=== PATIENT | male | born 1935 | race Caucasian/White ===

== ENCOUNTER 2016-04-05 07:14 | Inpatient (IN) ==
--- NOTE | 2016-04-05 07:46 | Emergency Department Note ---
Disposition Clinical Impression: Congestive heart failure Qualifiers: Congestive heart failure type: unspecified congestive heart failure type Congestive heart failure chronicity: acute on chronic Qualified Code(s): I50.9 - Heart failure, unspecified Disposition: Admitted As Inpatient Condition: Fair Time of Disposition: 08:59 SOB HPI - General Chief Complaint: ED Shortness of Breath/Dyspnea Stated Complaint: SOB Time Seen by Provider: 04/05/16 07:31 Source: patient, family Limitations: no limitations Nursing Notes Reviewed: Yes Vital Signs Reviewed: Yes - History of Present Illness 80-year-old male presents emergency department for a chief complaint of shortness breath and cough. The patient states symptoms began 2 days ago and have progressively worsened since. He states that he is experiencing a cough that is occasionally productive of a scant amount of whitish colored sputum. He complains of shortness of breath upon exertion and at rest. He states that this shortness of breath is made worse by lying down. He denies any fever, complains of episodic chills. He denies any nausea, vomiting, abdominal pain, diarrhea. He denies any chest pain. He does complain of noticeable worsening of swelling in his left lower extremity. Of note, the patient is an above-the- knee right amputee. Pt Subjective Complaint: shortness of breath, cough Onset (ago): day(s) (since this past Wednesday) Severity: moderate Consistency/Duration: constant Improves with: nothing Worsens with: lying flat, exertion, movement Known history of: congestive heart failure, diabetes Associated symptoms: Reports: cough, wheezing, sputum production, orthopnea. Denies: chest pain, fever, lower extremity pain, hemoptysis, nausea/vomiting, abdominal pain Treatment prior to arrival: none Cough Description: Productive Sputum Amount: Scant Sputum Color: White - Related Data Home Medications Medication Instructions Recorded Confirmed Acetaminophen [Tylenol] 325 mg PO 05/26/15 Allopurinol [Zyloprim 300 MG] 300 mg PO 05/26/15 Aspirin [Adult Low Dose Aspirin EC] 81 mg PO 05/26/15 Atenolol [Tenormin] 12.5 mg PO DAILY 05/26/15 05/26/15 Atorvastatin [Lipitor] 10 mg PO HS 05/26/15 05/26/15 Carboxymethylcellulose Sodium 05/26/15 [Refresh Tears] Cyclobenzaprine [Flexeril] 10 mg PO 05/26/15 Furosemide [Lasix] 20 mg PO 05/26/15 Insulin ASPART [NovoLOG] 05/26/15 Insulin Glargine [Lantus] 0 unit 05/26/15 Levothyroxine [Synthroid] 100 mcg PO 05/26/15 Nitroglycerin [Nitrostat] 0.6 mg SL 05/26/15 Ranitidine HCl [Zantac] 150 mg PO 05/26/15 Tamsulosin [Flomax] 0.4 mg PO 05/26/15 Timolol [Betimol] 5 ml OP 05/26/15 Previous Rx's Medication Instructions Recorded TraMADol [Ultram] 50 mg PO QID PRN #16 tablet 05/26/15 Clindamycin HCl [Cleocin HCl] 300 mg PO TID 10 Days 09/18/15 Mupirocin [Bactroban Oint] 1 appl TP BID 14 Days 09/18/15 Allergies Allergy/AdvReac Type Severity Reaction Status Date / Time acetaminophen [From Percocet] Allergy Hives Verified 04/05/16 07:20 Oxycodone [From Percocet] Allergy Hives Verified 04/05/16 07:20 prednisone Allergy Rash Verified 04/05/16 07:20 All systems ED: reviewed and negative except as stated. Constitutional: Reports: as per HPI, chills. Denies: fever, weakness, weight change Cardiovascular: Reports: dyspnea on exertion. Denies: chest pain, palpitations , edema, syncope Respiratory: Reports: as per HPI, cough, dyspnea, wheezes, sputum production. Denies: hemoptysis, stridor Gastrointestinal: Denies: abdominal pain, nausea, vomiting, diarrhea, constipation, hematemesis, melena, hematochezia Genitourinary: Denies: urgency, dysuria, frequency, hematuria Musculoskeletal: Denies: back pain, neck pain, arthralgia, myalgia Integumentary: Denies: rash, abrasion, lesions Neurological: Denies: headache, weakness, numbness, paresthesias, confusion, abnormal gait, vertigo Psychiatric: Denies: anxiety, depression, suicidal thoughts, homicidal thoughts , auditory hallucinations, visual hallucinations Endocrine: Denies: fatigue Hematological/Lymphatic: Denies: easy bleeding, easy bruising Allergic/Immunologic: Denies: facial swelling, urticaria Past Medical History - Past Medical History Attestation: Yes The following information was validated with the patient. Source: patient Medical history: Reports: diabetes, GERD, hypertension, myocardial infarction, other Psychiatric history: Reports: anxiety - Social History Smoking Status: Never smoker Smokeless Tobacco Status: No Alcohol use: Reports: none Drug use: Reports: none Physical Exam - General Limitations: no limitations General appearance: alert, anxious - Head Head exam: atraumatic, normocephalic, normal inspection - Eye Eye exam: Present: normal appearance, PERRL, EOMI. Absent: nystagmus - ENT ENT exam: mucous membranes moist - Neck Neck exam: Present: normal inspection, full ROM, trachea midline - Chest Chest inspection: Present: normal inspection, symmetric chest wall rise - Respiratory Respiratory exam: Present: normal lung sounds bilaterally. Absent: respiratory distress, wheezes, stridor, accessory muscle use, prolonged expiratory phase - Cardiovascular Cardiovascular exam: Present: regular rate, normal rhythm, normal heart sounds - Abdominal Exam Abdominal exam: Present: soft, Non-Tender, normal bowel sounds. Absent: tenderness, distention, guarding, rebound, rigidity - Extremities Exam Extremities exam: Present: full ROM, pedal edema (2+ pitting edema noted to the left lower extremity, of note, the patient is a right [id number] amputee.). Absent: tenderness - Back Exam Back exam: Present: normal inspection, full ROM. Absent: tenderness - Neurological Exam Neurological exam: Present: alert, oriented X3 - Psychiatric Psychiatric exam: Present: normal affect, normal mood - Skin Skin exam: Present: warm, dry, intact, normal color. Absent: rash, cyanosis, diaphoresis, erythema, pallor, mottled Course Course Narrative: At this time, laboratory results and chest x-ray are pending. 0750: I discussed this patient's case with Dr. Zuleta. Dr. Zuleta agrees with the above plan. 0850: I spoke with Dr. Swain of the hospitalist service. Dr. Swain accepts the patient for admission. Vital Signs Temperature 97.2 F L 04/05/16 07:15 Pulse Rate 67 04/05/16 07:15 Respiratory Rate 24 04/05/16 07:15 Blood Pressure 154/77 04/05/16 07:15 O2 Sat by Pulse Oximetry 97 04/05/16 07:15 Temperature 97.2 F L 04/05/16 07:15 Pulse Rate 59 04/05/16 09:12 Respiratory Rate 12 04/05/16 09:38 Blood Pressure 151/82 04/05/16 09:38 O2 Sat by Pulse Oximetry 98 04/05/16 09:12 Oxygen Delivery Oxygen Delivery Nasal Cannula Shortness of Breath/Dyspnea - Medical Records Medical records reviewed: Yes I reviewed the patient's medical records. - Lab Data Lab results reviewed: Yes I reviewed the patient's lab results. Lab results narrative: Laboratory Last Values WBC 3.9 K/mcL (4.3-11.1) L 04/05/16 08:03 RBC 3.60 M/mcL (4.19-5.50) L 04/05/16 08:03 Hgb 12.1 g/dL (12.9-16.9) L 04/05/16 08:03 Hct 35.5 % (37.5-50.1) L 04/05/16 08:03 MCV 98.6 fL (83.0-100.0) 04/05/16 08:03 MCH 33.6 pg (28.0-33.3) H 04/05/16 08:03 MCHC 34.1 g/dL (31.6-35.5) 04/05/16 08:03 RDW 13.6 % (11.5-14.5) 04/05/16 08:03 Plt Count 119 K/mcL (140-400) L 04/05/16 08:03 MPV 10.5 fL (9.4-12.4) 04/05/16 08:03 Immature Gran % 0.8 % (0-4) 04/05/16 08:03 Seg Neutrophils % 58.5 % 04/05/16 08:03 Lymphocytes % 24.8 % 04/05/16 08:03 Monocytes % 9.0 % 04/05/16 08:03 Eosinophils % 5.9 % 04/05/16 08:03 Basophils % 1.0 % 04/05/16 08:03 Neutrophils # 2.3 K/mcL (1.6-8.9) 04/05/16 08:03 Lymphocytes # 1.0 K/mcL (0.6-4.6) 04/05/16 08:03 Monocytes # 0.4 K/mcL (0.0-1.3) 04/05/16 08:03 Eosinophils # 0.2 K/mcL (0.0-0.6) 04/05/16 08:03 Basophils # 0.0 K/mcL (0.0-0.2) 04/05/16 08:03 Immature Plt Fraction 5.9 % (1.1-6.1) 04/05/16 08:03 Sodium 137 mEq/L (136-145) 04/05/16 08:03 Potassium 4.2 mEq/L (3.5-4.5) 04/05/16 08:03 Chloride 107 mEq/L (98-109) 04/05/16 08:03 Carbon Dioxide 21 mEq/L (19-29) 04/05/16 08:03 BUN 29 mg/dL (8-26) H 04/05/16 08:03 Creatinine 1.56 mg/dL (0.72-1.25) H 04/05/16 08:03 Est GFR ( Amer) 52 (> 60) L 04/05/16 08:03 Est GFR (Non-Af Amer) 43 (> 60) L 04/05/16 08:03 BUN/Creatinine Ratio 19 (6-26) 04/05/16 08:03 Glucose 139 mg/dL (70-99) H 04/05/16 08:03 Calculated Osmolality 292 (280-300) 04/05/16 08:03 Calcium 8.8 mg/dL (8.6-10.8) 04/05/16 08:03 Troponin I 0.40 ng/mL (0-0.03) H* 04/05/16 08:03 B-Natriuretic Peptide 1013 pg/mL (0-100) H 04/05/16 08:03 Result diagrams: 04/05/16 08:03 04/05/16 08:03 Lab Results 04/05/16 04/05/16 04/05/16 Range/Units 08:03 08:03 08:03 WBC 3.9 L (4.3-11.1) K/mcL RBC 3.60 L (4.19-5.50) M/mcL Hgb 12.1 L (12.9-16.9) g/dL Hct 35.5 L (37.5-50.1) % MCV 98.6 (83.0-100.0) fL MCH 33.6 H (28.0-33.3) pg MCHC 34.1 (31.6-35.5) g/dL RDW 13.6 (11.5-14.5) % Plt Count 119 L (140-400) K/mcL MPV 10.5 (9.4-12.4) fL Immature Gran % 0.8 (0-4) % Seg Neutrophils % 58.5 % Lymphocytes % 24.8 % Monocytes % 9.0 % Eosinophils % 5.9 % Basophils % 1.0 % Neutrophils # 2.3 (1.6-8.9) K/mcL Lymphocytes # 1.0 (0.6-4.6) K/mcL Monocytes # 0.4 (0.0-1.3) K/mcL Eosinophils # 0.2 (0.0-0.6) K/mcL Basophils # 0.0 (0.0-0.2) K/mcL Immature Plt Fraction 5.9 (1.1-6.1) % Sodium 137 (136-145) mEq/L Potassium 4.2 (3.5-4.5) mEq/L Chloride 107 (98-109) mEq/L Carbon Dioxide 21 (19-29) mEq/L BUN 29 H (8-26) mg/dL Creatinine 1.56 H (0.72-1.25) mg/dL Est GFR ( Amer) 52 L (> 60) Est GFR (Non-Af Amer) 43 L (> 60) BUN/Creatinine Ratio 19 (6-26) Glucose 139 H (70-99) mg/dL Calculated Osmolality 292 (280-300) Calcium 8.8 (8.6-10.8) mg/dL Troponin I 0.40 H* (0-0.03) ng/mL B-Natriuretic Peptide (0-100) pg/mL 04/05/16 Range/Units 08:03 WBC (4.3-11.1) K/mcL RBC (4.19-5.50) M/mcL Hgb (12.9-16.9) g/dL Hct (37.5-50.1) % MCV (83.0-100.0) fL MCH (28.0-33.3) pg MCHC (31.6-35.5) g/dL RDW (11.5-14.5) % Plt Count (140-400) K/mcL MPV (9.4-12.4) fL Immature Gran % (0-4) % Seg Neutrophils % % Lymphocytes % % Monocytes % % Eosinophils % % Basophils % % Neutrophils # (1.6-8.9) K/mcL Lymphocytes # (0.6-4.6) K/mcL Monocytes # (0.0-1.3) K/mcL Eosinophils # (0.0-0.6) K/mcL Basophils # (0.0-0.2) K/mcL Immature Plt Fraction (1.1-6.1) % Sodium (136-145) mEq/L Potassium (3.5-4.5) mEq/L Chloride (98-109) mEq/L Carbon Dioxide (19-29) mEq/L BUN (8-26) mg/dL Creatinine (0.72-1.25) mg/dL Est GFR ( Amer) (> 60) Est GFR (Non-Af Amer) (> 60) BUN/Creatinine Ratio (6-26) Glucose (70-99) mg/dL Calculated Osmolality (280-300) Calcium (8.6-10.8) mg/dL Troponin I (0-0.03) ng/mL B-Natriuretic Peptide 1013 H (0-100) pg/mL - Radiology Data Radiology results reviewed: Yes I reviewed the patient's radiology results. Chest X-Ray 04/05/16 07:32 IMPRESSION: 1. Cardiomegaly with mild congestive heart failure. D/ / 04/05/2016 08:46:08 Kirsty Christianson MD / romero Interpreting Provider: Kirsty Christianson MD - EKG Data EKG attestation: Yes I reviewed and interpreted this EKG. EKG results narrative: EKG reviewed by Dr. Zuleta as well. EKG shows a sinus rhythm with a first- degree AV block at a rate of 64 bpm. No STEMI. Attestation Statement - Attestation Attestation: For this encounter, I have reviewed the ENGINE WATCHMAN or PA documentation, treatment plan, and medical decision making; and I have had face to face time with this patient. 80-year-old who comes in with increasing shortness of breath and swelling. Patient has a history of CHF. Physical examination does have evidence of fluid overload with some rales. Workup is consistent with CHF exacerbation patient will be admitted.
[2016-04-05] MEDS ORDERED: Albuterol 2.5 MG/3 ML NEBULIZER IH ONE (07:53)
[2016-04-05 08:11] LABS: Eosinophils # 0.2 K/mcL (0.0-0.6); Eosinophils % 5.9 %; Hematocrit 35.5 % (37.5-50.1); Hemoglobin 12.1 g/dL (12.9-16.9); Immature Granulocytes % 0.8 % (0-4); Immature Platelets 5.9 % (1.1-6.1); Lymphocytes % 24.8 %; Mean Corpuscular HGB Conc 34.1 g/dL (31.6-35.5); Mean Corpuscular Hemoglobin 33.6 pg (28.0-33.3); Mean Corpuscular Volume 98.6 fL (83.0-100.0); Mean Platelet Volume 10.5 fL (9.4-12.4); Monocytes # 0.4 K/mcL (0.0-1.3); Neutrophils # 2.3 K/mcL (1.6-8.9); Platelet Count 119 K/mcL (140-400); Red Cell Distribution Width 13.6 % (11.5-14.5); Segmented Neutrophils % 58.5 %
[2016-04-05 08:25] LABS: Calcium 8.8 mg/dL (8.6-10.8); Potassium 4.2 mEq/L (3.5-4.5)
[2016-04-05] MEDS ORDERED: Aspirin 81 MG TAB.CHEW PO ONE (08:45)
[2016-04-05] MEDS ORDERED: Furosemide 40 MG/4 ML VIAL IVP ONE (08:45)
[2016-04-05] MEDS ORDERED: Naloxone 0.4 MG/ML INJ IVP PRN (10:28)
--- NOTE | 2016-04-05 10:39 | Internal Med History&Physical ---
Date of Encounter: 04/05/16 Time of Encounter: 10:00 Assessment and Plan (1) Acute heart failure Current visit: Yes Status: Acute no echo in our system. history of CHF since 2001 but not on any fluid restriction at home, takes furosemide 20 mg daily. EKG showed SR HR 64, no acute changes. CXR showed mild pulmonary edema. troponin elevated at 0.4. cardiology consulted. furosemide. metoprolol. fluid restriction. strict i/o. check echocardiogram. trend troponins. Qualifiers: Heart failure type: unspecified heart failure type Qualified Code(s): I50.9 - Heart failure, unspecified (2) Elevated troponin Current visit: Yes Status: Acute r/o ACS. Patient at high risk for ACS given prior CAD s/p CABG and CHF. cardiology consulted. EKG showed no acute changes. follow serial troponins. ASA. metoprolol. statin. (3) CKD (chronic kidney disease) stage 3, GFR 30-59 ml/min Current visit: Yes Status: Chronic at baseline. close monitoring of kidney function. avoid nephrotoxins as possible (4) CAD (coronary artery disease) Current visit: No Status: Chronic plan as above. Qualifiers: Coronary Disease-Associated Artery/Lesion type: [place] artery [place] vs. transplanted heart: [place] heart Associated angina: without angina Qualified Code(s): I25.10 - Atherosclerotic heart disease of [place] coronary artery without angina pectoris (5) HTN (hypertension) Current visit: Yes Status: Acute controlled. resume home meds Qualifiers: Hypertension type: essential hypertension Qualified Code(s): I10 - Essential (primary) hypertension (6) Diabetes mellitus Current visit: Yes Status: Acute lantus and novolog at home. ISS. diabetic diet. Qualifiers: Diabetes mellitus type: type 2 Diabetes mellitus complication status: with circulatory complication Diabetes mellitus complication detail: with other circulatory complications Diabetes mellitus usp insulin use: with usp use Qualified Code(s): E11.59 - Type 2 diabetes mellitus with other circulatory complications; Z79.4 - intermediate designer (current) use of insulin (7) S/P CABG x 3 Current visit: No Status: Chronic (8) Severe peripheral arterial disease Current visit: No Status: Chronic statin. [facility] Internal Medicine - H&P: HPI Chief complaint: shortness of breath for the past 2 days. Admitted From: Home History of present illness: Mr. Read is a 80 year old male with past medical history of CAD status post CABG in 2001, CHF, diabetes mellitus, CKD 3, severe peripheral vascular disease status post right AKA and s/p left leg bypass graft, and HTN. Progressive shortness of breath with the past 2 days with associated pressure on his midsternal area and wheezing. Positive orthopnea, Dry cough and PND. Chronic lower extremity edema in left leg. No syncope. No fever. No abdominal pain. No urinary complaints. No bleeding. No upper respiratory symptoms. In ED, he received lasix and nebs and has urinated twice with resolution of his chest pressure. No echocardiogram in our system. Past Med Surg Social Fam HX - Past Medical History Medical history: diabetes, GERD, hypertension, myocardial infarction, other Psychiatric history: anxiety - Social History Smoking Status: Never smoker Smokeless Tobacco Status: No Alcohol use: none Drug use: none - Family History Father Hx Family Cancer: Yes (esophageal) Internal Medicine - H&P: Meds Acetaminophen [Tylenol] 650 mg PO BID 05/26/15 [History] Allopurinol [Zyloprim 300 MG] 300 mg PO DAILY 05/26/15 [History] Aspirin [Adult Low Dose Aspirin EC] 81 mg PO DAILY 05/26/15 [History] Atenolol [Tenormin] 12.5 mg PO DAILY 05/26/15 [History] Atorvastatin [Lipitor] 10 mg PO DAILY 05/26/15 [History] Carboxymethylcellulose Sodium [Refresh Tears] 1 drop OP DAILY 05/26/15 [History] Furosemide [Lasix] 20 mg PO DAILY 05/26/15 [History] Insulin ASPART [NovoLOG] 11 - 15 unit SQ TID 05/26/15 [History] Insulin Glargine [Lantus] 40 unit SQ HS 05/26/15 [History] Levothyroxine [Synthroid] 100 mcg PO DAILY 05/26/15 [History] Ranitidine HCl [Zantac] 150 mg PO BID 05/26/15 [History] Tamsulosin [Flomax] 0.4 mg PO DAILY 05/26/15 [History] Timolol [Betimol] 1 drop OP DAILY 05/26/15 [History] Finasteride [Proscar] 5 mg PO DAILY 04/05/16 [History] Lactulose 10 gm PO DAILY 04/05/16 [History] Nitroglycerin [Nitrostat] 0.4 mg SL AD PRN 04/05/16 [History] Allergies acetaminophen [From Percocet] Allergy (Verified 04/05/16 07:20) Hives Oxycodone [From Percocet] Allergy (Verified 04/05/16 07:20) Hives prednisone Allergy (Verified 04/05/16 07:20) Rash All Systems PM: A 10-system review of systems was performed and is negative for pertinent findings except as documented above in the HPI. - Constitutional Vitals: Temp Pulse Resp BP Pulse Ox 97.2 F L 59 12 151/82 98 04/05/16 07:15 04/05/16 09:12 04/05/16 09:38 04/05/16 09:38 04/05/16 09:12 General appearance: Present: cooperative, mild distress, A&O X 3, pleasant, answers questions appropriately - Eye Eye exam: Present: PERRL, sclera anicteric - Neck Neck exam general surgery: Present: supple, trachea midline. Absent: lymphadenopathy - Respiratory Respiratory exam: Present: decreased breath sounds, wheezes - Cardiovascular Cardiovascular exam: Present: distant heart sounds, RRR - GI/Abdominal GI/Abdominal exam: Present: normal bowel sounds, soft. Absent: distended, tenderness - Extremities Exam Additional comments: right AKA. left leg with signs of chronic ischemic skin changes and 1+ LE edema up to the knees - Back Exam Back exam: Absent: CVA tenderness (L), CVA tenderness (R) - Neurological Exam Neurological exam: Present: alert, oriented X3, no focal deficits. Absent: facial droop, speech deficit - Skin Skin exam: Present: dry. Absent: rash Internal Med - H&P Results - Labs CBC & Chem 7: 04/05/16 08:03 04/05/16 08:03
[2016-04-05] MEDS ORDERED: *HR* Dextrose 50 % in Water (Syg) 50 ML SYRINGE IVP PRN (10:51)
[2016-04-05] MEDS ORDERED: Dextrose Gel 15 GM PO PRN ×2 (10:51)
[2016-04-05] MEDS ORDERED: Albuterol 2.5 MG/3 ML NEBULIZER IH PRN (10:51)
[2016-04-05] MEDS ORDERED: D5% in Water 1,000 ML IV PRN (10:51)
--- NOTE | 2016-04-05 11:48 | Cardiology Consult Note ---
Date of Encounter: 04/05/16 Time of Encounter: 11:46 Assessment and Plan Discussion w patient/family: The assessment and plan as outlined above was discussed with the patient and/or family members who expressed understanding and agreement. All questions were answered. Thank you for involving us in the care of your patient. Please call with any questions. CHF: new onset s/p CABG: clinically no signs of ischemia HTN : fairly well controlled Plan; Cont with IV diuresis echo strict I and O daily weights based on results of echo will make further recs Thanks ! History of Present Illness History of present illness: Mr. Read is a 80 year old male with a known history of CAD, s/p CABG, now here for [place] and PND, no cp, occ ankle swelling , mild cough Pt was given IV lasix in ER and does feel better Past Med Surg Social Fam HX - Past Medical History Medical history: diabetes, GERD, hypertension, myocardial infarction, other Psychiatric history: anxiety - Past Surgical History Surgical History: cataract, coronary bypass (CABG) - Social History Smoking Status: Never smoker Smokeless Tobacco Status: No Alcohol use: none Drug use: none - Family History Father Living Status: Hx Family Cancer: Yes Mother Living Status: Hx Family Cardiac Disorders: Yes Hx Family Cancer: Yes Medications and Allergies Acetaminophen [Tylenol] 650 mg PO BID 05/26/15 [History] Allopurinol [Zyloprim 300 MG] 300 mg PO DAILY 05/26/15 [History] Aspirin [Adult Low Dose Aspirin EC] 81 mg PO DAILY 05/26/15 [History] Atenolol [Tenormin] 12.5 mg PO DAILY 05/26/15 [History] Atorvastatin [Lipitor] 10 mg PO DAILY 05/26/15 [History] Carboxymethylcellulose Sodium [Refresh Tears] 1 drop OP DAILY 05/26/15 [History] Furosemide [Lasix] 20 mg PO DAILY 05/26/15 [History] Insulin ASPART [NovoLOG] 11 - 15 unit SQ TID 05/26/15 [History] Insulin Glargine [Lantus] 40 unit SQ HS 05/26/15 [History] Levothyroxine [Synthroid] 100 mcg PO DAILY 05/26/15 [History] Ranitidine HCl [Zantac] 150 mg PO BID 05/26/15 [History] Tamsulosin [Flomax] 0.4 mg PO DAILY 05/26/15 [History] Timolol [Betimol] 1 drop OP DAILY 05/26/15 [History] Finasteride [Proscar] 5 mg PO DAILY 04/05/16 [History] Lactulose 10 gm PO DAILY 04/05/16 [History] Nitroglycerin [Nitrostat] 0.4 mg SL AD PRN 04/05/16 [History] Allergies acetaminophen [From Percocet] Allergy (Verified 04/05/16 07:20) Hives Oxycodone [From Percocet] Allergy (Verified 04/05/16 07:20) Hives prednisone Allergy (Verified 04/05/16 07:20) Rash All Systems Review: A 10-system review of systems was performed and is negative for pertinent findings except as documented above in the HPI. Physical Examination Vital Signs, Last 4 Hours Temp Pulse Resp BP Pulse Ox 04/05/16 10:31 97.5 F L 59 18 145/82 98 Cardiac: Reg Rate and Rhythm (JVD: 10 cm ), Normal S1 and S2, No Murmur Extremities: No Clubbing (1+ pitting edema ), No Cyanosis, No Edema, Normal Pulses Results 04/05/16 08:03 04/05/16 08:03 Consult Discharge Plan - Plan Referrals: Nestor De La Cruz MD [Primary Care Provider] -
[2016-04-05] MEDS: Insulin LISPRO 300 UNITS/3 ML VIAL SQ SCH ×3 (12:10→21:55)
[2016-04-05] MEDS: Aspirin Enteric Coated 81 MG Tablet PO SCH (12:17)
[2016-04-05] MEDS ORDERED: Perflutren Lipid Microsphere 1.3 ML in 0.9 % Sodium Chloride 8.7 ML IVP ONE (14:10)
--- NOTE | 2016-04-05 15:19 | ECHO - Doppler Report ---
Echo with Imaging Enhancement Agent Name: Justin Read Date of Study: 04/05/2016 Date: 1935 Ht: 68.0 in Medical Record#: [id number] Age: 80 Wt: 225.0 lb Gender: Male BSA: 2.15 Order #: [id number] Location: [facility] Room #: [id number] Reading Physician: Esteban Silveira DO, FACC, BHAVIN, DIETER Director Part: Chelsie Hu, RVT, RDCS Ordering Physician: Manuela Canas MD Primary Physician: Nestor De La Cruz M.D. Indications: Congestive heart failure Impressions: LVEF 55%. Normal LV chamber size, wall thickness and overall function. Mild segmental left ventricular systolic dysfunction. Moderate left ventricular diastolic dysfunction. Atypical septal motion consistent with bundle branch block. Right ventricle was not well visualized. Grossly, it appears mildly dilated and hypokinetic. No evidence of pulmonary hypertension identified. RVSP not well obtained. No significant valvular dysfunction. Left Ventricular Wall Motion: Rest Echo Findings The basal inferior wall was akinetic. All other wall segments showed normal motion. Findings: Study Quality * Technically sub-optimal due to poor echocardiographic windows. ECG Findings * Sinus rhythm with BBB. Left Ventricle * LVEF 55%. * Normal LV chamber size, wall thickness and overall function. * Mild segmental left ventricular systolic dysfunction. * Moderate left ventricular diastolic dysfunction. * Atypical septal motion consistent with bundle branch block. Right Ventricle * Right ventricle was not well visualized. Grossly, it appears mildly dilated and hypokinetic. Left Atrium * Mildly dilated left atrium. Right Atrium * Normal right atrial size. Interatrial Septum * Interatrial septum not well evaluated. Aortic Valve * Aortic valve not well visualized. * No aortic regurgitation. * No aortic stenosis. Mitral Valve * Mild mitral annular calcification * Mildly thickened mitral valve leaflets. * Trace mitral regurgitation. * No mitral stenosis. Tricuspid Valve * Normal tricuspid valve structure and function. * Trace tricuspid regurgitation. * No evidence of pulmonary hypertension. Pulmonic Valve * Pulmonic valve not well visualized. Aorta * Normally sized aortic root. Pericardium * The pericardium appears normal. IVC * The IVC is not well evaluated. Pulmonary Artery * Pulmonary artery not well visualized. History Hypertension Diabetes Hypercholesteremia Family History of CAD History of CAD/PTCA Myocardial Infarction Coronary Artery Bypass Graft 2013 a Previous Echo was performed. Contrast: Definity 1.3 ml in 8.7 ml of saline 3 ml. Measurements: BP: 145/ 82 2D Normal Values IVSd: 1.20 cm 0.6 - 1.0 cm LVIDd: 4.80 cm 3.7 - 5.6 cm LVPWd: 1.20 cm 0.6 - 1.1 cm LVIDs: 3.70 cm 1.5 - 3.6 cm AO: 2.50 cm < 4.0 cm LA: 3.70 cm 2.0 - 4.0cm %FS: 22.90 cm >25 % LA volume: 44 Mitral Valve Peak E:1.10 m/sec Peak A:.55 m/sec E/A Ratio:2 Aortic Valve AI pressure Half-time: 1202.00 msec Tricuspid Valve TV Regurg Peak Grad: 18.00mmHg TV Regurg Peak Amadou: 2.15m/sec Updated by Esteban Silveira DO, NERI, DIETER DELCID on 04/05/2016 3:12:23 PM electronically signed on 04/05/2016 3:13:07 PM with status of Final Wall Motion Floyd: 1=Normal, 2=Hypokinesis, 3=Akinesis, 4=Dyskinesis, 5=Aneurysmal, 6=Hyperkinetic, X=Not Visualized (Blank)=Missing
[2016-04-05] MEDS: Albuterol 2.5 MG/3 ML NEBULIZER IH SCH (15:25)
[2016-04-05] MEDS: Furosemide 20 MG/2 ML VIAL IVP SCH (16:33)
[2016-04-05] MEDS ORDERED: Furosemide 40 MG in 0.9 % Sodium Chloride 50 ML IVPB SCH (17:00)
[2016-04-05] MEDS ORDERED: Famotidine 20 MG TABLET PO SCH (21:00)
[2016-04-06] MEDS: Albuterol 2.5 MG/3 ML NEBULIZER IH SCH ×4 (00:38→21:26)
[2016-04-06 05:01] LABS: Basophils % 0.6 %; Eosinophils # 0.2 K/mcL (0.0-0.6); Eosinophils % 4.2 %; Hematocrit 36.1 % (37.5-50.1); Hemoglobin 12.5 g/dL (12.9-16.9); Immature Granulocytes % 0.8 % (0-4); Lymphocytes % 20.9 %; Mean Corpuscular HGB Conc 34.6 g/dL (31.6-35.5); Mean Corpuscular Volume 98.1 fL (83.0-100.0); Mean Platelet Volume 11.1 fL (9.4-12.4); Monocytes # 0.5 K/mcL (0.0-1.3); Monocytes % 11.1 %; Platelet Count 117 K/mcL (140-400); Red Blood Count 3.68 M/mcL (4.19-5.50); Red Cell Distribution Width 13.6 % (11.5-14.5); Segmented Neutrophils % 62.4 %
[2016-04-06 05:17] LABS: Potassium 4.1 mEq/L (3.5-4.5)
[2016-04-06] MEDS: Aspirin Enteric Coated 81 MG Tablet PO SCH (08:19)
[2016-04-06] MEDS: Famotidine 20 MG TABLET PO SCH (08:20)
[2016-04-06] MEDS: Insulin LISPRO 300 UNITS/3 ML VIAL SQ SCH ×6 (08:20→22:08)
[2016-04-06] MEDS: Furosemide 20 MG/2 ML VIAL IVP SCH (08:20)
[2016-04-06] MEDS: Finasteride 5 MG TABLET PO SCH (08:20)
--- NOTE | 2016-04-06 11:17 | Cardiology Progress Note ---
Date of Encounter: 04/06/16 Time of Encounter: 10:45 Assessment and Plan (1) Congestive heart failure Current Visit: Yes Status: Acute Acute on chronic diastolic CHF. TTE: EF 55%, mild segmental LV systolic dysfunction, moderate LVDD, mildly dilated and hypokinetic RV, no significant valvular dysfunction. Basal inferior wall was akinetic. Symptoms nearly resolved with 24 hours of IV diuresis. Kidney function remains at baseline. Discussed CHF guidelines including low sodium diet and 2L fluid restriction. Transition to oral lasix by discharge, continue betablocker. Qualifiers: Congestive heart failure type: diastolic Congestive heart failure chronicity: acute on chronic Qualified Code(s): I50.33 - Acute on chronic diastolic (congestive) heart failure (2) Elevated troponin Current Visit: Yes Status: Acute Troponin 0.40, 0.52, 0.46 in the setting of acute volume overload. TTE shows preserved LVEF, EF 60%. Akinetic basal inferior wall. Denies chest pain or discomfort, no ischemic ECG changes. Given elevated troponin, CHF exacerbation, & new wall motion abnormality, I discussed proceeding with [facility]; at this time, patient elects to continue with medical management with close outpatient follow-up. Will start long-acting nitrate. F/u in clinic in 1-2 weeks. Continue asa, statin, betablocker. (3) CKD (chronic kidney disease) stage 3, GFR 30-59 ml/min Current Visit: Yes Status: Chronic Follows with Dr. Garrett as outpatient. SCr within baseline. Discussion w patient/family: The assessment and plan as outlined above was discussed with the patient and/or family members who expressed understanding and agreement. All questions were answered. Thank you for involving us in the care of your patient. Please call with any questions. The patient will be discussed and reviewed with Dr. David Andino; changes to be made accordingly. Subjective Principal diagnosis: dCHF, elevated troponin Interval history: Seen and examined. Reports symptoms--dyspnea/edema--significant improved overnight. Denies chest pain or discomfort or any other symptoms overnight. Objective Vital Signs, Last 4 Hours Temp Pulse Resp BP Pulse Ox 04/06/16 11:01 97.4 F L 63 16 103/68 96 04/06/16 10:15 16 95 04/06/16 07:58 97.9 F 57 16 125/75 95 General: Conversant, No Apparent Distress Cardiac: Reg Rate and Rhythm, Normal S1 and S2 Lungs: Normal Breath Sounds Neuro: Alert and responsive Abdomen: Soft Skin: No rashes noted on visualized skin Musculoskeletal: No Chest Wall Tenderness Extremities: Other (R BKA, LLE discoloration ) Results 04/06/16 04:37 04/06/16 04:37 Lab Results 04/05/16 04/06/16 04/06/16 14:49 04:37 04:37 WBC 4.8 Hgb 12.5 L Hct 36.1 L Plt Count 117 L Sodium Potassium Chloride Carbon Dioxide BUN Creatinine Glucose Calcium Magnesium Troponin I 0.52 H* 0.46 H* 04/06/16 04:37 WBC Hgb Hct Plt Count Sodium 141 Potassium 4.1 Chloride 106 Carbon Dioxide 25 BUN 29 H Creatinine 1.63 H Glucose 161 H Calcium 9.0 Magnesium 2.0 Troponin I Active Medications Albuterol Sulfate (Proventil Neb) 2.5 mg IH TID YOMAIRA PRN Reason: Protocol Stop: 10/05/16 15:01 Last Admin: 04/06/16 10:14 Dose: 2.5 mg Albuterol Sulfate (Proventil Neb) 2.5 mg IH [id number] PRN; Protocol PRN Reason: Shortness Of Breath/Wheezing Stop: 10/05/16 10:52 Allopurinol (Zyloprim) 300 mg PO DAILY YOMAIRA Stop: 10/06/16 09:01 Last Admin: 04/06/16 08:20 Dose: 300 mg Aspirin (Aspirin Ec) 81 mg PO DAILY YOMAIRA Stop: 10/05/16 11:01 Last Admin: 04/06/16 08:19 Dose: 81 mg Atorvastatin Calcium (Lipitor) 10 mg PO HS YOMAIRA Stop: 10/05/16 21:01 Last Admin: 04/05/16 22:04 Dose: 10 mg Dextrose/Water (Dextrose 50% (Syg)) 25 ml IVP AD PRN PRN Reason: Hypoglycemia Stop: 10/05/16 10:52 Famotidine (Pepcid) 20 mg PO DAILY YOMAIRA PRN Reason: Protocol Stop: 10/06/16 09:01 Last Admin: 04/06/16 08:20 Dose: 20 mg Finasteride (Proscar) 5 mg PO DAILY YOMAIRA PRN Reason: Protocol Stop: 10/06/16 09:01 Last Admin: 04/06/16 08:20 Dose: 5 mg Furosemide (Lasix) 20 mg IVP BIDDIURETIC YOMAIRA Stop: 10/05/16 17:01 Last Admin: 04/06/16 08:20 Dose: 20 mg Dextrose (Dextrose 5%) 1,000 mls @ 100 mls/hr IV CONT PRN PRN Reason: HYPOGLYCEMIA Stop: 10/05/16 10:52 Insulin Human Lispro (Humalog) 0 units SQ HS YOMAIRA PRN Reason: Protocol Stop: 10/05/16 21:01 Last Admin: 04/05/16 21:55 Dose: Not Given Insulin Human Lispro (Humalog) 0 units SQ TIDAC YOMAIRA PRN Reason: Protocol Stop: 10/05/16 11:31 Last Admin: 04/06/16 11:32 Dose: 4 units Levothyroxine Sodium (Synthroid) 100 mcg PO DAILY YOMAIRA Stop: 10/06/16 09:01 Last Admin: 04/06/16 08:20 Dose: 100 mcg Metoprolol Tartrate (Lopressor) 12.5 mg PO BID YOMAIRA Stop: 10/05/16 11:16 Last Admin: 04/06/16 08:20 Dose: Not Given Naloxone HCl (Narcan) 0.4 mg IVP Q2MIN PRN PRN Reason: Opioid Reversal Stop: 10/05/16 10:29 Tamsulosin HCl (Flomax) 0.4 mg PO DAILY YOMAIRA PRN Reason: Protocol Stop: 10/06/16 09:01 Last Admin: 04/06/16 08:19 Dose: 0.4 mg Timolol Maleate (Timolol Maleate 0.5%) 1 drop BOTH EYES DAILY YOMAIRA PRN Reason: Protocol Stop: 10/06/16 09:01 Last Admin: 04/06/16 09:39 Dose: 1 drop - Imaging and Cardiology Echo: report reviewed Other Results: 12 hour tele: avg HR=60. No significant event noted. Consult Discharge Plan - Plan Referrals: Nestor De La Cruz MD [Primary Care Provider] - 04/14/16 3:00 pm (Please follow up as schedule....)
[2016-04-06] MEDS: Isosorbide MONOnitrate (24 HR) 30 MG TAB.ER.24H PO SCH (12:57)
--- NOTE | 2016-04-06 13:44 | Internal Med Progress Note ---
Date of Encounter: 04/06/16 Time of Encounter: 10:15 - Assessment and plan (1) Congestive heart failure Current Visit: Yes Status: Acute Assessment and plan: Acute on chronic combined congestive heart failure. Troponins are trending down. Transition Lasix to oral. Cardiology following. Patient is clinically getting better. Moderate risk for complications. Qualifiers: Congestive heart failure type: combined Congestive heart failure chronicity : acute on chronic Qualified Code(s): I50.43 - Acute on chronic combined systolic (congestive) and diastolic (congestive) heart failure (2) Diabetes mellitus Current Visit: Yes Status: Acute Assessment and plan: Uncontrolled. Continue to monitor blood sugars. Will add long-acting insulin. Qualifiers: Diabetes mellitus type: type 2 Diabetes mellitus complication status: with circulatory complication Diabetes mellitus complication detail: with other circulatory complications Diabetes mellitus care home insulin use: with intensive care medicine specialist use Qualified Code(s): E11.59 - Type 2 diabetes mellitus with other circulatory complications; Z79.4 - long-term (current) use of insulin (3) Elevated troponin Current Visit: Yes Status: Acute Assessment and plan: Likely from heart failure and demand ischemia. Trending downwards. Cardiology following. No chest pain. (4) HTN (hypertension) Current Visit: Yes Status: Chronic Assessment and plan: blood pressure is well controlled Qualifiers: Hypertension type: essential hypertension Qualified Code(s): I10 - Essential (primary) hypertension (5) CKD (chronic kidney disease) stage 3, GFR 30-59 ml/min Current Visit: Yes Status: Chronic Assessment and plan: At baseline (6) CAD (coronary artery disease) Current Visit: No Status: Chronic Assessment and plan: Continue aspirin, statin and beta elda Qualifiers: Coronary Disease-Associated Artery/Lesion type: [place] artery [place] vs. transplanted heart: [place] heart Associated angina: without angina Qualified Code(s): I25.10 - Atherosclerotic heart disease of [place] coronary artery without angina pectoris (7) Severe peripheral arterial disease Current Visit: No Status: Chronic Assessment and plan: on aspirin and statin. - Subjective Interval history: Patient is feeling better today. Denies any chest pain. Shortness of breath is improving. No nausea or vomiting. No dizziness or palpitations. - Constitutional Vitals: Temp Pulse Resp BP Pulse Ox 97.4 F L 63 16 103/68 96 04/06/16 11:01 04/06/16 11:01 04/06/16 11:01 04/06/16 11:01 04/06/16 11:01 General appearance: Present: cooperative, mild distress, A&O X 3, pleasant, answers questions appropriately - Neck Neck exam general surgery: Present: supple, trachea midline. Absent: lymphadenopathy - Respiratory Respiratory exam: Present: CTAB. Absent: accessory muscle use, rales, rhonchi, wheezes - Cardiovascular Cardiovascular exam: Present: RRR, +S1, +S2. Absent: diastolic murmur, gallop, rubs, systolic murmur - GI/Abdominal GI/Abdominal exam: Present: normal bowel sounds, soft, no peritoneal signs. Absent: distended, tenderness - Extremities Exam Extremities exam: Present: warm, radial pulses palpable and symetrical. Absent : calf tenderness, cyanotic, pedal edema Internal Medicine: Result - Labs CBC & Chem 7: 04/06/16 04:37 04/06/16 04:37 Labs: Short CBC 04/06/16 Range/Units 04:37 WBC 4.8 (4.3-11.1) K/mcL Hgb 12.5 L (12.9-16.9) g/dL Hct 36.1 L (37.5-50.1) % Plt Count 117 L (140-400) K/mcL Neutrophils # 3.0 (1.6-8.9) K/mcL BMP 04/06/16 04:37 Sodium 141 Potassium 4.1 Chloride 106 Carbon Dioxide 25 BUN 29 H Creatinine 1.63 H Glucose 161 H Calcium 9.0 Cardiac Enzymes 04/05/16 04/06/16 04/06/16 Range/Units 14:49 04:37 11:37 Troponin I 0.52 H* 0.46 H* 0.43 H* (0-0.03) ng/mL Consult Discharge Plan - Plan Referrals: Nestor De La Cruz MD [Primary Care Provider] - 04/14/16 3:00 pm (Please follow up as schedule....) - Attending Attestation This document has been at least partially created by [employer] recognition technology by Dr. Arzate. Errors in grammar, wording or other phrases may exist. If errors are found after the documentation is signed, they will be addressed individually in the addendum section of this document when appropriate.
--- NOTE | 2016-04-06 17:33 | Electrocardiograph Report ---
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
[2016-04-06] MEDS: Furosemide 20 MG TABLET PO SCH (17:34)
[2016-04-06] MEDS: Insulin DETEMIR 100 UNIT/ML X5UNITS SQ SCH (22:02)
[2016-04-07 04:30] LABS: Basophils % 0.9 %; Eosinophils # 0.2 K/mcL (0.0-0.6); Eosinophils % 5.2 %; Hematocrit 33.8 % (37.5-50.1); Hemoglobin 11.8 g/dL (12.9-16.9); Immature Granulocytes % 0.9 % (0-4); Lymphocytes % 20.6 %; Mean Corpuscular HGB Conc 34.9 g/dL (31.6-35.5); Mean Corpuscular Hemoglobin 34.4 pg (28.0-33.3); Mean Corpuscular Volume 98.5 fL (83.0-100.0); Mean Platelet Volume 10.8 fL (9.4-12.4); Monocytes # 0.6 K/mcL (0.0-1.3); Monocytes % 12.3 %; Neutrophils # 2.8 K/mcL (1.6-8.9); Platelet Count 112 K/mcL (140-400); Red Blood Count 3.43 M/mcL (4.19-5.50); Red Cell Distribution Width 13.5 % (11.5-14.5); Segmented Neutrophils % 60.1 %
[2016-04-07 04:55] LABS: Calcium 8.7 mg/dL (8.6-10.8); Potassium 4.1 mEq/L (3.5-4.5)
[2016-04-07] MEDS: Finasteride 5 MG TABLET PO SCH (08:14)
[2016-04-07] MEDS: Isosorbide MONOnitrate (24 HR) 30 MG TAB.ER.24H PO SCH (08:15)
[2016-04-07] MEDS: Aspirin Enteric Coated 81 MG Tablet PO SCH (08:16)
[2016-04-07] MEDS: Furosemide 20 MG TABLET PO SCH ×2 (08:16→16:14)
[2016-04-07] MEDS: Famotidine 20 MG TABLET PO SCH (08:16)
[2016-04-07] MEDS: Insulin LISPRO 300 UNITS/3 ML VIAL SQ SCH ×4 (08:17→21:57)
[2016-04-07] MEDS: Albuterol 2.5 MG/3 ML NEBULIZER IH SCH ×3 (08:30→20:19)
--- NOTE | 2016-04-07 13:39 | Cardiology Progress Note ---
Date of Encounter: 04/07/16 Time of Encounter: 13:45 Assessment and Plan (1) Elevated troponin Current Visit: Yes Status: Acute Troponin 0.40, 0.52, 0.46 in the setting of acute volume overload. TTE shows preserved LVEF, EF 60%. Akinetic basal inferior wall. Denies chest pain or discomfort, no ischemic ECG changes. Given elevated troponin, CHF exacerbation, & new wall motion abnormality recommend ischemic evaluation. After discussed with patient's , they want to proceed with LHC as inpatient. Hx of CKD-III, SCr within baseline. Will consult Nephrology for recommendations prior to LHC (follows Dr. Garrett as outpatient). NPO after MN, plan for LHC in AM if okay by Nephrology. (2) Congestive heart failure Current Visit: Yes Status: Acute Acute on chronic diastolic CHF. TTE: EF 55%, mild segmental LV systolic dysfunction, moderate LVDD, mildly dilated and hypokinetic RV, no significant valvular dysfunction. Basal inferior wall was akinetic. Symptoms nearly resolved with 24 hours of IV diuresis. Kidney function remains at baseline. Discussed CHF guidelines including low sodium diet and 2L fluid restriction. Transition to oral lasix by discharge, continue betablocker. Qualifiers: Congestive heart failure type: combined Congestive heart failure chronicity : acute on chronic Qualified Code(s): I50.43 - Acute on chronic combined systolic (congestive) and diastolic (congestive) heart failure (3) CKD (chronic kidney disease) stage 3, GFR 30-59 ml/min Current Visit: Yes Status: Chronic Follows with Dr. Garrett as outpatient. SCr within baseline. Discussion w patient/family: The assessment and plan as outlined above was discussed with the patient and/or family members who expressed understanding and agreement. All questions were answered. Thank you for involving us in the care of your patient. Please call with any questions. The patient will be discussed and reviewed with Dr. David Andino; changes to be made accordingly. Subjective Principal diagnosis: dCHF, elevated troponin Interval history: Seen and examined. Reports symptoms--dyspnea/edema--significant improved. Re-consulted by primary service--patient now wants to proceed with LHC. Objective Vital Signs, Last 4 Hours Temp Pulse Resp BP Pulse Ox 04/07/16 11:28 97.9 F 65 16 103/60 94 L General: Conversant, No Apparent Distress HEENT: Atraumatic, Normocephaly, Mucus Membranes Moist Cardiac: Reg Rate and Rhythm, Normal S1 and S2 Lungs: Normal Breath Sounds Neuro: Alert and responsive Abdomen: Soft Skin: No rashes noted on visualized skin Musculoskeletal: No Chest Wall Tenderness Extremities: Other (Right BKA, left LE discoloration, +1 thready pulses. ) Results 04/07/16 03:51 04/07/16 03:51 Lab Results 04/07/16 04/07/16 03:51 03:51 WBC 4.7 Hgb 11.8 L Hct 33.8 L Plt Count 112 L Sodium 138 Potassium 4.1 Chloride 105 Carbon Dioxide 23 BUN 29 H Creatinine 1.62 H Glucose 157 H Calcium 8.7 - Imaging and Cardiology Echo: report reviewed - EKG Interpretation EKG results cardiology: personally reviewed Consult Discharge Plan - Plan Referrals: Jesse Rose CNP [Advanced Practice Nurse] - 04/22/16 3:30 pm Nestor De La Cruz MD [Primary Care Provider] - 04/14/16 3:00 pm (Please follow up as schedule....)
--- NOTE | 2016-04-07 14:21 | Nephrology Consult Note ---
Date of Encounter: 04/07/16 Time of Encounter: 14:20 Assessment and Plan (1) CKD (chronic kidney disease) stage 3, GFR 30-59 ml/min Current Visit: Yes Status: Chronic Patient with a history of chronic kidney disease stage III with a baseline GFR in the mid 40s, likely secondary to his diabetes mellitus. Given his overall clinical picture, Josué's contrast induced nephropathy calculator places the risk for DOUG at 57.3%. Patient's risk for requiring hemodialysis is 12.6% and his overall 1-year mortality is 33%. 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 Pre-hydration in this situation is complicated by the patient's acute on chronic congestive heart failure with preserved ejection fraction. If patient proceeds with LHC, would recommend gentle hydration with 0.45% NS before and after contrast. Patient's risk of DOUG greatly decreases if he is not in active CHF which may allow to revisit the LHC option after discharge at your discretion. (2) Acute on chronic congestive heart failure with left ventricular diastolic dysfunction Current Visit: Yes Status: Acute (3) Elevated troponin Current Visit: Yes Status: Acute (4) CAD (coronary artery disease) Current Visit: Yes Status: Chronic Qualifiers: Coronary Disease-Associated Artery/Lesion type: [place] artery [place] vs. transplanted heart: [place] heart Associated angina: without angina Qualified Code(s): I25.10 - Atherosclerotic heart disease of [place] coronary artery without angina pectoris (5) Insulin dependent diabetes mellitus Current Visit: Yes Status: Chronic History of Present Illness - Reason for Consult Consult date: 04/07/16 Chronic Kidney Disease Requesting physician: Sue Vieira - History of Present Illness Mr. Read is an 80-year-old gentleman with a past medical history of chronic kidney disease stage III, coronary artery disease status post CABG, insulin- dependent diabetes mellitus, hypertension, gout, BPH, congestive heart failure with preserved ejection fraction, and peripheral vascular disease status post right [id number] amputation who presented to the emergency department complaining of progressive shortness of breath for approximately 2 days associated with chest pain, dry cough, orthopnea, and paroxysmal nocturnal dyspnea. Workup in the emergency department revealed a chest x-ray with cardiomegaly and mild congestive heart failure along with an elevated BNP of 1013. He was given a dose of IV Lasix in the emergency department with improvement in his shortness of breath. Transthoracic echocardiogram revealed: EF 55%, mild segmental LV systolic dysfunction, moderate LVDD, mildly dilated and hypokinetic RV, no significant valvular dysfunction. Basal inferior wall was akinetic. Initial troponin was found to be 0.4 with a peak of 0.52. Cardiology was consulted and given his elevated troponin, congestive heart failure exacerbation, and new wall motion abnormality recommended an ischemic evaluation with left heart cath. Nephrology was consulted for recommendations prior to left heart cath as patient has chronic kidney disease stage III and is at high risk for contrast-induced nephropathy. Past Med Surg Social Fam HX - Past Medical History Medical history: CHF, coronary artery disease, diabetes, GERD, hyperlipidemia, hypertension, myocardial infarction, peripheral artery disease, renal disease Psychiatric history: anxiety - Past Surgical History Surgical History: cataract, coronary bypass (CABG), LE vascular intervention, other (Right AKA) - Social History Smoking Status: Never smoker Smokeless Tobacco Status: No Alcohol use: none Drug use: none - Family History Father Living Status: Hx Family Cancer: Yes Mother Living Status: Hx Family Cardiac Disorders: Yes Hx Family Cancer: Yes Medications and Allergies Acetaminophen [Tylenol] 650 mg PO BID 05/26/15 [History] Allopurinol [Zyloprim 300 MG] 300 mg PO DAILY 05/26/15 [History] Aspirin [Adult Low Dose Aspirin EC] 81 mg PO DAILY 05/26/15 [History] Atenolol [Tenormin] 12.5 mg PO DAILY 05/26/15 [History] Atorvastatin [Lipitor] 10 mg PO DAILY 05/26/15 [History] Carboxymethylcellulose Sodium [Refresh Tears] 1 drop OP DAILY 05/26/15 [History] Furosemide [Lasix] 20 mg PO DAILY 05/26/15 [History] Insulin ASPART [NovoLOG] 11 - 15 unit SQ TID 05/26/15 [History] Insulin Glargine [Lantus] 40 unit SQ HS 05/26/15 [History] Levothyroxine [Synthroid] 100 mcg PO DAILY 05/26/15 [History] Ranitidine HCl [Zantac] 150 mg PO BID 05/26/15 [History] Tamsulosin [Flomax] 0.4 mg PO DAILY 05/26/15 [History] Timolol [Betimol] 1 drop OP DAILY 05/26/15 [History] Finasteride [Proscar] 5 mg PO DAILY 04/05/16 [History] Lactulose 10 gm PO DAILY 04/05/16 [History] Nitroglycerin [Nitrostat] 0.4 mg SL AD PRN 04/05/16 [History] Allergies acetaminophen [From Percocet] Allergy (Verified 04/05/16 07:20) Hives Oxycodone [From Percocet] Allergy (Verified 04/05/16 07:20) Hives prednisone Allergy (Verified 04/05/16 07:20) Rash Review of Systems All Systems: reviewed and no additional remarkable complaints except as stated Exam - Vital Signs Vital signs: Initial Vital Signs Temp Pulse Resp BP Pulse Ox 97.2 F L 67 24 154/77 97 04/05/16 07:15 04/05/16 07:15 04/05/16 07:15 04/05/16 07:15 04/05/16 07:15 Vital Signs - Last 8 Hours Temp Pulse Resp BP Pulse Ox 04/07/16 11:28 97.9 F 65 16 103/60 94 L 04/07/16 08:32 18 93 L 04/07/16 08:15 97.9 F 82 18 128/66 95 Intake and Output 04/06/16 04/07/16 04/07/16 23:59 07:59 15:59 Intake Total 480 / 480 0 / 0 Output Total 0 / 0 180 / 180 Balance 480 / 480 0 / 0 -180 / -180 Intake: Oral 480 / 480 0 / 0 Output: Urine 0 / 0 180 / 180 Other: Meal Dinner Percent of Meal Consumed 100% Weight 99.4 kg Blood Glucose* 186 215 Patient Weight 04/07/16 23:59 Weight 99.4 kg - General Appearance Exam: General: Patient is alert and in no acute distress HEENT: Normocephalic atraumatic, pupils are equal round and reactive to light and accommodation, tympanic membrane is intact, nares is patent, mucous membranes moist, throat is not injected, no JVD, trachea is midline Cardiovascular: Regular rate and rhythm without murmur Respiratory: Lungs are clear to auscultation bilaterally, no wheezing, rhonchi, rales Abdomen: Soft, nontender, nondistended, positive bowel sounds in all 4 quadrants Extremities: Warm, dry, right AKA, left lower extremity with chronic venous stasis changes, 1+ edema Neuro: A&Ox3, speech is appropriate, cranial nerves II through XII are normal as tested Results - Lab Results 04/07/16 03:51 04/07/16 03:51 Most recent lab results Calcium 8.7 mg/dL (8.6-10.8) 04/07/16 03:51 Magnesium 2.0 mg/dL (1.6-2.6) 04/06/16 04:37 Consult Discharge Plan - Plan Referrals: Jesse Rose CNP [Advanced Practice Nurse] - 04/22/16 3:30 pm Nestor De La Cruz MD [Primary Care Provider] - 04/14/16 3:00 pm (Please follow up as schedule....)
--- NOTE | 2016-04-07 15:00 | Internal Med Progress Note ---
Date of Encounter: 04/07/16 Time of Encounter: 10:25 - Subjective Interval history: 80 Y/O M being managed for acute on chronic combined CHF He is seen at bedside VSS I/O negative 1670m, adequate diuresis and weight loss Patient's work up with ECHO revealed a new WMA on the inferior wall, and he had been offered LHC by cardiology which he refused yesterday When I saw him this morning, he was willing to have a LHC in-patient cardiology has been consulted he also complained of constipation, will give stool softeners Other PMH includes severe PAD s/p Right lower extremity BKA, Elevated troponin, DM< HTN, CKD III, Hypothyroidism and Gout Physical exam is as documented A/P Acute on Chronic COmbined CHF: Continue oral lasix, continue daily weights and fluid restriction. Elevated troponins from demand ischemia, for LHC a.m if agreeable to cardiology DM: Continue insulin HTN: Controlled, continue same meds CKD III: Cr stable GOut: stable no pain, continue meds Hypothyroidism: Continue meds CAD/PAD: Continue ASA, Statins - Constitutional Vitals: Temp Pulse Resp BP Pulse Ox 97.9 F 65 16 103/60 94 L 04/07/16 11:28 04/07/16 11:28 04/07/16 11:28 04/07/16 11:28 04/07/16 11:28 General appearance: Present: cooperative, A&O X 3, pleasant, no acute distress, answers questions appropriately - Head Head exam: Present: atraumatic, normocephalic - Eye Eye exam: Present: PERRL, conjuntiva pink, sclera anicteric Pupils: Present: PERRL - Neck Neck exam general surgery: Present: supple, trachea midline. Absent: lymphadenopathy - Respiratory Respiratory exam: Present: CTAB. Absent: rales, rhonchi, wheezes - Cardiovascular Cardiovascular exam: Present: RRR, +S1, +S2, systolic murmur - GI/Abdominal GI/Abdominal exam: Present: normal bowel sounds, soft, no peritoneal signs. Absent: guarding, mass, tenderness - Extremities Exam Extremities exam: Absent: pedal edema Additional comments: s/p R BKA, left small toe amputation, no pedal edema - Neurological Exam Neurological exam: Present: CN II-XII intact, oriented X3, no focal deficits. Absent: pronater drift, facial droop, speech deficit - Skin Skin exam: Present: dry Internal Medicine: Result - Labs CBC & Chem 7: 04/07/16 03:51 04/07/16 03:51 Labs: Short CBC 04/07/16 Range/Units 03:51 WBC 4.7 (4.3-11.1) K/mcL Hgb 11.8 L (12.9-16.9) g/dL Hct 33.8 L (37.5-50.1) % Plt Count 112 L (140-400) K/mcL Neutrophils # 2.8 (1.6-8.9) K/mcL BMP 04/07/16 03:51 Sodium 138 Potassium 4.1 Chloride 105 Carbon Dioxide 23 BUN 29 H Creatinine 1.62 H Glucose 157 H Calcium 8.7 Consult Discharge Plan - Plan Referrals: Jesse Rose CNP [Advanced Practice Nurse] - 04/22/16 3:30 pm Nestor De La Cruz MD [Primary Care Provider] - 04/14/16 3:00 pm (Please follow up as schedule....)
[2016-04-07] MEDS: Sennosides/Docusate Sodium TABLET PO SCH (16:18)
[2016-04-07] MEDS: Insulin DETEMIR 100 UNIT/ML X5UNITS SQ SCH (21:57)
[2016-04-08 05:23] LABS: Basophils % 0.9 %; Eosinophils # 0.2 K/mcL (0.0-0.6); Eosinophils % 4.9 %; Hematocrit 34.1 % (37.5-50.1); Hemoglobin 11.8 g/dL (12.9-16.9); Immature Granulocytes % 0.9 % (0-4); Lymphocytes # 0.9 K/mcL (0.6-4.6); Mean Corpuscular HGB Conc 34.6 g/dL (31.6-35.5); Mean Corpuscular Hemoglobin 33.6 pg (28.0-33.3); Mean Corpuscular Volume 97.2 fL (83.0-100.0); Mean Platelet Volume 11.2 fL (9.4-12.4); Monocytes # 0.5 K/mcL (0.0-1.3); Monocytes % 11.2 %; Neutrophils # 2.6 K/mcL (1.6-8.9); Platelet Count 130 K/mcL (140-400); Red Blood Count 3.51 M/mcL (4.19-5.50); Red Cell Distribution Width 13.3 % (11.5-14.5); Segmented Neutrophils % 60.1 %
[2016-04-08 05:35] LABS: Calcium 8.9 mg/dL (8.6-10.8); Potassium 3.9 mEq/L (3.5-4.5)
--- NOTE | 2016-04-08 08:06 | Cardiology Progress Note ---
Date of Encounter: 04/08/16 Time of Encounter: 08:00 Assessment and Plan (1) Elevated troponin Current Visit: Yes Status: Acute Troponin 0.40, 0.52, 0.46 in the setting of acute volume overload. TTE shows preserved LVEF, EF 60%. Akinetic basal inferior wall. Denies chest pain or discomfort, no ischemic ECG changes. Given elevated troponin, CHF exacerbation, & new wall motion abnormality ischemic evaluation recommended. Nephrology consulted yesterday, given CKD-III & additional co-morbidities he is at a high risk for DOUG; patient has elected to proceed with medical mangement for now and optimize renal function as outpatient. He will see Dr. Garrett in 1 week for follow-up; appreciate Nephrology recommendations and input. Increase imdur to 60 mg today. Continue asa, statin, and betablocker. Follow-up with LIANNA Carcamo as scheduled on 04/22/16. Cardiology will sign-off, please call with questions. (2) Congestive heart failure Current Visit: Yes Status: Acute Acute on chronic diastolic CHF. TTE: EF 55%, mild segmental LV systolic dysfunction, moderate LVDD, mildly dilated and hypokinetic RV, no significant valvular dysfunction. Basal inferior wall was akinetic. Symptoms nearly resolved with 24 hours of IV diuresis. SCr mildly worsened today, remains within baseline. Discussed CHF guidelines including low sodium diet and 2L fluid restriction. Transition to oral lasix by discharge, continue betablocker. Qualifiers: Congestive heart failure type: combined Congestive heart failure chronicity : acute on chronic Qualified Code(s): I50.43 - Acute on chronic combined systolic (congestive) and diastolic (congestive) heart failure (3) CKD (chronic kidney disease) stage 3, GFR 30-59 ml/min Current Visit: Yes Status: Chronic Follows with Dr. Garrett as outpatient. SCr within baseline. Nephrology consulted, appreciate recs. Discussion w patient/family: The assessment and plan as outlined above was discussed with the patient and/or family members who expressed understanding and agreement. All questions were answered. Thank you for involving us in the care of your patient. Please call with any questions. The patient will be discussed and reviewed with Dr. David Andino; changes to be made accordingly. Subjective Principal diagnosis: dCHF, elevated troponin Interval history: Seen and examined. Reports symptoms--dyspnea/edema--significant improved. Denies chest pain or discomfort overnight. Objective Vital Signs, Last 4 Hours Temp Pulse Resp BP Pulse Ox 04/08/16 07:00 97.6 F 75 16 138/69 94 L General: Conversant, No Apparent Distress HEENT: Atraumatic, Normocephaly, Mucus Membranes Moist Cardiac: Reg Rate and Rhythm, Normal S1 and S2 Lungs: Normal Breath Sounds Neuro: Alert and responsive Abdomen: Soft Extremities: Other (LLE red/discolored; RBKA) Results 04/08/16 04:34 04/08/16 04:34 Lab Results 04/08/16 04/08/16 04:34 04:34 WBC 4.3 Hgb 11.8 L Hct 34.1 L Plt Count 130 L Sodium 139 Potassium 3.9 Chloride 103 Carbon Dioxide 25 BUN 31 H Creatinine 1.68 H Glucose 188 H Calcium 8.9 - Imaging and Cardiology Echo: report reviewed Other Results: Telemetry: avg HR=69 SR. No significant pause or event noted. - EKG Interpretation EKG results cardiology: personally reviewed Consult Discharge Plan - Plan Referrals: Jesse Rose CNP [Advanced Practice Nurse] - 04/22/16 3:30 pm Nestor De La Cruz MD [Primary Care Provider] - 04/14/16 3:00 pm (Please follow up as schedule....)
[2016-04-08] MEDS ORDERED: *HR* Heparin 5,000 UNIT/ML VIAL SQ SCH (08:15)
[2016-04-08] MEDS: Insulin LISPRO 300 UNITS/3 ML VIAL SQ SCH ×2 (08:28→12:15)
[2016-04-08] MEDS ORDERED: Isosorbide MONOnitrate (24 HR) 30 MG TAB.ER.24H PO SCH (08:28)
[2016-04-08] MEDS: Finasteride 5 MG TABLET PO SCH (08:31)
[2016-04-08] MEDS: Famotidine 20 MG TABLET PO SCH (08:32)
[2016-04-08] MEDS: Furosemide 20 MG TABLET PO SCH (08:32)
[2016-04-08] MEDS: Aspirin Enteric Coated 81 MG Tablet PO SCH (08:32)
[2016-04-08] MEDS: Sennosides/Docusate Sodium TABLET PO SCH (08:32)
--- NOTE | 2016-04-08 09:42 | Nephrology Progress Note ---
Date of Encounter: 04/08/16 Time of Encounter: 09:42 - Assessment and Plan (1) CKD (chronic kidney disease) stage 3, GFR 30-59 ml/min Current Visit: Yes Status: Chronic Patient has a history of chronic kidney disease stage III with baseline GFR in the mid 40s, likely secondary to his diabetes mellitus. After a long discussion with nephrology as well as cardiology, patient has decided not to go forward with his left heart catheterization as his risk of contrast-induced nephropathy is relatively high. He will have an outpatient follow-up with nephrology as well as cardiology. Thank you for the opportunity of sharing in this patient's care. (2) Acute on chronic congestive heart failure with left ventricular diastolic dysfunction Current Visit: Yes Status: Acute (3) Elevated troponin Current Visit: Yes Status: Acute (4) CAD (coronary artery disease) Current Visit: Yes Status: Chronic Qualifiers: Coronary Disease-Associated Artery/Lesion type: [place] artery [place] vs. transplanted heart: [place] heart Associated angina: without angina Qualified Code(s): I25.10 - Atherosclerotic heart disease of [place] coronary artery without angina pectoris (5) Insulin dependent diabetes mellitus Current Visit: Yes Status: Chronic Subjective Principal diagnosis: dCHF, elevated troponin Interval history: Patient seen and examined at bedside. No acute events overnight per nursing staff. After conversation with nephrology as well as cardiology, patient has decided not to have a left heart catheterization and continue with medical management. He will have an outpatient follow-up with Dr. Yassine Garrett and Cardiology. Objective - Vital Signs Vital signs: Vital Signs Temp Pulse Resp BP Pulse Ox 04/08/16 07:00 97.6 F 75 16 138/69 94 L 04/08/16 03:45 98.2 F 69 16 128/69 94 L 04/07/16 23:46 98.1 F 81 16 116/56 92 L 04/07/16 20:19 18 94 L 04/07/16 19:38 97.5 F L 69 16 125/72 96 04/07/16 16:11 97.5 F L 65 16 123/70 95 04/07/16 15:55 18 95 04/07/16 11:28 97.9 F 65 16 103/60 94 L Intake and Output 04/07/16 04/08/16 04/08/16 23:59 07:59 15:59 Intake Total 240 / 240 Output Total 400 / 400 450 / 450 Balance -160 / -160 -450 / -450 Intake: Oral 240 / 240 Output: Urine 400 / 400 450 / 450 Other: Weight 97.3 kg 97.2 kg Blood Glucose* 217 182 Patient Weight 04/08/16 23:59 Weight 97.2 kg - General Appearance Exam: General: Patient is alert and in no acute distress HEENT: Normocephalic atraumatic, pupils are equal round and reactive to light and accommodation, tympanic membrane is intact, nares is patent, mucous membranes moist, throat is not injected, no JVD, trachea is midline Cardiovascular: Regular rate and rhythm without murmur Respiratory: Lungs are clear to auscultation bilaterally, no wheezing, rhonchi, rales Abdomen: Soft, nontender, nondistended, positive bowel sounds in all 4 quadrants Extremities: Warm, dry, right AKA, left lower extremity with chronic venous stasis changes, 1+ lower extremity edema Neuro: A&Ox3, speech is appropriate, cranial nerves II through XII are normal as tested - Lab 04/08/16 04:34 04/08/16 04:34 Most recent lab results Calcium 8.9 mg/dL (8.6-10.8) 04/08/16 04:34 Magnesium 2.0 mg/dL (1.6-2.6) 04/06/16 04:37 Consult Discharge Plan - Plan Instructions: Metoprolol (By mouth), Isosorbide Mononitrate (By mouth), Heart Failure (DC) Referrals: Jesse Rose CNP [Advanced Practice Nurse] - 04/22/16 3:30 pm Nestor De La Cruz MD [Primary Care Provider] - 04/14/16 3:00 pm (Please follow up as schedule....) Prescriptions: Isosorbide MONOnitrate (24 HR) [Imdur] 60 mg PO DAILY #60 tab.er.24h Metoprolol [Lopressor] 12.5 mg PO BID #60 tablet
[2016-04-08] MEDS: Albuterol 2.5 MG/3 ML NEBULIZER IH SCH (10:47)
[2016-04-08 11:42] VITALS: BP 104/58
--- NOTE | 2016-04-08 13:50 | Physician Discharge Referral ---
Home Health/Hosp Referral Info Transfer to: Home Health Provider in Charge Post Discharge: PCP - Diagnosis (1) Acute on chronic congestive heart failure with left ventricular diastolic dysfunction Priority: Primary Status: Acute (2) Diabetes mellitus Priority: Secondary Status: Chronic (3) Elevated troponin Priority: Primary Status: Acute (4) CAD (coronary artery disease) Priority: Secondary Status: Chronic (5) CKD (chronic kidney disease) stage 3, GFR 30-59 ml/min Priority: Secondary Status: Chronic (6) HTN (hypertension) Priority: Secondary Status: Chronic (7) Severe peripheral arterial disease Priority: Secondary Status: Chronic - Respiratory Orders Smoking Cessation: Smoking cessation has been advised. For more information, call the [place] Tobacco Quit Line at 3-216-VTDU-NOW. - Diet/Nutrition Diet/Nutrition Orders: Renal, Cardiac, No Concentrated Sweets - Activity Activity Orders: Up ad deborah - Services Needed Following services are medically necessary services: Nursing - Transfer Medications Prescriptions: Isosorbide MONOnitrate (24 HR) [Imdur] 60 mg PO DAILY #60 tab.er.24h Metoprolol [Lopressor] 12.5 mg PO BID #60 tablet Home Medications: Acetaminophen [Tylenol] 650 mg PO BID 05/26/15 [History] Allopurinol [Zyloprim 300 MG] 300 mg PO DAILY 05/26/15 [History] Aspirin [Adult Low Dose Aspirin EC] 81 mg PO DAILY 05/26/15 [History] Atenolol [Tenormin] 12.5 mg PO DAILY 05/26/15 [History] Atorvastatin [Lipitor] 10 mg PO DAILY 05/26/15 [History] Carboxymethylcellulose Sodium [Refresh Tears] 1 drop OP DAILY 05/26/15 [History] Insulin ASPART [NovoLOG] 11 - 15 unit SQ TID 05/26/15 [History] Insulin Glargine [Lantus] 40 unit SQ HS 05/26/15 [History] Levothyroxine [Synthroid] 100 mcg PO DAILY 05/26/15 [History] Ranitidine HCl [Zantac] 150 mg PO BID 05/26/15 [History] Tamsulosin [Flomax] 0.4 mg PO DAILY 05/26/15 [History] Timolol [Betimol] 1 drop OP DAILY 05/26/15 [History] Finasteride [Proscar] 5 mg PO DAILY 04/05/16 [History] Lactulose 10 gm PO DAILY 04/05/16 [History] Nitroglycerin [Nitrostat] 0.4 mg SL AD PRN 04/05/16 [History] Furosemide [Lasix] 20 mg PO BID #60 04/08/16 [Rx] Isosorbide MONOnitrate (24 HR) [Imdur] 60 mg PO DAILY #60 tab.er.24h 04/08/16 [ Rx] Metoprolol [Lopressor] 12.5 mg PO BID #60 tablet 04/08/16 [Rx] Allergies/Adverse Reactions: Allergies acetaminophen [From Percocet] Allergy (Verified 04/05/16 07:20) Hives Oxycodone [From Percocet] Allergy (Verified 04/05/16 07:20) Hives prednisone Allergy (Verified 04/05/16 07:20) Rash Certification: Further, I certify that my clinical findings support that this patient is homebound (i.e. absences from home require considerable and taxing effort and are for medical reasons or anabaptism services or infrequently or short duration when for other reasons) because: Homebound Reason: Severity of cardiac or pulmonary status limits activity tolerance Attestation: My signature below is to certify that this patient is under my care and that I, or nurse practitioner, or a physician's real estate legal assistant working with me, has a face-to -face encounter with this patient.
--- NOTE | 2016-04-08 13:53 | Discharge Summary ---
Date of Encounter: 04/08/16 Time of Encounter: 09:45 - Discharge Diagnosis (1) Acute on chronic congestive heart failure with left ventricular diastolic dysfunction Priority: Primary Status: Acute (2) Diabetes mellitus Priority: Secondary Status: Chronic Qualifiers: Diabetes mellitus type: type 2 Diabetes mellitus complication status: with circulatory complication Diabetes mellitus complication detail: with other circulatory complications Diabetes mellitus terminal press operator insulin use: with fpc use Qualified Code(s): E11.59 - Type 2 diabetes mellitus with other circulatory complications; Z79.4 - joint terminal attack controller (current) use of insulin (3) Elevated troponin Priority: Primary Status: Acute (4) CAD (coronary artery disease) Priority: Secondary Status: Chronic Qualifiers: Coronary Disease-Associated Artery/Lesion type: [place] artery [place] vs. transplanted heart: [place] heart Associated angina: without angina Qualified Code(s): I25.10 - Atherosclerotic heart disease of [place] coronary artery without angina pectoris (5) CKD (chronic kidney disease) stage 3, GFR 30-59 ml/min Priority: Secondary Status: Chronic (6) HTN (hypertension) Priority: Secondary Status: Chronic Qualifiers: Hypertension type: essential hypertension Qualified Code(s): I10 - Essential (primary) hypertension (7) Severe peripheral arterial disease Priority: Secondary Status: Chronic - Discharge Medications Prescriptions: Isosorbide MONOnitrate (24 HR) [Imdur] 60 mg PO DAILY #60 tab.er.24h Metoprolol [Lopressor] 12.5 mg PO BID #60 tablet Home Medications: Acetaminophen [Tylenol] 650 mg PO BID 05/26/15 [History] Allopurinol [Zyloprim 300 MG] 300 mg PO DAILY 05/26/15 [History] Aspirin [Adult Low Dose Aspirin EC] 81 mg PO DAILY 05/26/15 [History] Atenolol [Tenormin] 12.5 mg PO DAILY 05/26/15 [History] Atorvastatin [Lipitor] 10 mg PO DAILY 05/26/15 [History] Carboxymethylcellulose Sodium [Refresh Tears] 1 drop OP DAILY 05/26/15 [History] Insulin ASPART [NovoLOG] 11 - 15 unit SQ TID 05/26/15 [History] Insulin Glargine [Lantus] 40 unit SQ HS 05/26/15 [History] Levothyroxine [Synthroid] 100 mcg PO DAILY 05/26/15 [History] Ranitidine HCl [Zantac] 150 mg PO BID 05/26/15 [History] Tamsulosin [Flomax] 0.4 mg PO DAILY 05/26/15 [History] Timolol [Betimol] 1 drop OP DAILY 05/26/15 [History] Finasteride [Proscar] 5 mg PO DAILY 04/05/16 [History] Lactulose 10 gm PO DAILY 04/05/16 [History] Nitroglycerin [Nitrostat] 0.4 mg SL AD PRN 04/05/16 [History] Furosemide [Lasix] 20 mg PO BID #60 04/08/16 [Rx] Isosorbide MONOnitrate (24 HR) [Imdur] 60 mg PO DAILY #60 tab.er.24h 04/08/16 [ Rx] Metoprolol [Lopressor] 12.5 mg PO BID #60 tablet 04/08/16 [Rx] Allergies/Adverse Reactions: Allergies acetaminophen [From Percocet] Allergy (Verified 04/05/16 07:20) Hives Oxycodone [From Percocet] Allergy (Verified 04/05/16 07:20) Hives prednisone Allergy (Verified 04/05/16 07:20) Rash Procedures/tests Complete & Pending: Procedures Performed prior 72 hours Category Date Time Status EKG [ECG 12 lead ECG] [ECG] AM 0600 Y 04/06/16 06:00 Ordered Date of admission: 04/05/16 10:28 Primary care physician: Nestor De La Cruz MD Consults: 04/07/16 13:37 Consult to Nephrology [CONS] Routine Consulting Provider: Kidney Krystina/HECTOR/KATI/MILTON Reason for Consult: Hx of CKD-III. Plan for [facility] in AM. Time Notified: 13:40 Call Completed: Yes Discharging clinician: Carlos Isaac Anticipated date of discharge: 04/08/16 - Patient Status Disposition: Home Health Service Condition: Good Functional capacity at discharge: uses cane/walker Overall status at discharge: patient is progressing back to baseline - Discharge Instructions Follow Up With: Jesse Rose CNP [Advanced Practice Nurse] - 04/22/16 3:30 pm Nestor De La Cruz MD [Primary Care Provider] - 04/14/16 3:00 pm (Please follow up as schedule....) - Diet and Activity Activity: increase activity as tolerated, resume usual activities as tolerated Diet: diabetic diet, low fat, low cholesterol, low salt diet Interval History: See below Hospital course: 80 Y/O M admitted and managed for acute on chronic combined CHF Other PMH includes severe PAD s/p Right lower extremity BKA, Elevated troponin, DM< HTN, CKD III, Hypothyroidism and Gout He is seen at bedside today, has no new complains Patients work up on admission had revealed VSS, with adequate diuresis and weight loss Work up on admission had revealed Troponin 0.40, 0.52, 0.46 in the setting of acute volume overload. TTE shows preserved LVEF, EF 60%. Akinetic basal inferior wall. Given elevated troponin, CHF exacerbation, & new wall motion abnormality ischemic evaluation recommended, including C Patient was reviewed by nephrology and recommendation is to proceed with medical management as patient is high risk of CN given acute on chronic CHF and CKD III He will see Dr. Garrett in 1 week for follow-up; He will also follow up with Cardiology 04/22/16 He will be discharged on Imdur 60mg daily, Lasix 20mg bid, Continue ASA, statin and BB. Other home meds to be continued Plan of care discussed, verbalized understanding - Time Spent with Patient Total time spent providing and/or coordinating discharge services: Less than 30 minutes - Constitutional Vitals: Temp Pulse Resp BP Pulse Ox 97.7 F 54 16 104/58 91 L 04/08/16 11:36 04/08/16 11:36 04/08/16 11:36 04/08/16 11:36 04/08/16 11:36 General appearance: Present: cooperative, A&O X 3, pleasant, no acute distress, answers questions appropriately - Head Head exam: Present: atraumatic, normocephalic - Eye Eye exam: Present: PERRL, conjuntiva pink, sclera anicteric Pupils: Present: PERRL - Neck Neck exam general surgery: Present: supple, trachea midline. Absent: lymphadenopathy - Respiratory Respiratory exam: Present: CTAB. Absent: accessory muscle use, rales, rhonchi, wheezes - Cardiovascular Cardiovascular exam: Present: RRR, +S1, +S2. Absent: diastolic murmur, gallop, rubs, systolic murmur - GI/Abdominal GI/Abdominal exam: Present: normal bowel sounds, soft, no peritoneal signs. Absent: distended, tenderness - Extremities Exam Extremities exam: Present: warm, radial pulses palpable and symetrical. Absent : calf tenderness, cyanotic, pedal edema Additional comments: s/p R BKA - Neurological Exam Neurological exam: Present: CN II-XII intact, oriented X3, no focal deficits. Absent: pronater drift, facial droop, speech deficit - Skin Skin exam: Present: dry
== END 2016-04-08 14:45 | disposition home health service (06) | DRG 292 ==
LOC: 2ANU 07:14 → EMEROO 07:14 → 2ANU 09:42 → SUATTDRO 10:28
PROVIDERS: ADMIT Internal Medicine; ATTEND Internal Medicine

== ENCOUNTER 2016-07-02 11:47 | Observation (INO) ==
[2016-07-02] MEDS ORDERED: Ondansetron 4 MG/2 ML VIAL IVP PRN (14:34)
[2016-07-02] MEDS ORDERED: *HR* Dextrose 50 % in Water (Syg) 50 ML SYRINGE IVP PRN (14:37)
[2016-07-02] MEDS ORDERED: Dextrose Gel 15 GM PO PRN ×2 (14:37)
[2016-07-02] MEDS ORDERED: D5% in Water 1,000 ML IVC PRN (14:37)
[2016-07-02] MEDS ORDERED: *HR* HYDROcodone/Acet 5/325 mg TABLET PO PRN (14:38)
[2016-07-02] MEDS ORDERED: Polyethylene Glycol 3350 255 GM POWDER PO ONE (14:39)
[2016-07-02 15:17] LABS: Basophils % 0.8 %; Eosinophils # 0.2 K/mcL (0.0-0.6); Eosinophils % 5.1 %; Hematocrit 38.3 % (37.5-50.1); Hemoglobin 13.5 g/dL (12.9-16.9); INR 1.1; Immature Granulocytes % 0.8 % (0-4); Lymphocytes % 20.9 %; Mean Corpuscular HGB Conc 35.2 g/dL (31.6-35.5); Mean Corpuscular Hemoglobin 33.7 pg (28.0-33.3); Mean Corpuscular Volume 95.5 fL (83.0-100.0); Mean Platelet Volume 10.9 fL (9.4-12.4); Monocytes # 0.5 K/mcL (0.0-1.3); Monocytes % 10.5 %; Neutrophils # 2.9 K/mcL (1.6-8.9); Platelet Count 140 K/mcL (140-400); Prothrombin Time 11.9 Seconds (9.4-12.1); Red Blood Count 4.01 M/mcL (4.19-5.50); Red Cell Distribution Width 13.2 % (11.5-14.5); Segmented Neutrophils % 61.9 %
[2016-07-02 15:24] LABS: Calcium 9.4 mg/dL (8.6-10.8); Potassium 4.2 mEq/L (3.5-4.5)
[2016-07-02] MEDS: Furosemide 20 MG TABLET PO SCH (16:04)
[2016-07-02] MEDS: 0.9 % Sodium Chloride 1,000 ML IVC SCH (16:05)
--- NOTE | 2016-07-02 16:31 | General Surg History&Physical ---
Date of Encounter: 07/02/16 Time of Encounter: 16:28 Assessment and Plan (1) Abdominal pain, LLQ (left lower quadrant) Current Visit: Yes Status: Acute The assessment and plan as outlined above was discussed with the patient and/or family members who expressed understanding and agreement. All questions were answered. Plan for EGD/colonoscopy 07/03/[address] Vo Clear liquids today NPO after midnight IV fluids Bowel prep with Miralax and Gatorade Patient requires inpatient admission due to multiple comorbidities and inability to complete colon prep at home History of Present Illness Chief complaint: Abdominal pain HPI: Mr. Read is a 80 year old male who was seen and evaluated by Dr. Vo as an outpatient for LLQ abdominal pain. He reports LLQ pain radiating into his flank area for the past 2 years. He reports his last colonoscopy being completed in 2014 and he did not have the LLQ pain at that time. He describes the pain as intermittent and sharp. He admits to episodes of diarrhea in the past but denies any current episodes of diarrhea/constipation. Denies any melena or hematochezia. He typically has a bowel movement every other day. He denies any history of weight loss. He has a prolonged history of reflux and does take take TUMS and ranitidine to control his symptoms. Past Med Surg Social Fam HX - Past Medical History Source: patient, old records reviewed Medical history: arthritis, CHF, coronary artery disease, diabetes, GERD, hyperlipidemia, hypertension, myocardial infarction, peripheral artery disease, renal disease, thyroid disease Psychiatric history: anxiety - Past Surgical History Surgical History: appendectomy, cataract, coronary bypass (CABG), LE vascular intervention (Left femoral/peroneal in situ bypass, amputation right BKA), orthopedic, other (carpel tunnel release, toe amputation), other (eye surgery ( multiple), colonoscopy with polypectomy) - Social History Smoking Status: Never smoker Smokeless Tobacco Status: No Alcohol use: none Drug use: none - Family History Father Living Status: Hx Family Cancer: Yes Mother Living Status: Hx Family Cardiac Disorders: Yes Hx Family Cancer: Yes Medications and Allergies Acetaminophen [Tylenol] 650 mg PO BID 05/26/15 [History] Allopurinol [Zyloprim 300 MG] 300 mg PO DAILY 05/26/15 [History] Aspirin [Adult Low Dose Aspirin EC] 81 mg PO DAILY 05/26/15 [History] Atorvastatin [Lipitor] 10 mg PO DAILY 05/26/15 [History] Insulin ASPART [NovoLOG] 11 - 15 unit SQ TID 05/26/15 [History] Insulin Glargine [Lantus] 40 unit SQ HS 05/26/15 [History] Levothyroxine [Synthroid] 100 mcg PO DAILY 05/26/15 [History] Ranitidine HCl [Zantac] 150 mg PO BID 05/26/15 [History] Tamsulosin [Flomax] 0.4 mg PO DAILY 05/26/15 [History] Timolol [Betimol] 1 drop OP DAILY 05/26/15 [History] Finasteride [Proscar] 5 mg PO DAILY 04/05/16 [History] Lactulose 10 gm PO DAILY 04/05/16 [History] Nitroglycerin [Nitrostat] 0.4 mg SL AD PRN 04/05/16 [History] Furosemide [Lasix] 20 mg PO BID #60 04/08/16 [Rx] Isosorbide MONOnitrate (24 HR) [Imdur] 60 mg PO DAILY #60 tab.er.24h 04/08/16 [ Rx] Metoprolol [Lopressor] 12.5 mg PO BID #60 tablet 04/08/16 [Rx] Acetylcysteine [G-Zopaoq-c-Cysteine] 600 mg PO BID 07/02/16 [History] HYDROcodone/Acet 5/325 mg [[place] 5-325 mg] 1 tab PO BID PRN 07/02/16 [History] Propylene Glycol/Peg 400 [Systane 0.3-0.4% Eye Drops] 1 drop OP DAILY 07/02/16 [ History] Allergies acetaminophen [From Percocet] Allergy (Verified 04/05/16 07:20) Hives Oxycodone [From Percocet] Allergy (Verified 04/05/16 07:20) Hives prednisone Allergy (Verified 04/05/16 07:20) Rash Review of Systems All systems PM: reviewed and no additional remarkable complaints except as stated (in the HPI) All systems PM: A 10-system review of systems was performed and is negative for pertinent findings except as documented above in the HPI. General Surgery Exam Initial Vital Signs Temp Pulse Resp BP Pulse Ox 98.4 F 84 18 117/77 96 07/02/16 15:45 07/02/16 15:45 07/02/16 15:45 07/02/16 15:45 07/02/16 15:45 - General physical appearance well developed, well nourished, no distress, chronically ill, obese - Eyes normal ocular movement - ENT normal mucosa, atraumatic, normocephalic - Neck trachea midline - Respiratory normal respiratory effort, clear to auscultation - Cardiovascular Cardiovascular exam: Present: RRR - Abdomen Abdomen general surgery: Present: bowel sounds present, soft, non tender - Integumentary Integumentary general surgery: Present: warm and dry - Neurologic Present: CN 2-12 grossly intact - Psychiatric Psychiatric general surgery: Present: A&Ox3 Results - Labs 07/02/16 14:59 07/02/16 14:59 Abnormal lab results RBC 4.01 M/mcL (4.19-5.50) L 07/02/16 14:59 MCH 33.7 pg (28.0-33.3) H 07/02/16 14:59 BUN 28 mg/dL (8-26) H 07/02/16 14:59 Creatinine 1.62 mg/dL (0.72-1.25) H 07/02/16 14:59 Est GFR ( Amer) 50 (> 60) L 07/02/16 14:59 Est GFR (Non-Af Amer) 41 (> 60) L 07/02/16 14:59 Glucose 112 mg/dL (70-99) H 07/02/16 14:59 Diabetes panel 07/02/16 Range/Units 14:59 Sodium 138 (136-145) mEq/L Potassium 4.2 (3.5-4.5) mEq/L Chloride 104 (98-109) mEq/L Carbon Dioxide 25 (19-29) mEq/L BUN 28 H (8-26) mg/dL Creatinine 1.62 H (0.72-1.25) mg/dL Glucose 112 H (70-99) mg/dL Calcium 9.4 (8.6-10.8) mg/dL Calcium panel 07/02/16 Range/Units 14:59 Calcium 9.4 (8.6-10.8) mg/dL Pituitary panel 07/02/16 Range/Units 14:59 Sodium 138 (136-145) mEq/L Potassium 4.2 (3.5-4.5) mEq/L Chloride 104 (98-109) mEq/L Carbon Dioxide 25 (19-29) mEq/L BUN 28 H (8-26) mg/dL Creatinine 1.62 H (0.72-1.25) mg/dL Glucose 112 H (70-99) mg/dL Calcium 9.4 (8.6-10.8) mg/dL Adrenal panel 07/02/16 Range/Units 14:59 Sodium 138 (136-145) mEq/L Potassium 4.2 (3.5-4.5) mEq/L Chloride 104 (98-109) mEq/L Carbon Dioxide 25 (19-29) mEq/L BUN 28 H (8-26) mg/dL Creatinine 1.62 H (0.72-1.25) mg/dL Glucose 112 H (70-99) mg/dL Calcium 9.4 (8.6-10.8) mg/dL All other labs normal. - Attending Attestation I examined this patient and my medical decision-making was reviewed with the QUALITY CONTROL ASSOCIATE/PA/Advanced Practice Nurse/Resident Physician. I agree with the documented findings, disposition and treatment plan as described except to the extent set forth below.
[2016-07-02] MEDS: Insulin LISPRO 300 UNITS/3 ML VIAL SQ SCH (16:43)
[2016-07-02] MEDS ORDERED: NON-FORMULARY MEDICATION 1 EACH EACH (Ranitidine Hcl [Zantac] 150 MG) PO SCH (21:00)
[2016-07-02] MEDS ORDERED: Insulin LISPRO 300 UNITS/3 ML VIAL SQ SCH (21:00)
[2016-07-03] MEDS: Insulin LISPRO 300 UNITS/3 ML VIAL SQ SCH ×2 (07:50→12:04)
[2016-07-03] MEDS ORDERED: NON-FORMULARY MEDICATION 1 EACH EACH OP SCH (09:00)
[2016-07-03] MEDS ORDERED: Aspirin Enteric Coated 81 MG Tablet PO SCH (09:00)
[2016-07-03] MEDS ORDERED: Finasteride 5 MG TABLET PO SCH (09:00)
[2016-07-03] MEDS: Furosemide 20 MG TABLET PO SCH (09:04)
[2016-07-03] MEDS: 0.9 % Sodium Chloride 1,000 ML IVC SCH (11:24)
--- NOTE | 2016-07-03 13:00 | Anesthesia Evaluation PreOp ---
Date of Encounter: 07/03/16 Time of Encounter: 12:57 - Past History Planned Operation: EGD/Colon Cardiac History: CHF (Last exacerbation 04/2016 - maintained on Lasix), HTN ( maitained on Metoprolol), Hyperlipidemia (maintained on Atorvastatin), Cardiac Surgery (CABG 08/2001), Other (PVDz s/p LLE Fem-Pop bypass.) Pulmonary History: Denies Any Significant HX SUPERVISOR SOAKERS History: CVA (1977), Other (Poor vision) Other Medical History: Renal (CRI/GFR = 42), Diabetes Type II (maintained on Novolog, Lantus), Thyroid (maintained on Synthroid), Other (LLQ discomfot) Anesthesia History: No Prior Anesthetic Complications, Past Anesthesia (Appy, CABG, R Fem-Pop, CTR, Toe amputation, Multiple eye srugeries, Colonoscopy/ Polypectomy) Alcohol Use: none Drug use: none Medications and Allergies Acetaminophen [Tylenol] 650 mg PO BID 05/26/15 [History] Allopurinol [Zyloprim 300 MG] 300 mg PO DAILY 05/26/15 [History] Aspirin [Adult Low Dose Aspirin EC] 81 mg PO DAILY 05/26/15 [History] Atorvastatin [Lipitor] 10 mg PO DAILY 05/26/15 [History] Insulin ASPART [NovoLOG] 11 - 15 unit SQ TID 05/26/15 [History] Insulin Glargine [Lantus] 40 unit SQ HS 05/26/15 [History] Levothyroxine [Synthroid] 100 mcg PO DAILY 05/26/15 [History] Ranitidine HCl [Zantac] 150 mg PO BID 05/26/15 [History] Tamsulosin [Flomax] 0.4 mg PO DAILY 05/26/15 [History] Timolol [Betimol] 1 drop OP DAILY 05/26/15 [History] Finasteride [Proscar] 5 mg PO DAILY 04/05/16 [History] Lactulose 10 gm PO DAILY 04/05/16 [History] Nitroglycerin [Nitrostat] 0.4 mg SL AD PRN 04/05/16 [History] Furosemide [Lasix] 20 mg PO BID #60 04/08/16 [Rx] Isosorbide MONOnitrate (24 HR) [Imdur] 60 mg PO DAILY #60 tab.er.24h 04/08/16 [ Rx] Metoprolol [Lopressor] 12.5 mg PO BID #60 tablet 04/08/16 [Rx] Acetylcysteine [H-Fsabkk-a-Cysteine] 600 mg PO BID 07/02/16 [History] HYDROcodone/Acet 5/325 mg [[place] 5-325 mg] 1 tab PO BID PRN 07/02/16 [History] Propylene Glycol/Peg 400 [Systane 0.3-0.4% Eye Drops] 1 drop OP DAILY 07/02/16 [ History] Allergies acetaminophen [From Percocet] Allergy (Verified 04/05/16 07:20) Hives Oxycodone [From Percocet] Allergy (Verified 04/05/16 07:20) Hives prednisone Allergy (Verified 04/05/16 07:20) Rash - Meds/Allergy Pre-op Review Medications Reviewed: Yes Allergies Reviewed: Yes Beta Blockers on Current Med List: Yes (Metoprolol) If Beta Blockers taken, Date/Time (Last Dose taken): 07/03/2016 @ 0901 Anesthesia Results - Labs 07/02/16 14:59 07/02/16 14:59 Laboratory Tests 04/05/16 04/06/16 07/01/16 08:03 11:37 16:49 WBC Hgb Hct Plt Count Sodium Potassium Chloride Carbon Dioxide BUN Creatinine Est GFR (Non-Af Amer) Glucose Est Mean Plasma Glucose 143 Hemoglobin A1c 6.6 H Troponin I 0.43 H* B-Natriuretic Peptide 1013 H 07/02/16 07/02/16 14:59 14:59 WBC 4.7 Hgb 13.5 Hct 38.3 Plt Count 140 Sodium 138 Potassium 4.2 Chloride 104 Carbon Dioxide 25 BUN 28 H Creatinine 1.62 H Est GFR (Non-Af Amer) 41 L Glucose 112 H Est Mean Plasma Glucose Hemoglobin A1c Troponin I B-Natriuretic Peptide - Imaging EKG: pending Chest x-ray: pending Anesthesia Exam Vital Signs Temp Pulse Resp BP Pulse Ox 07/03/16 11:37 98.0 F 54 14 126/75 96 07/03/16 07:17 97.6 F 64 16 123/70 98 07/03/16 01:45 97.5 F L 57 15 109/65 95 07/02/16 20:47 97.5 F L 68 16 125/75 97 07/02/16 15:45 98.4 F 84 18 117/77 96 Intake and Output 07/02/16 07/03/16 07/03/16 23:59 07:59 15:59 Intake Total 1000 / 1000 Balance 1000 / 1000 Intake: IV Fluids 1000 / 1000 0.9 % Sodium Chloride 1, 1000 / 1000 000 ML @ 50 mls/hr IVC . Q20H YOMAIRA Rx#:[id number] Other: Stool Size Moderate Moderate Stool Consistency liquid liquid Stool Color Brown Brown # Voids 1 1 # Bowel Movements 1 # Bowel Movement Diapers 2 Blood Glucose* 243 104 110 Height: 5'8" Weight: 221# BMI = 34 - HEENT Pupil (Motor): Pupils equal, EOMI Mallampati: II Teeth: Edentulous Oral Opening: Greater than 3 - SUPERVISOR SOAKERS LOC: Oriented SUPERVISOR SOAKERS Motor: Normal RUE, Normal LUE, Normal RLE, Normal LLE, Normal Face [employer]PERVISOR [employer]AK[employer] Sensory: Normal: RUE, LUE, RLE, LLE, Face - Cardiac Rhythm: Regular Murmur: None - Pulmonary Breath Sounds: bilateral Clear Respiratory Effort: Symmetrical Anesthesia Assess/Plan ASA Score: 3 (DM, HTN, Chol, CHF) Modified [place] Scale for Level of Consciousness: Cooperative, oriented, and tranquil Anesthetic Plan: MAC Monitoring Plan: Standard Monitors Recovery Plan: PACU Anes Supervising Prov Stmt: PT seen/evaluated, R&B discussed questions answered and consent obtained. Priyanka Riggins MD
[2016-07-03 13:27] VITALS: BP 146/77
--- NOTE | 2016-07-03 13:55 | Event Note ---
Date of Encounter: 07/03/16 Time of Encounter: 13:53 EGD and colonoscopy completed. Mild erythema noted in the duodenal bulb, stomach and irregular z-line. Biopsies obtained. Colonoscopy demonstrated a polyp and internal hemorrhoids. Polyp removed. Will discharge home and follow up in three weeks.
== END 2016-07-03 16:28 | disposition home health service (06) ==
LOC: 3NENU 11:47 → SAMDAY 11:47
PROVIDERS: ADMIT Surgery; ATTEND Surgery
PROC: ENDOEBX (2016-07-03 13:20)

== ENCOUNTER 2016-11-12 14:02 | Inpatient (IN) ==
--- NOTE | 2016-11-12 14:34 | Orthopedic Consult Note ---
Date of Encounter: 11/12/16 Time of Encounter: 14:30 Assessment and Plan (1) Finger infection Current Visit: Yes Status: Acute I did discuss the diagnosis in detail the patient. He does have a postoperative left long finger infection. My recommendation was for direct admission for IV antibiotics. After discussing with the hospitalist will start Zosyn after obtaining blood cultures. We will also order a baseline set of labs. Otherwise we will recommend elevation and daily local wound care with dressing changes and warm soapy soaks. The patient is aware of the risk of needing further debridement versus more proximal amputation. I will follow clinically. History of Present Illness HPI: Mr. Read is a 81 year old male with gout and who had undergone left long finger amputation to the middle phalanx over 2 weeks ago. Prior to the amputation he had developed a lesion of the distal interphalangeal joint, likely from gout which had eroded through the dorsal skin leaving exposed distal interphalangeal joint. He underwent amputation and biopsies taken intraoperatively demonstrated osteomyelitis though operative cultures did not grow any organisms. At his first postoperative visit about a week out he was doing well clinically and the stitches were taken out. There is no concern for persistent infection and antibiotics were discontinued. He had been receiving care from a home nurse daily and earlier this week they noticed redness and swelling to the digit and he was seen today here in the office because of this. Because the redness was spreading into the dorsal hand with a streak in the left dorsal wrist recommendation was for admission and IV antibiotics. I did discuss this with the hospitalist who accepted the patient has a direct admit. The patient's complaints are mild at this point and he has mild left dorsal wrist pain. No feelings of illness currently though he did have some feelings of illness last night. He is afebrile in the office today. He has baseline neuropathy but otherwise no other numbness, tingling, or any other associated signs or symptoms. There are no modifying factors. Past Med Surg Social Fam HX - Past Medical History Medical history: arthritis, CHF, coronary artery disease, diabetes, GERD, hyperlipidemia, hypertension, myocardial infarction, peripheral artery disease, renal disease, thyroid disease Psychiatric history: anxiety - Past Surgical History Surgical History: appendectomy, cataract, coronary bypass (CABG), LE vascular intervention, orthopedic, other, other - Social History Smoking Status: Former smoker Smokeless Tobacco Status: No Alcohol use: none Drug use: none - Family History Father Living Status: Hx Family Cancer: Yes Mother Family Member Ethnicity: Non- Living Status: Hx Family Cardiac Disorders: No Hx Family Respiratory Disorders: No Hx Family Cancer: Yes Hx Family GI Disorders: No Hx Family Endocrine Disorder: No Hx Family Neuromuscular Disorders: No Hx Family Neurologic Disorders: No Hx Family HEENT Disorders: No Hx Family Autoimmune Disorders: No Medications and Allergies Acetaminophen [Tylenol] 650 mg PO BID 05/26/15 [History] Allopurinol [Zyloprim 300 MG] 300 mg PO DAILY 05/26/15 [History] Aspirin [Adult Low Dose Aspirin EC] 81 mg PO DAILY 05/26/15 [History] Insulin ASPART [NovoLOG] 11 - 15 unit SQ TID 05/26/15 [History] Insulin Glargine [Lantus] 34 - 45 unit SQ HS 05/26/15 [History] Levothyroxine [Synthroid] 100 mcg PO DAILY 05/26/15 [History] Ranitidine HCl [Zantac] 150 mg PO BID 05/26/15 [History] Tamsulosin [Flomax] 0.4 mg PO DAILY 05/26/15 [History] Finasteride [Proscar] 5 mg PO DAILY 04/05/16 [History] Lactulose 10 gm PO DAILY 04/05/16 [History] Nitroglycerin [Nitrostat] 0.4 mg SL AD PRN 04/05/16 [History] Isosorbide MONOnitrate (24 HR) [Imdur] 60 mg PO DAILY #60 tab.er.24h 04/08/16 [ Rx] Atorvastatin [Lipitor] 40 mg PO DAILY 10/28/16 [History] Clindamycin HCl [Cleocin HCl] 300 mg PO BID #10 tab 10/28/16 [Rx] Furosemide [Lasix] 40 mg PO DAILY 10/28/16 [History] 3 Allergy/AdvReac Type Severity Reaction Status Date / Time acetaminophen [From Percocet] Allergy Hives Verified 10/28/16 08:47 Oxycodone [From Percocet] Allergy Hives Verified 10/28/16 08:47 prednisone Allergy Rash Verified 10/28/16 08:47 All Systems Reviewed: Constitutional and musculoskeletal systems were reviewed and are negative unless otherwise stated in history of present illness. Physical Exam - Constitutional Exam: CONSTITUTIONAL -Vitals reviewed -The patient is well developed, well nourished, well groomed PSYCHIATRIC -Fully alert and oriented -Pleasant mood LEFT UPPER EXTREMITY Evaluation of the residual long finger does show gapping at the amputation site by a few millimeters with minimal serous drainage. No gross purulence. The wound bed is granulating nicely. There is moderate swelling to the residual digit with erythema that does go dorsally into the hand and a subtle streak going into the distal forearm. Mild tenderness to palpation on the dorsal wrist area. Full active and passive motion of the elbow and wrist without significant discomfort. No redness along the other digits and no tenderness in these areas. Altered sensation throughout the hand consistent with his known baseline neuropathy. The fingertips including the residual long finger are all well perfused. Diagnostic Imaging: I did personally review and interpret x-rays of the left long finger show amputation through the middle phalanx without bony resorption. Results - Labs Labs: All other labs normal. Consult Discharge Plan - Plan Referrals: Nestor De La Cruz MD [Primary Care Provider] -
[2016-11-12 15:17] LABS: Basophils % 0.4 %; Eosinophils # 0.1 K/mcL (0.0-0.6); Eosinophils % 1.3 %; Hematocrit 36.4 % (37.5-50.1); Hemoglobin 12.5 g/dL (12.9-16.9); Immature Granulocytes % 0.4 % (0-4); Lymphocytes % 14.1 %; Mean Corpuscular HGB Conc 34.3 g/dL (31.6-35.5); Mean Corpuscular Hemoglobin 32.5 pg (28.0-33.3); Mean Corpuscular Volume 94.5 fL (83.0-100.0); Mean Platelet Volume 11.2 fL (9.4-12.4); Monocytes # 0.6 K/mcL (0.0-1.3); Monocytes % 8.9 %; Neutrophils # 5.1 K/mcL (1.6-8.9); Platelet Count 114 K/mcL (140-400); Red Blood Count 3.85 M/mcL (4.19-5.50); Red Cell Distribution Width 13.7 % (11.5-14.5); Segmented Neutrophils % 74.9 %
[2016-11-12 15:29] LABS: Calcium 9.4 mg/dL (8.6-10.8); Potassium 3.9 mEq/L (3.5-4.5)
[2016-11-12] MEDS ORDERED: Naloxone 0.4 MG/ML INJ IVP PRN (18:44)
[2016-11-12] MEDS ORDERED: Nitroglycerin 0.4 MG TAB.SUBL SL PRN (18:47)
[2016-11-12] MEDS: Piperacillin/Tazobactam 3.375 GM in D5% in Water (Mini-Bag+) 100 ML IVPB SCH (19:57)
[2016-11-12] MEDS: Famotidine 20 MG TABLET PO SCH (19:58)
[2016-11-12] MEDS ORDERED: D5% in Water 1,000 ML IVC PRN (20:19)
[2016-11-12] MEDS ORDERED: *HR* Dextrose 50 % in Water (Syg) 50 ML SYRINGE IVP PRN (20:19)
[2016-11-12] MEDS ORDERED: Dextrose Gel 15 GM PO PRN ×2 (20:19)
[2016-11-12] MEDS ORDERED: Insulin LISPRO 300 UNITS/3 ML VIAL SQ SCH (21:00)
[2016-11-12] MEDS ORDERED: Insulin DETEMIR 100 UNIT/ML X5UNITS SQ SCH ×3 (21:00)
--- NOTE | 2016-11-12 21:19 | Internal Med History&Physical ---
<Elaine Patel - Last Filed: 11/12/16 21:29> Date of Encounter: 11/12/16 Time of Encounter: 21:10 Assessment and Plan (1) Finger infection Current visit: Yes Status: Acute 1 patient had amputation to left long finger 2 weeks ago. He completed his course of antibiotic. The past week he has developed redness swelling extending beyond finger into the dorsal aspect of his left hand. He followed up with Dr. Quiñonez who advised admission with IV antibiotics. We will continue with Zosyn 2 we will make patient nothing by mouth after midnight for possible surgical intervention 3 orthopedics consult.-Following (2) CAD (coronary artery disease) Current visit: No Status: Chronic 1 continue with aspirin and statin beta elda 2 nitroglycerin as needed for chest pain Qualifiers: Coronary Disease-Associated Artery/Lesion type: [place] artery [place] vs. transplanted heart: [place] heart Associated angina: without angina Qualified Code(s): I25.10 - Atherosclerotic heart disease of [place] coronary artery without angina pectoris (3) HTN (hypertension) Current visit: No Status: Chronic 1 continue with metoprolol and lisinopril 2 low sodium diet Qualifiers: Hypertension type: essential hypertension Qualified Code(s): I10 - Essential (primary) hypertension (4) Insulin dependent diabetes mellitus Current visit: No Status: Chronic 1 Accu-Cheks before meals at bedtime for sinus scale and basal insulin. We will half his basal insulin tonight due to these nothing by mouth and Accu- Cheks every 6 hours with low dose sliding scale. (5) DVT prophylaxis Current visit: Yes Status: Acute [facility] Internal Medicine - H&P: HPI Chief complaint: Cellulitis Admitted From: Emergency Dept Plans for Post Hospital Care: Home History of present illness: Mr. Read is a 81 year old male with history of CHF CABG diabetes, hyperlipidemia hypertension and CT PAD CK D thyroid CABG. Patient had undergone left long finger amputation per Dr. Quiñonez to the middle phalanx of her 2 weeks ago. During procedure osteomyelitis was noted and biopsies were taken operative cultures did not grow any organisms. Postoperatively he was doing well after the first week. He completed his antibiotic course as prescribed. He can receiving care from home health nurse daily who did note earlier in the week some redness and swelling to the digit. He saw Dr. Quiñonez today who was concerned because the redness was spreading into the dorsal hand with a streak to the left dorsal wrist. He has been admitted today for IV antibiotics and possible surgical intervention. Presently patient denies any pain or discomfort he does not appear to be in respiratory distress his lung sounds are clear heart sounds are regular S1 and S2 with no murmurs clicks or gallops murmurs noted. Abdomen soft and nontender left long finger is edematous with erythema, which also extends into the dorsal aspect of hand. He has strong radial pulses and brisk capillary refill to remaining digits. He denies any numbness or tingling. He has no pedal edema to his left lower extremity. He has BKA of right extremity. He is hemodynamically stable at this time. I reviewed this case with Dr Peterson who agrees with plan. Past Med Surg Social Fam HX - Past Medical History Medical history: arthritis, CHF, coronary artery disease, diabetes, GERD, hyperlipidemia, hypertension, myocardial infarction, peripheral artery disease, renal disease, thyroid disease Psychiatric history: anxiety - Past Surgical History Surgical History: appendectomy, cataract, coronary bypass (CABG), LE vascular intervention, orthopedic, other, other - Social History Smoking Status: Former smoker Smokeless Tobacco Status: No Alcohol use: none Drug use: none - Family History Father Living Status: Hx Family Cancer: Yes Mother Family Member Ethnicity: Non- Living Status: Hx Family Cardiac Disorders: No Hx Family Respiratory Disorders: No Hx Family Cancer: Yes Hx Family GI Disorders: No Hx Family Endocrine Disorder: No Hx Family Neuromuscular Disorders: No Hx Family Neurologic Disorders: No Hx Family HEENT Disorders: No Hx Family Autoimmune Disorders: No Internal Medicine - H&P: Meds Acetaminophen [Tylenol] 650 mg PO BID PRN 05/26/15 [History] Allopurinol [Zyloprim 300 MG] 300 mg PO DAILY 05/26/15 [History] Aspirin [Adult Low Dose Aspirin EC] 81 mg PO DAILY 05/26/15 [History] Insulin ASPART [NovoLOG] 15 unit SQ TIDAC 05/26/15 [History] Insulin Glargine [Lantus] 12 unit SQ HS 05/26/15 [History] Levothyroxine [Synthroid] 100 mcg PO QAM 05/26/15 [History] Ranitidine HCl [Zantac] 150 mg PO BID 05/26/15 [History] Tamsulosin [Flomax] 0.4 mg PO DAILY 05/26/15 [History] Finasteride [Proscar] 5 mg PO DAILY 04/05/16 [History] Lactulose 10 gm PO DAILY PRN 04/05/16 [History] Nitroglycerin [Nitrostat] 0.4 mg SL Q5M PRN 04/05/16 [History] Furosemide [Lasix] 40 mg PO DAILY 10/28/16 [History] Atorvastatin [Lipitor] 10 mg PO HS 11/12/16 [History] Cyclobenzaprine [Flexeril] 10 mg PO TID PRN 11/12/16 [History] Ergocalciferol (VITAMIN D2) [Vitamin D2] 50,000 unit PO QWEEK 11/12/16 [History] HYDROcodone/Acet 5/325 mg [[place] 5-325 mg] 1 tab PO BID PRN 11/12/16 [History] Isosorbide MONOnitrate (24 HR) [Imdur] 30 mg PO DAILY 11/12/16 [History] Metoprolol XL (24 HR) Succ [Toprol XL] 25 mg PO DAILY 11/12/16 [History] Mirabegron [Myrbetriq] 50 mg PO DAILY 11/12/16 [History] 3 Allergy/AdvReac Type Severity Reaction Status Date / Time acetaminophen [From Percocet] Allergy Hives Verified 10/28/16 08:47 Oxycodone [From Percocet] Allergy Hives Verified 10/28/16 08:47 prednisone Allergy Rash Verified 10/28/16 08:47 All Systems PM: A 10-system review of systems was performed and is negative for pertinent findings except as documented above in the HPI. - Constitutional Constitutional: no chills, no fever(s), no night sweats - EENT Eyes: no change in vision, no discharge, no pain, no photophobia Nose, mouth and throat: no dysphagia, no nasal discharge, no neck pain, no sore throat - Cardiovascular Cardiovascular ROS IM: no chest pain, no diaphoresis, no dyspnea, no lightheadedness, no palpitations, no syncope - Respiratory Respiratory: no cough, no dyspnea, no wheezing, no excessive phlegm production - Gastrointestinal Gastrointestinal: no abdominal pain, no diarrhea, no hematemesis, no hematochezia, no melena, no nausea, no vomiting - Musculoskeletal Musculoskeletal ROS IM: no numbness, no tingling - Integumentary Integumentary IM: erythema - Neurological Neurological ROS: no confusion, no convulsions, no focal weakness, no numbness, no tingling, no tremor(s) - Constitutional Vitals: Temp Pulse Resp BP Pulse Ox 98.8 F 65 14 139/79 97 11/12/16 19:05 11/12/16 19:05 11/12/16 19:05 11/12/16 19:05 11/12/16 19:05 General appearance: Present: A&O X 3, answers questions appropriately - Head Head exam: Present: atraumatic, normocephalic - Eye Eye exam: Present: PERRL, conjuntiva pink, sclera anicteric Pupils: Present: PERRL - Neck Neck exam general surgery: Present: supple, trachea midline. Absent: lymphadenopathy - Respiratory Respiratory exam: Present: CTAB. Absent: accessory muscle use, rales, rhonchi, wheezes - Cardiovascular Cardiovascular exam: Present: RRR, +S1, +S2. Absent: diastolic murmur, gallop, rubs, systolic murmur - GI/Abdominal GI/Abdominal exam: Present: normal bowel sounds, soft, no peritoneal signs. Absent: distended, tenderness - Extremities Exam Extremities exam: Present: warm, radial pulses palpable and symmetrical. Absent : calf tenderness, cyanotic, pedal edema - Expanded Upper Extremities Exam Hand wrist exam: Present: amputation, swelling, tenderness - Neurological Exam Neurological exam: Present: CN II-XII intact, oriented X3, no focal deficits. Absent: pronater drift, facial droop, speech deficit - Skin Skin exam: Present: dry, intact Internal Med - H&P Results - Labs CBC & Chem 7: 11/12/16 15:11 11/12/16 15:11 Labs: Short CBC 11/12/16 Range/Units 15:11 WBC 6.8 (4.3-11.1) K/mcL Hgb 12.5 L (12.9-16.9) g/dL Hct 36.4 L (37.5-50.1) % Plt Count 114 L (140-400) K/mcL Neutrophils # 5.1 (1.6-8.9) K/mcL BMP 11/12/16 15:11 Sodium 136 Potassium 3.9 Chloride 103 Carbon Dioxide 24 BUN 26 Creatinine 1.49 H Glucose 143 H Calcium 9.4 <NicholasPriyankaMartir Camacho - Last Filed: 11/13/16 00:27> Date of Encounter: 11/13/16 Internal Medicine - H&P: HPI History of present illness: Mr. Read is a 81 year old male All Systems PM: A 10-system review of systems was performed and is negative for pertinent findings except as documented above in the HPI. - Constitutional Vitals: Temp Pulse Resp BP Pulse Ox 98.8 F 65 14 139/79 97 11/12/16 19:05 11/12/16 19:05 11/12/16 19:05 11/12/16 19:05 11/12/16 19:05 Internal Med - H&P Results - Labs CBC & Chem 7: 11/12/16 15:11 11/12/16 15:11 Labs: Short CBC 11/12/16 Range/Units 15:11 WBC 6.8 (4.3-11.1) K/mcL Hgb 12.5 L (12.9-16.9) g/dL Hct 36.4 L (37.5-50.1) % Plt Count 114 L (140-400) K/mcL Neutrophils # 5.1 (1.6-8.9) K/mcL [facility] 11/12/16 15:11 Sodium 136 Potassium 3.9 Chloride 103 Carbon Dioxide 24 BUN 26 Creatinine 1.49 H Glucose 143 H Calcium 9.4 - Attending Attestation I examined this patient and my medical decision-making was reviewed with the BUILDING CARPENTER HELPER. I agree with the documented findings, disposition and treatment plan as described except to the extent set forth below. Patient is a 1-year-old male with past medical history of CHF CAD, diabetes, GERD, hyperlipidemia, hypertension and peripheral [place] disease. He resents as a direct admit for infection of left middle finger. He is being admitted for cellulitis. IV antibiotics will be continued. Dr. Renteria has evaluated patient. Patient will probably have a surgical intervention in a.m. No other acute events or complaints at this time. Heart rate 65, blood pressure 139/79, O2 97% on room air. Heart S1-S2 positive no murmurs or rubs. Lungs: Good entry no wheeze or crackles.
[2016-11-12] MEDS: Insulin DETEMIR 100 UNIT/ML X5UNITS SQ SCH (21:34)
[2016-11-13] MEDS: Piperacillin/Tazobactam 3.375 GM in D5% in Water (Mini-Bag+) 100 ML IVPB SCH ×3 (03:23→18:21)
[2016-11-13 05:27] LABS: Basophils % 0.5 %; Eosinophils # 0.1 K/mcL (0.0-0.6); Eosinophils % 2.7 %; Hematocrit 35.4 % (37.5-50.1); Hemoglobin 12.2 g/dL (12.9-16.9); Immature Granulocytes % 0.7 % (0-4); Lymphocytes # 0.9 K/mcL (0.6-4.6); Mean Corpuscular HGB Conc 34.5 g/dL (31.6-35.5); Mean Corpuscular Hemoglobin 32.7 pg (28.0-33.3); Mean Corpuscular Volume 94.9 fL (83.0-100.0); Mean Platelet Volume 11.4 fL (9.4-12.4); Monocytes # 0.5 K/mcL (0.0-1.3); Monocytes % 11.1 %; Neutrophils # 2.7 K/mcL (1.6-8.9); Platelet Count 104 K/mcL (140-400); Red Blood Count 3.73 M/mcL (4.19-5.50); Red Cell Distribution Width 13.5 % (11.5-14.5)
[2016-11-13 05:41] LABS: Potassium 3.6 mEq/L (3.5-4.5)
[2016-11-13] MEDS ORDERED: *HR* Enoxaparin 40 MG/0.4 ML SYRINGE SQ SCH (06:00)
[2016-11-13] MEDS: Insulin LISPRO 300 UNITS/3 ML VIAL SQ SCH ×4 (06:30→21:37)
[2016-11-13] MEDS ORDERED: Insulin LISPRO 300 UNITS/3 ML VIAL SQ SCH (07:30)
--- NOTE | 2016-11-13 07:34 | Orthopedics Progress Note ---
Date of Encounter: 11/13/16 Time of Encounter: 07:32 - Assessment and Plan (1) Finger infection Current Visit: Yes Status: Acute I did discuss the diagnosis in detail the patient. He does have a postoperative left long finger infection. My recommendation was for direct admission for IV antibiotics. After discussing with the hospitalist will start Zosyn after obtaining blood cultures. We will also order a baseline set of labs. Otherwise we will recommend elevation and daily local wound care with dressing changes and warm soapy soaks. The patient is aware of the risk of needing further debridement versus more proximal amputation. I will follow clinically. Subjective Interval history: S: The patient is seen on the floor where he had been getting Zosyn overnight. He does note improvement in the dorsal hand and wrist pain. No new complaints. He is pleased with his progress so far. O: Afebrile and the vital signs are stable The erythema has improved to the hand which is now just slightly pink. Mild residual swelling to the long finger. The distal wound is granulating nicely with minimal serous drainage and no purulence. The dorsal hand redness and no red streak at the dorsal wrist has nearly completely resolved already. Minimal tenderness of the dorsal wrist area. No other tenderness noted. He can flex and extend the digits with some limitation due to swelling of the long finger. Sensation is decreased and at his baseline from neuropathy. The fingertips are all well perfused. A: Postoperative cellulitis to the left long finger P: No plans for surgical intervention. Continue IV antibiotics for now and will follow the resolution of the cellulitis. Elevation and daily local wound care with dressing changes and warm soapy soaks. Objective Vital signs: Vital Signs Temp Pulse Resp BP Pulse Ox 11/13/16 06:27 97.9 F 60 14 119/71 98 11/13/16 04:23 97.8 F 84 14 110/60 99 11/12/16 23:25 97.8 F 65 14 116/75 99 11/12/16 19:05 98.8 F 65 14 139/79 97 11/12/16 14:38 97.4 F L 75 18 114/62 96 Intake and Output 11/12/16 11/12/16 11/13/16 15:59 23:59 07:59 Intake Total 100 / 100 0 / 0 Output Total 275 / 275 Balance 100 / 100 -275 / -275 Intake: IV Fluids 100 / 100 Zosyn 3.375 GM In 100 / 100 Dextrose 5% (Minibag+) 100 ML 100 ML @ 25 mls/hr IVPB Q8H YOMAIRA Rx#: [id number] Oral 0 / 0 Output: Urine 275 / 275 Other: # Voids 1 # Bowel Movements 0 0 Weight 96.842 kg 92.714 kg Blood Glucose* 234 132 Patient Weight 11/13/16 23:59 Weight 92.714 kg - Labs CBC & BMP: 11/13/16 04:51 11/13/16 04:51 Labs: Abnormal lab results WBC 4.2 K/mcL (4.3-11.1) L 11/13/16 04:51 RBC 3.73 M/mcL (4.19-5.50) L 11/13/16 04:51 Hgb 12.2 g/dL (12.9-16.9) L 11/13/16 04:51 Hct 35.4 % (37.5-50.1) L 11/13/16 04:51 Plt Count 104 K/mcL (140-400) L 11/13/16 04:51 ESR 49 mm/hr (0-10) H 11/12/16 15:11 Creatinine 1.60 mg/dL (0.72-1.25) H 11/13/16 04:51 Est GFR ( Amer) 51 (> 60) L 11/13/16 04:51 Est GFR (Non-Af Amer) 42 (> 60) L 11/13/16 04:51 Glucose 129 mg/dL (70-99) H 11/13/16 04:51 POC Glucose 132 (58-89) H 11/13/16 05:56 C-Reactive Protein 74 mg/L (Less than 5) H 11/12/16 15:11 Consult Discharge Plan - Plan Referrals: Nestor De La Cruz MD [Primary Care Provider] -
--- NOTE | 2016-11-13 10:06 | Internal Med Progress Note ---
<Linda Helton - Last Filed: 11/13/16 10:56> Date of Encounter: 11/13/16 Time of Encounter: 10:56 - Assessment and plan (1) Finger infection Current Visit: Yes Status: Acute Assessment and plan: Patient is s/p L third digit DIP amputation 2 weeks ago secondary to tophaceous gout resulting in dorsal skin erosion leading to exposded distal interphalangeal join and infection. After completing his course of Clindamycin for 5 days developed increase redness and swelling two days ago. After an outpatient appointment on , Dr. Quiñonez directly admitted him for IV antibiotics. Finger x-ray showed no acute osseous abnormalities. Per orthopedic recommendations will continue IV antibiotics of Zosyn and do daily wound care with dressing changes and warm soap soaks for now. Plan: - Zosyn (started 11/12) - blood cultures pending - daily wound care (2) CAD (coronary artery disease) Current Visit: No Status: Chronic Assessment and plan: Continue home medications. Currently not complaining of chest pain. Plan: - Apsirin 81 mg PO daily - Metoprolol 25mg Po daily - Atorvostatin 10 mg PO daily Qualifiers: Coronary Disease-Associated Artery/Lesion type: [place] artery [place] vs. transplanted heart: [place] heart Associated angina: without angina Qualified Code(s): I25.10 - Atherosclerotic heart disease of [place] coronary artery without angina pectoris (3) HTN (hypertension) Current Visit: No Status: Chronic Assessment and plan: BP well controlled on home medications therefore will continue on home dose. Plan: -Metoprolol 25mg PO daily - Lasix 40 mg Po daily - Qualifiers: Hypertension type: essential hypertension Qualified Code(s): I10 - Essential (primary) hypertension (4) Insulin dependent diabetes mellitus Current Visit: No Status: Chronic Assessment and plan: Will continue on home Lantus dose and will have accu checks with sliding scale to manage DM. 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 Home dose of Allopurinol of 300mg. Uric acid level ordered. 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 Quiñonez for IV antibiotics. Today, he says the redness has decreased and swelling has decreasd. He does not have any pain due to diabetic neuropathy. Denies fevers, chills, CP, dizziness or SOB. - Constitutional Vitals: Temp Pulse Resp BP Pulse Ox 97.9 F 60 14 119/71 98 11/13/16 06:27 11/13/16 06:27 11/13/16 06:27 11/13/16 06:27 11/13/16 06:27 General appearance: Present: A&O X 3, answers questions appropriately Exam: Constitutional: Alert, in no acute distress, well nourished, well developed. Head: Normocephalic, atraumatic, normal contour and symmetric, no masses, lesions or scars EENT: pupils reactive bilaterally but R pupil 3mm, L pupil 1mm, iris abnormal in shape, Heart: Normal, regular rate and rhythm, no murmurs Lungs: Clear to auscultation, no wheezes, rales, or rhonchi Abdomen: Soft, nondistended, nontender, and no masses palpable, bowel sounds present and normal, no guarding or rigidity. Extremities: L hand with pinkness and swelling at distal aspect of 3rd digit extending back to mid-dorsal aspect of hand, L third digit with DIP amputation and distal tip with small amount of pus present and well healing granulation tissue, no streaking present, parasthesia bilaterally in hands and L lower extremity, IV placed in L hand, R LE amputation about 3 inches below the knee no ulcers present on distal aspect of LE, L LE with venous stasis changes to the skin and flaking skin, no foot ulcers present, No clubbing, cyanosis, or edema, radial pulse +2/4, capillary refill <2sec. Skin: Skin warm and dry,, no jaundice Neurologic: Cranial nerves II through XII grossly intact, no focal deficits, Psych: Cooperative with exam, good eye contact, cognitive function intact, judgment good insight good, speech clear, thought process logical, and goal directed Internal Medicine: Result - Labs CBC & Chem 7: 11/13/16 04:51 11/13/16 04:51 Labs: Short CBC 11/12/16 11/13/16 Range/Units 15:11 04:51 WBC 6.8 4.2 L (4.3-11.1) K/mcL Hgb 12.5 L 12.2 L (12.9-16.9) g/dL Hct 36.4 L 35.4 L (37.5-50.1) % Plt Count 114 L 104 L (140-400) K/mcL Neutrophils # 5.1 2.7 (1.6-8.9) K/mcL BMP 11/12/16 11/13/16 15:11 04:51 Sodium 136 139 Potassium 3.9 3.6 Chloride 103 103 Carbon Dioxide 24 27 BUN 26 26 Creatinine 1.49 H 1.60 H Glucose 143 H 129 H Calcium 9.4 9.0 Consult Discharge Plan - Plan Referrals: Nestor De La Cruz MD [Primary Care Provider] - <Red Espinosa H - Last Filed: 11/13/16 16:00> Date of Encounter: 11/13/16 - Constitutional Vitals: Temp Pulse Resp BP Pulse Ox 97.9 F 64 15 117/63 96 11/13/16 14:25 11/13/16 14:25 11/13/16 14:25 11/13/16 14:25 11/13/16 14:25 Internal Medicine: Result - Labs CBC & Chem 7: 11/13/16 04:51 11/13/16 04:51 Labs: Short CBC 11/13/16 Range/Units 04:51 WBC 4.2 L (4.3-11.1) K/mcL Hgb 12.2 L (12.9-16.9) g/dL Hct 35.4 L (37.5-50.1) % Plt Count 104 L (140-400) K/mcL Neutrophils # 2.7 (1.6-8.9) K/mcL BMP 11/13/16 04:51 Sodium 139 Potassium 3.6 Chloride 103 Carbon Dioxide 27 BUN 26 Creatinine 1.60 H Glucose 129 H Calcium 9.0 - Attending Attestation acute cellulites left 3dr finger continue Zosyn consider debridement , orthopedic surgery recommendations appreciated I examined this patient and my medical decision-making was reviewed with the Resident Physician. I agree with the documented findings, disposition and treatment plan as described except to the extent set forth below.
[2016-11-13] MEDS: Metoprolol XL (24 HR) Succ 25 MG TAB.ER.24H PO SCH (10:18)
[2016-11-13] MEDS: Finasteride 5 MG TABLET PO SCH (10:18)
[2016-11-13] MEDS: Aspirin Enteric Coated 81 MG Tablet PO SCH (10:18)
[2016-11-13] MEDS: Furosemide 40 MG TABLET PO SCH (10:18)
[2016-11-13] MEDS: Isosorbide MONOnitrate (24 HR) 30 MG TAB.ER.24H PO SCH (10:18)
[2016-11-13] MEDS: Famotidine 20 MG TABLET PO SCH ×2 (10:19→21:36)
[2016-11-13] MEDS: (Mirabegron [Myrbetriq] 50 MG) PO SCH (10:19)
[2016-11-13] MEDS: *HR* Enoxaparin 40 MG/0.4 ML SYRINGE SQ SCH (17:14)
[2016-11-13] MEDS: Insulin DETEMIR 100 UNIT/ML X5UNITS SQ SCH (21:36)
[2016-11-14] MEDS: Piperacillin/Tazobactam 3.375 GM in D5% in Water (Mini-Bag+) 100 ML IVPB SCH ×3 (03:21→20:48)
[2016-11-14 08:16] LABS: Basophils % 0.9 %; Eosinophils # 0.1 K/mcL (0.0-0.6); Eosinophils % 3.1 %; Hematocrit 36.9 % (37.5-50.1); Hemoglobin 12.5 g/dL (12.9-16.9); Immature Granulocytes % 0.9 % (0-4); Lymphocytes # 0.9 K/mcL (0.6-4.6); Lymphocytes % 20.4 %; Mean Corpuscular HGB Conc 33.9 g/dL (31.6-35.5); Mean Corpuscular Hemoglobin 32.2 pg (28.0-33.3); Mean Corpuscular Volume 95.1 fL (83.0-100.0); Mean Platelet Volume 11.6 fL (9.4-12.4); Monocytes # 0.5 K/mcL (0.0-1.3); Neutrophils # 2.8 K/mcL (1.6-8.9); Platelet Count 119 K/mcL (140-400); Red Blood Count 3.88 M/mcL (4.19-5.50); Red Cell Distribution Width 13.5 % (11.5-14.5); Segmented Neutrophils % 62.7 %
--- NOTE | 2016-11-14 08:33 | Internal Med Progress Note ---
<Venu Edwards - Last Filed: 11/14/16 17:12> Date of Encounter: 11/14/16 Time of Encounter: 08:30 - Assessment and plan (1) Finger infection Current Visit: Yes Status: Acute Assessment and plan: Patient is s/p L third digit DIP amputation 2 weeks ago secondary to tophaceous gout resulting in dorsal skin erosion leading to exposded distal interphalangeal join and infection. After completing his course of Clindamycin for 5 days developed increase redness and swelling two days ago. After an outpatient appointment on , Dr. Renteria directly admitted him for IV antibiotics. Finger x-ray showed no acute osseous abnormalities. Per orthopedic recommendations will continue IV antibiotics of Zosyn and do daily wound care with dressing changes and warm soap soaks for now. - Review of patient's wound culture from 10/05/2016 he had pansensitive Staphylococcus aureus for which at that time demonstrated sensitivity clindamycin - With his severe vascular disease oral antibiotic penetration may not been adequate. - Erythema and edema is improving on current antibiotic regimen. Plan: - Zosyn (started 11/12) - blood cultures pending - daily wound care (2) CKD (chronic kidney disease) stage 3, GFR 30-59 ml/min Current Visit: No Status: Chronic Assessment and plan: Patient has known stage III chronic kidney disease with a GFR around 45 likely secondary to diabetic nephropathy. He demonstrates a creatinine of 1.85 and a GFR of 35 while receiving IV Zosyn. Plan: -Start 75 ML's normal saline 1 L - We will consider switching IV antibiotics in the setting of acute on chronic kidney disease (3) CAD (coronary artery disease) Current Visit: No Status: Chronic Assessment and plan: Continue home medications. Currently not complaining of chest pain. Plan: - Apsirin 81 mg PO daily - Metoprolol 25mg Po daily - Atorvostatin 10 mg PO daily Qualifiers: Coronary Disease-Associated Artery/Lesion type: [place] artery [place] vs. transplanted heart: [place] heart Associated angina: without angina Qualified Code(s): I25.10 - Atherosclerotic heart disease of [place] coronary artery without angina pectoris (4) HTN (hypertension) Current Visit: No Status: Chronic Assessment and plan: BP well controlled on home medications therefore will continue on home dose. 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 Home dose of Allopurinol of 300mg. - Uric acid 4.3 Plan: -Allopurinol 300mg PO daily Qualifiers: Chronicity: chronic Presence of tophus: with tophus Qualified Code(s): M1A.39X1 - Chronic gout due to renal impairment, multiple sites, with tophus ( tophi) (7) DVT prophylaxis Current Visit: Yes Status: Acute Assessment and plan: Stop Lovenox and start subcutaneous heparin 5000 units every 8 hours in the setting of chronic kidney disease - Subjective Interval history: Mr. Read, has been seen and evaluated patient bedside this morning. He is alert awake interactive in no acute distress sitting up in his chair. He states that he is feeling well and that the swelling in his left hand is significantly improved and he wishes to go home when stable. He denies any pain , abnormal drainage or weeping from the wound site. He feels that the redness is resolving and denies any fevers, chills, sweating, blurry vision, sore throat , chest pain, palpitations, abdominal pain nausea vomiting diarrhea constipation or any other concerning signs. - Constitutional Vitals: Temp Pulse Resp BP Pulse Ox 97.4 F L 93 16 117/67 91 11/14/16 07:49 11/14/16 07:49 11/14/16 07:49 11/14/16 07:49 11/14/16 07:49 General appearance: Present: A&O X 3, answers questions appropriately Exam: Constitutional: Alert, in no acute distress, well nourished, well developed. HEENT: Normocephalic, atraumatic, normal contour and symmetric, no masses, lesions or scars, smile symmetric Heart: Normal, regular rate and rhythm, no murmurs Lungs: Clear to auscultation in all lung orozco, no wheezes, rales, or rhonchi Abdomen: Soft, nondistended, nontender, and no masses palpable, bowel sounds present and normal, no guarding or rigidity. Extremities: L hand with pinkness and swelling at distal aspect of 3rd digit extending back to mid-dorsal aspect of hand, L third digit with DIP amputation and distal tip with small amount of pus present and well healing granulation tissue, no streaking present, parasthesia bilaterally in hands and L lower extremity, IV placed in L hand, R LE amputation about 3 inches below the knee no ulcers present on distal aspect of LE, L LE with venous stasis changes to the skin and flaking skin, no foot ulcers present, No clubbing, cyanosis, or edema, radial pulse +2/4, capillary refill <2sec. 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 Current Visit: Yes Status: Acute Qualifiers: Chronicity: chronic Presence of tophus: with tophus Qualified Code(s): M1A.39X1 - Chronic gout due to renal impairment, multiple sites, with tophus ( tophi) (3) Congestive heart failure Current Visit: No Status: Acute Qualifiers: Congestive heart failure type: combined Congestive heart failure chronicity : chronic Qualified Code(s): I50.42 - Chronic combined systolic (congestive) and diastolic (congestive) heart failure (4) CAD (coronary artery disease) Current Visit: No Status: Chronic Qualifiers: Coronary Disease-Associated Artery/Lesion type: [place] artery [place] vs. 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 Qualified Code(s): E11.59 - Type 2 diabetes mellitus with other circulatory complications; Z79.4 - [facility] (current) use of insulin (7) HTN (hypertension) Current Visit: No Status: Chronic Qualifiers: Hypertension type: essential hypertension Qualified Code(s): I10 - Essential (primary) hypertension - Constitutional Vitals: Temp Pulse Resp BP Pulse Ox 97.4 F L 67 17 127/74 97 11/14/16 15:01 11/14/16 15:01 11/14/16 15:01 11/14/16 15:01 11/14/16 15:01 Internal Medicine: Result - Labs CBC & Chem 7: 11/14/16 06:56 11/14/16 06:56 Labs: Short CBC 11/14/16 Range/Units 06:56 WBC 4.5 (4.3-11.1) K/mcL Hgb 12.5 L (12.9-16.9) g/dL Hct 36.9 L (37.5-50.1) % Plt Count 119 L (140-400) K/mcL Neutrophils # 2.8 (1.6-8.9) K/mcL BMP 11/14/16 06:56 Sodium 137 Potassium 3.6 Chloride 102 Carbon Dioxide 24 BUN 27 H Creatinine 1.85 H Glucose 92 Calcium 9.4 - Attending Attestation I examined this patient and my medical decision-making was reviewed with the Resident Physician on 11/14/16. I agree with the documented findings, disposition and treatment plan as described except to the extent set forth below. Mr. Read is currently admitted for infected finger s/p recent amputation. He remains moderate to high risk due to potential for worsening infectious status. Mr Read feels OK. No fever or chills. No CP or SOB. Feels that hand is less swollen at this time. Exam Alert. Comfortable Mucus membranes dry Heart reg No wheeze Abd soft Dressing intact at this time I/P 1. L finger infection s/p amputation recently 2. Gout Further diagnoses and plan as above.
[2016-11-14] MEDS: Finasteride 5 MG TABLET PO SCH (08:39)
[2016-11-14] MEDS: Famotidine 20 MG TABLET PO SCH (08:39)
[2016-11-14] MEDS: Furosemide 40 MG TABLET PO SCH (08:40)
[2016-11-14] MEDS: Metoprolol XL (24 HR) Succ 25 MG TAB.ER.24H PO SCH (08:40)
[2016-11-14] MEDS: Aspirin Enteric Coated 81 MG Tablet PO SCH (08:40)
[2016-11-14] MEDS: *HR* Enoxaparin 40 MG/0.4 ML SYRINGE SQ SCH (08:40)
[2016-11-14] MEDS: Isosorbide MONOnitrate (24 HR) 30 MG TAB.ER.24H PO SCH (08:40)
[2016-11-14] MEDS: (Mirabegron [Myrbetriq] 50 MG) PO SCH (08:41)
[2016-11-14] MEDS: Insulin LISPRO 300 UNITS/3 ML VIAL SQ SCH ×4 (08:41→20:49)
[2016-11-14 09:07] LABS: Calcium 9.4 mg/dL (8.6-10.8); Potassium 3.6 mEq/L (3.5-4.5); Uric Acid 4.3 mg/dL (3.5-7.2)
[2016-11-14] MEDS ORDERED: 0.9 % Sodium Chloride 1,000 ML IVC SCH (11:00)
[2016-11-14] MEDS: *HR* Heparin 5,000 UNIT/ML VIAL SQ SCH ×2 (15:29→20:48)
--- NOTE | 2016-11-14 16:02 | Orthopedics Progress Note ---
Date of Encounter: 11/14/16 Time of Encounter: 15:59 - Assessment and Plan (1) Finger infection Current Visit: Yes Status: Acute Pansensitive staph responding well to IV Zosyn. Continue local wound care twice daily, cleaning with saline and apply dry gauze , then covered with Coban. Patient should be able to be discharged tomorrow on by mouth antibiotics. Follow-up with Dr. Quiñonez in 1 week Subjective Principal diagnosis: Left long finger postoperative cellulitis Interval history: Patient states he is doing much better. The dressing from the left long finger was taken down and the erythema is resolved. Amputation stump wound is 2/3 open with minimal gapping. Mild serous drainage in dressings. No purulent drainage. Objective Vital signs: Vital Signs Temp Pulse Resp BP Pulse Ox 11/14/16 15:01 97.4 F L 67 17 127/74 97 11/14/16 10:26 97.4 F L 67 18 155/79 98 11/14/16 07:49 97.4 F L 93 16 117/67 91 11/14/16 04:14 97.8 F 56 14 110/65 97 11/13/16 22:55 98.1 F 57 13 127/74 98 11/13/16 20:58 98.2 F 55 16 122/61 96 Intake and Output 11/13/16 11/14/16 11/14/16 23:59 07:59 15:59 Intake Total 440 / 440 100 / 100 360 / 360 Output Total 825 / 825 500 / 500 325 / 325 Balance -385 / -385 -400 / -400 35 / 35 Intake: IV Fluids 100 / 100 100 / 100 Zosyn 3.375 GM In 100 / 100 100 / 100 Dextrose 5% (Minibag+) 100 ML 100 ML @ 25 mls/hr IVPB Q8H YOMAIRA Rx#: [id number] Oral 340 / 340 360 / 360 Output: Urine 825 / 825 500 / 500 325 / 325 Other: Meal Dinner Lunch Percent of Meal Consumed 100% 100% # Bowel Movements 0 0 Weight 93.123 kg Blood Glucose* 252 110 226 Patient Weight 11/14/16 23:59 Weight 93.123 kg Incision: healing - Labs CBC & BMP: 11/14/16 06:56 11/14/16 06:56 Labs: Abnormal lab results RBC 3.88 M/mcL (4.19-5.50) L 11/14/16 06:56 Hgb 12.5 g/dL (12.9-16.9) L 11/14/16 06:56 Hct 36.9 % (37.5-50.1) L 11/14/16 06:56 Plt Count 119 K/mcL (140-400) L 11/14/16 06:56 ESR 49 mm/hr (0-10) H 11/12/16 15:11 BUN 27 mg/dL (8-26) H 11/14/16 06:56 Creatinine 1.85 mg/dL (0.72-1.25) H 11/14/16 06:56 Est GFR ( Amer) 43 (> 60) L 11/14/16 06:56 Est GFR (Non-Af Amer) 35 (> 60) L 11/14/16 06:56 POC Glucose 226 (58-89) H 11/14/16 11:26 C-Reactive Protein 74 mg/L (Less than 5) H 11/12/16 15:11 Consult Discharge Plan - Plan Referrals: Nestor De La Cruz MD [Primary Care Provider] -
[2016-11-14] MEDS: Insulin DETEMIR 100 UNIT/ML X5UNITS SQ SCH (20:49)
[2016-11-15] MEDS: Piperacillin/Tazobactam 3.375 GM in D5% in Water (Mini-Bag+) 100 ML IVPB SCH (04:06)
[2016-11-15 05:13] LABS: Basophils % 0.6 %; Eosinophils # 0.2 K/mcL (0.0-0.6); Eosinophils % 4.3 %; Hematocrit 33.3 % (37.5-50.1); Hemoglobin 11.3 g/dL (12.9-16.9); Immature Granulocytes % 0.9 % (0-4); Lymphocytes # 0.8 K/mcL (0.6-4.6); Lymphocytes % 24.3 %; Mean Corpuscular HGB Conc 33.9 g/dL (31.6-35.5); Mean Corpuscular Volume 94.3 fL (83.0-100.0); Mean Platelet Volume 11.1 fL (9.4-12.4); Monocytes # 0.4 K/mcL (0.0-1.3); Monocytes % 11.8 %; Platelet Count 116 K/mcL (140-400); Red Blood Count 3.53 M/mcL (4.19-5.50); Red Cell Distribution Width 13.3 % (11.5-14.5); Segmented Neutrophils % 58.1 %
[2016-11-15 05:32] LABS: Albumin/Globulin Ratio 0.9 (1.1-2.2); Bilirubin,Total 0.9 mg/dL (0.2-1.2); Calcium 8.8 mg/dL (8.6-10.8); Globulin 3.4 g/dL (2.4-3.5); Potassium 3.4 mEq/L (3.5-4.5); Total Protein 6.4 g/dL (6.0-8.3)
[2016-11-15] MEDS: *HR* Heparin 5,000 UNIT/ML VIAL SQ SCH (06:08)
[2016-11-15 07:26] VITALS: BP 125/76
[2016-11-15] MEDS: Isosorbide MONOnitrate (24 HR) 30 MG TAB.ER.24H PO SCH (08:13)
[2016-11-15] MEDS: Finasteride 5 MG TABLET PO SCH (08:13)
[2016-11-15] MEDS: Aspirin Enteric Coated 81 MG Tablet PO SCH (08:13)
[2016-11-15] MEDS: Metoprolol XL (24 HR) Succ 25 MG TAB.ER.24H PO SCH (08:13)
[2016-11-15] MEDS: Insulin LISPRO 300 UNITS/3 ML VIAL SQ SCH (08:14)
[2016-11-15] MEDS: Furosemide 40 MG TABLET PO SCH (08:14)
[2016-11-15] MEDS: (Mirabegron [Myrbetriq] 50 MG) PO SCH (08:15)
[2016-11-15] MEDS ORDERED: Famotidine 20 MG TABLET PO SCH (09:00)
--- NOTE | 2016-11-15 10:03 | Discharge Summary ---
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 Qualifiers: Coronary Disease-Associated Artery/Lesion type: [place] artery [place] vs. transplanted heart: [place] heart Associated angina: without angina Qualified Code(s): I25.10 - Atherosclerotic heart disease of [place] coronary artery without angina pectoris (5) CKD (chronic kidney disease) stage 3, GFR 30-59 ml/min Priority: Secondary Status: Chronic (6) Diabetes mellitus Priority: Secondary Status: Chronic Qualifiers: Diabetes mellitus type: type 2 Diabetes mellitus complication status: with circulatory complication Diabetes mellitus complication detail: with other circulatory complications Diabetes mellitus terminal carman insulin use: with halfway use Qualified Code(s): E11.59 - Type 2 diabetes mellitus with other circulatory complications; Z79.4 - assisted (current) use of insulin (7) HTN (hypertension) Priority: Secondary Status: Chronic Qualifiers: Hypertension type: essential hypertension Qualified Code(s): I10 - Essential (primary) hypertension - Discharge Medications Prescriptions: Amoxicillin/Clavulanate [Augmentin] 500 mg PO BIDWM #15 tablet Benzethonium Chloride [Saline Wound Wash] 210 ml TP BID #1 cleanser Elastic Bandage [Coban] 1 each TP BID #2 bandage Home Medications: Acetaminophen [Tylenol] 650 mg PO BID PRN 05/26/15 [History] Allopurinol [Zyloprim 300 MG] 300 mg PO DAILY 05/26/15 [History] Aspirin [Adult Low Dose Aspirin EC] 81 mg PO DAILY 05/26/15 [History] Insulin ASPART [NovoLOG] 15 unit SQ TIDAC 05/26/15 [History] Insulin Glargine [Lantus] 12 unit SQ HS 05/26/15 [History] Levothyroxine [Synthroid] 100 mcg PO QAM 05/26/15 [History] Ranitidine HCl [Zantac] 150 mg PO BID 05/26/15 [History] Tamsulosin [Flomax] 0.4 mg PO DAILY 05/26/15 [History] Finasteride [Proscar] 5 mg PO DAILY 04/05/16 [History] Lactulose 10 gm PO DAILY PRN 04/05/16 [History] Nitroglycerin [Nitrostat] 0.4 mg SL Q5M PRN 04/05/16 [History] Furosemide [Lasix] 40 mg PO DAILY 10/28/16 [History] Atorvastatin [Lipitor] 10 mg PO HS 11/12/16 [History] Cyclobenzaprine [Flexeril] 10 mg PO TID PRN 11/12/16 [History] Ergocalciferol (VITAMIN D2) [Vitamin D2] 50,000 unit PO QWEEK 11/12/16 [History] HYDROcodone/Acet 5/325 mg [[place] 5-325 mg] 1 tab PO BID PRN 11/12/16 [History] Isosorbide MONOnitrate (24 HR) [Imdur] 30 mg PO DAILY 11/12/16 [History] Metoprolol XL (24 HR) Succ [Toprol Xl] 25 mg PO DAILY 11/12/16 [History] Mirabegron [Myrbetriq] 50 mg PO DAILY 11/12/16 [History] Amoxicillin/Clavulanate [Augmentin] 500 mg PO BIDWM #15 tablet 11/15/16 [Rx] Benzethonium Chloride [Saline Wound Wash] 210 ml TP BID #1 cleanser 11/15/16 [Rx ] Elastic Bandage [Coban] 1 each TP BID #2 bandage 11/15/16 [Rx] Allergies/Adverse Reactions: 3 Allergy/AdvReac Type Severity Reaction Status Date / Time acetaminophen [From Percocet] Allergy Hives Verified 10/28/16 08:47 Oxycodone [From Percocet] Allergy Hives Verified 10/28/16 08:47 prednisone Allergy Rash Verified 10/28/16 08:47 - Notes to Outpatient Provider Renal function needs monitoring. Date of admission: 11/12/16 18:44 Primary care physician: Nestor De La Cruz MD Consults: Myra Discharging clinician: Jorge L Venegas Anticipated date of discharge: 11/15/16 - Patient Status Disposition: Home Health Service Condition: Good Functional capacity at discharge: independent ambulation Overall status at discharge: patient is progressing back to baseline - Discharge Instructions Follow Up With: Nestor De La Cruz MD [Primary Care Provider] - Additional Instructions: Follow with Dr. Renteria in 1 week. Follow with PCP in 1-2 weeks. Dressing L finger: Cleanse with saline. Apply dry guaze and cover with Coban. Do twice daily. - Diet and Activity Activity: increase activity as tolerated Diet: advance to your usual diet Hospital course: Mr. Read is a 81 year old male with hx of severe PVD and gout sent from orthopedic office as direct admit due to finger infection. He had undergone L long finger amputation approx 2 weeks prior. He had been followed by home care nurse who noted the finger was warm and red. Appt made with ortho and pt was subsequently admitted for IV abx. Mr. Read was admitted to med surg. He was started on IV abx to cover wound infection. He was also continued on his home medications for his chronic conditions. He was followed by the orthopedic service as well. He had continued improvement in the infection with the abx. On 11/15 he was afebrile with stable vitals. His finger felt much improved. At that time he was felt ready for discharge home with PO abx and outpatient follow up. He was placed on PO Augmentin 500mg BID (adjusted for renal function ). - Time Spent with Patient Total time spent providing and/or coordinating discharge services: 42min - Constitutional Vitals: Temp Pulse Resp BP Pulse Ox 98.4 F 64 16 125/76 98 11/15/16 07:20 11/15/16 08:15 11/15/16 07:20 11/15/16 07:20 11/15/16 07:20 General appearance: Present: A&O X 3, pleasant, answers questions appropriately - Head Head exam: Present: normocephalic - Eye Eye exam: Present: EOMI, conjuntiva pink - ENT ENT exam: Present: mucous membranes moist - Respiratory Respiratory exam: Present: CTAB. Absent: rales, rhonchi, wheezes - Cardiovascular Cardiovascular exam: Present: RRR. Absent: tachycardia - GI/Abdominal GI/Abdominal exam: Present: soft. Absent: tenderness - Extremities Exam Extremities exam: Present: warm Additional comments: Multiple tophi. S/P amputation R leg. Dressing intact L finger. - Neurological Exam Neurological exam: Present: alert, oriented X3 - Psychiatric Psychiatric exam: Present: normal affect, normal mood - Skin Skin exam: Present: dry, warm. Absent: rash
[2016-11-15] MEDS ORDERED: Artificial Tears SOLN 15 ML BOTTLE BOTH EYES STA (10:06)
--- NOTE | 2016-11-15 10:31 | Physician Discharge Referral ---
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 For more information, call the [employer] Tobacco Quit Line at 1-274-NWVS-NOW. - Dressing/Wound Care Site: L finger Type of Dressing/Treatments w/Frequency: Cleanse with saline. Apply dry guaze. Cover with Coban. Do BID. - Diet/Nutrition Diet/Nutrition Orders: Cardiac, No Concentrated Sweets - Activity Activity Orders: Up ad deborah - Services Needed Following services are medically necessary services: Nursing - Transfer Medications Prescriptions: Amoxicillin/Clavulanate [Augmentin] 500 mg PO BIDWM #15 tablet Benzethonium Chloride [Saline Wound Wash] 210 ml TP BID #1 cleanser Elastic Bandage [Coban] 1 each TP BID #2 bandage Home Medications: Acetaminophen [Tylenol] 650 mg PO BID PRN 05/26/15 [History] Allopurinol [Zyloprim 300 MG] 300 mg PO DAILY 05/26/15 [History] Aspirin [Adult Low Dose Aspirin EC] 81 mg PO DAILY 05/26/15 [History] Insulin ASPART [NovoLOG] 15 unit SQ TIDAC 05/26/15 [History] Insulin Glargine [Lantus] 12 unit SQ HS 05/26/15 [History] Levothyroxine [Synthroid] 100 mcg PO QAM 05/26/15 [History] Ranitidine HCl [Zantac] 150 mg PO BID 05/26/15 [History] Tamsulosin [Flomax] 0.4 mg PO DAILY 05/26/15 [History] Finasteride [Proscar] 5 mg PO DAILY 04/05/16 [History] Lactulose 10 gm PO DAILY PRN 04/05/16 [History] Nitroglycerin [Nitrostat] 0.4 mg SL Q5M PRN 04/05/16 [History] Furosemide [Lasix] 40 mg PO DAILY 10/28/16 [History] Atorvastatin [Lipitor] 10 mg PO HS 11/12/16 [History] Cyclobenzaprine [Flexeril] 10 mg PO TID PRN 11/12/16 [History] Ergocalciferol (VITAMIN D2) [Vitamin D2] 50,000 unit PO QWEEK 11/12/16 [History] HYDROcodone/Acet 5/325 mg [[place] 5-325 mg] 1 tab PO BID PRN 11/12/16 [History] Isosorbide MONOnitrate (24 HR) [Imdur] 30 mg PO DAILY 11/12/16 [History] Metoprolol XL (24 HR) Succ [Toprol Xl] 25 mg PO DAILY 11/12/16 [History] Mirabegron [Myrbetriq] 50 mg PO DAILY 11/12/16 [History] Amoxicillin/Clavulanate [Augmentin] 500 mg PO BIDWM #15 tablet 11/15/16 [Rx] Benzethonium Chloride [Saline Wound Wash] 210 ml TP BID #1 cleanser 11/15/16 [Rx ] Elastic Bandage [Coban] 1 each TP BID #2 bandage 11/15/16 [Rx] Allergies/Adverse Reactions: 3 Allergy/AdvReac Type Severity Reaction Status Date / Time acetaminophen [From Percocet] Allergy Hives Verified 10/28/16 08:47 Oxycodone [From Percocet] Allergy Hives Verified 10/28/16 08:47 prednisone Allergy Rash Verified 10/28/16 08:47 Certification: Further, I certify that my clinical findings support that this patient is homebound (i.e. absences from home require considerable and taxing effort and are for medical reasons or zoroastrian services or infrequently or short duration when for other reasons) because: Homebound Reason: Patient requires assistance of a person or device to safely leave home, Leaving home requires considerable and taxing effort due to condition Attestation: My signature below is to certify that this patient is under my care and that I, or nurse practitioner, or a physician's medical assistant prn working with me, has a face-to -face encounter with this patient.
== END 2016-11-15 13:45 | disposition home health service (06) | DRG 565 ==
LOC: 3ANU → SUATTDRO 18:44
PROVIDERS: ADMIT Internal Medicine; ATTEND Internal Medicine

== ENCOUNTER 2017-10-24 19:05 | Inpatient (IN) ==
--- NOTE | 2017-10-24 19:39 | Emergency Department Note ---
Disposition Clinical Impression: Diabetic infection of left foot, Elevated troponin Disposition: Admitted As Inpatient Condition: Good Forms: ED Satisfaction Letter Time of Disposition: 22:03 General Adult HPI - General Chief complaint: ED Chest Pain Stated complaint: worsening toe wound Time Seen by Provider: 10/24/17 19:24 Source: patient, family Nursing Notes Reviewed: Yes Vital Signs Reviewed: Yes - History of Present Illness HPI Narrative: This is an 82-year-old male who comes to emergency department with his reporting the development of pallor, ecchymosis, and ulceration in his left fourth toe over the last 36 hours. He has seen Dr. Stapleton of podiatry for many years, and had left fifth toe excision some years ago. He was seen by Dr. Stapleton 2 days ago with an assessment that the left fourth toe was fine. In addition, he complains of episodes of chest pain, right-sided between the clavicle and the nipple, that are aggravated by movement or coughing. He states this is been going on for more than 4 weeks. Pain Scale: 8 - Related Data Home Medications Medication Instructions Recorded Confirmed Acetaminophen [Tylenol] 650 mg PO BID PRN 05/26/15 11/12/16 Allopurinol [Zyloprim 300 MG] 300 mg PO DAILY 05/26/15 11/12/16 Aspirin [Adult Low Dose Aspirin EC] 81 mg PO DAILY 05/26/15 11/12/16 Insulin ASPART [NovoLOG] 15 unit SQ TIDAC 05/26/15 11/12/16 Insulin Glargine [Lantus] 12 unit SQ HS 05/26/15 11/12/16 Levothyroxine [Synthroid] 100 mcg PO QAM 05/26/15 11/12/16 Tamsulosin [Flomax] 0.4 mg PO DAILY 05/26/15 11/12/16 raNITIdine HCl [Zantac] 150 mg PO BID 05/26/15 11/12/16 Finasteride [Proscar] 5 mg PO DAILY 04/05/16 11/12/16 Lactulose 10 gm PO DAILY PRN 04/05/16 11/12/16 Nitroglycerin [Nitrostat] 0.4 mg SL Q5M PRN 04/05/16 11/12/16 Furosemide [Lasix] 40 mg PO DAILY 10/28/16 11/12/16 Atorvastatin [Lipitor] 10 mg PO HS 11/12/16 11/12/16 Cyclobenzaprine [Flexeril] 10 mg PO TID PRN 11/12/16 11/12/16 Ergocalciferol (VITAMIN D2) 50,000 unit PO QWEEK 11/12/16 11/12/16 [Vitamin D2] HYDROcodone/Acet 5/325 mg [[place] 1 tab PO BID PRN 11/12/16 11/12/16 5-325 mg] Isosorbide MONOnitrate (24 HR) 30 mg PO DAILY 11/12/16 11/12/16 [Imdur] Metoprolol XL (24 HR) Succ [Toprol 25 mg PO DAILY 11/12/16 11/12/16 Xl] Mirabegron [Myrbetriq] 50 mg PO DAILY 11/12/16 11/12/16 Previous Rx's Medication Instructions Recorded Amoxicillin/Clavulanate [Augmentin] 500 mg PO BIDWM #15 tablet 11/15/16 Benzethonium Chloride [Saline 210 ml TP BID #1 cleanser 11/15/16 Wound Wash] Elastic Bandage [Coban] 1 each TP BID #2 bandage 11/15/16 Allergies Allergy/AdvReac Type Severity Reaction Status Date / Time acetaminophen [From Percocet] Allergy Hives Verified 10/28/16 08:47 Oxycodone [From Percocet] Allergy Hives Verified 10/28/16 08:47 prednisone Allergy Rash Verified 10/28/16 08:47 All systems ED: reviewed and negative except as stated. Constitutional: Reports: weakness Cardiovascular: Reports: chest pain Respiratory: Denies: cough, dyspnea, wheezes, hemoptysis, stridor Gastrointestinal: Denies: abdominal pain, nausea, vomiting, diarrhea, constipation, hematemesis, melena, hematochezia Musculoskeletal: Reports: other (Left fourth toe pain, ulcer, pallor) Integumentary: Reports: other (As above undertow) Past Medical History - Past Medical History Medical history: Reports: arthritis, CHF, coronary artery disease, diabetes, GERD, hyperlipidemia, hypertension, myocardial infarction, peripheral artery disease, renal disease, thyroid disease Surgical history: Reports: appendectomy, cataract, coronary bypass (CABG), LE vascular intervention, orthopedic, other, other Psychiatric history: Reports: anxiety - Social History Smoking Status: Former smoker Smokeless Tobacco Status: No Alcohol use: Reports: none Drug use: Reports: none Physical Exam - General Limitations: no limitations General appearance: alert, in no apparent distress - Head Head exam: atraumatic, normocephalic, normal inspection - Eye Eye exam: Present: normal appearance, PERRL, EOMI - Chest Chest inspection: Present: normal inspection, symmetric chest wall rise - Respiratory Respiratory exam: Present: normal lung sounds bilaterally - Cardiovascular Cardiovascular exam: Present: regular rate, normal rhythm, normal heart sounds - Abdominal Exam Abdominal exam: Present: soft, tenderness Abdominal tenderness: Present: RLQ - Extremities Exam Extremities exam: Present: other (Extremities are unremarkable except for the fact that he has a right BKA with prosthesis, and the left fifth toe is gone, while the left fourth toe shows ecchymosis on the lateral aspect and pallor on the medial aspect with a 1 cm diameter ulcer on the yanick-lateral aspect) - Neurological Exam Neurological exam: Present: alert, oriented X3, CN II-XII intact - Psychiatric Psychiatric exam: Present: normal affect - Skin Skin exam: Present: warm, dry Course Vital Signs Temperature 99.1 F 10/24/17 19:12 Pulse Rate 74 10/24/17 19:12 Respiratory Rate 20 10/24/17 19:12 Blood Pressure 125/77 10/24/17 19:12 O2 Sat by Pulse Oximetry 97 10/24/17 19:12 Temperature 99.1 F 10/24/17 19:12 Pulse Rate 68 10/24/17 21:53 Respiratory Rate 14 10/24/17 21:53 Blood Pressure 127/99 10/24/17 21:53 O2 Sat by Pulse Oximetry 98 10/24/17 21:53 Oxygen Delivery Oxygen Delivery Room Air Medical Decision Making - MDM Narrative Medical decision making narrative: This is an 82-year-old male with severe ecchymosis, and also, and pallor of his left fourth toe. This is apparently developed in the last 36 hours. He has had prior amputations, and this appears to be a diabetic foot infection with likely gangrene. He was given ampicillin sulbactam and I discussed his case with the on-call hospitalist, who accepted him for admission. Podiatry will be consulted in the morning. - Lab Data Lab results narrative: CBC showed anemia at 11.7 and 33.2 with thrombocytopenia at 106 BMP was unremarkable Troponin was slightly elevated at 0.05 UA was unremarkable lactate was normal at 1.0 Result diagrams: 10/24/17 19:53 10/24/17 19:53 Lab Results 10/24/17 10/24/17 10/24/17 Range/Units 19:53 19:53 19:53 WBC 6.5 (4.3-11.1) K/mcL RBC 3.39 L (4.19-5.50) M/mcL Hgb 11.7 L (12.9-16.9) g/dL Hct 33.2 L (37.5-50.1) % MCV 97.9 (83.0-100.0) fL MCH 34.5 H (28.0-33.3) pg MCHC 35.2 (31.6-35.5) g/dL RDW 13.2 (11.5-14.5) % Plt Count 106 L (140-400) K/mcL MPV 11.1 (9.4-12.4) fL Immature Gran % 0.5 (0-4) % Seg Neutrophils % 76.2 % Lymphocytes % 12.2 % Monocytes % 9.9 % Eosinophils % 0.9 % Basophils % 0.3 % Neutrophils # 4.9 (1.6-8.9) K/mcL Lymphocytes # 0.8 (0.6-4.6) K/mcL Monocytes # 0.6 (0.0-1.3) K/mcL Eosinophils # 0.1 (0.0-0.6) K/mcL Basophils # 0.0 (0.0-0.2) K/mcL Sodium 134 L (136-145) mEq/L Potassium 3.9 (3.5-5.1) mEq/L Chloride 105 (98-107) mEq/L Carbon Dioxide 27 (23-29) mEq/L BUN 20 (8-23) mg/dL Creatinine 1.26 (0.70-1.30) mg/dL Est GFR ( Amer) > 60 (> 60) Est GFR (Non-Af Amer) 55 L (> 60) BUN/Creatinine Ratio 16 (6-26) Glucose 223 H (70-105) mg/dL Calculated Osmolality 288 (280-300) Lactic Acid 1.0 (0.5-2.2) mmol/L Calcium 9.1 (8.6-10.3) mg/dL Troponin I 0.05 H* (< 0.04) ng/mL Urine Color (Yellow) Urine Clarity (Clear) Urine pH (5.0-8.0) pH Units Ur Specific [place] (1.010-1.025) Urine Protein (Neg-Trace) mg/dL Urine Glucose (UA) (Normal) mg/dL Urine Ketones (Negative) mg/dL Urine Blood (Negative) Urine Nitrite (Negative) Urine Bilirubin (Negative) Urine Urobilinogen (Normal) mg/dL Ur Leukocyte Esterase (Negative) Urine Microscopic RBC (0-3) per hpf Urine Microscopic WBC (0-3) per hpf Ur Squamous Epith Cells (None-Few) per lpf Urine Bacteria (None-Few) per hpf Hyaline Casts (None-Few) per lpf Ur Culture Indicated? (NO) 10/24/17 Range/Units 20:30 WBC (4.3-11.1) K/mcL RBC (4.19-5.50) M/mcL Hgb (12.9-16.9) g/dL Hct (37.5-50.1) % MCV (83.0-100.0) fL MCH (28.0-33.3) pg MCHC (31.6-35.5) g/dL RDW (11.5-14.5) % Plt Count (140-400) K/mcL MPV (9.4-12.4) fL Immature Gran % (0-4) % Seg Neutrophils % % Lymphocytes % % Monocytes % % Eosinophils % % Basophils % % Neutrophils # (1.6-8.9) K/mcL Lymphocytes # (0.6-4.6) K/mcL Monocytes # (0.0-1.3) K/mcL Eosinophils # (0.0-0.6) K/mcL Basophils # (0.0-0.2) K/mcL Sodium (136-145) mEq/L Potassium (3.5-5.1) mEq/L Chloride (98-107) mEq/L Carbon Dioxide (23-29) mEq/L BUN (8-23) mg/dL Creatinine (0.70-1.30) mg/dL Est GFR ( Amer) (> 60) Est GFR (Non-Af Amer) (> 60) BUN/Creatinine Ratio (6-26) Glucose (70-105) mg/dL Calculated Osmolality (280-300) Lactic Acid (0.5-2.2) mmol/L Calcium (8.6-10.3) mg/dL Troponin I (< 0.04) ng/mL Urine Color Yellow (Yellow) Urine Clarity Clear (Clear) Urine pH 7.0 (5.0-8.0) pH Units Ur Specific [place] 1.021 (1.010-1.025) Urine Protein 30 H (Neg-Trace) mg/dL Urine Glucose (UA) 100 H (Normal) mg/dL Urine Ketones Negative (Negative) mg/dL Urine Blood Negative (Negative) Urine Nitrite Negative (Negative) Urine Bilirubin Negative (Negative) Urine Urobilinogen Normal (Normal) mg/dL Ur Leukocyte Esterase Negative (Negative) Urine Microscopic RBC 0-3 (0-3) per hpf Urine Microscopic WBC 0-3 (0-3) per hpf Ur Squamous Epith Cells Moderate H (None-Few) per lpf Urine Bacteria None Seen (None-Few) per hpf Hyaline Casts None Seen (None-Few) per lpf Ur Culture Indicated? NO (NO) - EKG Data EKG #1 EKG attestation: Yes I reviewed and interpreted this EKG. EKG results narrative: EKG shows sinus rhythm, 80 bpm, right bundle branch block, first-degree AV block , ST depression in leads V2 V3 and V4
[2017-10-24 20:04] LABS: Basophils % 0.3 %; Eosinophils # 0.1 K/mcL (0.0-0.6); Eosinophils % 0.9 %; Hematocrit 33.2 % (37.5-50.1); Hemoglobin 11.7 g/dL (12.9-16.9); Immature Granulocytes % 0.5 % (0-4); Lymphocytes # 0.8 K/mcL (0.6-4.6); Lymphocytes % 12.2 %; Mean Corpuscular HGB Conc 35.2 g/dL (31.6-35.5); Mean Corpuscular Hemoglobin 34.5 pg (28.0-33.3); Mean Corpuscular Volume 97.9 fL (83.0-100.0); Mean Platelet Volume 11.1 fL (9.4-12.4); Monocytes # 0.6 K/mcL (0.0-1.3); Monocytes % 9.9 %; Neutrophils # 4.9 K/mcL (1.6-8.9); Platelet Count 106 K/mcL (140-400); Red Blood Count 3.39 M/mcL (4.19-5.50); Red Cell Distribution Width 13.2 % (11.5-14.5); Segmented Neutrophils % 76.2 %
[2017-10-24 20:25] LABS: BUN/Creatinine Ratio 16 (6-26); Blood Urea Nitrogen 20 mg/dL (8-23); Calcium 9.1 mg/dL (8.6-10.3); Carbon Dioxide 27 mEq/L (23-29); Chloride 105 mEq/L (98-107); Glucose 223 mg/dL (70-105); Osmolality,Calculated 288 (280-300); Potassium 3.9 mEq/L (3.5-5.1); Sodium 134 mEq/L (136-145); eGFR For Non-African Americans 55 (> 60)
[2017-10-24 20:30] LABS: Troponin I 0.05 ng/mL (< 0.04)
[2017-10-24 20:40] LABS: Bilirubin,Urine Negative (Negative); Blood,Urine Negative (Negative); Clarity,Urine Clear (Clear); Color,Urine Yellow (Yellow); Glucose,Urine (UA) 100 mg/dL (Normal); Ketones,Urine Negative (Negative); Leukocyte Esterase,Urine Negative (Negative); Nitrite,Urine Negative (Negative); Protein,Urine 30 mg/dL (Neg-Trace); Specific Gravity,Urine 1.021 (1.010-1.025); Urobilinogen,Urine Normal (Normal)
[2017-10-24 20:41] LABS: Bacteria,Urine None Seen per hpf (None-Few); Hyaline Casts,Urine None Seen per lpf (None-Few); RBC,Urine 0-3 per hpf (0-3); Squamous Epithelial Cell,Urine Moderate per lpf (None-Few); WBC,Urine 0-3 per hpf (0-3)
[2017-10-24] MEDS ORDERED: Ampicillin/Sulbactam 3,000 MG in 0.9 % Sodium Chloride Mini Bag 100 ML IVPB ONE (20:54)
[2017-10-25] MEDS ORDERED: Naloxone 0.4 MG/ML INJ IVP PRN (02:28)
[2017-10-25] MEDS ORDERED: *HR* Dextrose 50 % in Water (Syg) 50 ML SYRINGE IVP PRN (02:30)
[2017-10-25] MEDS ORDERED: Dextrose Gel 15 GM/37.5 ML TUBE PO PRN ×2 (02:30)
[2017-10-25] MEDS ORDERED: D5% in Water 1,000 ML IVC PRN ×2 (02:30→15:40)
[2017-10-25 04:25] LABS: Hematocrit 31.7 % (37.5-50.1); Hemoglobin 10.9 g/dL (12.9-16.9); Immature Platelets 7.6 % (1.1-6.1); Mean Corpuscular HGB Conc 34.4 g/dL (31.6-35.5); Mean Corpuscular Hemoglobin 34.1 pg (28.0-33.3); Mean Corpuscular Volume 99.1 fL (83.0-100.0); Mean Platelet Volume 11.6 fL (9.4-12.4); Red Blood Count 3.2 M/mcL (4.19-5.50); Red Cell Distribution Width 13.1 % (11.5-14.5)
[2017-10-25 04:38] LABS: BUN/Creatinine Ratio 17 (6-26); Blood Urea Nitrogen 19 mg/dL (8-23); Calcium 8.7 mg/dL (8.6-10.3); Carbon Dioxide 28 mEq/L (23-29); Chloride 104 mEq/L (98-107); Glucose 176 mg/dL (70-105); Osmolality,Calculated 291 (280-300); Potassium 3.8 mEq/L (3.5-5.1); Sodium 137 mEq/L (136-145); eGFR For Non-African Americans > 60 (> 60)
[2017-10-25] MEDS: Ampicillin/Sulbactam 3,000 MG in 0.9 % Sodium Chloride Mini Bag 100 ML IVPB SCH ×3 (06:23→18:24)
[2017-10-25] MEDS: Insulin LISPRO 300 UNITS/3 ML VIAL SQ SCH ×2 (06:30→11:37)
--- NOTE | 2017-10-25 07:17 | Internal Med History&Physical ---
Date of Encounter: 10/25/17 Time of Encounter: 01:10 Internal Medicine - H&P: HPI Chief complaint: Diabetic foot ulcer Admitted From: Emergency Dept Plans for Post Hospital Care: Home History of present illness: Mr. Read is a 82 year old male Patient presented to the ER for left 4th toe wound. States that he saw his cotton header 2 days ago after noting the wound had broken open. His has been helping him manage it at home but over the weekend it progressively worsened. This morning when he woke up it had turned black. He has a history of diabetes and peripheral vascular disease. 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 He also states that over the past several weeks he has had right sided chest pain with radiation to his right shoulder. He denies fever, nausea vomiting, diarrhea, constipation and abdominal pain. He does not have much feeling in his feet at baseline. In the ER his platelets were found to be 106, chest x-ray was unchanged from previous exams. an Abdominal/pelvic CT showed a 2.8cm liver mass. Troponin was elevated to 0.05. He was admitted for further management of his diabetic foot ulcer. Past Med Surg Social Fam HX - Past Medical History Medical history: arthritis, CHF, coronary artery disease, diabetes, GERD, hyperlipidemia, hypertension, myocardial infarction, peripheral artery disease, renal disease, thyroid disease Additional medical history: 2 WI's Psychiatric history: anxiety - Past Surgical History Surgical History: appendectomy, LE vascular intervention Additional surgical history: R BKA - toe amputation - Right CTR, L index finger amputation, open heart - Social History Smoking Status: Former smoker Smokeless Tobacco Status: No Alcohol use: none Drug use: none - Family History Father Living Status: Hx Family Cancer: Yes Mother Family Member Ethnicity: Non- Living Status: Hx Family Cardiac Disorders: No Hx Family Respiratory Disorders: No Hx Family Cancer: Yes (breast, liver) Hx Family GI Disorders: No Hx Family Endocrine Disorder: No Hx Family Neuromuscular Disorders: No Hx Family Neurologic Disorders: No Hx Family HEENT Disorders: No Hx Family Autoimmune Disorders: No Internal Medicine - H&P: Meds Acetaminophen [Tylenol] 650 mg PO BID PRN 05/26/15 [History] Allopurinol [Zyloprim 300 MG] 300 mg PO DAILY 03/27/16 [History] Aspirin [Adult Low Dose Aspirin EC] 81 mg PO DAILY 05/26/15 [History] Insulin ASPART [NovoLOG] 15 unit SQ TIDAC 05/26/15 [History] Insulin Glargine [Lantus] 12 unit SQ HS 05/26/15 [History] Levothyroxine [Synthroid] 100 mcg PO QAM 05/26/15 [History] Tamsulosin [Flomax] 0.4 mg PO DAILY 05/26/15 [History] raNITIdine HCl [Zantac] 150 mg PO BID 05/26/15 [History] Finasteride [Proscar] 5 mg PO DAILY 04/05/16 [History] Lactulose 10 gm PO DAILY PRN 04/05/16 [History] Nitroglycerin [Nitrostat] 0.4 mg SL Q5M PRN 04/05/16 [History] Furosemide [Lasix] 40 mg PO DAILY 10/28/16 [History] Atorvastatin [Lipitor] 10 mg PO HS 11/12/16 [History] Cyclobenzaprine [Flexeril] 10 mg PO TID PRN 11/12/16 [History] Ergocalciferol (VITAMIN D2) [Vitamin D2] 50,000 unit PO QWEEK 11/12/16 [History] HYDROcodone/Acet 5/325 mg [[place] 5-325 mg] 1 tab PO BID PRN 11/12/16 [History] Isosorbide MONOnitrate (24 HR) [Imdur] 30 mg PO DAILY 11/12/16 [History] Metoprolol XL (24 HR) Succ [Toprol Xl] 25 mg PO DAILY 11/12/16 [History] Mirabegron [Myrbetriq] 50 mg PO DAILY 11/12/16 [History] Amoxicillin/Clavulanate [Augmentin] 500 mg PO BIDWM #15 tablet 11/15/16 [Rx] Benzethonium Chloride [Saline Wound Wash] 210 ml TP BID #1 cleanser 11/15/16 [Rx ] Elastic Bandage [Coban] 1 each TP BID #2 bandage 11/15/16 [Rx] 3 Allergy/AdvReac Type Severity Reaction Status Date / Time acetaminophen [From Percocet] Allergy Hives Verified 10/28/16 08:47 Iodinated Contrast- Oral and Allergy Hives Verified 10/25/17 01:29 IV Dye Oxycodone [From Percocet] Allergy Hives Verified 10/28/16 08:47 prednisone Allergy Rash Verified 10/28/16 08:47 All Systems PM: A 10-system review of systems was performed and is negative for pertinent findings except as documented above in the HPI. - Constitutional Vitals: Temp Pulse Resp BP Pulse Ox 98.4 F 59 16 129/67 97 10/25/17 05:30 10/25/17 05:30 10/25/17 05:30 10/25/17 05:30 10/25/17 05:30 General appearance: Present: cooperative, A&O X 3, pleasant, no acute distress, answers questions appropriately Exam: See above - Head Head exam: Present: normal inspection - Eye Eye exam: Present: EOMI, normal appearance - Respiratory Respiratory exam: Present: CTAB. Absent: respiratory distress, wheezes - Cardiovascular Cardiovascular exam: Present: RRR. Absent: diastolic murmur, systolic murmur - GI/Abdominal GI/Abdominal exam: Present: normal bowel sounds, soft. Absent: tenderness - Extremities Exam Extremities exam: Present: warm, radial pulses palpable and symmetrical Additional comments: 4th left toe black in color at tip, with 1cm sized ulcer on lateral aspect of the toe.Skin sloughing off around wound. Left lower leg red to mid landeros. Right leg BKA Left 5th digit amputation Left middle finger amputation Evidence of arthritic changes in hands bilaterally. - Neurological Exam Neurological exam: Absent: facial droop, speech deficit - Skin Skin exam: Present: dry, erythema, warm Additional comments: please see extremity exam above. Internal Med - H&P Results - Labs CBC & Chem 7: 10/25/17 03:28 10/25/17 03:28 Labs: Short CBC 10/25/17 Range/Units 03:28 WBC 5.5 (4.3-11.1) K/mcL Hgb 10.9 L (12.9-16.9) g/dL Hct 31.7 L (37.5-50.1) % Plt Count 93 L (140-400) K/mcL BMP 10/25/17 03:28 Sodium 137 Potassium 3.8 Chloride 104 Carbon Dioxide 28 BUN 19 Creatinine 1.13 Glucose 176 H Calcium 8.7 Cardiac Enzymes 10/25/17 Range/Units 01:34 Troponin I 0.05 H* (< 0.04) ng/mL - Assessment and plan (1) Diabetic infection of left foot Current Visit: Yes Status: Acute Assessment and plan: following with podiatry, unasyn started in the ER. Podiatry consult today Continue antibiotics. Follow up blood cultures (2) Severe peripheral arterial disease Current Visit: No Status: Chronic Assessment and plan: Likely contributing to patient's condition. Follows with vascular surgeon, scheduled to have annual doppler next week. Continue to monitor. (3) CKD (chronic kidney disease) stage 3, GFR 30-59 ml/min Current Visit: No Status: Chronic Assessment and plan: At baseline, continue to monitor (4) Insulin dependent diabetes mellitus Current Visit: No Status: Chronic Assessment and plan: NPO currently pending podiatry consult. Monitor sugars Q6H Insulin sliding scale as needed. (5) Elevated troponin Current Visit: Yes Status: Acute Assessment and plan: History of right sided chest pain, with right sided radiation. No chest pain currently, pain is intermittent over last 4 weeks. EKG showed right bundle branch block. Trend troponins Consider echo or stress test, last echo was in april of last year potline monitor (6) Thrombocytopenia Current Visit: Yes Status: Acute Assessment and plan: Platelets initally 106 on exam. Appears to be chronically low since 2015. Could be related to liver disease. Continue to monitor. (7) Liver mass Current Visit: Yes Status: Acute Assessment and plan: New 2.8cm liver lesion seen on abdominal CT. Further evaluation with contrast- enhanced CT liver mass protocol or MRI recommended. Consider further imaging as above. - Time Spent With Patient Total time spent is greater than 50% in coordination of care (as documented) at patient's floor/unit and/or counseling patient: Greater than 35 minutes
--- NOTE | 2017-10-25 13:23 | Podiatry Consult Note ---
Date of Encounter: 10/25/17 Time of Encounter: 12:00 Assessment and Plan (1) Diabetic infection of left foot Current visit: Yes Status: Acute Diabetic ulceration of left toe #4 with ischemic changes Assessed at bedside Ulceration noted with associated cellultis of LLE and ischemic changes of toe. Patient with known hx of severe PAD Unable to palpate pulses and toe #4 cool to touch with sluggish cap refill and noted ischemic tissue changes Will plan for JACK to assess blood flow and likely consult vascular for further recommendations however patient reports severe left calf pain to touch- states the calf feels very tight and this has started over the last couple days. Could be related to cellultis however will obtain stat US to rule out DVT. Xray imagining to determine if osteomyelitis is present Explained plan to patient- will further determine plan once blood flow has been determined Verbalized understanding Continue IV antibiotic therapy Painted with betadine- applied 4x4 and kerlix Change if saturation is noted or dressing is soiled. Weight bearing to heel. History of Present Illness HPI: Mr. Read is a 82 year old male who was last seen per on the 22 of october for reports of ulceration to toe #4 left. Patient reports that it was debrided in office and he was sent home with dressing changes.States it looked fine on Wednesday and then Wednesday it suddenly turned black. States he now has severe pain to his leg as well as tightness. States she was scheduled for outpatient testing with joanna in a couple weeks. Patient denies any fevers, chills, n/v or flu like symptoms. PMH DM, CKD, PAD. Past Med Surg Social Fam HX - Past Medical History Medical history: arthritis, CHF, coronary artery disease, diabetes, GERD, hyperlipidemia, hypertension, myocardial infarction, peripheral artery disease, renal disease, thyroid disease Additional medical history: 2 PR's Psychiatric history: anxiety - Past Surgical History Surgical History: appendectomy, LE vascular intervention Additional surgical history: R BKA - toe amputation - Right CTR, L index finger amputation, open heart - Social History Smoking Status: Former smoker Smokeless Tobacco Status: No Alcohol use: none Drug use: none - Family History Father Living Status: Hx Family Cancer: Yes Mother Family Member Ethnicity: Non- Living Status: Hx Family Cardiac Disorders: No Hx Family Respiratory Disorders: No Hx Family Cancer: Yes (breast, liver) Hx Family GI Disorders: No Hx Family Endocrine Disorder: No Hx Family Neuromuscular Disorders: No Hx Family Neurologic Disorders: No Hx Family HEENT Disorders: No Hx Family Autoimmune Disorders: No Medications and Allergies Acetaminophen [Tylenol] 650 mg PO BID PRN 05/26/15 [History] Allopurinol [Zyloprim 300 MG] 300 mg PO DAILY 05/26/15 [History] Aspirin [Adult Low Dose Aspirin EC] 81 mg PO DAILY 05/26/15 [History] Insulin ASPART [NovoLOG] 13 unit SQ TIDAC 05/26/15 [History] Insulin Glargine [Lantus] 32 unit SQ HS 05/26/15 [History] Levothyroxine [Synthroid] 100 mcg PO QAM 05/26/15 [History] raNITIdine HCl [Zantac] 150 mg PO BID 05/26/15 [History] Lactulose 10 gm PO BID PRN 04/05/16 [History] Nitroglycerin [Nitrostat] 0.4 mg SL Q5M PRN 04/05/16 [History] Furosemide [Lasix] 20 mg PO BID 10/28/16 [History] Isosorbide MONOnitrate (24 HR) [Imdur] 60 mg PO DAILY 11/12/16 [History] Amoxicillin/Clavulanate [Augmentin] 500 mg PO BIDWM #15 tablet 11/15/16 [Rx] Atorvastatin [Lipitor] 40 mg PO HS 10/25/17 [History] Cholecalciferol (D-3) 5,000 unit PO DAILY 10/25/17 [History] Doxazosin [Cardura] 2 mg PO HS 10/25/17 [History] 3 Allergy/AdvReac Type Severity Reaction Status Date / Time acetaminophen [From Percocet] Allergy Hives Verified 10/28/16 08:47 Iodinated Contrast- Oral and Allergy Hives Verified 10/25/17 01:29 IV Dye Oxycodone [From Percocet] Allergy Hives Verified 10/28/16 08:47 prednisone Allergy Rash Verified 10/28/16 08:47 All Systems Reviewed: As per HPI Physical Exam - Constitutional Vitals: Temp Pulse Resp BP Pulse Ox 97.9 F 64 18 146/67 100 10/25/17 11:26 10/25/17 11:26 10/25/17 11:26 10/25/17 11:26 10/25/17 11:26 Exam: Constitutional: awake alert and oriented Vascular: Cap refill 4-5 seconds. Toe #4 left is cool to touch and dusky. Pulses are non palpable DP/PT. There is 1+ pitting edema. Patient sitting up to chair. Pain with palpation of the calf Patient has a R BKA. Skin: There is ischemic changes and ulceration of toe #4 right. Ulceration surrounding much of the medial/lateral and dorsal aspect of the toe, largest wound is to the lateral aspect of the toe measuring 0.3cmx0.3cm wound tracks across dorsal aspect and medially. There is thick yellow drainage and maceration to medial aspect of toe. Dark purple discoloration to the medial aspect of toe #4 possible starting to extend into toe #3 lateral border. Monitoring closely. There is no noted probe or exposure to bone at this time. Musculoskeletal: Toe #5 left has been amputated and right BKA. Neuro: Minimal sensation to light or moderate touch. There is LOPS Results - Labs Result Diagrams: 10/25/17 03:28 10/25/17 03:28 Labs: Abnormal lab results RBC 3.20 M/mcL (4.19-5.50) L 10/25/17 03:28 Hgb 10.9 g/dL (12.9-16.9) L 10/25/17 03:28 Hct 31.7 % (37.5-50.1) L 10/25/17 03:28 MCH 34.1 pg (28.0-33.3) H 10/25/17 03:28 Plt Count 93 K/mcL (140-400) L 10/25/17 03:28 Immature Plt Fraction 7.6 % (1.1-6.1) H 10/25/17 03:28 Glucose 176 mg/dL (70-105) H 10/25/17 03:28 POC Glucose 128 mg/dL (70-99) H 10/25/17 11:26 Troponin I 0.05 ng/mL (< 0.04) H* 10/25/17 07:58 Urine Protein 30 mg/dL (Neg-Trace) H 10/24/17 20:30 Urine Glucose (UA) 100 mg/dL (Normal) H 10/24/17 20:30 Ur Squamous Epith Cells Moderate per lpf (None-Few) H 10/24/17 20:30 H & H 10/25/17 Range/Units 03:28 Hgb 10.9 L (12.9-16.9) g/dL Hct 31.7 L (37.5-50.1) % All other labs normal. Consult Discharge Plan - Plan Referrals: Nestor De La Cruz MD [Primary Care Provider] -
--- NOTE | 2017-10-25 16:04 | Internal Med Progress Note ---
Hospitalist Progress Note - Encounter Date of Encounter: 10/25/17 Time of Encounter: 16:02 - Subjective Interval History: 82-year-old male with a significant history significant for type 2 diabetes, hyperlipidemia, hypertension, congestive heart failure, coronary artery disease with prior ND, peripheral artery disease, and left fourth toe wound. Patient presented to the emergency room due to worsening of the wound of the left fourth toe, associated with discharged from the toe. Also reports chills since Wednesday, denies fever. Denies abdominal pain, nausea. - Exam Vitals: Temp Pulse Resp BP Pulse Ox 97.9 F 62 14 132/75 99 10/25/17 14:22 10/25/17 14:22 10/25/17 14:22 10/25/17 14:22 10/25/17 14:22 Exam: General: Patient is alert, oriented, no acute distress. Head: atraumatic, normocephalic, Respiratory: Good respiratory effort. Clear to auscultation Bilateral, no wheezing, rales or crackles. Cardiovascular: irregular , s1 and s2 No clicks, rubs, gallops, or murmors. Abdomen: Bowel sounds present normoactive x-4 quadrants. Abdomen is soft, nondistended. No guarding or rebound. obese Musculoskeletal: Spontaneously moving all extremities. 1+ edema left lower extremity, left calf tenderness. Erythema and warmth to touch in the left lower extremity. Wound dressing in the left lower foot. Neuro: Alert and oriented x4. Cranial nerves 2-12 is intact. Psych: Patient's affect is normal - Assessment and Plan (1) Diabetic infection of left foot Current Visit: Yes Status: Acute Assessment and Plan: Plan: - Continue IV antibiotics - Lumite Injector has been consulted. - Wound care by grades 6 through 8 teacher recommendations - Lumite Injector has planned JACK of the left lower extremities. - ESR and CRP - x-ray of the affected foot - F/u doppler of the left lower extremity (2) DVT prophylaxis Current Visit: No Status: Acute Assessment and Plan: High risk for DVT Plan: - Chemical DVT prophylaxis with Heparin 5000 units SubQ Q12HRs (3) Gout Current Visit: Yes Status: Acute Assessment and Plan: On allopurinol Plan: - COntinue home medication (4) CAD (coronary artery disease) Current Visit: No Status: Chronic Assessment and Plan: CAD with prior ND Plan: - Continue atorvastatin - (5) Congestive heart failure Current Visit: No Status: Chronic Assessment and Plan: No on acute exacerbation Plan: - Continue furosemide 40 mg twice a day - On isosorbide 30 mg daily - Strict intake and output (6) Diabetes mellitus Current Visit: No Status: Chronic Assessment and Plan: Plan: Started on levemir 5 units HS ands Lispro sliding scale. (7) Severe peripheral arterial disease Current Visit: No Status: Chronic Assessment and Plan: No pulse pedal pulse in the left lower extremity. Plan: - Lumite Injector has schedule JACK - Possible vascular sugery consult post JACK (8) HTN (hypertension) Current Visit: No Status: Chronic Assessment and Plan: Bood pressure well controlled. Plan: - Continue Furosemide and Isosorbide (9) Hypothyroidism Current Visit: Yes Status: Chronic Assessment and Plan: Plan: - Continue levothyroxine 100 mg by mouth daily - Time Spent with Patient Total time spent is greater than 50% in coordination of care (as documented) at patient's floor/unit and/or counseling patient: Greater than 35 minutes Plan of Care Discussed with: patient Internal Medicine: Result - Labs CBC & Chem 7: 10/25/17 03:28 10/25/17 03:28 Labs: Short CBC 10/25/17 Range/Units 03:28 WBC 5.5 (4.3-11.1) K/mcL Hgb 10.9 L (12.9-16.9) g/dL Hct 31.7 L (37.5-50.1) % Plt Count 93 L (140-400) K/mcL BMP 10/25/17 03:28 Sodium 137 Potassium 3.8 Chloride 104 Carbon Dioxide 28 BUN 19 Creatinine 1.13 Glucose 176 H Calcium 8.7 Cardiac Enzymes 10/25/17 10/25/17 Range/Units 01:34 07:58 Troponin I 0.05 H* 0.05 H* (< 0.04) ng/mL Consult Discharge Plan - Plan Referrals: Nestor De La Cruz MD [Primary Care Provider] - (3) Gout Qualifiers: Gout site: unspecified site Presence of tophus: without tophus (4) CAD (coronary artery disease) Qualifiers: Coronary Disease-Associated Artery/Lesion type: [place] artery [place] vs. transplanted heart: [place] heart Associated angina: without angina Qualified Code(s): I25.10 - Atherosclerotic heart disease of [place] coronary artery without angina pectoris (5) Congestive heart failure Qualifiers: Qualified Code(s): I50.42 - Chronic combined systolic (congestive) and diastolic (congestive) heart failure (6) Diabetes mellitus Qualifiers: Diabetes mellitus type: type 2 Diabetes mellitus intermediate card tender insulin use: with intermediate card tender use Diabetes mellitus complication status: with circulatory complication Diabetes mellitus complication detail: with other circulatory complications Qualified Code(s): E11.59 - Type 2 diabetes mellitus with other circulatory complications; Z79.4 - FPC (current) use of insulin (8) HTN (hypertension) Qualifiers: Hypertension type: essential hypertension Qualified Code(s): I10 - Essential (primary) hypertension (9) Hypothyroidism Qualifiers: Hypothyroidism type: unspecified Qualified Code(s): E03.9 - Hypothyroidism, unspecified
[2017-10-25] MEDS ORDERED: Insulin LISPRO 300 UNITS/3 ML VIAL SQ SCH ×2 (16:30→21:45)
[2017-10-25] MEDS: *HR* Heparin 5,000 UNIT/ML VIAL SQ SCH (18:23)
[2017-10-25] MEDS ORDERED: Insulin DETEMIR 100 UNIT/ML X5UNITS SQ SCH (21:00)
[2017-10-25] MEDS ORDERED: Ibuprofen 200 MG TABLET PO PRN (22:39)
[2017-10-26] MEDS: Ampicillin/Sulbactam 3,000 MG in 0.9 % Sodium Chloride Mini Bag 100 ML IVPB SCH ×3 (01:17→11:01)
[2017-10-26 05:59] LABS: Basophils % 0.4 %; Eosinophils # 0.1 K/mcL (0.0-0.6); Hematocrit 33.1 % (37.5-50.1); Hemoglobin 11.5 g/dL (12.9-16.9); Immature Granulocytes % 0.7 % (0-4); Lymphocytes # 0.8 K/mcL (0.6-4.6); Lymphocytes % 15.4 %; Mean Corpuscular HGB Conc 34.7 g/dL (31.6-35.5); Mean Corpuscular Hemoglobin 34.2 pg (28.0-33.3); Mean Corpuscular Volume 98.5 fL (83.0-100.0); Mean Platelet Volume 11.5 fL (9.4-12.4); Monocytes # 0.7 K/mcL (0.0-1.3); Monocytes % 12.1 %; Neutrophils # 3.7 K/mcL (1.6-8.9); Platelet Count 110 K/mcL (140-400); Red Blood Count 3.36 M/mcL (4.19-5.50); Red Cell Distribution Width 13.2 % (11.5-14.5); Segmented Neutrophils % 69.4 %
[2017-10-26 06:16] LABS: BUN/Creatinine Ratio 18 (6-26); Blood Urea Nitrogen 21 mg/dL (8-23); C-Reactive Protein 124 mg/L (Less than 10); Calcium 8.7 mg/dL (8.6-10.3); Carbon Dioxide 26 mEq/L (23-29); Chloride 104 mEq/L (98-107); Glucose 143 mg/dL (70-105); Magnesium 2.1 mg/dL (1.6-2.6); Osmolality,Calculated 287 (280-300); Sodium 136 mEq/L (136-145); eGFR For Non-African Americans 58 (> 60)
[2017-10-26] MEDS: *HR* Heparin 5,000 UNIT/ML VIAL SQ SCH ×2 (06:24→18:45)
[2017-10-26] MEDS ORDERED: Nitroglycerin 0.4 MG TAB.SUBL SL PRN (08:51)
[2017-10-26] MEDS ORDERED: Famotidine 20 MG TABLET PO SCH (09:00)
[2017-10-26] MEDS ORDERED: Furosemide 40 MG TABLET PO SCH (09:00)
[2017-10-26] MEDS: Isosorbide MONOnitrate (24 HR) 30 MG TAB.ER.24H PO SCH (10:24)
[2017-10-26] MEDS: Furosemide 40 MG TABLET PO SCH ×2 (10:24→18:45)
[2017-10-26] MEDS: Aspirin Enteric Coated 81 MG Tablet PO SCH (10:46)
[2017-10-26] MEDS: Cholecalciferol (D-3) 1,000 UNIT TABLET PO SCH (10:46)
--- NOTE | 2017-10-26 12:42 | Internal Med Progress Note ---
Hospitalist Progress Note - Encounter Date of Encounter: 10/26/17 Time of Encounter: 10:00 - Subjective Interval History: he has no complaints, is anxious to return home. denies any pain i his foot. was inquiring about restarting his home medications. denies n/v/D, has no pain or discharge from the left foot. denies CP, SOB, palpitations, fever, chill. - Exam Vitals: Temp Pulse Resp BP Pulse Ox 97.7 F 58 14 110/70 98 10/26/17 11:12 10/26/17 11:12 10/26/17 11:12 10/26/17 11:12 10/26/17 11:12 Exam: General: Patient is alert, oriented, no acute distress, obese Head: atraumatic, normocephalic, Eye: normal appearance, PERRL, no scleral icterus, no conjunctival injection ENT: mucous membranes moist, normal external ear exam Neck: normal inspection, trachea midline, full ROM, no carotid bruits Chest: normal inspection, symmetric chest rise Respiratory: Good respiratory effort. Bilateral breath sounds are clear without wheezing, crackles, or rhonchi. Cardiovascular: Regular rate and rhythm. s1 and s2 No clicks, rubs, gallops, or murmors. Abdomen: Bowel sounds present normoactive x-4 quadrants. Abdomen is soft, nondistended. no Epigastric tenderness. No guarding or rebound. No organomegaly noted, obese musculoskeletal: Spontaneously moving all extremities. no edema, left calf is mildly tender and has 1 edema. 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 Neuro: Alert and oriented x4. Sensation light touch intact. Cranial nerves 2- 12 is intact. Psych: Patient's affect is normal - Assessment and Plan (1) Diabetic infection of left foot Current Visit: Yes Status: Acute Assessment and Plan: elevated ESR and CRP Continue IV antibiotics ( vancomycin and zosyn) Podiatry on board will follow recs Wound care by lens dotter recommendations S/P JACK of LLE Left lower extremity JACK .98-normal Left digit waveforms- 1st digit-mildly diminished waveforms 2nd digit-mildly diminished waveforms 3rd digit-SEVERLY diminished waveforms 4th digit-ABSENT waveforms Xray of the Lower extremity was done - results below venpous doppler negative for DVT Bcx remain negtaive will continue to follow (2) Severe peripheral arterial disease Current Visit: No Status: Chronic Assessment and Plan: S/P JACK Left lower extremity JACK .98-normal Left digit waveforms- 1st digit-mildly diminished waveforms 2nd digit-mildly diminished waveforms 3rd digit-SEVERLY diminished waveforms 4th digit-ABSENT waveforms podiatry on board will follow vascular recs (3) Congestive heart failure Current Visit: No Status: Chronic Assessment and Plan: not in acute exacerbation now Continue furosemide 40 mg twice a day On isosorbide 30 mg daily Strict intake and output (4) CAD (coronary artery disease) Current Visit: No Status: Chronic Assessment and Plan: continue lipitor, ASA - (5) HTN (hypertension) Current Visit: No Status: Chronic Assessment and Plan: Bood pressure well controlled. Continue Furosemide and Isosorbide (6) Diabetes mellitus Current Visit: No Status: Chronic Assessment and Plan: started on home insulin regimen. follow finger sticks A1c in AM (7) Gout Current Visit: Yes Status: Acute Assessment and Plan: On allopurinol Continue home medication (8) Hypothyroidism Current Visit: Yes Status: Chronic Assessment and Plan: Continue levothyroxine 100 mg by mouth daily (9) Obesity (BMI 30.0-34.9) Current Visit: Yes Status: Acute Assessment and Plan: was counseled on nutrition will get nutrition consult (10) DVT prophylaxis Current Visit: No Status: Acute Assessment and Plan: - Chemical DVT prophylaxis with Heparin 5000 units SubQ Q12HRs DVT Prophylaxis: as per above - Time Spent with Patient Total time spent is greater than 50% in coordination of care (as documented) at patient's floor/unit and/or counseling patient: Internal Medicine: Result - Labs CBC & Chem 7: 10/26/17 05:00 10/26/17 05:00 Labs: Short CBC 10/26/17 Range/Units 05:00 WBC 5.4 (4.3-11.1) K/mcL Hgb 11.5 L (12.9-16.9) g/dL Hct 33.1 L (37.5-50.1) % Plt Count 110 L (140-400) K/mcL Neutrophils # 3.7 (1.6-8.9) K/mcL BMP 10/26/17 05:00 Sodium 136 Potassium 4.0 Chloride 104 Carbon Dioxide 26 BUN 21 Creatinine 1.20 Glucose 143 H Calcium 8.7 - Impressions Impressions Foot X-Ray 10/25/17 16:10 IMPRESSION: Cortical irregularity involving the 4th proximal and middle phalanges, as detailed above. If there is a soft tissue ulcer in this area (not seen on this exam), this would raise concern for osteomyelitis. Contrast-enhanced MRI may be of value. D/ / Keith Bangura / Keith Bangura Interpreting Provider: Keith Bangura Consult Discharge Plan - Plan Referrals: Nestor De La Cruz MD [Primary Care Provider] - (4) CAD (coronary artery disease) Qualifiers: Coronary Disease-Associated Artery/Lesion type: [place] artery [place] vs. transplanted heart: [place] heart Associated angina: without angina Qualified Code(s): I25.10 - Atherosclerotic heart disease of [place] coronary artery without angina pectoris (5) HTN (hypertension) Qualifiers: Hypertension type: essential hypertension Qualified Code(s): I10 - Essential (primary) hypertension (6) Diabetes mellitus Qualifiers: Diabetes mellitus type: type 2 Diabetes mellitus meterman insulin use: with meterman use Diabetes mellitus complication status: with circulatory complication Diabetes mellitus complication detail: with other circulatory complications Qualified Code(s): E11.59 - Type 2 diabetes mellitus with other circulatory complications; Z79.4 - intermediate 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
[2017-10-26] MEDS: Insulin LISPRO 300 UNITS/3 ML VIAL SQ SCH ×2 (13:42→18:30)
[2017-10-26] MEDS: Piperacillin/Tazobactam 3.375 GM in 0.9 % Sodium Chloride Mini Bag 100 ML IVPB SCH ×2 (18:44→23:21)
[2017-10-26] MEDS ORDERED: Insulin DETEMIR 100 UNIT/ML X5UNITS SQ SCH (21:00)
[2017-10-26] MEDS ORDERED: NON-FORMULARY MEDICATION 1 EACH EACH (Insulin Glargine [Lantus] 32 UNIT) SQ SCH (21:00)
[2017-10-26] MEDS ORDERED: traMADol 50 MG TABLET PO PRN (23:33)
[2017-10-27] MEDS: *HR* Heparin 5,000 UNIT/ML VIAL SQ SCH ×2 (06:13→18:43)
[2017-10-27 07:48] LABS: Hematocrit 36.4 % (37.5-50.1); Hemoglobin 12.6 g/dL (12.9-16.9); Mean Corpuscular HGB Conc 34.6 g/dL (31.6-35.5); Mean Corpuscular Hemoglobin 33.9 pg (28.0-33.3); Mean Corpuscular Volume 97.8 fL (83.0-100.0); Mean Platelet Volume 11.5 fL (9.4-12.4); Platelet Count 119 K/mcL (140-400); Red Blood Count 3.72 M/mcL (4.19-5.50); Red Cell Distribution Width 12.9 % (11.5-14.5)
--- NOTE | 2017-10-27 07:54 | Electrocardiograph Report ---
[place] [id number] Test Date: 2017-10-24 Pat Name: Justin Read Department: EXAM6 Room: 3A12 Gender: M [employer]: : 1935 Requested By: Venu Coon Order Number: [id number] Reading MD: Aletha Andino Measurements Intervals [place] Rate: 75 P: 0 RI: 287 QRS: 35 QRSD: 135 T: 78 QT: 460 QTc: 514 Interpretive Statements Sinus rhythm with first degree AV block Right bundle branch block Inferior infarct, old Electronically Signed On 10-27-2017 7:52:47 EDT by Aletha Andino
[2017-10-27 07:55] LABS: Estimated Average Glucose 166 mg/dl; Hemoglobin A1C 7.4 %
[2017-10-27 08:08] LABS: Calcium 8.8 mg/dL (8.6-10.3); Chol/HDL Ratio 4.1 (0-4.9)
[2017-10-27] MEDS: Piperacillin/Tazobactam 3.375 GM in 0.9 % Sodium Chloride Mini Bag 100 ML IVPB SCH ×3 (08:27→23:44)
[2017-10-27] MEDS: Cholecalciferol (D-3) 1,000 UNIT TABLET PO SCH (08:28)
[2017-10-27] MEDS: Furosemide 40 MG TABLET PO SCH ×2 (08:28→18:56)
[2017-10-27] MEDS: Aspirin Enteric Coated 81 MG Tablet PO SCH (08:30)
[2017-10-27] MEDS: Famotidine 20 MG TABLET PO SCH (08:30)
[2017-10-27] MEDS: Insulin LISPRO 300 UNITS/3 ML VIAL SQ SCH ×3 (08:30→18:43)
[2017-10-27] MEDS: Isosorbide MONOnitrate (24 HR) 30 MG TAB.ER.24H PO SCH (08:30)
[2017-10-27] MEDS ORDERED: Lactulose Oral Soln 20 GM/30 ML UDC PO PRN (08:48)
--- NOTE | 2017-10-27 13:17 | Vascular/Endovasc Consult Note ---
Date of Encounter: 10/27/17 Time of Encounter: 12:45 Assessment and Plan (1) PAD (peripheral artery disease) Current Visit: Yes Status: Chronic Patient has a long history of PAD. He is status post bypass grafting. Patient is status post right lower extremity BKA. (2) Status post bypass graft of extremity Current Visit: Yes Status: Chronic Patent left femoral peroneal bypass graft by physical exam. Patient will need duplex imaging of the graft at this is not yet been performed. (3) Diabetic infection of left foot Current Visit: Yes Status: Acute Patient has left fourth toe gangrene. From vascular standpoint may proceed with amputation of left foot toes. Will follow patient clinically. If there is issue is with further deterioration or difficulties with wound healing patient will then need repeat angiography and possible redo endovascular intervention of the tibial vessels. - History of Present Illness Consult date: 10/27/17 Consult reason: Left lower extremity PAD/toe gangrene Chief complaint: Toe gangrene History of present illness: Mr. Read is a 82 year old male Was admitted a few days ago because of deterioration of his left foot and toe. Patient has a long history of known lower extremity vascular occlusive disease. He has been followed actively through the podiatry clinic. He was noted to have a rapid discoloration of his left fourth toe prompting his admission to the hospital. Patient has been placed on intravenous antibiotics. Noninvasive testing was performed which is recorded in the chart. Essentially this shows significant decrease in the blood flow to 2 of the 4 toes on the left foot. His ankle brachial index is approximately 0.94. The patient is status post a right [id number] amputation in 2014. The patient is status post a left femoral peroneal in situ saphenous vein bypass [place] [address] [place]. He underwent an angiogram with endovascular therapy with balloon angioplasty of the left peroneal artery distal to the bypass graft in 2012. The patient was scheduled for routine noninvasive testing next week and follow-up in the vascular surgery clinic in early October. Past Med Surg Social Fam HX - Past Medical History Medical history: arthritis, CHF, coronary artery disease, diabetes, GERD, hyperlipidemia, hypertension, myocardial infarction, peripheral artery disease, renal disease, thyroid disease Additional medical history: 2 SD's Psychiatric history: anxiety - Past Surgical History Surgical History: appendectomy, LE vascular intervention Additional surgical history: R BKA - toe amputation - Right CTR, L index finger amputation, open heart - Social History Smoking Status: Former smoker Smokeless Tobacco Status: No Alcohol use: none Drug use: none - Family History Father Living Status: Hx Family Cancer: Yes Mother Family Member Ethnicity: Non- Living Status: Hx Family Cardiac Disorders: No Hx Family Respiratory Disorders: No Hx Family Cancer: Yes (breast, liver) Hx Family GI Disorders: No Hx Family Endocrine Disorder: No Hx Family Neuromuscular Disorders: No Hx Family Neurologic Disorders: No Hx Family HEENT Disorders: No Hx Family Autoimmune Disorders: No Medications and Allergies Acetaminophen [Tylenol] 650 mg PO BID PRN 05/26/15 [History] Allopurinol [Zyloprim 300 MG] 300 mg PO DAILY 05/26/15 [History] Aspirin [Adult Low Dose Aspirin EC] 81 mg PO DAILY 05/26/15 [History] Insulin ASPART [NovoLOG] 13 unit SQ TIDAC 05/26/15 [History] Insulin Glargine [Lantus] 32 unit SQ HS 05/26/15 [History] Levothyroxine [Synthroid] 100 mcg PO QAM 05/26/15 [History] raNITIdine HCl [Zantac] 150 mg PO BID 05/26/15 [History] Lactulose 10 gm PO BID PRN 04/05/16 [History] Nitroglycerin [Nitrostat] 0.4 mg SL Q5M PRN 04/05/16 [History] Furosemide [Lasix] 20 mg PO BID 10/28/16 [History] Isosorbide MONOnitrate (24 HR) [Imdur] 60 mg PO DAILY 11/12/16 [History] Amoxicillin/Clavulanate [Augmentin] 500 mg PO BIDWM #15 tablet 11/15/16 [Rx] Atorvastatin [Lipitor] 40 mg PO HS 10/25/17 [History] Cholecalciferol (D-3) 5,000 unit PO DAILY 10/25/17 [History] Doxazosin [Cardura] 2 mg PO HS 10/25/17 [History] Timolol Maleate 0.5% [Timolol Maleate 0.5%] 1 drop BOTH EYES BID 10/26/17 [ History] 3 Allergy/AdvReac Type Severity Reaction Status Date / Time acetaminophen [From Percocet] Allergy Hives Verified 10/28/16 08:47 Iodinated Contrast- Oral and Allergy Hives Verified 10/25/17 01:29 IV Dye Oxycodone [From Percocet] Allergy Hives Verified 10/28/16 08:47 prednisone Allergy Rash Verified 10/28/16 08:47 All Systems Review: The remainder of the systems were reviewed and are negative Exam General: Present: Conversant, No Apparent Distress, Well developed, Well nourished HEENT: Present: Atraumatic, Normocephaly Neck: Absent: JVD Abdomen: Present: Other (Obese) Vascular: Present: Pulse, absent (No palpable left pedal pulses), Edema ( Patient has chronic edema of the left calf), Color/Temperature (Patient has a reddish purplish discoloration of the distal half of the left calf. The left foot itself is warm to the touch. Patient has dry gangrenous changes involving the left fourth toe.), Amputation(s) (That is post left fifth toe amputation), Other (Patient has a palpable pulse over the left femoral tibial in situ saphenous vein bypass graft. There is no bruit over this graft.) Consult Discharge Plan - Plan Referrals: Nestor De La Cruz MD [Primary Care Provider] -
--- NOTE | 2017-10-27 14:52 | Internal Med Progress Note ---
Hospitalist Progress Note - Encounter Date of Encounter: 10/27/17 Time of Encounter: 14:50 - Subjective Interval History: has no complaints and is anxious about his foot infection. he does not want to get another BKA. he reports that his pain is controlled. is tolerating diet. denies fever, chills, chest pain, SOB, N/V/D. i asked him about his BB use and he reports that " i fell through the crack" he has not been prescribed the BB for unknown reasons. - Exam Vitals: Temp Pulse Resp BP Pulse Ox 98.7 F 67 18 150/84 98 10/27/17 07:38 10/27/17 07:38 10/27/17 07:38 10/27/17 07:38 10/27/17 08:00 Exam: General: Patient is alert, oriented, no acute distress, obese Head: atraumatic, normocephalic, Eye: normal appearance, PERRL, no scleral icterus, no conjunctival injection ENT: mucous membranes moist, normal external ear exam Neck: normal inspection, trachea midline, full ROM, no carotid bruits Chest: normal inspection, symmetric chest rise Respiratory: Good respiratory effort. Bilateral breath sounds are clear without wheezing, crackles, or rhonchi. Cardiovascular: Regular rate and rhythm. s1 and s2 No clicks, rubs, gallops, or murmors. Abdomen: Bowel sounds present normoactive x-4 quadrants. Abdomen is soft, nondistended. no Epigastric tenderness. No guarding or rebound. No organomegaly noted, obese musculoskeletal: Spontaneously moving all extremities. right BKA, left calf is mildly tender and has 1 edema. 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 Skin: warm, dry, intact. Neuro: Alert and oriented x4. Sensation light touch intact. Cranial nerves 2- 12 is intact. Psych: Patient's affect is normal - Assessment and Plan (1) Diabetic infection of left foot Current Visit: Yes Status: Acute Assessment and Plan: elevated ESR and CRP Continue IV antibiotics ( vancomycin and zosyn) Podiatry on board for OR in the AM Wound care by helpdesk technician recommendations S/P JACK of LLE Left lower extremity JACK .98-normal Left digit waveforms- 1st digit-mildly diminished waveforms 2nd digit-mildly diminished waveforms 3rd digit-SEVERLY diminished waveforms 4th digit-ABSENT waveforms venous doppler negative for DVT vascular surgery on board Bcx remain negative will continue to follow (2) Acute renal failure Current Visit: Yes Status: Acute Assessment and Plan: BUN CR increased to 29/1.39 from 21.20 he is on lasix 20 mg bid for CHF- will consider stopping lasix if creatinine continues to increase he is on vancomycin for DM foot infection- will follow trough closely and adjust dosage as per pharmacy recs avoid nephrotoxic medications was on NSAIDs on admission - discontinued on 10/26/17 will follow renal functions and electrolytes closely. (3) Severe peripheral arterial disease Current Visit: No Status: Chronic Assessment and Plan: The patient is status post a right akgol-xcm-wovy amputation in 2014. The patient is status post a left femoral peroneal in situ saphenous vein bypass [place] [address] [place]. He underwent an angiogram with endovascular therapy with balloon angioplasty of the left peroneal artery distal to the bypass graft in 2012. S/P JACK Left lower extremity JACK .98-normal Left digit waveforms- 1st digit-mildly diminished waveforms 2nd digit-mildly diminished waveforms 3rd digit-SEVERLY diminished waveforms 4th digit-ABSENT waveforms podiatry on board vascular surgery on board (4) Congestive heart failure Current Visit: No Status: Chronic Assessment and Plan: not in acute exacerbation now TTE shows preserved LVEF, EF 60%. Akinetic basal inferior wall. lasix 20 mg BID - will consider hold ing if renal function continues to decline. On isosorbide 30 mg daily will get TTE cardiology consultation- spoke to Dr. Kenny Strict intake and output (5) CAD (coronary artery disease) Current Visit: No Status: Chronic Assessment and Plan: continue lipitor, ASA, will start low dose BB ( does have 1st degree Av block) troponins were mildly elevated but trended flat on admission will get TTE cardiology consultation - spoke to Dr. kenny who also recommended low dose BB high risk for surgery (6) HTN (hypertension) Current Visit: No Status: Chronic Assessment and Plan: Bood pressure well controlled. Continue Furosemide and Isosorbide (7) Diabetes mellitus Current Visit: No Status: Chronic Assessment and Plan: started on home insulin regimen. follow finger sticks A1c 7.4 (8) Gout Current Visit: Yes Status: Acute Assessment and Plan: On allopurinol Continue home medication (9) Hypothyroidism Current Visit: Yes Status: Chronic Assessment and Plan: Continue levothyroxine 100 mg by mouth daily (10) Obesity (BMI 30.0-34.9) Current Visit: Yes Status: Acute Assessment and Plan: was counseled on nutrition will get nutrition consult (11) Thrombocytopenia Current Visit: Yes Status: Acute Assessment and Plan: count is above 100k. will continue to monitor him for bleeding. (12) DVT prophylaxis Current Visit: No Status: Acute Assessment and Plan: Heparin 5000 units SubQ Q12HRs - Time Spent with Patient Total time spent is greater than 50% in coordination of care (as documented) at patient's floor/unit and/or counseling patient: Plan of Care Discussed with: patient Internal Medicine: Result - Labs CBC & Chem 7: 10/27/17 07:00 10/27/17 07:00 Consult Discharge Plan - Plan Referrals: Nestor De La Cruz MD [Primary Care Provider] - (5) CAD (coronary artery disease) Qualifiers: Coronary Disease-Associated Artery/Lesion type: [place] artery [place] vs. transplanted heart: [place] heart Associated angina: angina presence unspecified Qualified Code(s): I25.10 - Atherosclerotic heart disease of [place] coronary artery without angina pectoris (6) HTN (hypertension) Qualifiers: Hypertension type: essential hypertension Qualified Code(s): I10 - Essential (primary) hypertension (7) Diabetes mellitus Qualifiers: Diabetes mellitus type: type 2 Diabetes mellitus [place] insulin use: with [facility] use Diabetes mellitus complication status: with circulatory complication Diabetes mellitus complication detail: with other circulatory complications Qualified Code(s): E11.59 - Type 2 diabetes mellitus with other circulatory complications; Z79.4 - FDC (current) use of 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
--- NOTE | 2017-10-27 15:54 | Cardiology Consult Note ---
Date of Encounter: 10/27/17 Time of Encounter: 15:50 Assessment and Plan (1) Pre-operative cardiovascular examination Current Visit: Yes Status: Acute Mr. Read is recommended to undergo amputation of his left toes. Difficult to assess anginal symptoms due to decreased mobility. C/o atypical chest pain after fall. Pain was not like his previous ME. No recent ischemic evaluation. EKG shows atrial pacing, RBBB. Recommended to have LHC over one year ago but opted for medical management due to CKD. NPO after midnight for possible further testing. I will discuss further with Dr. Kenny. Agree with TTE. (2) CAD (coronary artery disease) Current Visit: No Status: Chronic H/o CAD s/p ME and CABG in 2002. Last stress test in 2011 was negative for ischemia. Agree with adding back beta-elda, statin, and asa. Qualifiers: Coronary Disease-Associated Artery/Lesion type: [place] artery [place] vs. transplanted heart: [place] heart Associated angina: angina presence unspecified Qualified Code(s): I25.10 - Atherosclerotic heart disease of [place] coronary artery without angina pectoris (3) Chronic diastolic (congestive) heart failure Current Visit: Yes Status: Acute H/o CHFpEF. Last TTE 04/2016- EF 60%, akenetic basal inferior wall. Currently euvolemic. Weight is down. Continue low sodium diet. Discussion w patient/family: The assessment and plan as outlined above was discussed with the patient and/or family members who expressed understanding and agreement. All questions were answered. Thank you for involving us in the care of your patient. Please call with any questions. History of Present Illness Consult date: 10/27/17 Requesting physician: Yisel Juarez Consult reason: pre-operative cardiovascular evaluation Chief complaint: Wound on foot History of present illness: Mr. Read is a 82 year old male with past medical history of CAD s/p ME and CABG in 2002, diastolic CHF, severe PVD, S/p right BKA, CKD stage III, and HTN. He presented with left foot toe wound that opened. He is found to have gangrene and recommended to have left foot toes amputation. Cardiology consulted for pre- operative cardiovascular evaluation prior to surgery. He reports having right sided chest pain and shoulder aching that started seven weeks ago after falling on his right side. He suffered a right arm laceration at that time. He states that he may have experienced some chest pain episodes before his fall. The last time he developed chest pain was over a week ago. Denies SOB or weight gain. States he was loosing weight due to diet. His activity is limited due to history of amputation. He was noted to have hospital stay last year for CHF. AT that time he was seen to have elevated troponin and abnormal TTE findings. he was recommended for LHC. Due to CKD he decided to not undergo LHC. Re-peat TTE pending. Past Med Surg Social Fam HX - Past Medical History Medical history: arthritis, CHF, coronary artery disease, diabetes, GERD, hyperlipidemia, hypertension, myocardial infarction, peripheral artery disease, renal disease, thyroid disease Additional medical history: 2 ME's Psychiatric history: anxiety - Past Surgical History Surgical History: appendectomy, LE vascular intervention Additional surgical history: R BKA - toe amputation - Right CTR, L index finger amputation, open heart - Social History Smoking Status: Former smoker Smokeless Tobacco Status: No Alcohol use: none Drug use: none - Family History Father Living Status: Hx Family Cancer: Yes Mother Family Member Ethnicity: Non- Living Status: Hx Family Cardiac Disorders: No Hx Family Respiratory Disorders: No Hx Family Cancer: Yes (breast, liver) Hx Family GI Disorders: No Hx Family Endocrine Disorder: No Hx Family Neuromuscular Disorders: No Hx Family Neurologic Disorders: No Hx Family HEENT Disorders: No Hx Family Autoimmune Disorders: No Medications and Allergies Acetaminophen [Tylenol] 650 mg PO BID PRN 05/26/15 [History] Allopurinol [Zyloprim 300 MG] 300 mg PO DAILY 05/26/15 [History] Aspirin [Adult Low Dose Aspirin EC] 81 mg PO DAILY 05/26/15 [History] Insulin ASPART [NovoLOG] 13 unit SQ TIDAC 05/26/15 [History] Insulin Glargine [Lantus] 32 unit SQ HS 05/26/15 [History] Levothyroxine [Synthroid] 100 mcg PO QAM 05/26/15 [History] raNITIdine HCl [Zantac] 150 mg PO BID 05/26/15 [History] Lactulose 10 gm PO BID PRN 04/05/16 [History] Nitroglycerin [Nitrostat] 0.4 mg SL Q5M PRN 04/05/16 [History] Furosemide [Lasix] 20 mg PO BID 10/28/16 [History] Isosorbide MONOnitrate (24 HR) [Imdur] 60 mg PO DAILY 11/12/16 [History] Amoxicillin/Clavulanate [Augmentin] 500 mg PO BIDWM #15 tablet 11/15/16 [Rx] Atorvastatin [Lipitor] 40 mg PO HS 10/25/17 [History] Cholecalciferol (D-3) 5,000 unit PO DAILY 10/25/17 [History] Doxazosin [Cardura] 2 mg PO HS 10/25/17 [History] Timolol Maleate 0.5% [Timolol Maleate 0.5%] 1 drop BOTH EYES BID 10/26/17 [ History] 3 Allergy/AdvReac Type Severity Reaction Status Date / Time acetaminophen [From Percocet] Allergy Hives Verified 10/28/16 08:47 Iodinated Contrast- Oral and Allergy Hives Verified 10/25/17 01:29 IV Dye Oxycodone [From Percocet] Allergy Hives Verified 10/28/16 08:47 prednisone Allergy Rash Verified 10/28/16 08:47 All Systems Review: The remainder of the systems were reviewed and are negative Physical Examination Vital Signs, Last 4 Hours Temp Pulse Resp BP Pulse Ox 10/27/17 15:26 97.7 F 60 16 107/65 98 General: Conversant, No Apparent Distress HEENT: Atraumatic, Normocephaly, Mucus Membranes Moist Neck: No JVD, Normal carotid pulses Cardiac: Reg Rate and Rhythm, Normal S1 and S2, No Murmur Lungs: Normal Breath Sounds, No Wheeze, Rales, Rhonchi Neuro: Alert and responsive, No focal deficits noted Abdomen: Soft, Non-Tender Skin: No rashes noted on visualized skin Musculoskeletal: No Chest Wall Tenderness Extremities: No Clubbing, No Cyanosis, No Edema, Normal Pulses Results 10/27/17 07:00 10/27/17 07:00 - Imaging and Cardiology Echo: report reviewed - EKG Interpretation EKG results cardiology: personally reviewed Consult Discharge Plan - Plan Referrals: Nestor De La Cruz MD [Primary Care Provider] -
[2017-10-27] MEDS ORDERED: Perflutren Lipid Microsphere 1.3 ML in 0.9 % Sodium Chloride 8.7 ML IVP ONE (17:14)
--- NOTE | 2017-10-27 19:54 | Anesthesia Evaluation PreOp ---
Date of Encounter: 10/27/17 Time of Encounter: 19:00 - Past History Planned Operation: Amputation Left Toe #4 Cardiac History: VT (2002), CHF (Last ECHO 2017 showed EF 60%), HTN, Hyperlipidemia, Other (Severe Peripheral Arterial Disease CAD...patient on Beta elda,statin,asa) Pulmonary History: Denies Any Significant HX SUEDE BRUSHER History: Denies Any Significant HX Other Medical History: Renal (CKD), Diabetes Type II, GERD Anesthesia History: No Prior Anesthetic Complications Alcohol Use: none Drug use: none Medications and Allergies Acetaminophen [Tylenol] 650 mg PO BID PRN 05/26/15 [History] Allopurinol [Zyloprim 300 MG] 300 mg PO DAILY 05/26/15 [History] Aspirin [Adult Low Dose Aspirin EC] 81 mg PO DAILY 05/26/15 [History] Insulin ASPART [NovoLOG] 13 unit SQ TIDAC 05/26/15 [History] Insulin Glargine [Lantus] 32 unit SQ HS 05/26/15 [History] Levothyroxine [Synthroid] 100 mcg PO QAM 05/26/15 [History] raNITIdine HCl [Zantac] 150 mg PO BID 05/26/15 [History] Lactulose 10 gm PO BID PRN 04/05/16 [History] Nitroglycerin [Nitrostat] 0.4 mg SL Q5M PRN 04/05/16 [History] Furosemide [Lasix] 20 mg PO BID 10/28/16 [History] Isosorbide MONOnitrate (24 HR) [Imdur] 60 mg PO DAILY 11/12/16 [History] Amoxicillin/Clavulanate [Augmentin] 500 mg PO BIDWM #15 tablet 11/15/16 [Rx] Atorvastatin [Lipitor] 40 mg PO HS 10/25/17 [History] Cholecalciferol (D-3) 5,000 unit PO DAILY 10/25/17 [History] Doxazosin [Cardura] 2 mg PO HS 10/25/17 [History] Timolol Maleate 0.5% [Timolol Maleate 0.5%] 1 drop BOTH EYES BID 10/26/17 [ History] 3 Allergy/AdvReac Type Severity Reaction Status Date / Time acetaminophen [From Percocet] Allergy Hives Verified 10/28/16 08:47 Iodinated Contrast- Oral and Allergy Hives Verified 10/25/17 01:29 IV Dye Oxycodone [From Percocet] Allergy Hives Verified 10/28/16 08:47 prednisone Allergy Rash Verified 10/28/16 08:47 - Meds/Allergy Pre-op Review Medications Reviewed: Yes Allergies Reviewed: Yes Beta Blockers on Current Med List: Yes (Metoprolol 2100 -) Anesthesia Results - Labs 10/27/17 07:00 10/27/17 07:00 - Imaging EKG: report reviewed (SR First Degree AV Block, Rt BB) Additional studies: ECHO 2016 EF 60%, moderate left ventricular diastolic dysfunction, no pulm htn Anesthesia Exam Vital Signs/O2 Sat/Glucose, Most Current Temp Pulse Resp BP Pulse Ox 10/27/17 19:45 98 F 77 15 114/57 97 Height: 5'8 Weight: 203 lbs NPO (# of Hours): MN Pain Scale: 0 - HEENT Pupil (Motor): Pupils equal, EOMI Mallampati: III Oral Opening: Less than or equal to 3 - SUEDE BRUSHER LOC: Oriented SUEDE BRUSHER Motor: Normal RUE, Normal LUE, Normal LLE, Normal Face, Deficit RLE (BKA) SUEDE BRUSHER Sensory: Normal: RUE, LUE, Face, Deficit: RLE (BKA), LLE (Neuropathy) - Cardiac Rhythm: Regular Murmur: None JVD: No Carotid Bruit: No - Pulmonary Breath Sounds: bilateral Clear Respiratory Effort: Symmetrical Anesthesia Assess/Plan ASA Score: 4 (CAD HTN PAD CKD DM) Modified Adelso Scale for Level of Consciousness: Cooperative, oriented, and tranquil Anesthetic Plan: MAC Monitoring Plan: Standard Monitors Recovery Plan: Other (Discussed MAC, possible GA agrees to proceed)
[2017-10-27] MEDS: *HR* Acetylcysteine 20% 600 MG/3 ML ORAL SYRINGE PO SCH (21:44)
[2017-10-28] MEDS: Insulin LISPRO 300 UNITS/3 ML VIAL SQ SCH ×4 (00:35→22:41)
[2017-10-28 06:15] LABS: Hematocrit 31.8 % (37.5-50.1); Mean Corpuscular HGB Conc 34.3 g/dL (31.6-35.5); Mean Corpuscular Hemoglobin 32.9 pg (28.0-33.3); Mean Corpuscular Volume 96.1 fL (83.0-100.0); Mean Platelet Volume 11.2 fL (9.4-12.4); Platelet Count 125 K/mcL (140-400); Red Blood Count 3.31 M/mcL (4.19-5.50)
[2017-10-28 06:16] LABS: Hemoglobin 10.9 g/dL (12.9-16.9)
[2017-10-28] MEDS: *HR* Heparin 5,000 UNIT/ML VIAL SQ SCH (06:26)
[2017-10-28 06:34] LABS: Calcium 8.7 mg/dL (8.6-10.3); Potassium 4.2 mEq/L (3.5-5.1)
--- NOTE | 2017-10-28 07:23 | Podiatry Consult Note ---
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 We will proceed with amputation of toe #3 and #4 debridement of all necrotic tissue and bone as necessary to affect closure primarily of the wound #2 intraoperative cultures as necessary #3 patient will likely need rehabilitation post discharge History of Present Illness Chief complaint: Gangrene toes #3 #4 left foot HPI: Mr. Read is a 82 year old male , known to me for 25 years with history of BKA right presented initially the wound dorsal lateral aspect of toe #4 left foot proximally one month ago is being treated successfully without incident in clinic with use of Santyl ointment and offloading the pressure relief with improvement. He continued to improve up until suddenly this past Wednesday his noticed significant discoloration of the toe #4 left foot presented to the ED on Wednesday and was admitted. I was contacted yesterday morning at which time I evaluated the patient. He does have carole modified petrified gangrenous changes to the toe #4 left foot and pregangrenous changes to toe #3. He is evaluated by vascular surgery and with noninvasive studies and evaluation reveals a toes #1 and #2 are viable. His long history of multiple comorbidities including significant advanced performed breast disease and diabetes. At this point would be necessary to remove the digits #3 and #4 in all necrotic tissue and bone to affect control of infection and gangrene. We discussed risks versus benefits as well as alternatives to surgical intervention in length. Risks include but are not limited to bleeding pain loss of foot leg or life DVT or blood clots and need for further surgery failure of initial procedure to produce desired results he voiced comprehension. He had ample opportunity to ask questions about planned procedure and type of anesthetic involved those questions are answered to his satisfaction. We will proceed expectantly. Past Med Surg Social Fam HX - Past Medical History Medical history: arthritis, CHF, coronary artery disease, diabetes, GERD, hyperlipidemia, hypertension, myocardial infarction, peripheral artery disease, renal disease, thyroid disease Additional medical history: 2 MA's Psychiatric history: anxiety - Past Surgical History Surgical History: appendectomy, LE vascular intervention Additional surgical history: R BKA - toe amputation - Right CTR, L index finger amputation, open heart - Social History Smoking Status: Former smoker Smokeless Tobacco Status: No Alcohol use: none Drug use: none - Family History Father Living Status: Hx Family Cancer: Yes Mother Family Member Ethnicity: Non- Living Status: Hx Family Cardiac Disorders: No Hx Family Respiratory Disorders: No Hx Family Cancer: Yes (breast, liver) Hx Family GI Disorders: No Hx Family Endocrine Disorder: No Hx Family Neuromuscular Disorders: No Hx Family Neurologic Disorders: No Hx Family HEENT Disorders: No Hx Family Autoimmune Disorders: No Medications and Allergies Acetaminophen [Tylenol] 650 mg PO BID PRN 05/26/15 [History] Allopurinol [Zyloprim 300 MG] 300 mg PO DAILY 05/26/15 [History] Aspirin [Adult Low Dose Aspirin EC] 81 mg PO DAILY 05/26/15 [History] Insulin ASPART [NovoLOG] 13 unit SQ TIDAC 05/26/15 [History] Insulin Glargine [Lantus] 32 unit SQ HS 05/26/15 [History] Levothyroxine [Synthroid] 100 mcg PO QAM 05/26/15 [History] raNITIdine HCl [Zantac] 150 mg PO BID 05/26/15 [History] Lactulose 10 gm PO BID PRN 04/05/16 [History] Nitroglycerin [Nitrostat] 0.4 mg SL Q5M PRN 04/05/16 [History] Furosemide [Lasix] 20 mg PO BID 10/28/16 [History] Isosorbide MONOnitrate (24 HR) [Imdur] 60 mg PO DAILY 11/12/16 [History] Amoxicillin/Clavulanate [Augmentin] 500 mg PO BIDWM #15 tablet 11/15/16 [Rx] Atorvastatin [Lipitor] 40 mg PO HS 10/25/17 [History] Cholecalciferol (D-3) 5,000 unit PO DAILY 10/25/17 [History] Doxazosin [Cardura] 2 mg PO HS 10/25/17 [History] Timolol Maleate 0.5% [Timolol Maleate 0.5%] 1 drop BOTH EYES BID 10/26/17 [ History] 3 Allergy/AdvReac Type Severity Reaction Status Date / Time acetaminophen [From Percocet] Allergy Hives Verified 10/28/16 08:47 Iodinated Contrast- Oral and Allergy Hives Verified 10/25/17 01:29 IV Dye Oxycodone [From Percocet] Allergy Hives Verified 10/28/16 08:47 prednisone Allergy Rash Verified 10/28/16 08:47 All Systems Reviewed: The remainder of the systems were reviewed and are negative Physical Exam - Constitutional Vitals: Temp Pulse Resp BP Pulse Ox 98.8 F 58 16 114/58 97 10/28/17 07:12 10/28/17 07:12 10/28/17 07:12 10/28/17 07:12 10/28/17 07:12 General appearance: no acute distress - Skin Additional comments: Gangrenous changes to toe #4 with dry gangrene which is obvious pregangrenous changes to toe #3 foot - Vascular Lower Extremity Vascular: pulse deficit, sensory deficit - Ankle & Foot Foot swelling location: dorsal, lateral Results - Labs Result Diagrams: 10/28/17 05:48 10/28/17 05:48 Labs: Abnormal lab results RBC 3.31 M/mcL (4.19-5.50) L 10/28/17 05:48 Hgb 10.9 g/dL (12.9-16.9) L D 10/28/17 05:48 Hct 31.8 % (37.5-50.1) L 10/28/17 05:48 Plt Count 125 K/mcL (140-400) L 10/28/17 05:48 Immature Plt Fraction 7.6 % (1.1-6.1) H 10/25/17 03:28 ESR 54 mm/hr (0-10) H 10/26/17 05:00 Sodium 135 mEq/L (136-145) L 10/28/17 05:48 BUN 31 mg/dL (8-23) H 10/28/17 05:48 Creatinine 1.58 mg/dL (0.70-1.30) H 10/28/17 05:48 Est GFR ( Amer) 51 (> 60) L 10/28/17 05:48 Est GFR (Non-Af Amer) 42 (> 60) L 10/28/17 05:48 Glucose 178 mg/dL (70-105) H 10/28/17 05:48 POC Glucose 200 mg/dL (70-99) H 10/28/17 00:34 Hemoglobin A1c 7.4 % (-5.6) H 10/27/17 07:00 Troponin I 0.05 ng/mL (< 0.04) H* 10/25/17 07:58 C-Reactive Protein 124 mg/L (Less than 10) H 10/26/17 05:00 HDL Cholesterol 31 mg/dL (40-59) L 10/27/17 07:00 Urine Protein 30 mg/dL (Neg-Trace) H 10/24/17 20:30 Urine Glucose (UA) 100 mg/dL (Normal) H 10/24/17 20:30 Ur Squamous Epith Cells Moderate per lpf (None-Few) H 10/24/17 20:30 H & H 10/28/17 Range/Units 05:48 Hgb 10.9 L D (12.9-16.9) g/dL Hct 31.8 L (37.5-50.1) % All other labs normal. Consult Discharge Plan - Plan Referrals: Nestor De La Cruz MD [Primary Care Provider] -
[2017-10-28] MEDS: Furosemide 40 MG TABLET PO SCH (08:51)
[2017-10-28] MEDS: Piperacillin/Tazobactam 3.375 GM in 0.9 % Sodium Chloride Mini Bag 100 ML IVPB SCH ×3 (08:55→22:41)
[2017-10-28] MEDS: Cholecalciferol (D-3) 1,000 UNIT TABLET PO SCH (08:56)
[2017-10-28] MEDS: Isosorbide MONOnitrate (24 HR) 30 MG TAB.ER.24H PO SCH (08:57)
[2017-10-28] MEDS: Famotidine 20 MG TABLET PO SCH (08:57)
[2017-10-28] MEDS: Aspirin Enteric Coated 81 MG Tablet PO SCH (08:57)
[2017-10-28] MEDS ORDERED: 0.9 % Sodium Chloride 1,000 ML IVC SCH (10:45)
--- NOTE | 2017-10-28 12:11 | Internal Med Progress Note ---
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 understands that he is high risk for the procedure. reports that he did not have the LHC performed during his previous hospitalization due to CKD 3. he reports that his main focus is his right foot because he does not want to lose the right leg as he did with his left. he denies overnight events, no CP, SOB or palpitations. pain is controlled currently NPO for OR - Exam Vitals: Temp Pulse Resp BP Pulse Ox 98.7 F 51 16 95/55 97 10/28/17 10:05 10/28/17 10:05 10/28/17 10:05 10/28/17 10:05 10/28/17 10:05 Exam: General: Patient is alert, oriented, no acute distress, obese Head: atraumatic, normocephalic, Eye: normal appearance, PERRL, no scleral icterus, no conjunctival injection ENT: mucous membranes moist, normal external ear exam Neck: normal inspection, trachea midline, full ROM, no carotid bruits Chest: normal inspection, symmetric chest rise Respiratory: Good respiratory effort. Bilateral breath sounds are clear without wheezing, crackles, or rhonchi. Cardiovascular: Regular rate and rhythm. s1 and s2 No clicks, rubs, gallops, or murmors. Abdomen: Bowel sounds present normoactive x-4 quadrants. Abdomen is soft, nondistended. no Epigastric tenderness. No guarding or rebound. No organomegaly noted, obese musculoskeletal: Spontaneously moving all extremities. right BKA, left calf is mildly tender and has 1 edema. 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 Skin: warm, dry, intact. Neuro: Alert and oriented x4. Sensation light touch intact. Cranial nerves 2- 12 is intact. Psych: Patient's affect is normal - Assessment and Plan (1) Diabetic infection of left foot Current Visit: Yes Status: Acute Assessment and Plan: elevated ESR and CRP Continue IV antibiotics ( vancomycin and zosyn) Podiatry on board for OR today Wound care by master fisher recommendations S/P JACK of LLE Left lower extremity JACK .98-normal Left digit waveforms- 1st digit-mildly diminished waveforms 2nd digit-mildly diminished waveforms 3rd digit-SEVERLY diminished waveforms 4th digit-ABSENT waveforms venous doppler negative for DVT vascular surgery on board Bcx remain negative will continue to follow (2) Acute renal failure Current Visit: Yes Status: Acute Assessment and Plan: BUN CR increased 31/1.58 has history of CKD3 as per patient lasix held as BUn:Cr is worsening he is on vancomycin for DM foot infection- will follow trough closely and adjust dosage as per pharmacy recs avoid nephrotoxic medications was on NSAIDs on admission - discontinued on 10/26/17 will follow renal functions and electrolytes closely. started on IVF as he is NPO (3) Severe peripheral arterial disease Current Visit: No Status: Chronic Assessment and Plan: The patient is status post a right [id number] amputation in 2014. The patient is status post a left femoral peroneal in situ saphenous vein bypass [place] [address] [place]. He underwent an angiogram with endovascular therapy with balloon angioplasty of the left peroneal artery distal to the bypass graft in 2012. S/P JACK Left lower extremity JACK .98-normal Left digit waveforms- 1st digit-mildly diminished waveforms 2nd digit-mildly diminished waveforms 3rd digit-SEVERLY diminished waveforms 4th digit-ABSENT waveforms podiatry on board vascular surgery on board (4) Congestive heart failure Current Visit: No Status: Chronic Assessment and Plan: not in acute exacerbation now has HFrEF and HFpEF( diastolic dysfunction) TTE perfomed on 10/27/17- Technically sub-optimal due to poor echocardiographic windows. LVEF 45%. Not al LV segments were well visualized due to poor image quality. Overall, LVEF appears mildly reduced. Mildly dilated left ventricle. Moderate left ventricular diastolic dysfunction. Atypical septal motion consistent with post-operative status. Mildly dilated right ventricle with normal function. Mild mitral regurgitation. Unable to estimate RVSP due to lack of TR jet. Future studies should be completed with Definity contrast enhancement. EF was 60% on 04/2016 will hold lasic today secondary to ARF On isosorbide 30 mg daily was started on metoprolol 12.5 BID will consider adding low dose ACEI/ARB ( DM, HFrEF and proteinuria) if his renal functions improve cardiology consulted and recommendations appreciated strict i/o low sodium diet gentle hydration as he is NPO fluid restriction <1L (5) CAD (coronary artery disease) Current Visit: No Status: Chronic Assessment and Plan: H/o CAD s/p MS and CABG in 2002. Last stress test in 2011 was negative for ischemia. troponins mildly elevated on admission and trended flat Recommended to have LHC over one year ago but opted for medical management due to CKD3 EKG shows atrial pacing, RBBB. was started on metoprolol 12.5mg BID will contiue statins and ASA cardiology consulted and recommendations appreciated high risk for intermediate risk surgery (6) HTN (hypertension) Current Visit: No Status: Chronic Assessment and Plan: BP controlled Lasix held for ARF will consider adding low dose ACEI/ARB ( DM, HFrEF and proteinuria) if his renal functions improve (7) Diabetes mellitus Current Visit: No Status: Chronic Assessment and Plan: started on home insulin regimen. follow finger sticks A1c 7.4 (8) Gout Current Visit: Yes Status: Acute Assessment and Plan: On allopurinol Continue home medication (9) Hypothyroidism Current Visit: Yes Status: Chronic Assessment and Plan: Continue levothyroxine 100 mg by mouth daily (10) Obesity (BMI 30.0-34.9) Current Visit: Yes Status: Acute Assessment and Plan: was counseled on nutrition will get nutrition consult (11) Thrombocytopenia Current Visit: Yes Status: Acute Assessment and Plan: count is above 100k. will continue to monitor him for bleeding. (12) DVT prophylaxis Current Visit: No Status: Acute Assessment and Plan: Heparin 5000 units SubQ Q12HRs - Time Spent with Patient Total time spent is greater than 50% in coordination of care (as documented) at patient's floor/unit and/or counseling patient: Internal Medicine: Result - Labs CBC & Chem 7: 10/28/17 05:48 10/28/17 05:48 Labs: Short CBC 10/28/17 Range/Units 05:48 WBC 5.2 (4.3-11.1) K/mcL Hgb 10.9 L D (12.9-16.9) g/dL Hct 31.8 L (37.5-50.1) % Plt Count 125 L (140-400) K/mcL BMP 10/28/17 05:48 Sodium 135 L Potassium 4.2 Chloride 103 Carbon Dioxide 24 BUN 31 H Creatinine 1.58 H Glucose 178 H Calcium 8.7 - Impressions Impressions Echocardiogram 10/27/17 14:58 Impressions: Technically sub-optimal due to poor echocardiographic windows. LVEF 45%. Not al LV segments were well visualized due to poor image quality. Overall, LVEF appears mildly reduced. Mildly dilated left ventricle. Moderate left ventricular diastolic dysfunction. Atypical septal motion consistent with post-operative status. Mildly dilated right ventricle with normal function. Mild mitral regurgitation. Unable to estimate RVSP due to lack of TR jet. Future studies should be completed with Definity contrast enhancement. Findings: Study Quality * Technically sub-optimal due to poor echocardiographic windows. ECG Findings * Sinus rhythm with BBB. Left Ventricle * LVEF 45%. Not al LV segments were well visualized due to poor image quality. Overall, LVEF appears mildly reduced. * Mildly dilated left ventricle. * Moderate left ventricular diastolic dysfunction. * Atypical septal motion consistent with post-operative status. Right Ventricle * Mildly dilated right ventricle with normal function. Left Atrium * Moderately dilated left atrium. Right Atrium * Mildly dilated right atrium. Aortic Valve * Aortic valve not well visualized. * Trace aortic regurgitation. * No aortic stenosis. Mitral Valve * Mild mitral annular calcification * Mildly calcified mitral valve leaflets. * Mild mitral regurgitation. * No mitral stenosis. Tricuspid Valve * Normal tricuspid valve structure and function. * No tricuspid regurgitation. * Unable to estimate RVSP due to lack of TR jet. Pulmonic Valve * Pulmonic valve not well visualized. Aorta * Normally sized aortic root. Pericardium * The pericardium appears normal. IVC * The IVC is not well evaluated. Pulmonary Artery * Normal visualized portions of the main pulmonary artery. Consult Discharge Plan - Plan Referrals: Nestor De La Cruz MD [Primary Care Provider] - (5) CAD (coronary artery disease) Qualifiers: Coronary Disease-Associated Artery/Lesion type: [place] artery [place] vs. 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
--- NOTE | 2017-10-28 12:22 | Event Note ---
Date of Encounter: 10/28/17 Time of Encounter: 12:20 - Cardiology Event Note Poor functional status with no angina. Plan for moderate sedation and local nerve block. Acceptable intermediate-high CV risk for intermediate risk surgery. Can return for [facility] as outpatient. Re-consult as needed.
[2017-10-28] MEDS: *HR* Acetylcysteine 20% 600 MG/3 ML ORAL SYRINGE PO SCH ×2 (12:37→22:39)
[2017-10-28] MEDS ORDERED: Bupivacaine/Clonidine Syringe 1 EACH SYRINGE ONE (16:39)
[2017-10-28] MEDS ORDERED: Lidocaine 1% 20 ML MDV ONE (16:54)
[2017-10-28] MEDS ORDERED: Lidocaine -MPF 2% 2 ML VIAL ONE (17:17)
[2017-10-28] MEDS ORDERED: *HR* Propofol 200 MG/20 ML VIAL IVP ONE (17:18)
--- NOTE | 2017-10-28 18:55 | Orthopedic Operative Note ---
Date of procedure: 10/28/17 Pre-op diagnosis: Gangrene toes #3 and 4 left foot Post-op diagnosis: same Procedure: 10/28/17 18:49 #1: Incision and drainage to bone cortex for necrosis of toes left foot #2 amputation of toes and metatarsals #3 and 4 left foot #3 Adjacent tissue transfer left foot #4 application of new shield and graft jacket #5 application of wound VAC 11/02/17 13:12 Implants: #1: New shield amniotic graft #2 graft jacket Complications: None Anesthesia: MAC, local Local Anesthetics: 1% Lidocaine HCL SubQ (cc) Surgeon: David Stapleton Was there an curriculum assistant present: No Estimated blood loss (cc): 20 Tourniquet Time (Minutes): 0 Specimen: Toe #3 #4 left foot with respective metatarsal Condition: stable Disposition: same day Procedure in Detail: 10/28/17 18:50 Details in summary of procedure: Patient was brought to surgical suite. A sign in procedure performed. Patient was then transferred the surgical table and positioned properly safely securely. Left was elevated on a foam block. Anesthetic timeout was taken.. Left ankle was then prepped with alcohol 3 times a modified ankle block was carried out using local anesthetic 1% plain lidocaine. No epinephrine. No tourniquet was used. Left foot was then prepped and draped in usual sterile manner. Surgical timeout was taken We noted carole gangrene of toe #4 and early pre-gangrenous changes of the lateral aspect of the third toe. At that point the incision was then made on the dorsal aspect of the third toe midline and brought proximally and laterally meeting at the base of the fourth toe overlying the fourth metatarsal phalangeal joint the distal incision was then begun at that juncture and brought distally and circumferentially about the base of the fourth toe to the webspace. Dorsal incision of the third toe was then continued dorsally and medially and then plantarly along the midline of the toe and then obliquely toward the webspace. The fourth toe was then disarticulated at the level of the MTPJ and extirpated without difficulty and sent for specimen. Third toe was then filleted by raising a full-thickness flap the level of the periosteum medially to the level of the MTPJ where the toe was then disarticulated by dividing the capsular structures cleanly with a curved Metzenbaum scissor. Third toe was then extirpated sent for specimen. Fortunately there is no evidence of necrotic tissue. Any suspicious nonviable tissue associated with necrosis was surgically excised using a #15 scalpel blade and Metzenbaum scissor. The skin flap which was then adjacent to the wound itself was then rotated and sewn into place to cover as much of the woundas an adjacent tissue transfer using 3-0 Prolene. Dog ears were repaired. We still do not have adequate closure therefore the metatarsal head #3 #4 then resected using a command power saw. Hemostasis was achieved using a Bovie judiciously. At that point to stimulate wound closure new shield amniotic chorion graft was placed into the defect. The proximal incision was then closed with 3-0 Prolene. We then left a 2 cm x 2 cm wound. That was covered with a graft jacket which was sewn into place with 3-0 Prolene as well. Wound was sprayed with PRP prior to closure hemostasis was achieved. Wound VAC was applied around function properly. Estimated blood loss approximately 20 mL. Complications encountered none. Patient was sent to holding room and then onto the floor with vital signs stable. 11/02/17 13:13
--- NOTE | 2017-10-28 18:58 | Anesthesia Evaluation Post Op ---
Date of Encounter: 10/28/17 Time of Encounter: 18:56 - Vital Signs Vital Signs: 96% room air. [id number] - Lungs Lungs: Clear Ascult./Percussion - Airway Airway: Non-obstructed - Cardiovascular Baseline Rhythm - Mental Status Mental Status: Alert & Oriented, Answers Appropriately - Pain Pain Scale: 0 Pain Scale used: Numeric (1 - 10) - Nausea Vomiting Nausea Vomiting: Not Present - Hydration Hydration: NPO, Has not voided - Discharge PostOp Status: Transfer Patient to floor
[2017-10-28] MEDS ORDERED: D5% in Water 1,000 ML IVC PRN (19:48)
[2017-10-28] MEDS ORDERED: Dextrose Gel 15 GM/37.5 ML TUBE PO PRN ×2 (19:48)
[2017-10-28] MEDS ORDERED: Nitroglycerin 0.4 MG TAB.SUBL SL PRN (19:48)
[2017-10-28] MEDS ORDERED: *HR* Dextrose 50 % in Water (Syg) 50 ML SYRINGE IVP PRN (19:48)
[2017-10-28] MEDS ORDERED: Naloxone 0.4 MG/ML INJ IVP PRN (19:48)
[2017-10-28] MEDS: 0.9 % Sodium Chloride 1,000 ML IVC SCH (19:50)
[2017-10-28] MEDS: traMADol 50 MG TABLET PO PRN (22:47)
[2017-10-29] MEDS ORDERED: Insulin LISPRO 300 UNITS/3 ML VIAL SQ SCH
[2017-10-29 04:27] LABS: Hematocrit 26.8 % (37.5-50.1); Hemoglobin 9.3 g/dL (12.9-16.9); Mean Corpuscular HGB Conc 34.7 g/dL (31.6-35.5); Mean Corpuscular Hemoglobin 33.6 pg (28.0-33.3); Mean Corpuscular Volume 96.8 fL (83.0-100.0); Mean Platelet Volume 11.2 fL (9.4-12.4); Platelet Count 113 K/mcL (140-400); Red Blood Count 2.77 M/mcL (4.19-5.50); Red Cell Distribution Width 12.9 % (11.5-14.5)
[2017-10-29 04:48] LABS: BUN/Creatinine Ratio 21 (6-26); Blood Urea Nitrogen 28 mg/dL (8-23); Calcium 8.2 mg/dL (8.6-10.3); Carbon Dioxide 24 mEq/L (23-29); Chloride 106 mEq/L (98-107); Glucose 175 mg/dL (70-105); Osmolality,Calculated 294 (280-300); Potassium 3.9 mEq/L (3.5-5.1); Sodium 137 mEq/L (136-145); eGFR For Non-African Americans 51 (> 60)
[2017-10-29] MEDS: Piperacillin/Tazobactam 3.375 GM in 0.9 % Sodium Chloride Mini Bag 100 ML IVPB SCH ×3 (05:00→13:45)
[2017-10-29] MEDS: *HR* Heparin 5,000 UNIT/ML VIAL SQ SCH ×2 (05:57→21:29)
[2017-10-29] MEDS: Insulin LISPRO 300 UNITS/3 ML VIAL SQ SCH ×4 (07:48→21:31)
[2017-10-29] MEDS: Cholecalciferol (D-3) 1,000 UNIT TABLET PO SCH (10:12)
[2017-10-29] MEDS: Famotidine 20 MG TABLET PO SCH (10:12)
[2017-10-29] MEDS: Isosorbide MONOnitrate (24 HR) 60 MG TAB.ER.24H PO SCH (10:12)
[2017-10-29] MEDS: Aspirin Enteric Coated 81 MG Tablet PO SCH (10:12)
[2017-10-29] MEDS: *HR* Acetylcysteine 20% 600 MG/3 ML ORAL SYRINGE PO SCH ×2 (10:13→21:32)
[2017-10-29] MEDS: traMADol 50 MG TABLET PO PRN ×2 (12:10→21:30)
[2017-10-29] MEDS ORDERED: Aminoglycoside Consult 1 EACH MC ONE (12:24)
[2017-10-29] MEDS: 0.9 % Sodium Chloride 1,000 ML IVC SCH (13:37)
--- NOTE | 2017-10-29 14:19 | Internal Med Progress Note ---
Hospitalist Progress Note - Encounter Date of Encounter: 10/29/17 Time of Encounter: 08:00 - Subjective Interval History: s/p surgery on 10/28/17. his pain is controlled, reports improved swelling of the operative leg. is anxious about having to go home on IV abx. no events over nights toleating PO diet - Exam Vitals: Temp Pulse Resp BP Pulse Ox 98.3 F 67 16 107/63 96 10/29/17 13:56 10/29/17 13:56 10/29/17 13:56 10/29/17 13:56 10/29/17 13:56 Exam: General: Patient is alert, oriented, no acute distress, obese Head: atraumatic, normocephalic, Eye: normal appearance, PERRL, no scleral icterus, no conjunctival injection ENT: mucous membranes moist, normal external ear exam Neck: normal inspection, trachea midline, full ROM, no carotid bruits Chest: normal inspection, symmetric chest rise Respiratory: Good respiratory effort. Bilateral breath sounds are clear without wheezing, crackles, or rhonchi. Cardiovascular: Regular rate and rhythm. s1 and s2 No clicks, rubs, gallops, or murmors. Abdomen: Bowel sounds present normoactive x-4 quadrants. Abdomen is soft, nondistended. no Epigastric tenderness. No guarding or rebound. No organomegaly noted, obese musculoskeletal: Spontaneously moving all extremities. right BKA, left calf is mildly tender and has 1 edema. ( improved) dressing clean with wound vac Skin: warm, dry, intact. Neuro: Alert and oriented x4. Sensation light touch intact. Cranial nerves 2- 12 is intact. Psych: Patient's affect is normal - Assessment and Plan (1) Diabetic infection of left foot Current Visit: Yes Status: Acute Assessment and Plan: S/P amputation of toes and metatarsals #3 and 4 left foot with wound vac placement elevated ESR and CRP Continue IV antibiotics ( vancomycin and zosyn) Wound care by keyboard instrument tuner recommendations S/P JACK of LLE Left lower extremity JACK .98-normal Left digit waveforms- 1st digit-mildly diminished waveforms 2nd digit-mildly diminished waveforms 3rd digit-SEVERLY diminished waveforms 4th digit-ABSENT waveforms venous doppler negative for DVT vascular surgery on board Bcx remain negative will continue to follow ID consulted for OP abx (2) Acute renal failure Current Visit: Yes Status: Acute Assessment and Plan: BUN CR is trending down has history of CKD3 as per patient lasix held as BUn:Cr is worsening he is on vancomycin for DM foot infection- will follow trough closely and adjust dosage as per pharmacy recs avoid nephrotoxic medications was on NSAIDs on admission - discontinued on 10/26/17 will follow renal functions and electrolytes closely. (3) Acute on chronic anemia Current Visit: Yes Status: Acute Assessment and Plan: most likely secondary to blood loss during operation folic acid and B12 WNL type and screen will continue to monitor CBC (4) Severe peripheral arterial disease Current Visit: No Status: Chronic Assessment and Plan: The patient is status post a right [id number] amputation in 2014. The patient is status post a left femoral peroneal in situ saphenous vein bypass graft [place] [address] [place]. He underwent an angiogram with endovascular therapy with balloon angioplasty of the left peroneal artery distal to the bypass graft in 2012. S/P JACK Left lower extremity JACK .98-normal Left digit waveforms- 1st digit-mildly diminished waveforms 2nd digit-mildly diminished waveforms 3rd digit-SEVERLY diminished waveforms 4th digit-ABSENT waveforms podiatry on board vascular surgery on board (5) Congestive heart failure Current Visit: No Status: Chronic Assessment and Plan: not in acute exacerbation now has HFrEF and HFpEF( diastolic dysfunction) TTE perfomed on 10/27/17- Technically sub-optimal due to poor echocardiographic windows. LVEF 45%. Not al LV segments were well visualized due to poor image quality. Overall, LVEF appears mildly reduced. Mildly dilated left ventricle. Moderate left ventricular diastolic dysfunction. Atypical septal motion consistent with post-operative status. Mildly dilated right ventricle with normal function. Mild mitral regurgitation. Unable to estimate RVSP due to lack of TR jet. Future studies should be completed with Definitly contrast enhancement. EF was 60% on 04/2016 will continue to hold lasix for now until renal function On isosorbide 30 mg daily metoprolol 12.5 BID will consider adding low dose ACEI/ARB ( DM, HFrEF and proteinuria) if his renal functions improve cardiology consulted and recommendations appreciated strict i/o low sodium diet fluid restriction <1L (6) CAD (coronary artery disease) Current Visit: No Status: Chronic Assessment and Plan: H/o CAD s/p OR and CABG in 2002. Last stress test in 2011 was negative for ischemia. troponins mildly elevated on admission and trended flat Recommended to have C over one year ago but opted for medical management due to CKD3 EKG shows atrial pacing, RBBB. metoprolol 12.5mg BID will continue statins and ASA cardiology consulted and recommendations appreciated high risk for intermediate risk surgery (7) HTN (hypertension) Current Visit: No Status: Chronic Assessment and Plan: BP controlled Lasix held for ARF will consider adding low dose ACEI/ARB ( DM, HFrEF and proteinuria) if his renal functions improve (8) Diabetes mellitus Current Visit: No Status: Chronic Assessment and Plan: started on home insulin regimen. follow finger sticks A1c 7.4 (9) Gout Current Visit: Yes Status: Acute Assessment and Plan: On allopurinol Continue home medication (10) Hypothyroidism Current Visit: Yes Status: Chronic Assessment and Plan: Continue levothyroxine 100 mg by mouth daily (11) Obesity (BMI 30.0-34.9) Current Visit: Yes Status: Acute Assessment and Plan: was counseled on nutrition will get nutrition consult (12) Thrombocytopenia Current Visit: Yes Status: Acute Assessment and Plan: count is above 100k. will continue to monitor him for bleeding. (13) DVT prophylaxis Current Visit: No Status: Acute Assessment and Plan: Heparin 5000 units SubQ Q12HRs - Time Spent with Patient Total time spent is greater than 50% in coordination of care (as documented) at patient's floor/unit and/or counseling patient: Internal Medicine: Result - Labs CBC & Chem 7: 10/29/17 03:51 10/29/17 03:51 Labs: Short CBC 10/29/17 Range/Units 03:51 WBC 4.4 (4.3-11.1) K/mcL Hgb 9.3 L D (12.9-16.9) g/dL Hct 26.8 L (37.5-50.1) % Plt Count 113 L (140-400) K/mcL BMP 10/29/17 03:51 Sodium 137 Potassium 3.9 Chloride 106 Carbon Dioxide 24 BUN 28 H Creatinine 1.35 H Glucose 175 H Calcium 8.2 L Consult Discharge Plan - Plan Referrals: Nestor De La Cruz MD [Primary Care Provider] - (6) CAD (coronary artery disease) Qualifiers: Coronary Disease-Associated Artery/Lesion type: [place] artery [place] vs. 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
--- NOTE | 2017-10-29 14:52 | Infectious Disease Consult ---
Date of Encounter: 10/29/17 Time of Encounter: 14:52 Assessment and Plan (1) Gangrene of toe of left foot Status: Acute Assessment and plan: Location: Left foot 4th toe. Likely secondary to ischemia. X-ray of the left foot showed a core regularity involving the fourth proximal and middle phalanges. Dietary was consulted. The patient was taken to the operating room on October 28 and underwent I&D and amputation of toes and metatarsals #3 and 4. Review of the operative note indicates that there was no pus. No cultures were obtained. Pathology is pending. Discussed with Dr. Stapleton. No evidence of infection in drop. It appears this was all ischemic. Recommend discontinuing antibiotics and observing. Wound care for the podiatry team. (2) Liver mass Status: Acute Assessment and plan: CT of the abdomen and pelvis showed a 2.8cm liver lesion. Etiology unclear. Consider additional imaging as recommended by the radiology team. (3) Thrombocytopenia Status: Acute Assessment and plan: Etiology unclear. Consider Hem/Onc to evaluate. (4) Gout Status: Chronic Qualifiers: Gout site: unspecified site Encounter type: initial encounter Chronicity : chronic Presence of tophus: with tophus Qualified Code(s): T56.0X1A - Toxic effect of lead and its compounds, accidental (unintentional), initial encounter; M1A.10X1 - Lead-induced chronic gout, unspecified site, with tophus ( tophi) (5) Obesity (BMI 30.0-34.9) Status: Acute (6) PAD (peripheral artery disease) Status: Chronic Assessment and plan: Known PAD. Remote history of RLE AKA. ABIs showed severe disease to the left toes. Vascular surgery consulted and recommendations noted. Infectious Disease HPI - Data of Consult Patient: new to practice Consult date: 10/29/17 Requesting Physician: Yisel Juarez MD Primary Care Provider: Nestor De La Cruz MD - Consult Narrative Reason for consult: Left foot gangrene History of present illness: Mr. Read is a 82 year old male with a past medical history of CHF, CAD, diabetes, hyperlipidemia, hypertension, MS, PAD, chronic kidney disease, status post right lower extremity AKA. The patient was managed the hospital October 24 for left foot gangrene. We are consulted October 29 for antibiotic recommendations for left foot gangrene. Briefly, the patient is an 82-year-old male with past medical history as stated above. The patient reports a chronic ulceration to the left foot fourth toe that he had been seeing Dr. Stapleton for the wound clinic. He states he saw him on Wednesday and the wound looked fine and when he had the wound redressed on Wednesday the toe was black. He presented to the emergency department for evaluation. Upon arrival, the patient was afebrile hemodynamically stable. His white blood cell count was normal. Lactic acid was 1. Kidney function was 1.26. Urinalysis was negative. Blood cultures were obtained 2 sets and are negative growth to date. Chest x-ray that was negative. He had a CT of the abdomen and pelvis that showed a 2.8; her liver lesion and findings consistent with cholelithiasis without cholecystitis. He was started empirically on IV Vanco and Zosyn and admitted to the hospital for further evaluation. Since admission, the patient has remained hemodynamically stable. He did have a low-grade fever with a MAXIMUM TEMPERATURE of 100.4. He had a left foot x- ray that showed findings consistent with possible osteomyelitis. Venous Doppler studies were negative. Podiatry was consulted and recommended some vascular studies. He did have JACK studies that showed severely diminished waveforms in the left toes. Vascular surgery was consulted and recommended proceeding with removal of the affected gangrenous toes without vascular intervention first. Cardiology was consulted for preop clearance and recommended a left heart catheter as an outpatient. He was taken to the operating room on October [address] Stapleton and underwent an I&D with a dictation of the toes and metatarsals #3 and 4. No cultures were obtained, pathology is pending. Today, the patient's white blood cell count is normal. His serum creatinine is mildly elevated, but he does have a history of chronic kidney disease stage III. Currently, he is on Vanco and Zosyn. We have been asked to evaluate and make further recommendations. During my exam today, the patient endorsed a history as stated above. He denies any fevers or chills or rigors. Denies any headache or neck pain. He denies any congestion, earache, or sore throat. He denies any chest pain, shortness breath, or cough. He denies any nausea, vomiting, diarrhea, or constipation. Denies any abdominal pain, urinary complaints, or appetite changes. He denies any pain at surgical site. He does report chronic gouty arthritis pain to the extremities and several joints. He denies any oral thrush or new skin lesions. The patient lives at home with his . He is retired. He denies any tobacco , alcohol, or illicit drug use. He denies any recent travel outside the [facility]. He denies any chronic infectious diseases. CC: Yisel Juarez MD Past Med Surg Social Fam HX - Past Medical History Attestation: Yes The following information was validated with the patient. Source: patient, old records reviewed, nursing notes reviewed Medical history: arthritis (gouty arthritis), CHF, coronary artery disease, diabetes, GERD, hyperlipidemia, hypertension, myocardial infarction, peripheral artery disease, renal disease, thyroid disease Additional medical history: 2 MS's Psychiatric history: anxiety - Past Surgical History Surgical History: appendectomy, LE vascular intervention Additional surgical history: R BKA - toe amputation - Right CTR, L index finger amputation, open heart - Social History Smoking Status: Former smoker Smokeless Tobacco Status: No Alcohol use: none Drug use: none Occupational status: retired Current living situation: Home, With Family Activity Level: Uses cane/walker Recent Out of Country Travel Within the Last 8 Weeks: No Exposure or Possible Exposure to Illness During Travel: No - Family History Father Living Status: Hx Family Cancer: Yes Mother Family Member Ethnicity: Non- Living Status: Hx Family Cardiac Disorders: No Hx Family Respiratory Disorders: No Hx Family Cancer: Yes (breast, liver) Hx Family GI Disorders: No Hx Family Endocrine Disorder: No Hx Family Neuromuscular Disorders: No Hx Family Neurologic Disorders: No Hx Family HEENT Disorders: No Hx Family Autoimmune Disorders: No Infectious Disease-CN:Meds Acetaminophen [Tylenol] 650 mg PO BID PRN 05/26/15 [History] Allopurinol [Zyloprim 300 MG] 300 mg PO DAILY 05/26/15 [History] Aspirin [Adult Low Dose Aspirin EC] 81 mg PO DAILY 05/26/15 [History] Insulin ASPART [NovoLOG] 13 unit SQ TIDAC 05/26/15 [History] Insulin Glargine [Lantus] 32 unit SQ HS 05/26/15 [History] Levothyroxine [Synthroid] 100 mcg PO QAM 05/26/15 [History] raNITIdine HCl [Zantac] 150 mg PO BID 05/26/15 [History] Lactulose 10 gm PO BID PRN 04/05/16 [History] Nitroglycerin [Nitrostat] 0.4 mg SL Q5M PRN 04/05/16 [History] Furosemide [Lasix] 20 mg PO BID 10/28/16 [History] Isosorbide MONOnitrate (24 HR) [Imdur] 60 mg PO DAILY 11/12/16 [History] Amoxicillin/Clavulanate [Augmentin] 500 mg PO BIDWM #15 tablet 11/15/16 [Rx] Atorvastatin [Lipitor] 40 mg PO HS 10/25/17 [History] Cholecalciferol (D-3) 5,000 unit PO DAILY 10/25/17 [History] Doxazosin [Cardura] 2 mg PO HS 10/25/17 [History] Timolol Maleate 0.5% [Timolol Maleate 0.5%] 1 drop BOTH EYES BID 10/26/17 [ History] 3 Allergy/AdvReac Type Severity Reaction Status Date / Time acetaminophen [From Percocet] Allergy Hives Verified 10/28/16 08:47 Iodinated Contrast- Oral and Allergy Hives Verified 10/25/17 01:29 IV Dye Oxycodone [From Percocet] Allergy Hives Verified 10/28/16 08:47 prednisone Allergy Rash Verified 10/28/16 08:47 All systems: reviewed and no additional remarkable complaints except as stated Exam - Constitutional Vitals: Temp Pulse Resp BP Pulse Ox 98.3 F 67 16 107/63 96 10/29/17 13:56 10/29/17 13:56 10/29/17 13:56 10/29/17 13:56 10/29/17 13:56 General appearance: cooperative, no acute distress, obese - Head Head exam: Present: atraumatic, normal inspection, normocephalic - Eye Eye exam: Present: EOMI, normal appearance, PERRL Pupils: Present: normal accommodation - ENT ENT exam: Present: mucous membranes moist - Neck Neck exam: Present: normal inspection - Respiratory Respiratory exam: Present: CTAB. Absent: rales, respiratory distress, rhonchi, wheezes - Cardiovascular Cardiovascular exam: Present: RRR, +S1, +S2 - GI/Abdominal GI/Abdominal exam: Present: normal bowel sounds, soft. Absent: distended, tenderness - Extremities Exam Additional comments: Right AKA stump without redness, warmth, tenderness, open lesions. Left foot wound VAC dressing with small amount of serosanguinous drainage noted in the canister. 125mm Hg continuous suction noted without evidence of leak. - Neurological Exam Neurological exam: Present: alert, oriented X3, no focal deficits - Psychiatric Psychiatric exam: Present: normal affect, normal mood - Skin Skin exam: Present: dry, intact, normal color, warm Infectious Disease CN: Results - Labs CBC & Chem 7: 10/29/17 03:51 10/29/17 03:51 Consult Discharge Plan - Plan Referrals: Nestor De La Cruz MD [Primary Care Provider] - - Attending Attestation I examined this patient and my medical decision-making was reviewed with the Resident Physician. I agree with the documented findings, disposition and treatment plan as described except to the extent set forth below. This is an addendum to original report dictated by Sharona Travis CNP. Please refer to Sharona's note for full detail. Patient is a 2-year-old very pleasant man who came in with gangrene of the toe of the left foot. Patient was seen by podiatry Dr. Stapleton was taken to the OR. I did discuss the case with Dr. Stapleton who thought there was no purulence that was old ischemic it. Patient did some aggressive debridement and closed the patient up. At this point patient appears to be doing clinically okay so. All antibiotics and observe. If the patient shows signs of sepsis cellulitis we will reevaluate. Prognosis is guarded.
[2017-10-29] MEDS: Insulin DETEMIR 100 UNIT/ML X5UNITS SQ SCH (21:48)
[2017-10-30 04:21] LABS: Hematocrit 25.8 % (37.5-50.1); Hemoglobin 8.9 g/dL (12.9-16.9); Mean Corpuscular HGB Conc 34.5 g/dL (31.6-35.5); Mean Corpuscular Hemoglobin 33.5 pg (28.0-33.3); Mean Platelet Volume 11.5 fL (9.4-12.4); Platelet Count 122 K/mcL (140-400); Red Blood Count 2.66 M/mcL (4.19-5.50); Red Cell Distribution Width 13.2 % (11.5-14.5)
[2017-10-30 04:44] LABS: BUN/Creatinine Ratio 22 (6-26); Blood Urea Nitrogen 28 mg/dL (8-23); Calcium 8.2 mg/dL (8.6-10.3); Carbon Dioxide 24 mEq/L (23-29); Chloride 110 mEq/L (98-107); Glucose 192 mg/dL (70-105); Osmolality,Calculated 285 (280-300); Sodium 132 mEq/L (136-145); eGFR For Non-African Americans 53 (> 60)
[2017-10-30] MEDS: *HR* Heparin 5,000 UNIT/ML VIAL SQ SCH ×2 (06:25→17:06)
[2017-10-30] MEDS: Insulin LISPRO 300 UNITS/3 ML VIAL SQ SCH ×4 (08:35→21:04)
[2017-10-30] MEDS: *HR* Acetylcysteine 20% 600 MG/3 ML ORAL SYRINGE PO SCH ×2 (08:36→21:00)
[2017-10-30] MEDS: Isosorbide MONOnitrate (24 HR) 60 MG TAB.ER.24H PO SCH (08:36)
[2017-10-30] MEDS: Famotidine 20 MG TABLET PO SCH (08:36)
[2017-10-30] MEDS: Cholecalciferol (D-3) 1,000 UNIT TABLET PO SCH (08:36)
[2017-10-30] MEDS: Aspirin Enteric Coated 81 MG Tablet PO SCH (08:36)
[2017-10-30] MEDS: Lactulose Oral Soln 20 GM/30 ML UDC PO PRN ×2 (08:46→21:01)
[2017-10-30] MEDS ORDERED: Furosemide 20 MG TABLET PO PRN (09:44)
--- NOTE | 2017-10-30 10:52 | Internal Med Progress Note ---
Hospitalist Progress Note - Encounter Date of Encounter: 10/30/17 Time of Encounter: 08:00 - Subjective Interval History: no events over nights has no complaints denies fever, chills, cp, sob, n/v/d toleating PO diet - Exam Vitals: Temp Pulse Resp BP Pulse Ox 98.2 F 72 18 119/68 94 10/30/17 06:41 10/30/17 06:41 10/30/17 06:41 10/30/17 06:41 10/30/17 06:41 Exam: General: Patient is alert, oriented, no acute distress, obese Head: atraumatic, normocephalic, Eye: normal appearance, PERRL, no scleral icterus, no conjunctival injection ENT: mucous membranes moist, normal external ear exam Neck: normal inspection, trachea midline, full ROM, no carotid bruits Chest: normal inspection, symmetric chest rise Respiratory: Good respiratory effort. Bilateral breath sounds are clear without wheezing, crackles, or rhonchi. Cardiovascular: Regular rate and rhythm. s1 and s2 No clicks, rubs, gallops, or murmors. Abdomen: Bowel sounds present normoactive x-4 quadrants. Abdomen is soft, nondistended. no Epigastric tenderness. No guarding or rebound. No organomegaly noted, obese musculoskeletal: Spontaneously moving all extremities. right BKA, left calf is mildly tender and has 1 edema. ( improved) dressing clean with wound vac Skin: warm, dry, intact. Neuro: Alert and oriented x4. Sensation light touch intact. Cranial nerves 2- 12 is intact. Psych: Patient's affect is normal - Assessment and Plan (1) Gangrene of toe of left foot Current Visit: Yes Status: Acute Assessment and Plan: S/P amputation of toes and metatarsals #3 and 4 left foot with wound vac placement Review of the operative note indicates that there was no pus. No cultures were obtained. Pathology is pending. as per Dr. Stapleton- No evidence of infection in drop. It appears this was all ischemic. elevated ESR and CRP was treated with IV Abx from 10/24- 10/29- now discontinued as per ID recs Wound care by director of clinical services recommendations S/P JACK of LLE Left lower extremity JACK .98-normal Left digit waveforms- 1st digit-mildly diminished waveforms 2nd digit-mildly diminished waveforms 3rd digit-SEVERLY diminished waveforms 4th digit-ABSENT waveforms venous doppler negative for DVT vascular surgery on board Bcx negative final report (2) Acute renal failure Current Visit: Yes Status: Resolved Assessment and Plan: BUN CR is trending down has history of CKD3 as per patient - GFR on 10/30/17 >60 will resume lasix 20 mg qday IV Abx now discontinued avoid nephrotoxic medications was on NSAIDs on admission - discontinued on 10/26/17 will follow renal functions and electrolytes closely. (3) Acute on chronic anemia Current Visit: Yes Status: Acute Assessment and Plan: most likely secondary to blood loss during operation H/H trending down 8.9 on 10/30/17 folic acid and B12 WNL type and screen done on 10/29/17 will transfuse if below 8 ( has extensive CAD) will continue to monitor CBC stool for occult blood iron panel retic count (4) Severe peripheral arterial disease Current Visit: No Status: Chronic Assessment and Plan: S/P amputation of toes and metatarsals #3 and 4 left foot with wound vac placement The patient is status post a right [id number]-waby amputation in 2014. The patient is status post a left femoral peroneal in situ saphenous vein bypass graft [place] [address] [place]. He underwent an angiogram with endovascular therapy with balloon angioplasty of the left peroneal artery distal to the bypass graft in 2012. S/P JACK Left lower extremity JACK .98-normal Left digit waveforms- 1st digit-mildly diminished waveforms 2nd digit-mildly diminished waveforms 3rd digit-SEVERLY diminished waveforms 4th digit-ABSENT waveforms podiatry on board vascular surgery on board (5) Congestive heart failure Current Visit: No Status: Chronic Assessment and Plan: not in acute exacerbation now has HFrEF and HFpEF( diastolic dysfunction) TTE perfomed on 10/27/17- Technically sub-optimal due to poor echocardiographic windows. LVEF 45%. Not al LV segments were well visualized due to poor image quality. Overall, LVEF appears mildly reduced. Mildly dilated left ventricle. Moderate left ventricular diastolic dysfunction. Atypical septal motion consistent with post-operative status. Mildly dilated right ventricle with normal function. Mild mitral regurgitation. Unable to estimate RVSP due to lack of TR jet. Future studies should be completed with Definitly contrast enhancement. EF was 60% on 04/2016 lasix 20 mg qday On isosorbide 30 mg daily metoprolol 12.5 BID will consider adding low dose ACEI/ARB ( DM, HFrEF and proteinuria) if his renal functions improve cardiology consulted and recommendations appreciated strict i/o low sodium diet fluid restriction <1L (6) CAD (coronary artery disease) Current Visit: No Status: Chronic Assessment and Plan: H/o CAD s/p MO and CABG in 2002. Last stress test in 2011 was negative for ischemia. troponins mildly elevated on admission and trended flat Recommended to have LHC over one year ago but opted for medical management due to CKD3 EKG shows atrial pacing, RBBB. metoprolol 12.5mg BID will continue statins and ASA cardiology consulted and recommendations appreciated he is to follow up as OP for LHC / stress test high risk for intermediate risk surgery (7) HTN (hypertension) Current Visit: No Status: Chronic Assessment and Plan: BP controlled will consider adding low dose ACEI/ARB ( DM, HFrEF and proteinuria) if his renal functions improve lasix 20 mg qday (8) Diabetes mellitus Current Visit: No Status: Chronic Assessment and Plan: started on home insulin regimen. follow finger sticks A1c 7.4 (9) Gout Current Visit: Yes Status: Chronic Assessment and Plan: On allopurinol Continue home medication (10) Hypothyroidism Current Visit: Yes Status: Chronic Assessment and Plan: Continue levothyroxine 100 mg by mouth daily (11) Obesity (BMI 30.0-34.9) Current Visit: Yes Status: Acute Assessment and Plan: was counseled on nutrition will get nutrition consult (12) Thrombocytopenia Current Visit: Yes Status: Acute Assessment and Plan: count is above 100k. will continue to monitor him for bleeding. (13) DVT prophylaxis Current Visit: No Status: Acute Assessment and Plan: Heparin 5000 units SubQ Q12HRs - Summary of Assessment and Plan Summary of Assessment and Plan: will consult Concha ad CM needs to have wound care at home wound vac at home MANAGER RESPIRATORY - Time Spent with Patient Total time spent is greater than 50% in coordination of care (as documented) at patient's floor/unit and/or counseling patient: Internal Medicine: Result - Labs CBC & Chem 7: 10/30/17 03:32 10/30/17 03:32 Labs: Short CBC 10/30/17 Range/Units 03:32 WBC 4.8 (4.3-11.1) K/mcL Hgb 8.9 L (12.9-16.9) g/dL Hct 25.8 L (37.5-50.1) % Plt Count 122 L (140-400) K/mcL BMP 10/30/17 03:32 Sodium 132 L Potassium 4.0 Chloride 110 H Carbon Dioxide 24 BUN 28 H Creatinine 1.29 Glucose 192 H Calcium 8.2 L Consult Discharge Plan - Plan Referrals: Nestor De La Cruz MD [Primary Care Provider] - (6) CAD (coronary artery disease) Qualifiers: Coronary Disease-Associated Artery/Lesion type: jena artery [place] vs. transplanted heart: jena heart Associated angina: angina presence unspecified Qualified Code(s): I25.10 - Atherosclerotic heart disease of jena coronary artery without angina pectoris (7) HTN (hypertension) Qualifiers: Hypertension type: essential hypertension Qualified Code(s): I10 - Essential (primary) hypertension (8) Diabetes mellitus Qualifiers: Diabetes mellitus type: type 2 Diabetes mellitus long term care pharmacist insulin use: with long term care pharmacist use Diabetes mellitus complication status: with circulatory complication Diabetes mellitus complication detail: with other circulatory complications Qualified Code(s): E11.59 - Type 2 diabetes mellitus with other circulatory complications; Z79.4 - long term care pharmacist (current) use of insulin (9) Gout Qualifiers: Gout site: unspecified site Encounter type: initial encounter Chronicity: chronic Presence of tophus: with tophus Qualified Code(s): T56.0X1A - Toxic effect of lead and its compounds, accidental (unintentional), initial encounter ; M1A.10X1 - Lead-induced chronic gout, unspecified site, with tophus (tophi) (10) Hypothyroidism Qualifiers: Hypothyroidism type: unspecified Qualified Code(s): E03.9 - Hypothyroidism, unspecified
--- NOTE | 2017-10-30 14:09 | Podiatry Progress Note ---
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 We will proceed with amputation of toe #3 and #4 debridement of all necrotic tissue and bone as necessary to affect closure primarily of the wound #2 intraoperative cultures as necessary #3 patient will likely need rehabilitation post discharge Dictation 10/30/2017 postop day #2 assessment: #1 healing uneventfully. No complications. No dehiscence. Graft intact. Plan: #1 Discontinue wound VAC today inspected wound #2 irrigate wound with saline applied dry sterile dressingAdaptic 4 x 4's fluffs Kerlix no complications. Patient instructed to bear weight on heel only with assistance. #3 follow-up with Dr. Stapleton, November 01, at 1 PM in podiatry clinic Subjective Principal diagnosis: status postamputation of toes and metatarsal left for gangrene Interval history: Postop day #2. Afebrile, normotensive,white count stable hemoglobin continues to decline. Patient without pain. Good appetite. Patient states he feels well. Objective - Vital Signs Vital Signs: Vital Signs Temp Pulse Resp BP Pulse Ox 10/30/17 12:09 98.2 F 60 16 108/63 94 10/30/17 06:41 98.2 F 72 18 119/68 94 10/30/17 04:36 97.8 F 59 16 131/75 97 10/29/17 19:28 98.1 F 64 16 105/64 93 Intake and Output 10/29/17 10/30/17 10/30/17 23:59 07:59 15:59 Intake Total 1124 / 1124 120 / 120 240 / 240 Output Total 50 / 50 350 / 350 125 / 125 Balance 1074 / 1074 -230 / -230 115 / 115 Intake: IV Fluids 644 / 644 Vancocin 1,500 MG In 0.9 % 250 / 250 Sodium Chloride 250 ML @ 166.67 mls/hr IVPB Q24H YOMAIRA Rx#: [id number] Oral 480 / 480 120 / 120 240 / 240 Output: Urine 50 / 50 350 / 350 125 / 125 Wound Drainage 0 / 0 Left Foot 0 / 0 Other: Meal Dinner Lunch Percent of Meal Consumed 100% 100% 50% Weight 92 kg Blood Glucose* 191 210 Patient Weight 10/30/17 23:59 Weight 92 kg - Exam Exam: Rotational skin flap intact and viable. Graft jacket viable minimal edema no erythema no odor no purulence no fluctuance, sutures intact no evidence of dehiscence.surgical wound healing uneventfully Incision: Present: healing, clean and dry Capillary Refill: less than 3 seconds (toes #1#2 left) - Lab Result Diagrams: 10/30/17 03:32 10/30/17 03:32 Labs: Abnormal lab results RBC 2.66 M/mcL (4.19-5.50) L 10/30/17 03:32 Hgb 8.9 g/dL (12.9-16.9) L 10/30/17 03:32 Hct 25.8 % (37.5-50.1) L 10/30/17 03:32 MCH 33.5 pg (28.0-33.3) H 10/30/17 03:32 Plt Count 122 K/mcL (140-400) L 10/30/17 03:32 Immature Plt Fraction 7.6 % (1.1-6.1) H 10/25/17 03:28 ESR 54 mm/hr (0-10) H 10/26/17 05:00 Sodium 132 mEq/L (136-145) L 10/30/17 03:32 Chloride 110 mEq/L (98-107) H 10/30/17 03:32 BUN 28 mg/dL (8-23) H 10/30/17 03:32 Est GFR (Non-Af Amer) 53 (> 60) L 10/30/17 03:32 Glucose 192 mg/dL (70-105) H 10/30/17 03:32 POC Glucose 210 mg/dL (70-99) H 10/30/17 12:07 Hemoglobin A1c 7.4 % (-5.6) H 10/27/17 07:00 Calcium 8.2 mg/dL (8.6-10.3) L 10/30/17 03:32 Troponin I 0.05 ng/mL (< 0.04) H* 10/25/17 07:58 C-Reactive Protein 124 mg/L (Less than 10) H 10/26/17 05:00 HDL Cholesterol 31 mg/dL (40-59) L 10/27/17 07:00 Urine Protein 30 mg/dL (Neg-Trace) H 10/24/17 20:30 Urine Glucose (UA) 100 mg/dL (Normal) H 10/24/17 20:30 Ur Squamous Epith Cells Moderate per lpf (None-Few) H 10/24/17 20:30 Vancomycin Trough 16 mcg/mL (5-10) H 10/30/17 12:16 Consult Discharge Plan - Plan Referrals: Nestor De La Cruz MD [Primary Care Provider] -
--- NOTE | 2017-10-30 14:31 | Discharge Summary ---
Orders not resulted at time of discharge: Pending orders 10/28/17 08:39 CL Cardiac Catheterization [CL] Routine 10/28/17 18:16 Surgical Pathology [PTH] Routine 10/31/17 04:00 Basic Metabolic Panel AM 0400 Complete Blood Count w/o Diff [HEME] AM 0400 Ferritin AM 0400 Iron AM 0400 Iron Profile AM 0400 Retic Count [HEME] AM 0400 Transferrin AM 0400 11/01/17 04:00 Basic Metabolic Panel AM 0400 Complete Blood Count w/o Diff [HEME] AM 0400 Date of Encounter: 10/30/17 - Discharge Diagnosis (1) Gangrene of toe of left foot Status: Acute (2) Acute renal failure Status: Resolved (3) Acute on chronic anemia Status: Acute (4) Severe peripheral arterial disease Status: Chronic (5) Congestive heart failure Status: Chronic (6) CAD (coronary artery disease) Status: Chronic Qualifiers: Coronary Disease-Associated Artery/Lesion type: [place] artery [place] vs. transplanted heart: [place] heart Associated angina: angina presence unspecified Qualified Code(s): I25.10 - Atherosclerotic heart disease of [place] coronary artery without angina pectoris (7) HTN (hypertension) Status: Chronic Qualifiers: Hypertension type: essential hypertension Qualified Code(s): I10 - Essential (primary) hypertension (8) Diabetes mellitus Status: Chronic Qualifiers: Diabetes mellitus type: type 2 Diabetes mellitus halfway insulin use: with oysterman use Diabetes mellitus complication status: with circulatory complication Diabetes mellitus complication detail: with other circulatory complications Qualified Code(s): E11.59 - Type 2 diabetes mellitus with other circulatory complications; Z79.4 - residential (current) use of insulin (9) Gout Status: Chronic Qualifiers: Gout site: unspecified site Encounter type: initial encounter Chronicity : chronic Presence of tophus: with tophus Qualified Code(s): T56.0X1A - Toxic effect of lead and its compounds, accidental (unintentional), initial encounter; M1A.10X1 - Lead-induced chronic gout, unspecified site, with tophus ( tophi) (10) Hypothyroidism Status: Chronic Qualifiers: Hypothyroidism type: unspecified Qualified Code(s): E03.9 - Hypothyroidism , unspecified (11) Obesity (BMI 30.0-34.9) Status: Acute (12) Thrombocytopenia Status: Acute (13) DVT prophylaxis Status: Acute Hospital course: Mr. Read is a 82 year old male - Time Spent with Patient Total time spent providing and/or coordinating discharge services: - Discharge Medications Home Medications: Acetaminophen [Tylenol] 650 mg PO BID PRN 05/26/15 [History] Allopurinol [Zyloprim 300 MG] 300 mg PO DAILY 05/26/15 [History] Aspirin [Adult Low Dose Aspirin EC] 81 mg PO DAILY 05/26/15 [History] Insulin ASPART [NovoLOG] 13 unit SQ TIDAC 05/26/15 [History] Insulin Glargine [Lantus] 32 unit SQ HS 05/26/15 [History] Levothyroxine [Synthroid] 100 mcg PO QAM 05/26/15 [History] raNITIdine HCl [Zantac] 150 mg PO BID 05/26/15 [History] Lactulose 10 gm PO BID PRN 04/05/16 [History] Nitroglycerin [Nitrostat] 0.4 mg SL Q5M PRN 04/05/16 [History] Furosemide [Lasix] 20 mg PO BID 10/28/16 [History] Isosorbide MONOnitrate (24 HR) [Imdur] 60 mg PO DAILY 11/12/16 [History] Amoxicillin/Clavulanate [Augmentin] 500 mg PO BIDWM #15 tablet 11/15/16 [Rx] Atorvastatin [Lipitor] 40 mg PO HS 10/25/17 [History] Cholecalciferol (D-3) 5,000 unit PO DAILY 10/25/17 [History] Doxazosin [Cardura] 2 mg PO HS 10/25/17 [History] Timolol Maleate 0.5% [Timolol Maleate 0.5%] 1 drop BOTH EYES BID 10/26/17 [ History] Allergies/Adverse Reactions: 3 Allergy/AdvReac Type Severity Reaction Status Date / Time acetaminophen [From Percocet] Allergy Hives Verified 10/28/16 08:47 Iodinated Contrast- Oral and Allergy Hives Verified 10/25/17 01:29 IV Dye Oxycodone [From Percocet] Allergy Hives Verified 10/28/16 08:47 prednisone Allergy Rash Verified 10/28/16 08:47 Date of admission: 10/27/17 08:43 Primary care physician: Nestor De La Cruz MD Consults: 10/27/17 14:58 Consult to Cardiology [CONS] Routine Comment: Consulting Provider: Cardiology [place] Reason for Consult: CHF, CAD. podiatry would like to take the patient for surgery Call Completed: No 10/29/17 07:29 Consult to Infectious Diseases [CONS] Routine Consulting Provider: Infectious Disease Krystina Reason for Consult: s/p amputation of the right 3rd and fourth toes , on vancomycin and zosyn for diabetic foot infection, CKD 3 with worsening renal function Call Completed: No 10/30/17 11:00 Consult to Case Management [CONS] Routine Comment: - Constitutional Vitals: Temp Pulse Resp BP Pulse Ox 98.2 F 60 16 108/63 94 10/30/17 12:09 10/30/17 12:09 10/30/17 12:09 10/30/17 12:09 10/30/17 12:09 General appearance: Present: cooperative, A&O X 3, pleasant, no acute distress, answers questions appropriately - Patient Status Condition: Good - Discharge Instructions Follow Up With: Nestor De La Cruz MD [Primary Care Provider] -
[2017-10-30] MEDS: traMADol 50 MG TABLET PO PRN (21:00)
[2017-10-30] MEDS: Insulin DETEMIR 100 UNIT/ML X5UNITS SQ SCH (21:03)
[2017-10-31 06:10] LABS: Hematocrit 27.9 % (37.5-50.1); Hemoglobin 9.4 g/dL (12.9-16.9); Immature Reticulocyte % 27.5 % (11.0-38.0); Mean Corpuscular HGB Conc 33.7 g/dL (31.6-35.5); Mean Corpuscular Hemoglobin 33.1 pg (28.0-33.3); Mean Corpuscular Volume 98.2 fL (83.0-100.0); Mean Platelet Volume 11.5 fL (9.4-12.4); Platelet Count 136 K/mcL (140-400); Red Blood Count 2.84 M/mcL (4.19-5.50); Red Cell Distribution Width 13.3 % (11.5-14.5); Retculocyte # 0.05 M/mcL (0.05-0.10); Reticulocyte % 1.9 % (1.6-2.8)
[2017-10-31 06:27] LABS: BUN/Creatinine Ratio 23 (6-26); Blood Urea Nitrogen 28 mg/dL (8-23); Carbon Dioxide 24 mEq/L (23-29); Chloride 106 mEq/L (98-107); Glucose 190 mg/dL (70-105); Potassium 4.4 mEq/L (3.5-5.1); Sodium 138 mEq/L (136-145); eGFR For Non-African Americans 57 (> 60)
[2017-10-31 06:28] LABS: % Iron Saturation 23 % (20-55); Calcium 8.6 mg/dL (8.6-10.3); Iron 44 mcg/dL (65-175); Osmolality,Calculated 297 (280-300); Transferrin 136 mg/dL (203-362)
[2017-10-31] MEDS: *HR* Heparin 5,000 UNIT/ML VIAL SQ SCH (06:39)
[2017-10-31 06:46] LABS: Ferritin 476 ng/mL (20-250)
[2017-10-31 07:51] VITALS: BP 111/68
[2017-10-31] MEDS: Insulin LISPRO 300 UNITS/3 ML VIAL SQ SCH (08:10)
[2017-10-31] MEDS: Lactulose Oral Soln 20 GM/30 ML UDC PO PRN (08:10)
[2017-10-31] MEDS: Cholecalciferol (D-3) 1,000 UNIT TABLET PO SCH (08:11)
[2017-10-31] MEDS: Famotidine 20 MG TABLET PO SCH (08:11)
[2017-10-31] MEDS: Aspirin Enteric Coated 81 MG Tablet PO SCH (08:11)
[2017-10-31] MEDS: Isosorbide MONOnitrate (24 HR) 60 MG TAB.ER.24H PO SCH (08:11)
--- NOTE | 2017-10-31 09:30 | Discharge Summary ---
- NOTES TO OUTPATIENT PROVIDER Notes to Outpatient Provider: follow-up with Dr. Stapleton, November 01, at 1 PM in podiatry clinic. follow up with cardiology team needs out patient cardiac work up LHC, Stress test. follow up with manager transmission for CKD 3. follow up with hematology oncology for anemia and thrombocytopenia. consider adding VALERIA/ARB as he now has systolic dysfunction once kidney functions are stable ( had Vilma on CKD during. admission). follow up with pathology report. follow with GI for liver mass incidentally found in abdominal CT along with colonosocpy - need sto have MRI vs Ct liver protocol for further evaluation of the mass. follow up with vascular surgery in regard to PVD Orders not resulted at time of discharge: Pending orders 10/28/17 08:39 CL Cardiac Catheterization [CL] Routine 10/28/17 18:16 Surgical Pathology [PTH] Routine 10/30/17 14:31 Occult Blood,Stool [BF] Routine 11/01/17 04:00 Basic Metabolic Panel AM 0400 Complete Blood Count w/o Diff [HEME] AM 0400 Date of Encounter: 10/31/17 Time of Encounter: 09:21 - Discharge Diagnosis (1) Gangrene of toe of left foot Priority: Primary Status: Acute (2) Acute renal failure Priority: Secondary Status: Resolved Qualifiers: Acute renal failure type: with other specified pathological lesion Qualified Code(s): N17.8 - Other acute kidney failure (3) Acute on chronic anemia Priority: Secondary Status: Acute (4) Severe peripheral arterial disease Priority: Secondary Status: Chronic (5) CAD (coronary artery disease) Priority: Secondary Status: Chronic Qualifiers: Coronary Disease-Associated Artery/Lesion type: [place] artery [place] vs. transplanted heart: [place] heart Associated angina: angina presence unspecified Qualified Code(s): I25.10 - Atherosclerotic heart disease of [place] coronary artery without angina pectoris (6) HTN (hypertension) Priority: Secondary Status: Chronic Qualifiers: Hypertension type: essential hypertension Qualified Code(s): I10 - Essential (primary) hypertension (7) Diabetes mellitus Priority: Secondary Status: Chronic Qualifiers: Diabetes mellitus type: type 2 Diabetes mellitus extermination inspector insulin use: with group home use Diabetes mellitus complication status: with circulatory complication Diabetes mellitus complication detail: with other circulatory complications Qualified Code(s): E11.59 - Type 2 diabetes mellitus with other circulatory complications; Z79.4 - senior care (current) use of insulin (8) Gout Priority: Secondary Status: Chronic Qualifiers: Gout site: unspecified site Encounter type: initial encounter Chronicity : chronic Presence of tophus: with tophus Qualified Code(s): T56.0X1A - Toxic effect of lead and its compounds, accidental (unintentional), initial encounter; M1A.10X1 - Lead-induced chronic gout, unspecified site, with tophus ( tophi) (9) Hypothyroidism Priority: Secondary Status: Chronic Qualifiers: Hypothyroidism type: unspecified Qualified Code(s): E03.9 - Hypothyroidism , unspecified (10) Obesity (BMI 30.0-34.9) Priority: Secondary Status: Acute (11) Thrombocytopenia Priority: Secondary Status: Acute (12) DVT prophylaxis Priority: Secondary Status: Acute (13) Liver mass Priority: Secondary Status: Acute (14) HFrEF (heart failure with reduced ejection fraction) Priority: Secondary Status: Acute Qualifiers: Heart failure chronicity: acute Qualified Code(s): I50.21 - Acute systolic (congestive) heart failure Hospital course: Mr. Read is a 82 year old male history of CAD s/p [place] and CABG in 2003, diastolic CHF, severe PVD, S/p right BKA, CKD stage III, GOUT, multiple amputations, and HTN presented with left 4th toe infection. Prior to admission he was seen at his transfer pumper office but the wound had opened and developed black discoloration while he was at home so he decided to come to the emergency department for further management. While in the ED he also complained of right lower quadrant abdominal pain abdominal/pelvic CT showed a new 2.8 cm liver mass and call cholelithiasis without evidence of acute cholecystitis. He was admitted for further management of left toe gangrene. He was treated with IV fluids, and IV antibiotics. Podiatry was consulted. In addition to left toe gangrene he had edema and red discoloration of the left lower extremity. DVT study of the left lower extremity was done which was negative for any DVT. JACK was done of the left lower extremity, results below. Vascular surgery was consulted and recommendations were followed. On admissions troponins were mildly elevated and trended flat. Cardiology was consulted as patient has extensive history. it was Recommended to have [facility] over one year ago but opted for medical management due to CKD. Echocardiogram was performed, results below. Patient was started on beta blockers which he tolerated well. Preop evaluation by cardiology was performed Patient was found to be high risk for intermediate risk surgery. He is to follow-up with cardiology for further testing as outpatient and he understands. During hospitalization his UN creatinine trended up. His Lasix was stopped. Renal function improved creatinine trended back to baseline. GFR increased to greater than 60. Lasix was restarted. He underwent amputation of toes and metatarsals #3 and 4 left foot with wound vac placement on 10/28/2017. ID was consulted for outpatient antibiotic recommendations. As there was no evidence of infection as per operative notes it was decided by the infectious disease to discontinue antibiotics and observe. he was treated with IV Abx from 10/24- . On October 30 wound VAC was removed and he was cleared by podiatry to be discharged. Hemoglobin was 11 on admission which trended down slightly post operation. B12 and folic acids were within normal limit. Iron panel showed mixed iron deficiency anemia and anemia of chronic disease. He was started on iron daily. In addition to anemia he also had thrombocytopenia since admission. Labs reviewed from medical records show he has chronic thrombocytopenia. Levels remained stable during hospitalization and platelets trended up. Platelet count on 10/31/17 where 136. He remained afebrile for 72 hours, vitals are stable. Home health aide was initiated and he was stable for discharge. Wound care recommendations by podiatry as follows, irrigate wound with saline applied dry sterile dressingAdaptic 4 x 4's fluffs Kerlix no complications. Patient instructed to bear weight on heel only with assistance. he understands that he would needs to be compliant with follow ups. he was counseled on nutrition. understands that he would need low salt diet. DVT study: Left lower extremity: normal superficial and deep exam. The left ankle-brachial index is 0.98 and within normal range. Left ankle waveform is mildly diminished. The left toe brachial index is 0.31 as a maximum and demonstrates severe disease. The left digit waveforms are mildly diminished in the first and second digit and severely diminished in the third and fourth digit Ct A/P IMPRESSION: New 2.8 cm liver lesion is identified, indeterminate on this noncontrast exam. Further evaluation with contrast-enhanced CT liver mass protocol or MRI is recommended. Cholelithiasis without evidence for acute cholecystitis. left foot xray: IMPRESSION: Cortical irregularity involving the 4th proximal and middle phalanges, as detailed above. If there is a soft tissue ulcer in this area (not seen on this exam), this would raise concern for osteomyelitis. Contrast-enhanced MRI may be of value. tte: Technically sub-optimal due to poor echocardiographic windows. LVEF 45%. Not al LV segments were well visualized due to poor image quality. Overall, LVEF appears mildly reduced. Mildly dilated left ventricle. Moderate left ventricular diastolic dysfunction. Atypical septal motion consistent with post-operative status. Mildly dilated right ventricle with normal function. Mild mitral regurgitation. Unable to estimate RVSP due to lack of TR jet. Future studies should be completed with Definity contrast enhancement. Discharge discussed with: patient, nurse, internal consultant - Time Spent with Patient Total time spent providing and/or coordinating discharge services: Greater than 30 minutes (45) - Discharge Medications Prescriptions: RX: Ferrous Sulfate 325 mg PO DAILY #30 tablet RX: Metoprolol [Lopressor] 12.5 mg PO BID #60 tablet Home Medications: RX: Allopurinol [Zyloprim 300 MG] 300 mg PO DAILY 05/26/15 [History] RX: Aspirin [Adult Low Dose Aspirin EC] 81 mg PO DAILY 05/26/15 [History] RX: Insulin ASPART [NovoLOG] 13 unit SQ TIDAC 05/26/15 [History] RX: Insulin Glargine [Lantus] 32 unit SQ HS 05/26/15 [History] RX: Levothyroxine [Synthroid] 100 mcg PO QAM 05/26/15 [History] RX: raNITIdine HCl [Zantac] 150 mg PO BID 05/26/15 [History] RX: Lactulose 10 gm PO BID PRN 04/05/16 [History] RX: Nitroglycerin [Nitrostat] 0.4 mg SL Q5M PRN 04/05/16 [History] RX: Furosemide [Lasix] 20 mg PO BID 10/28/16 [History] RX: Isosorbide MONOnitrate (24 HR) [Imdur] 60 mg PO DAILY 11/12/16 [History] Cholecalciferol (D-3) 5,000 unit PO DAILY 10/25/17 [History] RX: Atorvastatin [Lipitor] 40 mg PO HS 10/25/17 [History] RX: Doxazosin [Cardura] 2 mg PO HS 10/25/17 [History] RX: Timolol Maleate 0.5% 1 drop BOTH EYES BID 10/26/17 [History] RX: Ferrous Sulfate 325 mg PO DAILY #30 tablet 10/31/17 [Rx] RX: Metoprolol [Lopressor] 12.5 mg PO BID #60 tablet 10/31/17 [Rx] Allergies/Adverse Reactions: 3 Allergy/AdvReac Type Severity Reaction Status Date / Time acetaminophen [From Percocet] Allergy Hives Verified 10/28/16 08:47 Iodinated Contrast- Oral and Allergy Hives Verified 10/25/17 01:29 IV Dye Oxycodone [From Percocet] Allergy Hives Verified 10/28/16 08:47 prednisone Allergy Rash Verified 10/28/16 08:47 Date of admission: 10/27/17 08:43 Primary care physician: Nestor De La Cruz MD Consults: 10/27/17 14:58 Consult to Cardiology [CONS] Routine Comment: Consulting Provider: Cardiology [place] Reason for Consult: CHF, CAD. podiatry would like to take the patient for surgery Call Completed: No 10/29/17 07:29 Consult to Infectious Diseases [CONS] Routine Consulting Provider: Infectious Disease K[place] Reason for Consult: s/p amputation of the right 3rd and fourth toes , on vancomycin and zosyn for diabetic foot infection, CKD 3 with worsening renal function Call Completed: No 10/30/17 11:00 Consult to Case Management [CONS] Routine Comment: - Constitutional Vitals: Temp Pulse Resp BP Pulse Ox 97.9 F 67 16 111/68 95 10/31/17 07:45 10/31/17 07:45 10/31/17 07:45 10/31/17 07:45 10/31/17 07:45 General appearance: Present: cooperative, A&O X 3 Exam: General: Patient is alert, oriented, no acute distress, obese Head: atraumatic, normocephalic, Eye: normal appearance, PERRL, no scleral icterus, no conjunctival injection ENT: mucous membranes moist, normal external ear exam Neck: normal inspection, trachea midline, full ROM, no carotid bruits Chest: normal inspection, symmetric chest rise Respiratory: Good respiratory effort. Bilateral breath sounds are clear without wheezing, crackles, or rhonchi. Cardiovascular: Regular rate and rhythm. s1 and s2 No clicks, rubs, gallops, or murmors. Abdomen: Bowel sounds present normoactive x-4 quadrants. Abdomen is soft, nondistended. no Epigastric tenderness. No guarding or rebound. No organomegaly noted, obese musculoskeletal: Spontaneously moving all extremities. right BKA, left calf is mildly tender and has 1 edema. ( improved) dressing clean , tohi and multiple amputation of the bilateral hands Skin: warm, dry, intact. Neuro: Alert and oriented x4. Sensation light touch intact. Cranial nerves 2- 12 is intact. Psych: Patient's affect is normal - Patient Status Disposition: Home Health Service Condition: Good Functional capacity at discharge: uses cane/walker Overall status at discharge: patient is progressing back to baseline - Discharge Instructions Follow Up With: Abhilash Kenny MD [Partnered Physician] - Nestor De La Cruz MD [Primary Care Provider] - Milan Gauthier MD [Partnered Physician] - Alana Parish MD [Partnered Physician] - Brayden Bonds MD [Partnered Physician] - - Diet and Activity Activity: increase activity as tolerated Diet: diabetic diet, low salt diet
--- NOTE | 2017-10-31 10:28 | Physician Discharge Referral ---
Home Health/Hosp Referral Info Transfer to: Home Health Attending Provider: mel gallego - Diagnosis (1) Gangrene of toe of left foot Priority: Primary Status: Acute (2) Acute renal failure Status: Resolved (3) Acute on chronic anemia Status: Acute (4) Severe peripheral arterial disease Status: Chronic (5) Congestive heart failure Status: Chronic (6) CAD (coronary artery disease) Status: Chronic (7) HTN (hypertension) Status: Chronic (8) Diabetes mellitus Status: Chronic (9) Gout Status: Chronic (10) Hypothyroidism Status: Chronic (11) Obesity (BMI 30.0-34.9) Status: Acute (12) Thrombocytopenia Status: Acute (13) DVT prophylaxis Status: Acute (14) Liver mass Status: Acute - Respiratory Orders Smoking Cessation: Smoking cessation has been advised. For more information, call the [employer] Quit Line at 5-427-CIXV-NOW. - Dressing/Wound Care Site: left lower extremity irrigate wound with saline applied dry sterile dressingAdaptic 4 x 4's fluffs Kerlix no complications. Patient instructed to bear weight on heel only with assistance. - Diet/Nutrition Diet/Nutrition Orders: No Added Salt (VALE) (diabetic, fluid restriction) - Activity Activity Orders: Ambulate (only with assistance , bear weight only on heel) - Services Needed Following services are medically necessary services: Home Health Aide (wound care and RN MATERNITY) - Transfer Medications Prescriptions: Ferrous Sulfate 325 mg PO DAILY #30 tablet Metoprolol [Lopressor] 12.5 mg PO BID #60 tablet Home Medications: Acetaminophen [Tylenol] 650 mg PO BID PRN 05/26/15 [History] Allopurinol [Zyloprim 300 MG] 300 mg PO DAILY 05/26/15 [History] Aspirin [Adult Low Dose Aspirin EC] 81 mg PO DAILY 05/26/15 [History] Insulin ASPART [NovoLOG] 13 unit SQ TIDAC 05/26/15 [History] Insulin Glargine [Lantus] 32 unit SQ HS 05/26/15 [History] Levothyroxine [Synthroid] 100 mcg PO QAM 05/26/15 [History] raNITIdine HCl [Zantac] 150 mg PO BID 05/26/15 [History] Lactulose 10 gm PO BID PRN 04/05/16 [History] Nitroglycerin [Nitrostat] 0.4 mg SL Q5M PRN 04/05/16 [History] Furosemide [Lasix] 20 mg PO BID 10/28/16 [History] Isosorbide MONOnitrate (24 HR) [Imdur] 60 mg PO DAILY 11/12/16 [History] Atorvastatin [Lipitor] 40 mg PO HS 10/25/17 [History] Cholecalciferol (D-3) 5,000 unit PO DAILY 10/25/17 [History] Doxazosin [Cardura] 2 mg PO HS 10/25/17 [History] Timolol Maleate 0.5% 1 drop BOTH EYES BID 10/26/17 [History] Ferrous Sulfate 325 mg PO DAILY #30 tablet 10/31/17 [Rx] Metoprolol [Lopressor] 12.5 mg PO BID #60 tablet 10/31/17 [Rx] Allergies/Adverse Reactions: 3 Allergy/AdvReac Type Severity Reaction Status Date / Time acetaminophen [From Percocet] Allergy Hives Verified 10/28/16 08:47 Iodinated Contrast- Oral and Allergy Hives Verified 10/25/17 01:29 IV Dye Oxycodone [From Percocet] Allergy Hives Verified 10/28/16 08:47 prednisone Allergy Rash Verified 10/28/16 08:47 Certification: Further, I certify that my clinical findings support that this patient is homebound (i.e. absences from home require considerable and taxing effort and are for medical reasons or yarsani services or infrequently or short duration when for other reasons) because: Homebound Reason: Patient requires assistance of a person or device to safely leave home, Post-surgery restriction and or conditions limit ability to leave home Attestation: My signature below is to certify that this patient is under my care and that I, or nurse practitioner, or a physician's state tested nursing assistant working with me, has a face-to -face encounter with this patient.
== END 2017-10-31 12:25 | disposition home health service (06) | DRG 240 ==
LOC: EMEROOARM 19:05 → 3ANU 19:05 → SUATTDRO 22:30 → 3ANU 23:26
PROVIDERS: ADMIT Internal Medicine; ATTEND Internal Medicine

== ENCOUNTER 2017-11-01 08:54 | Inpatient (IN) ==
[2017-11-01] MEDS ORDERED: Isovue-370 500 ML INFUS..BTL IV ONE (09:21)
[2017-11-01] MEDS ORDERED: 0.9 % Sodium Chloride 250 ML IVC ONE (09:23)
--- NOTE | 2017-11-01 09:29 | Emergency Department Note ---
Disposition Clinical Impression: NSTEMI (non-ST elevated myocardial infarction), Elevated troponin, CKD ( chronic kidney disease) stage 3, GFR 30-59 ml/min Congestive heart failure Qualifiers: Heart failure type: unspecified Heart failure chronicity: acute Qualified Code( s): I50.9 - Heart failure, unspecified Disposition: Home, Self-Care Condition: Good General Adult HPI - General Chief complaint: ED Shortness of Breath/Dyspnea Stated complaint: RASHAD Time Seen by Provider: 11/01/17 09:06 Source: patient, family Mode of arrival: wheelchair Limitations: no limitations Nursing Notes Reviewed: Yes Vital Signs Reviewed: Yes - History of Present Illness HPI Narrative: Male patient presenting tremors department complaining of shortness of breath. States it was a sudden onset. Started last night but is gotten significantly worse this morning. Worse whenever he lays flat. Does have history of CHF as well as COPD. Does report a cough that is occasionally productive. Is conversationally dyspneic however has clear lung sounds bilaterally. Denies any chest pain. Does report that he thinks he may have had a blood clot in the past however he is unsure. 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 Was in the hospital for this. He states that he is allowed to ambulate on the posterior aspect of his left foot however it does not appear as if he has been doing this. Patient is pallor in color. He is not tachycardic. Does report he has a history of chronic kidney disease. Previous creatinine done yesterday was normal with a normal GFR as well. The patient does have a well-healing wound to the left third fourth and fifth digit patient's the left foot. This does not appear to be infected. There are sutures are still present. There does appear to be a flap that we will not be salvageable to this area. Pain Scale: 8 - Related Data Home Medications Medication Instructions Recorded Confirmed Allopurinol [Zyloprim 300 MG] 300 mg PO DAILY 05/26/15 11/01/17 Insulin ASPART [NovoLOG] 11 - 15 unit SQ TIDAC 05/26/15 11/01/17 Insulin Glargine [Lantus] 34 - 45 unit SQ HS 05/26/15 11/01/17 Levothyroxine [Synthroid] 100 mcg PO QAM 05/26/15 11/01/17 Lactulose 10 gm PO BID 04/05/16 11/01/17 Nitroglycerin [Nitrostat] 0.4 mg SL Q5M PRN 04/05/16 11/01/17 Furosemide [Lasix] 20 mg PO BID 10/28/16 11/01/17 Atorvastatin [Lipitor] 40 mg PO HS 10/25/17 11/01/17 Cholecalciferol (D-3) [Vitamin D] 5,000 unit PO DAILY #0 10/25/17 11/01/17 Doxazosin [Cardura] 2 mg PO HS 10/25/17 11/01/17 Timolol Maleate 0.5% 1 drop BOTH EYES BID 10/26/17 11/01/17 Aspirin [Lo-Dose Aspirin EC] 81 mg PO DAILY 11/01/17 11/01/17 Finasteride [Proscar] 5 mg PO DAILY 11/01/17 11/01/17 Isosorbide MONOnitrate (24 HR) 60 mg PO DAILY 11/01/17 11/01/17 [Imdur] Ranitidine HCl [Acid Para Professional] 150 mg PO BID 11/01/17 11/01/17 Previous Rx's Medication Instructions Recorded Ferrous Sulfate 325 mg PO DAILY #30 tablet 10/31/17 Metoprolol [Lopressor] 12.5 mg PO BID #60 tablet 10/31/17 Allergies Allergy/AdvReac Type Severity Reaction Status Date / Time acetaminophen [From Percocet] Allergy Hives Verified 11/01/17 11:37 Iodinated Contrast- Oral and Allergy Hives Verified 11/01/17 11:37 IV Dye Oxycodone [From Percocet] Allergy Hives Verified 11/01/17 11:37 prednisone Allergy Rash Verified 11/01/17 11:37 All systems ED: reviewed and negative except as stated. Review of Systems: As Per HPI Constitutional: Reports: chills. Denies: fever ENT ED: Denies: congestion Cardiovascular: Denies: chest pain, palpitations, syncope Respiratory: Reports: cough, dyspnea (sudden onset. Worse this am), sputum production (occasional) Gastrointestinal: Reports: constipation (yesterday. Did end up havig a bowel movement last night.). Denies: abdominal pain, nausea, vomiting, diarrhea Genitourinary: Denies: urgency, dysuria, frequency Musculoskeletal: Denies: back pain, neck pain Integumentary: Reports: other (healing wound to left forefoot). Denies: rash Neurological: Denies: headache Past Medical History - Past Medical History Attestation: Yes The following information was validated with the patient. Source: patient Medical history: Reports: arthritis, CHF, coronary artery disease, diabetes, GERD, hyperlipidemia, hypertension, myocardial infarction, peripheral artery disease, renal disease, thyroid disease Surgical history: Reports: appendectomy, LE vascular intervention Psychiatric history: Reports: anxiety - Social History Smoking Status: Former smoker Smokeless Tobacco Status: No Alcohol use: Reports: none Drug use: Reports: none Physical Exam - General Limitations: no limitations General appearance: alert, in distress (conversationally dyspnic) - Head Head exam: atraumatic, normocephalic, normal inspection - Eye Eye exam: Present: normal appearance, PERRL, EOMI - ENT ENT exam: normal exam, normal oropharynx, mucous membranes moist - Neck Neck exam: Present: normal inspection, full ROM, trachea midline - Chest Chest inspection: Present: normal inspection, symmetric chest wall rise - Respiratory Respiratory exam: Present: normal lung sounds bilaterally, respiratory distress (conversationally dyspnic ). Absent: wheezes, accessory muscle use, prolonged expiratory phase - Cardiovascular Cardiovascular exam: Present: regular rate, normal rhythm, normal heart sounds. Absent: tachycardia - Abdominal Exam Abdominal exam: Present: soft, Non-Tender, distention (Rounded abdomen). Absent : guarding, rigidity, organomegaly, Lofton's sign, Rovsing's sign, tenderness at McBurney's Point - Extremities Exam Extremities exam: Present: other (Right [id number] amputation.) - Expanded Upper Extremity Exam Shoulder exam: Present: normal inspection, full ROM Arm exam: Present: normal inspection, full ROM Elbow exam: Present: normal inspection, full ROM Forearm/Wrist exam: Present: normal inspection, full ROM Hand exam: Present: normal inspection, full ROM Vascular exam: Normal: capillary refill, radial pulse - Expanded Lower Extremity Exam Hip/Pelvis exam: Present: normal inspection, full ROM Upper leg exam: Present: normal inspection, full ROM 1 - Amputation Knee exam: Present: normal inspection (On the left), full ROM Lower leg exam: Present: other (Reddening mild edema to the left lower extremity. Does have calf tenderness to the left side.). Absent: palpable cord Foot/toe exam: Present: other (Indication to left third fourth and fifth toes on the left. Wound appears to be healing appropriately. No signs of infection. Sutures still in place. Does have a small skin flap that does not appear to be salvageable.) Neurovascular/Tendon exam: Absent: motor deficit, sensory deficit, tendon deficit - Neurological Exam Neurological exam: Present: alert, oriented X3 - Psychiatric Psychiatric exam: Present: normal affect, normal mood - Skin Skin exam: Present: warm, dry, intact, pallor. Absent: rash Course Course Narrative: Male patient with an extensive peripheral artery disease history as well as CHF and diabetes presenting after discharge home yesterday. He states that he was feeling well whenever he is discharge however states that he was dyspneic at discharge. He is conversationally dyspneic on exam here. Does have diminished lower lung sounds however no overt rales. Does have some edema to his left lower extremity with some calf tenderness. He did have a Doppler of this lower extremity approximately 5 days ago that showed no DVT however due to patient's immobility and recent surgery I am concerned for possible coronary embolism. The differential is broad however he does have history of CHF. He is denying any chest pain at this time. He is pleasant on exam however is conversationally dyspneic. We will get a CTA of patient's chest. As well as basic lab workup. I anticipate admission. - Reevaluation(s) Reevaluation #1: Patient reassessed. He is more conversationally dyspneic we will start patient on BiPAP at this time. Chest x-ray that does show pulmonary edema. We are still awaiting the CTA results. His troponin is elevated. Higher than previously. Likely an and STEMI secondary to stress from the recent surgery. Patient still denies any chest pain however he is reporting some is comforted in his left upper quadrant that is intermittent. No pain at the time of exam currently. Time: 10:44 Reevaluation #2: Patient's oxygen saturation maintaining in the high 90s to 100%. We have placed patient on IV vancomycin and Zosyn. We will admit to the hospital. We have heparinized him as well. Time: 11:29 - Consultations Consultation #1: I spoke with Dr. Silveira from cardiology. He is recommending that we got inside the patient on heparin. He states they will consult. Time: 11:12 Consultation #2: Dr Duff accepted patient in stable condition Time: 11:29 Vital Signs Temperature 97.4 F L 11/01/17 08:57 Pulse Rate 79 11/01/17 08:57 Respiratory Rate 24 11/01/17 08:57 Blood Pressure 142/71 11/01/17 08:57 O2 Sat by Pulse Oximetry 96 11/01/17 08:57 Temperature 97.4 F L 11/01/17 08:59 Pulse Rate 71 11/01/17 12:44 Respiratory Rate 26 11/01/17 12:44 Blood Pressure 153/80 11/01/17 12:44 O2 Sat by Pulse Oximetry 100 11/01/17 12:44 Oxygen Delivery Oxygen Delivery Nasal Cannula Medical Decision Making - Medical Records Medical records reviewed: Yes I reviewed the patient's medical records. - Lab Data Lab results reviewed: Yes I reviewed the patient's lab results. Result diagrams: 11/01/17 11:57 11/01/17 09:49 Lab Results 11/01/17 11/01/17 11/01/17 Range/Units 09:49 09:49 09:49 WBC 5.3 (4.3-11.1) K/mcL RBC 3.02 L (4.19-5.50) M/mcL Hgb 10.5 L (12.9-16.9) g/dL Hct 30.0 L (37.5-50.1) % MCV 99.3 (83.0-100.0) fL MCH 34.8 H (28.0-33.3) pg MCHC 35.0 (31.6-35.5) g/dL RDW 13.4 (11.5-14.5) % Plt Count 163 (140-400) K/mcL MPV 10.7 (9.4-12.4) fL Immature Gran % 1.7 (0-4) % Seg Neutrophils % 75.8 % Lymphocytes % 12.3 % Monocytes % 7.0 % Eosinophils % 2.8 % Basophils % 0.4 % Neutrophils # 4.0 (1.6-8.9) K/mcL Lymphocytes # 0.7 (0.6-4.6) K/mcL Monocytes # 0.4 (0.0-1.3) K/mcL Eosinophils # 0.2 (0.0-0.6) K/mcL Basophils # 0.0 (0.0-0.2) K/mcL PT (9.4-12.1) Seconds INR APTT (26.0-36.0) Seconds Sodium 135 L (136-145) mEq/L Potassium 5.0 (3.5-5.1) mEq/L Chloride 104 (98-107) mEq/L Carbon Dioxide 23 (23-29) mEq/L BUN 27 H (8-23) mg/dL Creatinine 1.34 H (0.70-1.30) mg/dL Est GFR ( Amer) > 60 (> 60) Est GFR (Non-Af Amer) 51 L (> 60) BUN/Creatinine Ratio 20 (6-26) Glucose 263 H (70-105) mg/dL Calculated Osmolality 294 (280-300) Lactic Acid 1.3 (0.5-2.2) mmol/L Calcium 8.9 (8.6-10.3) mg/dL Total Bilirubin 0.5 (0.3-1.0) mg/dL Direct Bilirubin 0.2 (0.0-0.2) mg/dL Indirect Bilirubin 0.3 (0.0-1.2) mg/dL AST 28 (13-39) Units/L ALT 60 H (7-52) Units/L Alkaline Phosphatase 82 (34-104) Units/L Troponin I 0.12 H* (< 0.04) ng/mL B-Natriuretic Peptide (Less than 100) pg/mL Serum Total Protein 6.2 L (6.4-8.9) g/dL Albumin 3.3 L (3.5-5.7) g/dL Globulin 2.9 (2.4-3.5) g/dL Albumin/Globulin Ratio 1.1 (1.1-2.2) Urine Color (Yellow) Urine Clarity (Clear) Urine pH (5.0-8.0) pH Units Ur Specific [place] (1.010-1.025) Urine Protein (Neg-Trace) mg/dL Urine Glucose (UA) (Normal) mg/dL Urine Ketones (Negative) mg/dL Urine Blood (Negative) Urine Nitrite (Negative) Urine Bilirubin (Negative) Urine Urobilinogen (Normal) mg/dL Ur Leukocyte Esterase (Negative) Ur Culture Indicated? (NO) 11/01/17 11/01/17 11/01/17 Range/Units 09:49 09:49 11:14 WBC (4.3-11.1) K/mcL RBC (4.19-5.50) M/mcL Hgb (12.9-16.9) g/dL Hct (37.5-50.1) % MCV (83.0-100.0) fL MCH (28.0-33.3) pg MCHC (31.6-35.5) g/dL RDW (11.5-14.5) % Plt Count (140-400) K/mcL MPV (9.4-12.4) fL Immature Gran % (0-4) % Seg Neutrophils % % Lymphocytes % % Monocytes % % Eosinophils % % Basophils % % Neutrophils # (1.6-8.9) K/mcL Lymphocytes # (0.6-4.6) K/mcL Monocytes # (0.0-1.3) K/mcL Eosinophils # (0.0-0.6) K/mcL Basophils # (0.0-0.2) K/mcL PT 13.2 H (9.4-12.1) Seconds INR 1.2 APTT 29.4 (26.0-36.0) Seconds Sodium (136-145) mEq/L Potassium (3.5-5.1) mEq/L Chloride (98-107) mEq/L Carbon Dioxide (23-29) mEq/L BUN (8-23) mg/dL Creatinine (0.70-1.30) mg/dL Est GFR ( Amer) (> 60) Est GFR (Non-Af Amer) (> 60) BUN/Creatinine Ratio (6-26) Glucose (70-105) mg/dL Calculated Osmolality (280-300) Lactic Acid (0.5-2.2) mmol/L Calcium (8.6-10.3) mg/dL Total Bilirubin (0.3-1.0) mg/dL Direct Bilirubin (0.0-0.2) mg/dL Indirect Bilirubin (0.0-1.2) mg/dL AST (13-39) Units/L ALT (7-52) Units/L Alkaline Phosphatase (34-104) Units/L Troponin I (< 0.04) ng/mL B-Natriuretic Peptide 1596 H (Less than 100) pg/mL Serum Total Protein (6.4-8.9) g/dL Albumin (3.5-5.7) g/dL Globulin (2.4-3.5) g/dL Albumin/Globulin Ratio (1.1-2.2) Urine Color Yellow (Yellow) Urine Clarity Clear (Clear) Urine pH 5.0 (5.0-8.0) pH Units Ur Specific [place] > 1.030 H (1.010-1.025) Urine Protein Negative (Neg-Trace) mg/dL Urine Glucose (UA) 100 H (Normal) mg/dL Urine Ketones Negative (Negative) mg/dL Urine Blood Negative (Negative) Urine Nitrite Negative (Negative) Urine Bilirubin Negative (Negative) Urine Urobilinogen Normal (Normal) mg/dL Ur Leukocyte Esterase Negative (Negative) Ur Culture Indicated? NO (NO) - Radiology Data Radiology results reviewed: Yes I reviewed the patient's radiology results. Chest X-Ray 11/01/17 09:21 IMPRESSION: Findings are most suggestive of pulmonary interstitial edema. Trace bilateral pleural effusions. Correlation with the volume status is recommended. D/ / 11/01/2017 09:46:30 Andrea Min MD / Chantell Foster Interpreting Provider: Andrea Min MD Chest X-Ray 11/01/17 09:21 IMPRESSION: Findings are most suggestive of pulmonary interstitial edema. Trace bilateral pleural effusions. Correlation with the volume status is recommended. D/ / 11/01/2017 09:46:30 Andrea Min MD / Chantell Foster Interpreting Provider: Andrea Min MD Chest CTA 11/01/17 09:22 IMPRESSION: No findings to suggest pulmonary embolus Bilateral pleural effusions with multifocal associated airspace disease. Pulmonary edema is favored D/ / Markus Roberts / Markus Roberts Interpreting Provider: Markus Roberts - EKG Data EKG #1 EKG attestation: Yes I reviewed and interpreted this EKG. EKG results narrative: Sinus rhythm with an arrhythmia at the rate of 79. Patient does have a right bundle branch block. Also Q waves in lead 3 and aVF. AL interval is 257. QRS duration is 141. QT is 405. QTC is 465. Does appear to have occasional premature beats. No significant change from his previous EKG dated 10/24/2017. Critical Care Time Critical Care Time: Yes Total Critical Care Time: 35 Attestation: The high probability of a clinically significant, sudden or life threatening deterioration of the [CV] system(s) required my full and direct attention, intervention and personal management. The aggregate critical care time was [35] minutes. This time is in addition to time spent performing reported procedures but includes the following: [x] Data Review and interpretation [x] Patient assessment and monitoring of vital signs [x] Documentation [x] Medication orders and management Attestation Statement - Attestation Attestation: I examined this patient and my medical decision-making was reviewed with the Resident Physician, Dr. Shafer. I agree with the documented findings, disposition and treatment plan as described except to the extent set forth below. Patient is an 82-year-old white male with history of COPD and CHF, as well as CAD who presents to the emergency permit today brought by his with worsening shortness of breath. Patient was just recently discharged yesterday for an amputation of his left third fourth and fifth digits secondary to gangrenous changes in his left foot. Patient denies any chest pain pressure or heaviness, no fevers or chills, no production of cough. Patient with some increased work of breathing and conversational dyspnea. Patient states the pain began suddenly last night after arriving home from the hospital and was worse this morning and was having difficulty lying flat. Patient has a BKA of the right lower extremity the left lower leg is edematous and swollen with pitting edema. I agree with patient's physical exam findings as documented. Patient's vital signs are stable on arrival. Patient's EKG shows a normal sinus rhythm with underlying right bundle branch block without acute ischemia. Patient placed on supplemental oxygen nasal cannula laboratory evaluation was obtained portal chest x-ray obtained and patient given aspirin. Patient's lab evaluation showed a mild elevation in his creatinine history of chronic kidney disease. Patient also with an elevated troponin which is increased significantly from his baseline of 0.05 while he was recently hospitalized. Patient's chest x-ray shows interstitial pulmonary edema with trace pleural effusions bilaterally. Patient had been sent for CTA of the chest out of possible concern for PE with his recent prolonged hospitalization and decreased ambulation. CTA was negative for PE but does reinforce the pulmonary edema and oral effusions. Patient received Lasix and was placed on BiPAP in the ED. Patient remains hemodynamically stable at this time. Patient will be admitted to the hospitalist service and we did speak with cardiology and consult them for an STEMI. After review of patient's medical records during recent hospitalization he was seen by cardiology and considered high risk for this invitations surgery and was recommended that they follow up with him as an outpatient following the procedure. Patient remains hemodynamically stable at this time and is doing better from a respiratory status on BiPAP.
[2017-11-01 10:02] LABS: Basophils % 0.4 %; Eosinophils # 0.2 K/mcL (0.0-0.6); Eosinophils % 2.8 %; Hemoglobin 10.5 g/dL (12.9-16.9); Immature Granulocytes % 1.7 % (0-4); Lymphocytes # 0.7 K/mcL (0.6-4.6); Lymphocytes % 12.3 %; Mean Corpuscular Hemoglobin 34.8 pg (28.0-33.3); Mean Corpuscular Volume 99.3 fL (83.0-100.0); Mean Platelet Volume 10.7 fL (9.4-12.4); Monocytes # 0.4 K/mcL (0.0-1.3); Platelet Count 163 K/mcL (140-400); Red Blood Count 3.02 M/mcL (4.19-5.50); Red Cell Distribution Width 13.4 % (11.5-14.5); Segmented Neutrophils % 75.8 %
[2017-11-01 10:08] LABS: INR 1.2; Prothrombin Time 13.2 Seconds (9.4-12.1)
[2017-11-01 10:10] LABS: Activated Partial Thrombo Time 29.4 Seconds (26.0-36.0)
[2017-11-01] MEDS ORDERED: Furosemide 40 MG/4 ML VIAL IVP ONE (10:16)
[2017-11-01 10:23] LABS: Alanine Aminotransferase 60 Units/L (7-52); Albumin 3.3 g/dL (3.5-5.7); Albumin/Globulin Ratio 1.1 (1.1-2.2); Alkaline Phosphatase 82 Units/L (34-104); Aspartate Amino Transferase 28 Units/L (13-39); BUN/Creatinine Ratio 20 (6-26); Bilirubin,Direct 0.2 mg/dL (0.0-0.2); Bilirubin,Indirect 0.3 mg/dL (0.0-1.2); Bilirubin,Total 0.5 mg/dL (0.3-1.0); Blood Urea Nitrogen 27 mg/dL (8-23); Calcium 8.9 mg/dL (8.6-10.3); Carbon Dioxide 23 mEq/L (23-29); Chloride 104 mEq/L (98-107); Globulin 2.9 g/dL (2.4-3.5); Glucose 263 mg/dL (70-105); Osmolality,Calculated 294 (280-300); Sodium 135 mEq/L (136-145); Total Protein 6.2 g/dL (6.4-8.9); eGFR For Non-African Americans 51 (> 60)
[2017-11-01 10:31] LABS: Troponin I 0.12 ng/mL (< 0.04)
[2017-11-01] MEDS ORDERED: Aspirin 325 MG TABLET PO ONE (10:32)
[2017-11-01] MEDS ORDERED: *HR* Heparin 5,000 UNIT/ML VIAL IVP ONE (11:10)
[2017-11-01] MEDS ORDERED: *HR* Heparin 5,000 UNIT/ML VIAL IVP PRN ×2 (11:10)
[2017-11-01] MEDS ORDERED: Piperacillin/Tazobactam 3.375 GM in 0.9 % Sodium Chloride Mini Bag 100 ML IVPB ONE (11:28)
[2017-11-01 11:31] LABS: Bilirubin,Urine Negative (Negative); Blood,Urine Negative (Negative); Clarity,Urine Clear (Clear); Color,Urine Yellow (Yellow); Glucose,Urine (UA) 100 mg/dL (Normal); Ketones,Urine Negative (Negative); Leukocyte Esterase,Urine Negative (Negative); Nitrite,Urine Negative (Negative); Protein,Urine Negative (Neg-Trace); Specific Gravity,Urine > 1.030 (1.010-1.025); Urobilinogen,Urine Normal (Normal)
[2017-11-01 12:11] LABS: Hematocrit 31.1 % (37.5-50.1); Hemoglobin 10.6 g/dL (12.9-16.9); Mean Corpuscular HGB Conc 34.1 g/dL (31.6-35.5); Mean Corpuscular Volume 99.7 fL (83.0-100.0); Mean Platelet Volume 10.7 fL (9.4-12.4); Platelet Count 176 K/mcL (140-400); Red Blood Count 3.12 M/mcL (4.19-5.50); Red Cell Distribution Width 13.4 % (11.5-14.5)
[2017-11-01 12:15] LABS: Heparin anti-factor XA UFH 0.01 IU/mL (0.30-0.70)
[2017-11-01 12:16] LABS: INR 1.1; Prothrombin Time 12.8 Seconds (9.4-12.1)
[2017-11-01] MEDS: Heparin 25,000 UNIT/500 ML D5W 25,000 UNIT/500 ML BAG IVC SCH (12:30)
--- NOTE | 2017-11-01 13:01 | Internal Med History&Physical ---
Date of Encounter: 11/01/17 Time of Encounter: 12:58 Internal Medicine - H&P: HPI History of present illness: Mr. Read is a 82 year old male with history of heart failure with reduced ejection fraction, DM, hypertension, h/o NM, PAD s/p right BKA presents for acute onset of dyspnea. Started yesterday night but has progressed after laying flat. He also admits to a substernal pressure sensation along with this. He was recently in hospital and discharged yesterday for gangrene of toes of his left foot. A few days ago prior to discharge, patient Lasix briefly held due to increase of creatinine, but his renal function improved and so Lasix was resumed. He was discharged yesterday in stable condition. Prior to discharge, he had a Cardiology consultation because of mildly elevated troponin. He was recommended to have a LHC one year ago but patient opted for medical management at lela time due to CKD. An echocardiogram was done showing EF of 45% with moderate LV diastolic dysfunction and atypical septal motion. Patient states after discharge yesterday, he went out to eat with his 's friends, including ham, salad and mac & cheese. He was prescribed Lasix on discharge but could not fill it yesterday because of this current weekend. In the ED, a CTA was done and negative for PE but did show bilateral pleural effusions favoring pulmonary edema. A chest x-ray was consistent with pulmonary edema and bilateral trace pleural effusions. Troponin was 0.12 today , which is elevated from prior. He was subsequently started on a heparin drip and Cardiology consulted. He has required BIPAP due to respiratory distress. Past Med Surg Social Fam HX - Past Medical History Medical history: arthritis, CHF, coronary artery disease, diabetes, GERD, hyperlipidemia, hypertension, myocardial infarction, peripheral artery disease, renal disease, thyroid disease Additional medical history: 2 NM's Psychiatric history: anxiety - Past Surgical History Surgical History: appendectomy, LE vascular intervention Additional surgical history: R BKA - toe amputation - Right CTR, L index finger amputation, open heart - Social History Smoking Status: Former smoker Smokeless Tobacco Status: No Alcohol use: none Drug use: none - Family History Father Living Status: Hx Family Cancer: Yes Mother Family Member Ethnicity: Non- Living Status: Hx Family Cardiac Disorders: No Hx Family Respiratory Disorders: No Hx Family Cancer: Yes (breast, liver) Hx Family GI Disorders: No Hx Family Endocrine Disorder: No Hx Family Neuromuscular Disorders: No Hx Family Neurologic Disorders: No Hx Family HEENT Disorders: No Hx Family Autoimmune Disorders: No Internal Medicine - H&P: Meds Allopurinol [Zyloprim 300 MG] 300 mg PO DAILY 05/26/15 [History] Insulin ASPART [NovoLOG] 11 - 15 unit SQ TIDAC 05/26/15 [History] Insulin Glargine [Lantus] 34 - 45 unit SQ HS 05/26/15 [History] Levothyroxine [Synthroid] 100 mcg PO QAM 05/26/15 [History] Lactulose 10 gm PO BID 04/05/16 [History] Nitroglycerin [Nitrostat] 0.4 mg SL Q5M PRN 04/05/16 [History] Furosemide [Lasix] 20 mg PO BID 10/28/16 [History] Atorvastatin [Lipitor] 40 mg PO HS 10/25/17 [History] Cholecalciferol (D-3) [Vitamin D] 5,000 unit PO DAILY #0 10/25/17 [History] Doxazosin [Cardura] 2 mg PO HS 10/25/17 [History] Timolol Maleate 0.5% 1 drop BOTH EYES BID 10/26/17 [History] Ferrous Sulfate 325 mg PO DAILY #30 tablet 10/31/17 [Rx] Metoprolol [Lopressor] 12.5 mg PO BID #60 tablet 10/31/17 [Rx] Aspirin [Lo-Dose Aspirin EC] 81 mg PO DAILY 11/01/17 [History] Finasteride [Proscar] 5 mg PO DAILY 11/01/17 [History] Isosorbide MONOnitrate (24 HR) [Imdur] 60 mg PO DAILY 11/01/17 [History] Ranitidine HCl [Acid Financial Aids Officer] 150 mg PO BID 11/01/17 [History] 3 Allergy/AdvReac Type Severity Reaction Status Date / Time acetaminophen [From Percocet] Allergy Hives Verified 11/01/17 11:37 Iodinated Contrast- Oral and Allergy Hives Verified 11/01/17 11:37 IV Dye Oxycodone [From Percocet] Allergy Hives Verified 11/01/17 11:37 prednisone Allergy Rash Verified 09/03/18 11:37 All Systems PM: A 10-system review of systems was performed and is negative for pertinent findings except as documented above in the HPI. - Constitutional Vitals: Temp Pulse Resp BP Pulse Ox 97.4 F L 71 26 153/80 100 11/01/17 08:59 11/01/17 12:44 11/01/17 12:44 11/01/17 12:44 11/01/17 12:44 General appearance: Present: A&O X 3 Exam: Mild respiratory distress after BIPAP off. - Head Head exam: Present: atraumatic, normocephalic - Eye Eye exam: Present: PERRL, conjuntiva pink, sclera anicteric Pupils: Present: PERRL - Neck Neck exam general surgery: Present: supple, trachea midline. Absent: lymphadenopathy - Respiratory Respiratory exam: Present: CTAB. Absent: accessory muscle use, rales, rhonchi, wheezes Additional comments: Fair air exchange - Cardiovascular Cardiovascular exam: Present: RRR, +S1, +S2. Absent: diastolic murmur, gallop, rubs, systolic murmur - GI/Abdominal GI/Abdominal exam: Present: normal bowel sounds, soft, no peritoneal signs. Absent: distended, tenderness - Extremities Exam Extremities exam: Present: pedal edema (left foot edema, 1+ pitting.), warm, radial pulses palpable and symmetrical. Absent: calf tenderness, cyanotic Additional comments: Right low extremity below knee amputation. No edema at stump. Left foot has clean dressing around area of recent amputation of 4th digit. There is no erythema, no purulent drainage. - Neurological Exam Neurological exam: Present: CN II-XII intact, oriented X3, no focal deficits. Absent: pronater drift, facial droop, speech deficit - Skin Skin exam: Present: dry, intact Internal Med - H&P Results - Labs CBC & Chem 7: 11/01/17 11:57 11/01/17 09:49 Labs: Short CBC 11/01/17 Range/Units 11:57 WBC 5.6 (4.3-11.1) K/mcL Hgb 10.6 L (12.9-16.9) g/dL Hct 31.1 L (37.5-50.1) % Plt Count 176 (140-400) K/mcL - Assessment and plan (1) Acute decompensated heart failure Current Visit: Yes Status: Acute Assessment and plan: There seems to be component of non-compliance with low sodium diet. Patient had macaroni & cheese and ham which likely was high in sodium. Was also not able to fill Lasix on discharge because of holiday weekend. - Continue IV Lasix 40 mg IV BID, will need to monitor renal function closely given his history of CKD. - elevated HOB >45 degrees - Fluid restriction diet - Strict I/Os. (2) NSTEMI (non-ST elevated myocardial infarction) Current Visit: Yes Status: Acute Assessment and plan: Cardiology consulted Continue Heparin drip Treatment of heart failure, likely cause is demand ischemia from respiratory distress. (3) Anemia Current Visit: No Status: Acute Assessment and plan: Stable Qualifiers: Anemia type: due to chronic kidney disease Chronic kidney disease stage: stage 3 (moderate) Qualified Code(s): N18.3 - Chronic kidney disease, stage 3 (moderate); D63.1 - Anemia in chronic kidney disease (4) Constipation Current Visit: Yes Status: Acute Qualifiers: Constipation type: unspecified constipation type Qualified Code(s): K59.00 - Constipation, unspecified (5) HFrEF (heart failure with reduced ejection fraction) Current Visit: No Status: Acute Assessment and plan: Plan as above Qualifiers: Heart failure chronicity: acute on chronic Qualified Code(s): I50.23 - Acute on chronic systolic (congestive) heart failure (6) CAD (coronary artery disease) Current Visit: No Status: Chronic Qualifiers: Coronary Disease-Associated Artery/Lesion type: unspecified vessel or lesion type [place] vs. transplanted heart: [place] heart Associated angina: angina presence unspecified Qualified Code(s): I25.10 - Atherosclerotic heart disease of [place] coronary artery without angina pectoris (7) CKD (chronic kidney disease) stage 3, GFR 30-59 ml/min Current Visit: Yes Status: Chronic Assessment and plan: Monitor renal function closely while patient being diuresed. (8) Diabetes mellitus Current Visit: No Status: Chronic Assessment and plan: Diabetic/ADA diet, ISS, Levemir Qualifiers: Diabetes mellitus type: type 2 Diabetes mellitus correction insulin use: with oysterman use Diabetes mellitus complication status: with unspecified complications Qualified Code(s): E11.8 - Type 2 diabetes mellitus with unspecified complications; Z79.4 - MCFP (current) use of insulin (9) Gout Current Visit: No Status: Chronic Assessment and plan: Allopurinol Qualifiers: Gout site: unspecified site Gout etiology: unspecified cause Chronicity: unspecified Qualified Code(s): M10.9 - Gout, unspecified (10) HTN (hypertension) Current Visit: No Status: Chronic Assessment and plan: Resume home medications. Qualifiers: Hypertension type: essential hypertension Qualified Code(s): I10 - Essential (primary) hypertension (11) Hypothyroidism Current Visit: No Status: Chronic Assessment and plan: Resume levothyroxine Qualifiers: Hypothyroidism type: unspecified Qualified Code(s): E03.9 - Hypothyroidism , unspecified (12) PAD (peripheral artery disease) Current Visit: No Status: Chronic (13) S/P CABG x 3 Current Visit: No Status: Chronic Assessment and plan: Resume home medications. (14) Gangrene of toe of left foot Current Visit: No Status: Acute Assessment and plan: s/p left 4th toe amputation recently. He is supposed to have follow-up with Podiatry tomorrow on this. Since he will now be admitted, will consult Podiatry. Received abx in ED today. I will hold off continuing antibiotics for now as does not look infected, but will defer to Podiatry. (15) DVT prophylaxis Current Visit: No Status: Acute Assessment and plan: Currently on heparin drip - Time Spent With Patient Total time spent is greater than 50% in coordination of care (as documented) at patient's floor/unit and/or counseling patient:
[2017-11-01] MEDS ORDERED: Nitroglycerin 0.4 MG TAB.SUBL SL PRN (13:06)
[2017-11-01] MEDS ORDERED: Ondansetron 4 MG/2 ML VIAL IVP PRN (13:11)
[2017-11-01] MEDS ORDERED: Naloxone 0.4 MG/ML INJ IVP PRN (13:14)
[2017-11-01] MEDS: Ipratropium/Albuterol Neb 3 ML IH SCH ×2 (15:50→20:29)
[2017-11-01] MEDS: Insulin LISPRO 300 UNITS/3 ML VIAL SQ SCH ×2 (17:31→21:14)
[2017-11-01] MEDS: Lactulose Oral Soln 20 GM/30 ML UDC RC SCH (21:10)
[2017-11-01] MEDS: Furosemide 40 MG/4 ML VIAL IVP SCH (21:10)
[2017-11-01] MEDS: Famotidine 20 MG TABLET PO SCH (21:10)
[2017-11-01] MEDS: Insulin DETEMIR 100 UNIT/ML X5UNITS SQ SCH (21:13)
[2017-11-02] MEDS: Ipratropium/Albuterol Neb 3 ML IH SCH ×6 (00:05→20:04)
[2017-11-02 01:43] LABS: Basophils % 0.4 %; Eosinophils # 0.2 K/mcL (0.0-0.6); Eosinophils % 3.2 %; Hematocrit 32.3 % (37.5-50.1); Hemoglobin 11.2 g/dL (12.9-16.9); Immature Granulocytes % 1.5 % (0-4); Lymphocytes # 0.9 K/mcL (0.6-4.6); Lymphocytes % 13.5 %; Mean Corpuscular HGB Conc 34.7 g/dL (31.6-35.5); Mean Corpuscular Volume 98.2 fL (83.0-100.0); Mean Platelet Volume 10.7 fL (9.4-12.4); Monocytes # 0.5 K/mcL (0.0-1.3); Monocytes % 7.3 %; Neutrophils # 5.1 K/mcL (1.6-8.9); Platelet Count 184 K/mcL (140-400); Red Blood Count 3.29 M/mcL (4.19-5.50); Red Cell Distribution Width 13.4 % (11.5-14.5); Segmented Neutrophils % 74.1 %
--- NOTE | 2017-11-02 02:59 | Event Note ---
Date of Encounter: 11/02/17 Time of Encounter: 02:54 I received page from RN as patient admitted for NSTEMI became nervous, diaphoretic and felt "something is wrong" . He denied chest pain for admitted to shortness of breath that was as bad as when he presented. Patient continues to refuse Bipap and remains on NC. I review his new EKG - unchanged from admit. Troponin 0.15 is unchanged from yesterday. Glucose was 200.
[2017-11-02 07:16] LABS: BUN/Creatinine Ratio 17 (6-26); Blood Urea Nitrogen 22 mg/dL (8-23); Calcium 8.8 mg/dL (8.6-10.3); Carbon Dioxide 21 mEq/L (23-29); Chloride 103 mEq/L (98-107); Glucose 200 mg/dL (70-105); Osmolality,Calculated 293 (280-300); Sodium 137 mEq/L (136-145); eGFR For Non-African Americans 55 (> 60)
[2017-11-02] MEDS: Lactulose Oral Soln 20 GM/30 ML UDC RC SCH ×2 (09:15→20:15)
[2017-11-02] MEDS: Furosemide 40 MG/4 ML VIAL IVP SCH (09:15)
[2017-11-02] MEDS: Famotidine 20 MG TABLET PO SCH (09:16)
[2017-11-02] MEDS: Cholecalciferol (D-3) 1,000 UNIT TABLET PO SCH (09:16)
[2017-11-02] MEDS: Isosorbide MONOnitrate (24 HR) 60 MG TAB.ER.24H PO SCH (09:16)
[2017-11-02] MEDS: Aspirin Enteric Coated 81 MG Tablet PO SCH (09:16)
[2017-11-02] MEDS: Finasteride 5 MG TABLET PO SCH (09:16)
[2017-11-02] MEDS: Insulin LISPRO 300 UNITS/3 ML VIAL SQ SCH ×4 (09:17→20:16)
[2017-11-02] MEDS ORDERED: *HR* Dextrose 50 % in Water (Syg) 50 ML SYRINGE IVP PRN (09:33)
[2017-11-02] MEDS ORDERED: Dextrose Gel 15 GM/37.5 ML TUBE PO PRN ×2 (09:33)
[2017-11-02] MEDS ORDERED: D5% in Water 1,000 ML IVC PRN (09:33)
--- NOTE | 2017-11-02 10:22 | Cardiology Consult Note ---
<PashaKatie J - Last Filed: 11/02/17 10:38> Date of Encounter: 11/02/17 Time of Encounter: 08:30 Assessment and Plan (1) Congestive heart failure Current Visit: Yes Status: Acute Per cardiology: -Admitted with acute on chronic CHF, systolic and diastolic. Reports class III symptoms. -Chest x-ray and chest CT with pulmonary edema, bilateral pleural effusions. -BNP 1500s. -TTE 09/2017 with LVEF 45%, mildly dilated LV, moderate diastolic dysfunction, mildly dilated RV with normal function, mild MR. -On lasix 40mg IV BID. -Currently net negative 3140ml. -Reports dry weight about 95kg, currently 101kg. -Unable to tolerate laying flat at this time. -Reports dietary indiscretion. -Of note, has not been taking BB. Did not fill lasix after recent discharge. Not on shasta/arb due to renal function. -Agree with IV diuresis. -Strict i/os, fluid restriction, daily weights. -Consider addition of BB prior to discharge, will not start now due to acute CHF exacerbation. -CHF education reinforced with patient. Qualifiers: Heart failure type: combined systolic and diastolic Heart failure chronicity: acute on chronic Qualified Code(s): I50.43 - Acute on chronic combined systolic (congestive) and diastolic (congestive) heart failure (2) Elevated troponin Current Visit: Yes Status: Acute Per cardiology: -Troponins 0.12, 0.15, 0.15 in the setting of CHF. -Denies chest pain. -NO acute ECG changes. -Of note, has had abnormal echo since 04/2016 and has elected for medical management. Most recent TTE as above with newly reduced LVEF. -Currently on asa, statin, hepairn drip. NOt on BB due to acute CHF. -Demand ischemia in the setting of CHF. No cardiac rehab consult warranted. -I did discuss at length with patient regarding cardiology recommendations for LHC due to abnormal echo, newly reduced LVEF. Patient would like to think about LHC and discuss with family prior to proceeding with LHC. (3) CKD (chronic kidney disease) stage 3, GFR 30-59 ml/min Current Visit: Yes Status: Chronic Per cardiology: -Known CKD. -FOllows with . -Management per primary service. (4) CAD (coronary artery disease) Current Visit: No Status: Chronic Per cardiology: -Known CAD s/p CABG 2001. Qualifiers: Coronary Disease-Associated Artery/Lesion type: [place] artery [place] vs. transplanted heart: [place] heart Associated angina: without angina Qualified Code(s): I25.10 - Atherosclerotic heart disease of [place] coronary artery without angina pectoris Discussion w patient/family: The assessment and plan as outlined above was discussed with the patient who expressed understanding and agreement. All questions were answered. Thank you for involving us in the care of your patient. Please call with any questions. Discussed and reviewed with . History of Present Illness Consult date: 11/01/17 Requesting physician: Sammie Shafer Consult reason: elevated troponin, CHF Chief complaint: shortness of breath History of present illness: Mr. Read is a 82 year old male with a relevant past medical history of HTN, HLD, DM, CAD, GERD, PAD, Right BKA, hypothyroidism, CAD s/p CABG 2001, [place], CHF, recent toe amputation who presented to [facility] with complaints of increased shortness of breath. ALso reports orthopnea. Patient states he was unable to lay in bed, and had to sleep in his recliner. Patient denies increased peripheral edema. Patient denies chest pain. Of note, patient reports had a family get together where he ate ham, potatoe salad. Past Med Surg Social Fam HX - Past Medical History Attestation: Yes The following information was validated with the patient. Source: patient, obtained from family Medical history: arthritis, cardiomyopathy, CHF, coronary artery disease, diabetes, GERD, hyperlipidemia, hypertension, myocardial infarction, peripheral artery disease, renal disease, thyroid disease Additional medical history: 2 LA's Psychiatric history: anxiety - Past Surgical History Surgical History: appendectomy, LE vascular intervention Additional surgical history: R BKA - toe amputation - Right CTR, L index finger amputation, open heart - Social History Smoking Status: Former smoker Smokeless Tobacco Status: No Alcohol use: none Drug use: none - Family History Father Living Status: Hx Family Cancer: Yes Mother Family Member Ethnicity: Non- Living Status: Hx Family Cardiac Disorders: No Hx Family Respiratory Disorders: No Hx Family Cancer: Yes (breast, liver) Hx Family GI Disorders: No Hx Family Endocrine Disorder: No Hx Family Neuromuscular Disorders: No Hx Family Neurologic Disorders: No Hx Family HEENT Disorders: No Hx Family Autoimmune Disorders: No Medications and Allergies Allopurinol [Zyloprim 300 MG] 300 mg PO DAILY 05/26/15 [History] Insulin ASPART [NovoLOG] 11 - 15 unit SQ TIDAC 05/26/15 [History] Insulin Glargine [Lantus] 34 - 45 unit SQ HS 05/26/15 [History] Levothyroxine [Synthroid] 100 mcg PO QAM 05/26/15 [History] Lactulose 10 gm PO BID 04/05/16 [History] Nitroglycerin [Nitrostat] 0.4 mg SL Q5M PRN 04/05/16 [History] Furosemide [Lasix] 20 mg PO BID 10/28/16 [History] Atorvastatin [Lipitor] 40 mg PO HS 10/25/17 [History] Cholecalciferol (D-3) [Vitamin D] 5,000 unit PO DAILY #0 10/25/17 [History] Doxazosin [Cardura] 2 mg PO HS 10/25/17 [History] Timolol Maleate 0.5% 1 drop BOTH EYES BID 10/26/17 [History] Ferrous Sulfate 325 mg PO DAILY #30 tablet 10/31/17 [Rx] Metoprolol [Lopressor] 12.5 mg PO BID #60 tablet 10/31/17 [Rx] Aspirin [Lo-Dose Aspirin EC] 81 mg PO DAILY 11/01/17 [History] Finasteride [Proscar] 5 mg PO DAILY 11/01/17 [History] Isosorbide MONOnitrate (24 HR) [Imdur] 60 mg PO DAILY 11/01/17 [History] Ranitidine HCl [Acid Sales Office Assistant] 150 mg PO BID 11/01/17 [History] 3 Allergy/AdvReac Type Severity Reaction Status Date / Time acetaminophen [From Percocet] Allergy Hives Verified 11/01/17 11:37 Iodinated Contrast- Oral and Allergy Hives Verified 11/01/17 11:37 IV Dye Oxycodone [From Percocet] Allergy Hives Verified 11/01/17 11:37 prednisone Allergy Rash Verified 11/01/17 11:37 All Systems Review: The remainder of the systems were reviewed and are negative - Cardiovascular Cardiovascular: as per HPI, dyspnea on exertion, orthopnea Physical Examination Vital Signs, Last 4 Hours Temp Pulse Resp BP Pulse Ox 11/02/17 07:37 98.7 F 68 18 121/73 98 General: Conversant, No Apparent Distress HEENT: Atraumatic, Normocephaly, Mucus Membranes Moist Neck: No JVD, Normal carotid pulses Cardiac: Reg Rate and Rhythm, Normal S1 and S2, No Murmur Lungs: Other (Lung sounds diminished throughout. ) Neuro: Alert and responsive, No focal deficits noted Abdomen: Soft, Non-Tender Skin: No rashes noted on visualized skin Musculoskeletal: No Chest Wall Tenderness Extremities: No Clubbing, No Cyanosis, No Edema, Normal Pulses Results 11/02/17 01:35 11/02/17 01:35 Lab Results Impressions Chest CTA 11/01/17 09:22 IMPRESSION: No findings to suggest pulmonary embolus Bilateral pleural effusions with multifocal associated airspace disease. Pulmonary edema is favored D/ / Markus Roberts / Markus Roberts Interpreting Provider: Markus Roberts Active Medications Albuterol/Ipratropium (Duoneb) 3 ml IH Q4HWA [facility] Stop: 05/04/18 12:01 Allopurinol (Zyloprim) 300 mg PO DAILY [facility] Stop: 05/04/18 09:01 Last Admin: 11/02/17 09:16 Dose: 300 mg Aspirin (Aspirin Ec) 81 mg PO DAILY [facility] Stop: 05/04/18 09:01 Last Admin: 11/02/17 09:16 Dose: 81 mg Atorvastatin Calcium (Lipitor) 40 mg PO HS [facility] Stop: 05/03/18 21:01 Last Admin: 11/01/17 21:10 Dose: 40 mg Dextrose/Water (Dextrose 50% (Syg)) 25 ml IVP AD PRN PRN Reason: Hypoglycemia Stop: 05/04/18 09:34 Docusate Sodium (Colace) 100 mg PO DAILY [facility] PRN Reason: Protocol Stop: 05/03/18 14:01 Last Admin: 11/02/17 09:16 Dose: 100 mg Doxazosin Mesylate (Cardura) 2 mg PO HS [facility] Stop: 05/03/18 21:01 Last Admin: 11/01/17 22:39 Dose: 2 mg Famotidine (Pepcid) 20 mg PO DAILY [facility] Stop: 05/05/18 09:01 Finasteride (Proscar) 5 mg PO DAILY [facility] PRN Reason: Protocol Stop: 05/04/18 09:01 Last Admin: 11/02/17 09:16 Dose: 5 mg Furosemide (Lasix) 40 mg IVP BIDDIURETIC [facility] Stop: 05/04/18 17:01 Glucagon (Glucagen) 1 mg IM ONCE PRN PRN Reason: Hypoglycemia Stop: 05/04/18 09:34 Glucose (Gluctose) 15 gm PO ONCE PRN PRN Reason: Hypoglycemia Stop: 05/04/18 09:34 Glucose (Gluctose) 30 gm PO ONCE PRN PRN Reason: Hypoglycemia Stop: 05/04/18 09:34 Heparin Sodium (Porcine) (Heparin) 4,000 unit IVP Q6HR PRN PRN Reason: SEE COMMENTS Stop: 05/03/18 11:11 Heparin Sodium (Porcine) (Heparin) 2,000 unit IVP Q6H PRN PRN Reason: SEE COMMENTS Stop: 05/03/18 11:11 Last Admin: 11/02/17 04:31 Dose: 2,000 unit Hydralazine HCl (Hydralazine) 10 mg IVP Q6H PRN PRN Reason: SEE COMMENTS Stop: 05/03/18 13:12 Heparin Sodium/Dextrose (Heparin 25,000 Unit/500 Ml D5w) 25,000 unit in 500 mls @ 20.003 mls/hr IVC .Q24H [facility]; 10.5 UNIT/KG/HR PRN Reason: Protocol Stop: 05/03/18 11:16 Last Titration: 11/02/17 04:30 Dose: 12.5 unit/kg/hr, 23.814 mls/hr Dextrose (Dextrose 5%) 1,000 mls @ 100 mls/hr IVC .Q10H PRN PRN Reason: HYPOGLYCEMIA Stop: 05/04/18 09:34 Insulin Detemir (Levemir) 35 unit SQ HS [facility] Stop: 05/03/18 21:01 Last Admin: 11/01/17 21:13 Dose: 35 unit Insulin Human Lispro (Humalog) 0 units SQ HS [facility] PRN Reason: Protocol Stop: 05/03/18 21:01 Last Admin: 11/01/17 21:14 Dose: 2 units Insulin Human Lispro (Humalog) 0 units SQ TIDAC [facility] PRN Reason: Protocol Stop: 05/04/18 11:31 Isosorbide Mononitrate (Imdur) 60 mg PO DAILY [facility] Stop: 05/04/18 09:01 Last Admin: 11/02/17 09:16 Dose: 60 mg Lactulose (Lactulose) 10 gm RC BID [facility] Stop: 05/03/18 21:01 Last Admin: 11/02/17 09:15 Dose: 10 gm Levothyroxine Sodium (Synthroid) 100 mcg PO DAILY@0630 [facility] Stop: 05/05/18 06:31 Naloxone HCl (Narcan) 0.4 mg IVP Q2MIN PRN PRN Reason: SEE COMMENTS Stop: 05/03/18 13:15 Nitroglycerin (Nitroglycerin) 0.4 mg SL Q5M PRN PRN Reason: Chest Pain Stop: 05/03/18 13:07 Ondansetron HCl (Zofran) 4 mg IVP Q8H PRN; Protocol PRN Reason: Nausea And Vomiting Stop: 05/03/18 13:12 Timolol Maleate (Timolol Maleate 0.5%) 1 drop BOTH EYES BID [facility] PRN Reason: Protocol Stop: 05/03/18 21:01 Last Admin: 11/02/17 09:17 Dose: 1 drop Vitamin D (Vitamin D) 1,000 unit PO DAILY [facility] PRN Reason: Protocol Stop: 05/04/18 09:01 Last Admin: 11/02/17 09:16 Dose: 1,000 unit Laboratory Tests 11/01/17 11/01/17 11/01/17 09:49 09:49 16:26 Hgb Creatinine 1.34 H Troponin I 0.12 H* 0.15 H* B-Natriuretic Peptide 1596 H 11/02/17 11/02/17 11/02/17 01:35 01:35 01:47 Hgb 11.2 L Creatinine 1.26 Troponin I 0.15 H* B-Natriuretic Peptide - Imaging and Cardiology Chest Xray: report reviewed Echo: report reviewed - EKG Interpretation EKG results cardiology: personally reviewed (ECG with SR, HR 65, RBBB. Non- specific ST and T wave abnormalities noted, similar to previous ECG.), other ( Telemetry reviewed with average HR previous 12 hours noted to be 66, SR. PVCs, PACs noted.) Consult Discharge Plan - Plan Referrals: Nestor De La Cruz MD [Primary Care Provider] - <Ulises Anderson - Last Filed: 11/03/17 14:22> Date of Encounter: 11/02/17 Time of Encounter: 10:00 - Attending Attestation I have personally performed a face to face evaluation on this patient. I have reviewed and agree with the care plan. History and Exam by me shows: CC: Shortness of breath HPI: Pt presented to ER with complaint of increasing shortness of breath over last four days. He notes has been unable to lie flat to sleep for the last three nights. He reports intially felt better after hospital discharge. He denies chest pain, pressure or palpitations, He reports is compliant with medications, but not dietary sodium or caloric restrictions. He has known worsening heart failure, with decreased EF, severe triple vessel disease post CABG x 3 2001. He has not been active since hospital discharge. He denies chest pain, has not required sl ntg. He notes is breathing much easier than when initially presented to ER. ROS; reviewed PMH; reviewed PE: pt seen and examined, agree with documented findings IMP/Plan: 1. Acute on chronic decompensated systolic heart failure due to non compliance with sodium and fluid restrictions. Is responding well to diuresis 2. Ischemic cardiomyopathy, recommendations for LHC/poss to eval ischemic substrate as etiology of worseing ejection fraction, pt declines, very concerned about potential renal injury pushing him into dialyisis, will discuss with his family. 3. CAD - severe triple vessel CAD, post CABG x3 on 2001. 4. Chronic renal failure, stage 4, monitoring closely, is following with nephrology. PT is at increased risk for contrast induced nephropathy, will consider options and discuss with his family, and get back to our service. 5. Hypertension, controlled on current meds. 6. PVD, post right BKA, recent amputation of toes on left foot. Assessment and Plan Discussion w patient/family: The assessment and plan as outlined above was discussed with the patient and/or family members who expressed understanding and agreement. All questions were answered. Thank you for involving us in the care of your patient. Please call with any questions. History of Present Illness History of present illness: Mr. Read is a 82 year old male All Systems Review: The remainder of the systems were reviewed and are negative Physical Examination Vital Signs, Last 4 Hours Resp Pulse Ox 11/03/17 10:48 16 92 Results 11/03/17 04:03 11/03/17 04:03 Lab Results 11/03/17 11/03/17 04:03 04:03 WBC 6.1 Hgb 10.2 L Hct 29.6 L Plt Count 177 Sodium 140 Potassium 3.4 L Chloride 103 Carbon Dioxide 28 BUN 21 Creatinine 1.31 H Glucose 107 H Calcium 8.6
[2017-11-02] MEDS: Heparin 25,000 UNIT/500 ML D5W 25,000 UNIT/500 ML BAG IVC SCH (12:29)
--- NOTE | 2017-11-02 13:04 | Podiatry Consult Note ---
Date of Encounter: 11/02/17 Time of Encounter: 12:00 Assessment and Plan (1) Gangrene of toe of left foot Current visit: No Status: Acute s.p #1: Incision and drainage to bone cortex for necrosis of toes left foot #2 amputation of toes and metatarsals #3 and 4 left foot #3 application of new shield and graft jacket #4 application of wound VAC Assessment: Surgical site assessed at bedside Healing uneventfully Cleansed with saline- adaptic- 4x4 and kerlix applied Patient to remain limited weight bearing to heel as previously instructed Elevate States his appointment was suppose to be in office today- please reschedule him to be seen in clinic with in 1 week. History of Present Illness HPI: Mr. Read is a 82 year old male who underwent #1: Incision and drainage to bone cortex for necrosis of toes left foot #2 amputation of toes and metatarsals #3 and 4 left foot #3 application of new shield and graft jacket #4 application of wound VAC on 10/28/17 Patient was discharged 2 days ago- states that he was fine when he went home however could not have his lasix filled due to the holiday weekend and had shortness of breath and chest tightness set in overnight. Patient was not admitted related to foot however we have been consulted for post operative management. Patient states his foot feels great. Patient denies any pain at this time. States he has been staying off of it as instructed. Patient denies any fevers, chills, n/v or fls. Patient has a PMH sig for DM, CKD III, and PVD. Nurse reports that PM nurse reported to her that dressing patient arrived with was disheveled, loose and was only a dry dressing. Nurse reported she removed dressing and applied adaptic, 4x4 and kerlix as was written in op- note. Dressing which was placed remains intact at this time. Past Med Surg Social Fam HX - Past Medical History Medical history: arthritis, cardiomyopathy, CHF, coronary artery disease, diabetes, GERD, hyperlipidemia, hypertension, myocardial infarction, peripheral artery disease, renal disease, thyroid disease Additional medical history: 2 WI's Psychiatric history: anxiety - Past Surgical History Surgical History: appendectomy, LE vascular intervention Additional surgical history: R BKA - toe amputation - Right CTR, L index finger amputation, open heart - Social History Smoking Status: Former smoker Smokeless Tobacco Status: No Alcohol use: none Drug use: none - Family History Father Living Status: Hx Family Cancer: Yes Mother Family Member Ethnicity: Non- Living Status: Hx Family Cardiac Disorders: No Hx Family Respiratory Disorders: No Hx Family Cancer: Yes (breast, liver) Hx Family GI Disorders: No Hx Family Endocrine Disorder: No Hx Family Neuromuscular Disorders: No Hx Family Neurologic Disorders: No Hx Family HEENT Disorders: No Hx Family Autoimmune Disorders: No Medications and Allergies Allopurinol [Zyloprim 300 MG] 300 mg PO DAILY 05/26/15 [History] Insulin ASPART [NovoLOG] 11 - 15 unit SQ TIDAC 05/26/15 [History] Insulin Glargine [Lantus] 34 - 45 unit SQ HS 05/26/15 [History] Levothyroxine [Synthroid] 100 mcg PO QAM 05/26/15 [History] Lactulose 10 gm PO BID 04/05/16 [History] Nitroglycerin [Nitrostat] 0.4 mg SL Q5M PRN 04/05/16 [History] Furosemide [Lasix] 20 mg PO BID 10/28/16 [History] Atorvastatin [Lipitor] 40 mg PO HS 10/25/17 [History] Cholecalciferol (D-3) [Vitamin D] 5,000 unit PO DAILY #0 10/25/17 [History] Doxazosin [Cardura] 2 mg PO HS 10/25/17 [History] Timolol Maleate 0.5% 1 drop BOTH EYES BID 10/26/17 [History] Ferrous Sulfate 325 mg PO DAILY #30 tablet 10/31/17 [Rx] Metoprolol [Lopressor] 12.5 mg PO BID #60 tablet 10/31/17 [Rx] Aspirin [Lo-Dose Aspirin EC] 81 mg PO DAILY 11/01/17 [History] Finasteride [Proscar] 5 mg PO DAILY 11/01/17 [History] Isosorbide MONOnitrate (24 HR) [Imdur] 60 mg PO DAILY 11/01/17 [History] Ranitidine HCl [Acid Account Services Associate] 150 mg PO BID 11/01/17 [History] 3 Allergy/AdvReac Type Severity Reaction Status Date / Time acetaminophen [From Percocet] Allergy Hives Verified 11/01/17 11:37 Iodinated Contrast- Oral and Allergy Hives Verified 11/01/17 11:37 IV Dye Oxycodone [From Percocet] Allergy Hives Verified 11/01/17 11:37 prednisone Allergy Rash Verified 11/01/17 11:37 All Systems Reviewed: As per HPI Physical Exam - Constitutional Vitals: Temp Pulse Resp BP Pulse Ox 98.5 F 57 16 118/71 98 11/02/17 11:07 11/02/17 11:07 11/02/17 11:15 11/02/17 11:07 11/02/17 11:15 Exam: Podiatry General Exam: General appearance: alert awake oriented X 3. Calm and pleasant, no acute distress.. Vascular: Pedal pulses faint DP/PT , No evidence of cyanosis, pallor or rubor, Edema graded at 1+/4, Skin Temperature warm, No calf pain with manual compression. capillary refill time is immediate to digits. Neurologic: Minimal sensation to light or moderate touch- Postop Exam: Sutures intact to incision line and graft jacket, no signs of dehiscence. No open area, no drainage, no odor, no erythema, no streaking. Minimal edema. There is darkening of the graft jacket- likely from dry dressing which was placed. Jacket remains adhered and intact at this time. No need to remove. Remaining toes warm and cap refill <3 seconds. Healing uneventfully. No clinical signs of infection Results - Labs Result Diagrams: 11/02/17 01:35 11/02/17 01:35 Labs: Abnormal lab results RBC 3.29 M/mcL (4.19-5.50) L 11/02/17 01:35 Hgb 11.2 g/dL (12.9-16.9) L 11/02/17 01:35 Hct 32.3 % (37.5-50.1) L 11/02/17 01:35 MCH 34.0 pg (28.0-33.3) H 11/02/17 01:35 PT 12.8 Seconds (9.4-12.1) H 11/01/17 11:57 Heparin Anti-Xa, LM Wt 0.18 IU/mL (0.50-1.10) L 11/02/17 01:35 Carbon Dioxide 21 mEq/L (23-29) L 11/02/17 01:35 Est GFR (Non-Af Amer) 55 (> 60) L 11/02/17 01:35 Glucose 200 mg/dL (70-105) H 11/02/17 01:35 POC Glucose 185 mg/dL (70-99) H 11/02/17 12:12 ALT 60 Units/L (7-52) H 11/01/17 09:49 Troponin I 0.15 ng/mL (< 0.04) H* 11/02/17 01:47 B-Natriuretic Peptide 1596 pg/mL (Less than 100) H 11/01/17 09:49 Serum Total Protein 6.2 g/dL (6.4-8.9) L 11/01/17 09:49 Albumin 3.3 g/dL (3.5-5.7) L 11/01/17 09:49 Ur Specific [place] > 1.030 (1.010-1.025) H 11/01/17 11:14 Urine Glucose (UA) 100 mg/dL (Normal) H 11/01/17 11:14 H & H 11/02/17 Range/Units 01:35 Hgb 11.2 L (12.9-16.9) g/dL Hct 32.3 L (37.5-50.1) % All other labs normal. Consult Discharge Plan - Plan Referrals: Nestor De La Cruz MD [Primary Care Provider] -
--- NOTE | 2017-11-02 13:14 | Internal Med Progress Note ---
Hospitalist Progress Note - Encounter Date of Encounter: 11/02/17 Time of Encounter: 09:15 - Subjective Interval History: Feels better; improving shortness of breath; denies chest pain, palpitations, fever/chills, cough; reports he does not know about salt and fluid restriction; - Exam Vitals: Temp Pulse Resp BP Pulse Ox 98.5 F 57 16 118/71 98 11/02/17 11:07 11/02/17 11:07 11/02/17 11:15 11/02/17 11:07 11/02/17 11:15 Exam: General: Well-developed male lying comfortably in bed in no acute distress Skin: Warm and supple Chest: Normal thoracic expansion. Normal breath sounds. faint bibasal crackles+ Heart: Normal S1 & S2; rhythmic. No rubs or murmurs. Abdomen: Non-distended, soft and nontender, obese Extremities: s/p right BKA; left foot in surgical dressing, s/p recent 4th toe amputation Neurological: Awake, alert and oriented to person, place and time. No focal deficits. - Assessment and Plan (1) NSTEMI (non-ST elevated myocardial infarction) Current Visit: Yes Status: Acute Assessment and Plan: Presented with slight troponin leak, flat and adynamic around 0.15. Started on ACS protocol in the emergency room, anticoagulation with IV heparin drip. This is likely due to demand ischemia due to acute CHF. Cardiology has been consulted, follow-up recommendations. (2) Acute decompensated heart failure Current Visit: Yes Status: Acute Assessment and Plan: Recent echocardiogram showed mildly reduced EF around 45%, mild LV dilation, moderate diastolic dysfunction, mild MR. Acute combined CHF; Patient was just discharged from our hospital 2 days ago, noted to be noncompliant with salt and fluid restriction, admitted with worsening dyspnea and pleural effusion. Continue diuresis with IV Lasix, fluid restriction, urine output monitoring. Discussed about 1.2L/day Fluid restriction per day along with dietary sodium restriction. Nutrition consult. continue nitrate; Telemetry monitoring; (3) CKD (chronic kidney disease) stage 3, GFR 30-59 ml/min Current Visit: Yes Status: Chronic Assessment and Plan: Serum creatinine around baseline, 1.26. Monitor closely in light of IV diuresis. Avoid new nephrotoxic agents. (4) CAD (coronary artery disease) Current Visit: Yes Status: Chronic Assessment and Plan: Continue aspirin, statin; patient is supposed to be on low-dose beta elda per previous discharge, awaiting pharmacy confirmation. (5) HTN (hypertension) Current Visit: Yes Status: Chronic Assessment and Plan: Blood pressure well controlled. Continue current medications. (6) Diabetes mellitus Current Visit: Yes Status: Chronic Assessment and Plan: Blood sugars minimally elevated above baseline. Continue basal bolus insulin regimen and uptitrate as needed. Accu-Chek blood glucose monitoring and diabetic diet. (7) DVT prophylaxis Current Visit: Yes Status: Acute Assessment and Plan: On IV heparin drip. (8) Gout Current Visit: Yes Status: Chronic (9) Hypothyroidism Current Visit: Yes Status: Chronic Assessment and Plan: Resume levothyroxine. (10) PAD (peripheral artery disease) Current Visit: Yes Status: Chronic (11) Gangrene of toe of left foot Current Visit: Yes Status: Acute Assessment and Plan: Patient was recently admitted for left fourth toe gangrene status post amputation. Podiatry has been consulted, continue local wound care as recommended. - Time Spent with Patient Total time spent is greater than 50% in coordination of care (as documented) at patient's floor/unit and/or counseling patient: Plan of Care Discussed with: patient Internal Medicine: Result - Labs CBC & Chem 7: 11/02/17 01:35 11/02/17 01:35 Labs: Short CBC 11/02/17 Range/Units 01:35 WBC 6.8 (4.3-11.1) K/mcL Hgb 11.2 L (12.9-16.9) g/dL Hct 32.3 L (37.5-50.1) % Plt Count 184 (140-400) K/mcL Neutrophils # 5.1 (1.6-8.9) K/mcL BMP 11/02/17 01:35 Sodium 137 Potassium 4.0 Chloride 103 Carbon Dioxide 21 L BUN 22 Creatinine 1.26 Glucose 200 H Calcium 8.8 Cardiac Enzymes 11/01/17 11/02/17 Range/Units 16:26 01:47 Troponin I 0.15 H* 0.15 H* (< 0.04) ng/mL - ABG Interpretation ABG results: PT/INR, D-dimer PT 12.8 Seconds (9.4-12.1) H 11/01/17 11:57 Consult Discharge Plan - Plan Referrals: Nestor De La Cruz MD [Primary Care Provider] - (4) CAD (coronary artery disease) Qualifiers: Coronary Disease-Associated Artery/Lesion type: bypass graft [place] vs. 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
[2017-11-02] MEDS ORDERED: Furosemide 40 MG/4 ML VIAL IVP SCH (17:00)
[2017-11-02] MEDS: Insulin DETEMIR 100 UNIT/ML X5UNITS SQ SCH (20:16)
[2017-11-03 04:46] LABS: Basophils % 0.5 %; Eosinophils # 0.2 K/mcL (0.0-0.6); Eosinophils % 3.8 %; Hematocrit 29.6 % (37.5-50.1); Hemoglobin 10.2 g/dL (12.9-16.9); Immature Granulocytes % 1.8 % (0-4); Lymphocytes % 16.4 %; Mean Corpuscular HGB Conc 34.5 g/dL (31.6-35.5); Mean Corpuscular Hemoglobin 33.3 pg (28.0-33.3); Mean Corpuscular Volume 96.7 fL (83.0-100.0); Mean Platelet Volume 10.7 fL (9.4-12.4); Monocytes # 0.6 K/mcL (0.0-1.3); Neutrophils # 4.2 K/mcL (1.6-8.9); Nucleated Red Blood Cells 0.3 /100 WBC (0); Platelet Count 177 K/mcL (140-400); Red Blood Count 3.06 M/mcL (4.19-5.50); Red Cell Distribution Width 13.6 % (11.5-14.5); Segmented Neutrophils % 68.5 %
[2017-11-03 05:06] LABS: BUN/Creatinine Ratio 16 (6-26); Blood Urea Nitrogen 21 mg/dL (8-23); Calcium 8.6 mg/dL (8.6-10.3); Carbon Dioxide 28 mEq/L (23-29); Chloride 103 mEq/L (98-107); Glucose 107 mg/dL (70-105); Osmolality,Calculated 293 (280-300); Potassium 3.4 mEq/L (3.5-5.1); Sodium 140 mEq/L (136-145); eGFR For Non-African Americans 52 (> 60)
[2017-11-03] MEDS: Ipratropium/Albuterol Neb 3 ML IH SCH ×3 (07:32→15:26)
[2017-11-03] MEDS: Insulin LISPRO 300 UNITS/3 ML VIAL SQ SCH ×2 (07:44→13:07)
[2017-11-03 07:49] VITALS: BP 124/57
[2017-11-03] MEDS ORDERED: Famotidine 20 MG TABLET PO SCH (09:00)
--- NOTE | 2017-11-03 09:48 | Cardiology Progress Note ---
Date of Encounter: 11/03/17 Time of Encounter: 08:00 Assessment and Plan (1) Congestive heart failure Current Visit: Yes Status: Acute Per cardiology: -Admitted with acute on chronic CHF, systolic and diastolic. Reports class III symptoms. -Chest x-ray and chest CT with pulmonary edema, bilateral pleural effusions. -BNP 1500s. -TTE 09/2017 with LVEF 45%, mildly dilated LV, moderate diastolic dysfunction, mildly dilated RV with normal function, mild MR. -On lasix 40mg IV BID. -Currently net negative 4047ml. -Reports dry weight about 95kg, currently 96kg. -Currently off O2 and laying almost flat. Appears euvolemic on exam. -Reports dietary indiscretion. -Of note, has not been taking BB. Did not fill lasix after recent discharge. Not on shasta/arb due to renal function. -Will switch to oral lasix. -Strict i/os, fluid restriction, daily weights. -Will start low dose beta elda. -CHF education reinforced at length with patient. Educated when to call cardiology, states understanding. Qualifiers: Heart failure type: combined systolic and diastolic Heart failure chronicity: acute on chronic Qualified Code(s): I50.43 - Acute on chronic combined systolic (congestive) and diastolic (congestive) heart failure (2) Elevated troponin Current Visit: Yes Status: Acute Per cardiology: -Troponins 0.12, 0.15, 0.15 in the setting of CHF. -Denies chest pain. -NO acute ECG changes. -Of note, has had abnormal echo since 04/2016 and has elected for medical management. Most recent TTE as above with newly reduced LVEF. -Currently on asa, statin. NOt on BB due to acute CHF. -Demand ischemia in the setting of CHF. No cardiac rehab consult warranted. -I did discuss at length with patient regarding cardiology recommendations for LHC due to abnormal echo, newly reduced LVEF. Patient refuses LHC at this time, states he will consider in outpatient setting. RIsks of no LHC explained to patient, states understanding. (3) CKD (chronic kidney disease) stage 3, GFR 30-59 ml/min Current Visit: Yes Status: Chronic Per cardiology: -Known CKD. -FOllows with . -Management per primary service. (4) CAD (coronary artery disease) Current Visit: Yes Status: Chronic Per cardiology: -Known CAD s/p CABG 2001. Qualifiers: Coronary Disease-Associated Artery/Lesion type: [place] artery [place] vs. transplanted heart: [place] heart Associated angina: without angina Qualified Code(s): I25.10 - Atherosclerotic heart disease of [place] coronary artery without angina pectoris Discussion w patient/family: The assessment and plan as outlined above was discussed with the patient who expressed understanding and agreement. All questions were answered. Thank you for involving us in the care of your patient. Please call with any questions. Discussed and reviewed with . Subjective Principal diagnosis: CHF Interval history: Patient off O2 today. Denies shortness of breath. Objective Vital Signs, Last 4 Hours Temp Pulse Resp BP Pulse Ox 11/03/17 07:48 98.2 F 84 16 124/57 92 11/03/17 07:32 16 92 General: Conversant, No Apparent Distress HEENT: Atraumatic, Normocephaly, Mucus Membranes Moist Neck: No JVD, Normal carotid pulses Cardiac: Reg Rate and Rhythm, Normal S1 and S2, No Murmur Lungs: Normal Breath Sounds, No Wheeze, Rales, Rhonchi Neuro: Alert and responsive, No focal deficits noted Abdomen: Soft, Non-Tender Skin: No rashes noted on visualized skin Musculoskeletal: No Chest Wall Tenderness Extremities: No Clubbing, No Cyanosis, No Edema, Other (Right BKA. Left DP 1+. ) Results 11/03/17 04:03 11/03/17 04:03 Lab Results Impressions Chest X-Ray 11/01/17 09:21 IMPRESSION: Findings are most suggestive of pulmonary interstitial edema. Trace bilateral pleural effusions. Correlation with the volume status is recommended. D/ / 11/01/2017 09:46:30 Andrea Min MD / Chantell Foster Interpreting Provider: Andrea Min MD Active Medications Albuterol/Ipratropium (Duoneb) 3 ml IH Q4HWA [facility] Stop: 05/04/18 12:01 Last Admin: 11/03/17 07:32 Dose: 3 ml Allopurinol (Zyloprim) 300 mg PO DAILY [facility] Stop: 05/04/18 09:01 Last Admin: 11/02/17 09:16 Dose: 300 mg Aspirin (Aspirin Ec) 81 mg PO DAILY [facility] Stop: 05/04/18 09:01 Last Admin: 11/02/17 09:16 Dose: 81 mg Atorvastatin Calcium (Lipitor) 40 mg PO HS [facility] Stop: 05/03/18 21:01 Last Admin: 11/02/17 20:15 Dose: 40 mg Dextrose/Water (Dextrose 50% (Syg)) 25 ml IVP AD PRN PRN Reason: Hypoglycemia Stop: 05/04/18 09:34 Docusate Sodium (Colace) 100 mg PO DAILY [facility] PRN Reason: Protocol Stop: 05/03/18 14:01 Last Admin: 11/02/17 09:16 Dose: 100 mg Doxazosin Mesylate (Cardura) 2 mg PO HS [facility] Stop: 05/03/18 21:01 Last Admin: 11/02/17 20:17 Dose: 2 mg Famotidine (Pepcid) 20 mg PO DAILY [facility] Stop: 05/05/18 09:01 Finasteride (Proscar) 5 mg PO DAILY [facility] PRN Reason: Protocol Stop: 05/04/18 09:01 Last Admin: 11/02/17 09:16 Dose: 5 mg Furosemide (Lasix) 40 mg IVP BIDDIURETIC [facility] Stop: 05/04/18 17:01 Last Admin: 11/02/17 17:11 Dose: 40 mg Glucagon (Glucagen) 1 mg IM ONCE PRN PRN Reason: Hypoglycemia Stop: 05/04/18 09:34 Glucose (Gluctose) 15 gm PO ONCE PRN PRN Reason: Hypoglycemia Stop: 05/04/18 09:34 Glucose (Gluctose) 30 gm PO ONCE PRN PRN Reason: Hypoglycemia Stop: 05/04/18 09:34 Hydralazine HCl (Hydralazine) 10 mg IVP Q6H PRN PRN Reason: SEE COMMENTS Stop: 05/03/18 13:12 Dextrose (Dextrose 5%) 1,000 mls @ 100 mls/hr IVC .Q10H PRN PRN Reason: HYPOGLYCEMIA Stop: 05/04/18 09:34 Insulin Detemir (Levemir) 35 unit SQ HS [facility] Stop: 05/03/18 21:01 Last Admin: 11/02/17 20:16 Dose: 35 unit Insulin Human Lispro (Humalog) 0 units SQ HS [facility] PRN Reason: Protocol Stop: 05/03/18 21:01 Last Admin: 11/02/17 20:16 Dose: 3 units Insulin Human Lispro (Humalog) 0 units SQ TIDAC [facility] PRN Reason: Protocol Stop: 05/04/18 11:31 Last Admin: 11/03/17 07:44 Dose: Not Given Isosorbide Mononitrate (Imdur) 60 mg PO DAILY [facility] Stop: 05/04/18 09:01 Last Admin: 11/02/17 09:16 Dose: 60 mg Lactulose (Lactulose) 10 gm RC BID [facility] Stop: 05/03/18 21:01 Last Admin: 11/02/17 20:15 Dose: 10 gm Levothyroxine Sodium (Synthroid) 100 mcg PO DAILY@0630 [facility] Stop: 05/05/18 06:31 Last Admin: 11/03/17 05:32 Dose: 100 mcg Naloxone HCl (Narcan) 0.4 mg IVP Q2MIN PRN PRN Reason: SEE COMMENTS Stop: 05/03/18 13:15 Nitroglycerin (Nitroglycerin) 0.4 mg SL Q5M PRN PRN Reason: Chest Pain Stop: 05/03/18 13:07 Ondansetron HCl (Zofran) 4 mg IVP Q8H PRN; Protocol PRN Reason: Nausea And Vomiting Stop: 05/03/18 13:12 Timolol Maleate (Timolol Maleate 0.5%) 1 drop BOTH EYES BID [facility] PRN Reason: Protocol Stop: 05/03/18 21:01 Last Admin: 11/02/17 20:16 Dose: 1 drop Vitamin D (Vitamin D) 1,000 unit PO DAILY [facility] PRN Reason: Protocol Stop: 05/04/18 09:01 Last Admin: 11/02/17 09:16 Dose: 1,000 unit Laboratory Tests 11/03/17 11/03/17 04:03 04:03 Hgb 10.2 L Creatinine 1.31 H - Imaging and Cardiology Chest Xray: report reviewed Echo: report reviewed - EKG Interpretation EKG results cardiology: other (Telemetry reviewed with average HR previous 12 hours noted to be 68, SR. PVCs and PACs noted.) Consult Discharge Plan - Plan Referrals: Nestor De La Cruz MD [Primary Care Provider] -
[2017-11-03] MEDS ORDERED: Metoprolol XL (24 HR) Succ 25 MG TAB.ER.24H PO SCH (10:00)
[2017-11-03] MEDS: Lactulose Oral Soln 20 GM/30 ML UDC RC SCH (10:12)
[2017-11-03] MEDS: Isosorbide MONOnitrate (24 HR) 60 MG TAB.ER.24H PO SCH (10:13)
[2017-11-03] MEDS: Finasteride 5 MG TABLET PO SCH (10:13)
[2017-11-03] MEDS: Aspirin Enteric Coated 81 MG Tablet PO SCH (10:13)
[2017-11-03] MEDS: Cholecalciferol (D-3) 1,000 UNIT TABLET PO SCH (10:13)
--- NOTE | 2017-11-03 14:23 | Discharge Summary ---
- NOTES TO OUTPATIENT PROVIDER Notes to Outpatient Provider: Acute CHF exacerbation due to dietary indiscretion ; Orders not resulted at time of discharge: Pending orders 11/03/17 18:30 Heparin anti-factor XA UFH [COAG] Timed Date of Encounter: 11/03/17 Time of Encounter: 14:19 - Discharge Diagnosis (1) NSTEMI (non-ST elevated myocardial infarction) Priority: Primary Status: Acute (2) Acute decompensated heart failure Priority: Primary Status: Acute (3) CKD (chronic kidney disease) stage 3, GFR 30-59 ml/min Priority: Secondary Status: Chronic (4) CAD (coronary artery disease) Priority: Secondary Status: Chronic Qualifiers: Coronary Disease-Associated Artery/Lesion type: nondalton artery [place] vs. transplanted heart: nondalton heart Associated angina: without angina Qualified Code(s): I25.10 - Atherosclerotic heart disease of nondalton coronary artery without angina pectoris (5) HTN (hypertension) Priority: Secondary Status: Chronic Qualifiers: Hypertension type: essential hypertension Qualified Code(s): I10 - Essential (primary) hypertension (6) Diabetes mellitus Priority: Secondary Status: Chronic Qualifiers: Diabetes mellitus type: type 2 Diabetes mellitus terminal manager insulin use: with snf use Diabetes mellitus complication status: with unspecified complications Qualified Code(s): E11.8 - Type 2 diabetes mellitus with unspecified complications; Z79.4 - prison (current) use of insulin (7) Gout Priority: Secondary Status: Chronic Qualifiers: Gout site: unspecified site Gout etiology: unspecified cause Chronicity: unspecified Qualified Code(s): M10.9 - Gout, unspecified (8) Hypothyroidism Priority: Secondary Status: Chronic Qualifiers: Hypothyroidism type: unspecified Qualified Code(s): E03.9 - Hypothyroidism , unspecified (9) PAD (peripheral artery disease) Priority: Secondary Status: Chronic (10) 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 Read is a 82 year old male with history of CAD, CHF, CKD, who was admitted with sudden onset of shortness of breath and orthopnea. Patient was just discharged from our hospital 2 days ago after being treated for left diabetic foot infection status post third and fourth toe amputations. He was supposed to have been on Lasix and metoprolol, could not fill his prescriptions due to the long weekend and got readmitted. He was started on diuresis with IV Lasix with fluid restriction with significant improvement in his symptoms, noted to have net negative fluid balance of at least 4.5 L and a 5 kg weight loss. Patient had mild troponin leak at admission, started on IV heparin drip per [facility] protocol. Recent echocardiogram showed mildly reduced EF around 45%, mild LV dilation, moderate diastolic dysfunction, mild MR. Cardiology was consulted, agreed with this management, ideally recommended left heart catheterization, however patient is not agreeable at this time. He is otherwise medically stable for discharge with outpatient cardiology follow-up. Salt and fluid restriction along with medical compliance with Lasix have been reinforced multiple times, patient was also seen by dietitian. Pharmacist checked with patient's outpatient pharmacy- he has not filled Lasix although he has 2 refills remaining, and they have no prescription for beta elda (despite patient being provided with it at last discharge). Electronic prescriptions completed, for Lasix and Metoprolol. He was also seen by podiatry during this admission with no new recommendations, to continue with local wound care and follow up with podiatry as outpatient in 1 week. Discharge discussed with: patient, nurse, fashion consultant - Time Spent with Patient Total time spent providing and/or coordinating discharge services: Greater than 30 minutes (40 min) - Discharge Medications Prescriptions: Furosemide [Lasix] 40 mg PO BIDDIURETIC #60 tablet Metoprolol XL (24 HR) Succ [Toprol Xl] 12.5 mg PO DAILY #30 tab.er.24h Home Medications: Allopurinol [Zyloprim 300 MG] 300 mg PO DAILY 05/26/15 [History] Insulin ASPART [NovoLOG] 11 - 15 unit SQ TIDAC 05/26/15 [History] Insulin Glargine [Lantus] 34 - 45 unit SQ HS 05/26/15 [History] Levothyroxine [Synthroid] 100 mcg PO QAM 05/26/15 [History] Lactulose 10 gm PO BID 04/05/16 [History] Nitroglycerin [Nitrostat] 0.4 mg SL Q5M PRN 04/05/16 [History] Atorvastatin [Lipitor] 40 mg PO HS 10/25/17 [History] Cholecalciferol (D-3) [Vitamin D] 5,000 unit PO DAILY #0 10/25/17 [History] Doxazosin [Cardura] 2 mg PO HS 10/25/17 [History] Timolol Maleate 0.5% 1 drop BOTH EYES BID 10/26/17 [History] Ferrous Sulfate 325 mg PO DAILY #30 tablet 10/31/17 [Rx] Aspirin [Lo-Dose Aspirin EC] 81 mg PO DAILY 11/01/17 [History] Finasteride [Proscar] 5 mg PO DAILY 11/01/17 [History] Isosorbide MONOnitrate (24 HR) [Imdur] 60 mg PO DAILY 11/01/17 [History] Ranitidine HCl [Acid Watershed Engineer] 150 mg PO BID 11/01/17 [History] Furosemide [Lasix] 40 mg PO BIDDIURETIC #60 tablet 11/03/17 [Rx] Metoprolol XL (24 HR) Succ [Toprol Xl] 12.5 mg PO DAILY #30 tab.er.24h 11/03/17 [Rx] Allergies/Adverse Reactions: 3 Allergy/AdvReac Type Severity Reaction Status Date / Time acetaminophen [From Percocet] Allergy Hives Verified 11/01/17 11:37 Iodinated Contrast- Oral and Allergy Hives Verified 11/01/17 11:37 IV Dye Oxycodone [From Percocet] Allergy Hives Verified 11/01/17 11:37 prednisone Allergy Rash Verified 11/01/17 11:37 Date of admission: 11/01/17 11:52 Primary care physician: Nestor De La Cruz MD Consults: 11/01/17 13:00 Consult to Podiatry [CONS] Routine Consulting Provider: Podiatry [facility] Reason for Consult: Genrene of toes of left foot Call Completed: Yes 11/02/17 13:26 Consult to Nutrition [CONS] Routine Comment: Sodium and water restriction for CHF Consulting Provider: NUTRITION Reason for Dietary Consult: Diet Education Discharging clinician: Una Wall Anticipated date of discharge: 11/03/17 - Constitutional Vitals: Temp Pulse Resp BP Pulse Ox 98.2 F 84 16 124/57 92 11/03/17 07:48 11/03/17 07:48 11/03/17 10:48 11/03/17 07:48 11/03/17 10:48 General appearance: Present: A&O X 3, answers questions appropriately Exam: . - Cardiovascular Cardiovascular exam: Present: RRR, +S1, +S2. Absent: diastolic murmur, gallop, rubs, systolic murmur - Patient Status Disposition: Home Health Service Condition: Good Functional capacity at discharge: uses cane/walker Overall status at discharge: patient is progressing back to baseline - Discharge Instructions Follow Up With: Nestor De La Cruz MD [Primary Care Provider] - 11/10/17 2:15 pm (Please follow up as schedule...) David Stapleton DPM [Partnered Physician] - 11/12/17 9:15 am Additional Instructions: F/up with Cardiology in 3-4 weeks F/up with Podiatry in 1 week - Diet and Activity Activity: increase activity as tolerated Diet: diabetic diet, low fat, low cholesterol, low salt diet, other (fluid restriction to 1.2L/day)
--- NOTE | 2017-11-03 14:35 | Physician Discharge Referral ---
Home Health/Hosp Referral Info Transfer to: Home Health Attending Provider: Una Wall Provider in Charge Post Discharge: PCP - Diagnosis (1) NSTEMI (non-ST elevated myocardial infarction) Priority: Primary Status: Acute (2) Acute decompensated heart failure Priority: Primary Status: Acute (3) CKD (chronic kidney disease) stage 3, GFR 30-59 ml/min Priority: Secondary Status: Chronic (4) CAD (coronary artery disease) Priority: Secondary Status: Chronic (5) HTN (hypertension) Priority: Secondary Status: Chronic (6) Diabetes mellitus Priority: Secondary Status: Chronic (7) Gout Priority: Secondary Status: Chronic (8) Hypothyroidism Priority: Secondary Status: Chronic (9) PAD (peripheral artery disease) Priority: Secondary Status: Chronic (10) Gangrene of toe of left foot Priority: Primary Status: Chronic - Respiratory Orders Smoking Cessation: Smoking cessation has been advised. For more information, call the [employer] Quit Line at [phone]-ZYYP-NOW. - Activity Activity Orders: Ambulate - Services Needed Following services are medically necessary services: [facility] Orders: wound care to left foot per Podiatry recommendations; - Transfer Medications Prescriptions: Furosemide [Lasix] 40 mg PO BIDDIURETIC #60 tablet Metoprolol XL (24 HR) Succ [Toprol Xl] 12.5 mg PO DAILY #30 tab.er.24h Home Medications: Allopurinol [Zyloprim 300 MG] 300 mg PO DAILY 05/26/15 [History] Insulin ASPART [NovoLOG] 11 - 15 unit SQ TIDAC 05/26/15 [History] Insulin Glargine [Lantus] 34 - 45 unit SQ HS 05/26/15 [History] Levothyroxine [Synthroid] 100 mcg PO QAM 05/26/15 [History] Lactulose 10 gm PO BID 04/05/16 [History] Nitroglycerin [Nitrostat] 0.4 mg SL Q5M PRN 04/05/16 [History] Atorvastatin [Lipitor] 40 mg PO HS 10/25/17 [History] Cholecalciferol (D-3) [Vitamin D] 5,000 unit PO DAILY #0 10/25/17 [History] Doxazosin [Cardura] 2 mg PO HS 10/25/17 [History] Timolol Maleate 0.5% 1 drop BOTH EYES BID 10/26/17 [History] Ferrous Sulfate 325 mg PO DAILY #30 tablet 10/31/17 [Rx] Aspirin [Lo-Dose Aspirin EC] 81 mg PO DAILY 11/01/17 [History] Finasteride [Proscar] 5 mg PO DAILY 11/01/17 [History] Isosorbide MONOnitrate (24 HR) [Imdur] 60 mg PO DAILY 11/01/17 [History] Ranitidine HCl [Acid Crime Laboratory Analyst] 150 mg PO BID 11/01/17 [History] Furosemide [Lasix] 40 mg PO BIDDIURETIC #60 tablet 11/03/17 [Rx] Metoprolol XL (24 HR) Succ [Toprol Xl] 12.5 mg PO DAILY #30 tab.er.24h 11/03/17 [Rx] Allergies/Adverse Reactions: 3 Allergy/AdvReac Type Severity Reaction Status Date / Time acetaminophen [From Percocet] Allergy Hives Verified 11/01/17 11:37 Iodinated Contrast- Oral and Allergy Hives Verified 11/01/17 11:37 IV Dye Oxycodone [From Percocet] Allergy Hives Verified 11/01/17 11:37 prednisone Allergy Rash Verified 11/01/17 11:37 Certification: Further, I certify that my clinical findings support that this patient is homebound (i.e. absences from home require considerable and taxing effort and are for medical reasons or jainism services or infrequently or short duration when for other reasons) because: Homebound Reason: Patient requires assistance of a person or device to safely leave home, Post-surgery restriction and or conditions limit ability to leave home, Leaving home requires considerable and taxing effort due to condition Attestation: My signature below is to certify that this patient is under my care and that I, or nurse practitioner, or a physician's reading assistant working with me, has a face-to -face encounter with this patient.
[2017-11-03] MEDS ORDERED: Furosemide 40 MG TABLET PO SCH (17:00)
--- NOTE | 2017-11-03 23:17 | Electrocardiograph Report ---
[place] [id number] Test Date: 2017-11-01 Pat Name: Justin Read Department: EXAM5 Room: 2A43 Gender: M Building Certifier: : [id number] Requested By: Sammie Shafer Order Number: [id number] Reading MD: Moni Rubio Measurements Intervals [place] Rate: 79 P: -6 CT: 257 QRS: 28 QRSD: 141 T: QT: 405 QTc: 465 Interpretive Statements Sinus rhythm with PACs First degree AV block Right bundle branch block Inferior infarct, old Electronically Signed On 11-03-2017 23:15:57 EDT by Moni Rubio
--- NOTE | 2017-11-06 12:18 | Electrocardiograph Report ---
[address] [place], [place] [address] Test Date: 2017-11-02 Pat Name: Justin Read Department: 112 Room: 2A43 Gender: Motor Vehicles Supervisor: : [id number] Requested By: Jeannie Jean Order Number: [id number] Reading MD: Moni Rubio Measurements Intervals [place] Rate: 268 P: -27 NV: 208 QRS: -2 QRSD: 128 T: 90 QT: 448 QTc: 459 Interpretive Statements SINUS RHYTHM First degree AV block RIGHT BUNDLE BRANCH BLOCK MODERATE T-WAVE ABNORMALITY, CONSIDER LATERAL ISCHEMIA Electronically Signed On 11-06-2017 12:16:38 EDT by Moni Rubio
== END 2017-11-03 15:47 | disposition home health service (06) | DRG 280 ==
LOC: EMEROOARM 08:54 → 2ANU 11:52 → SUATTDRO 11:52 → 2ANU 13:20
PROVIDERS: ADMIT Student in an Organized Health Care Education/Training Program; ATTEND Internal Medicine

== ENCOUNTER 2018-10-07 12:18 | Inpatient (IN) ==
[2018-10-07 13:47] LABS: Basophils % 0.6 %; Eosinophils # 0.1 K/mcL (0.0-0.6); Eosinophils % 3.3 %; Hematocrit 33.2 % (37.5-50.1); Immature Granulocytes % 0.6 % (0-4); Lymphocytes # 0.4 K/mcL (0.6-4.6); Lymphocytes % 11.6 %; Mean Corpuscular HGB Conc 33.1 g/dL (31.6-35.5); Mean Corpuscular Hemoglobin 34.2 pg (28.0-33.3); Mean Corpuscular Volume 103.1 fL (83.0-100.0); Mean Platelet Volume 11.5 fL (9.4-12.4); Monocytes # 0.5 K/mcL (0.0-1.3); Monocytes % 13.2 %; Neutrophils # 2.6 K/mcL (1.6-8.9); Platelet Count 119 K/mcL (140-400); Red Blood Count 3.22 M/mcL (4.19-5.50); Red Cell Distribution Width 17.2 % (11.5-14.5); Segmented Neutrophils % 70.7 %; White Blood Count 3.6 K/mcL (4.3-11.1)
[2018-10-07 14:03] LABS: Alanine Aminotransferase 56 Units/L (7-52); Albumin 2.9 g/dL (3.5-5.7); Albumin/Globulin Ratio 0.9 (1.1-2.2); Alkaline Phosphatase 280 Units/L (34-104); Aspartate Amino Transferase 67 Units/L (13-39); BUN/Creatinine Ratio 22 (6-26); Bilirubin,Direct 0.4 mg/dL (0.0-0.2); Bilirubin,Indirect 0.6 mg/dL (0.0-1.2); Blood Urea Nitrogen 28 mg/dL (8-23); Calcium 8.6 mg/dL (8.6-10.3); Carbon Dioxide 28 mEq/L (23-29); Chloride 104 mEq/L (98-107); Globulin 3.1 g/dL (2.4-3.5); Glucose 155 mg/dL (70-105); Lipase 7 Units/L (11-82); Magnesium 2.1 mg/dL (1.6-2.6); Osmolality,Calculated 295 (280-300); Potassium 3.8 mEq/L (3.5-5.1); Sodium 138 mEq/L (136-145); Troponin I 0.03 ng/mL (< 0.04); eGFR For African Americans > 60 (> 60); eGFR For Non-African Americans 53 (> 60)
[2018-10-07] MEDS ORDERED: Furosemide 40 MG/4 ML VIAL IVP ONE (14:19)
[2018-10-07 15:06] LABS: Bilirubin,Urine Negative (Negative); Blood,Urine Negative (Negative); Clarity,Urine Turbid (Clear); Color,Urine Dark Yellow (Yellow); Glucose,Urine (UA) Normal (Normal); Ketones,Urine Negative (Negative); Leukocyte Esterase,Urine Negative (Negative); Nitrite,Urine Negative (Negative); PH,Urine 6.5 pH Units (5.0-8.0); Protein,Urine Negative (Neg-Trace); Specific Gravity,Urine 1.016 (1.010-1.025); Urobilinogen,Urine Normal (Normal)
[2018-10-07 15:13] LABS: Bacteria,Urine None Seen per hpf (None-Few); Hyaline Casts,Urine None Seen per lpf (None-Few); RBC,Urine 0-3 per hpf (0-3); Squamous Epithelial Cell,Urine Moderate per lpf (None-Few); WBC,Urine 0-3 per hpf (0-3)
[2018-10-07] MEDS ORDERED: Naloxone 0.4 MG/ML INJ IVP PRN (15:57)
[2018-10-07] MEDS ORDERED: *HR* Dextrose 50 % in Water (Syg) 50 ML SYRINGE IVP PRN (16:20)
[2018-10-07] MEDS ORDERED: D5% in Water 1,000 ML IVC PRN (16:20)
[2018-10-07] MEDS ORDERED: Dextrose Gel 15 GM/37.5 ML TUBE PO PRN ×2 (16:20)
[2018-10-07] MEDS: Lactulose Oral Soln 20 GM/30 ML UDC PO SCH ×2 (18:28→21:59)
[2018-10-07] MEDS: Albumin 25% 25gram/100mL 25 GM/100 ML IV.SOLN IVPB SCH ×2 (18:28→18:58)
[2018-10-07] MEDS: Insulin LISPRO 300 UNITS/3 ML VIAL SQ SCH (18:29)
[2018-10-07] MEDS: Furosemide 40 MG/4 ML VIAL IVP SCH (18:53)
[2018-10-07] MEDS: Cefepime HCl 1,000 MG in 0.9 % Sodium Chloride Mini Bag 100 ML IVPB SCH (21:48)
[2018-10-07] MEDS: Ranolazine 500 MG TAB.ER.12H PO SCH (21:57)
[2018-10-07] MEDS: Famotidine 20 MG TABLET PO SCH (21:57)
[2018-10-07] MEDS: Insulin DETEMIR 100 UNIT/ML X5UNITS SQ SCH (22:04)
[2018-10-08] MEDS: *HR* Heparin 5,000 UNIT/ML VIAL SQ SCH ×2 (06:26→17:04)
[2018-10-08] MEDS: Cefepime HCl 1,000 MG in 0.9 % Sodium Chloride Mini Bag 100 ML IVPB SCH ×2 (06:30→17:05)
[2018-10-08 06:58] LABS: Basophils % 0.5 %; Eosinophils # 0.1 K/mcL (0.0-0.6); Eosinophils % 3.3 %; Hemoglobin 10.8 g/dL (12.9-16.9); Immature Granulocytes % 0.5 % (0-4); Lymphocytes # 0.5 K/mcL (0.6-4.6); Lymphocytes % 13.6 %; Mean Corpuscular HGB Conc 33.8 g/dL (31.6-35.5); Mean Corpuscular Hemoglobin 34.2 pg (28.0-33.3); Mean Corpuscular Volume 101.3 fL (83.0-100.0); Mean Platelet Volume 11.4 fL (9.4-12.4); Monocytes # 0.5 K/mcL (0.0-1.3); Monocytes % 12.8 %; Neutrophils # 2.7 K/mcL (1.6-8.9); Platelet Count 120 K/mcL (140-400); Red Blood Count 3.16 M/mcL (4.19-5.50); Red Cell Distribution Width 17.1 % (11.5-14.5); Segmented Neutrophils % 69.3 %; White Blood Count 3.9 K/mcL (4.3-11.1)
[2018-10-08 07:15] LABS: Magnesium 2.1 mg/dL (1.6-2.6)
[2018-10-08 07:16] LABS: INR 1.2; Prothrombin Time 13.6 Seconds (9.4-12.1)
[2018-10-08] MEDS: Insulin LISPRO 300 UNITS/3 ML VIAL SQ SCH ×3 (09:36→17:04)
[2018-10-08] MEDS: Cholecalciferol (D-3) 1,000 UNIT (25MCG) TABLET PO SCH (09:41)
[2018-10-08] MEDS: Famotidine 20 MG TABLET PO SCH ×2 (09:41→20:41)
[2018-10-08] MEDS: Metoprolol XL (24 HR) Succ 25 MG TAB.ER.24H PO SCH (09:41)
[2018-10-08] MEDS: Ranolazine 500 MG TAB.ER.12H PO SCH ×2 (09:41→20:41)
[2018-10-08] MEDS: Aspirin Enteric Coated 81 MG Tablet PO SCH (09:41)
[2018-10-08] MEDS: Lactulose Oral Soln 20 GM/30 ML UDC PO SCH ×2 (09:42→20:40)
[2018-10-08] MEDS: Albumin 25% 25gram/100mL 25 GM/100 ML IV.SOLN IVPB SCH ×2 (09:42→17:04)
[2018-10-08] MEDS: Furosemide 40 MG/4 ML VIAL IVP SCH ×2 (09:42→17:04)
[2018-10-08] MEDS: Finasteride 5 MG TABLET PO SCH (09:42)
[2018-10-08 10:11] LABS: BUN/Creatinine Ratio 23 (6-26); Blood Urea Nitrogen 26 mg/dL (8-23); Calcium 8.7 mg/dL (8.6-10.3); Carbon Dioxide 25 mEq/L (23-29); Chloride 105 mEq/L (98-107); Glucose 59 mg/dL (70-105); Osmolality,Calculated 287 (280-300); Potassium 3.6 mEq/L (3.5-5.1); Sodium 137 mEq/L (136-145); eGFR For African Americans > 60 (> 60); eGFR For Non-African Americans > 60 (> 60)
[2018-10-08] MEDS ORDERED: Milk and Molasses Enema 200 ML RC ONE (11:05)
[2018-10-08] MEDS ORDERED: *HR* Promethazine 25 MG/ML VIAL IVP ONE (20:32)
[2018-10-08] MEDS: Melatonin 3 MG TABLET PO SCH (20:41)
[2018-10-08] MEDS: Insulin DETEMIR 100 UNIT/ML X5UNITS SQ SCH (22:08)
[2018-10-09] MEDS: *HR* Heparin 5,000 UNIT/ML VIAL SQ SCH ×2 (03:21→17:08)
[2018-10-09] MEDS: Cefepime HCl 1,000 MG in 0.9 % Sodium Chloride Mini Bag 100 ML IVPB SCH ×2 (03:21→17:08)
[2018-10-09] MEDS: Metoprolol XL (24 HR) Succ 25 MG TAB.ER.24H PO SCH (07:24)
[2018-10-09] MEDS: Aspirin Enteric Coated 81 MG Tablet PO SCH (07:24)
[2018-10-09] MEDS: Furosemide 40 MG/4 ML VIAL IVP SCH ×2 (07:24→17:08)
[2018-10-09] MEDS: Ranolazine 500 MG TAB.ER.12H PO SCH ×2 (07:24→22:17)
[2018-10-09] MEDS: Lactulose Oral Soln 20 GM/30 ML UDC PO SCH ×2 (07:24→22:17)
[2018-10-09] MEDS: Famotidine 20 MG TABLET PO SCH ×2 (07:26→22:17)
[2018-10-09] MEDS: Finasteride 5 MG TABLET PO SCH (07:26)
[2018-10-09] MEDS: Cholecalciferol (D-3) 1,000 UNIT (25MCG) TABLET PO SCH (07:26)
[2018-10-09] MEDS: Albumin 25% 25gram/100mL 25 GM/100 ML IV.SOLN IVPB SCH ×2 (07:27→17:07)
[2018-10-09] MEDS: Insulin LISPRO 300 UNITS/3 ML VIAL SQ SCH ×3 (07:56→17:08)
[2018-10-09 08:36] LABS: Hematocrit 33.2 % (37.5-50.1); Hemoglobin 10.9 g/dL (12.9-16.9); Mean Corpuscular HGB Conc 32.8 g/dL (31.6-35.5); Mean Corpuscular Hemoglobin 33.2 pg (28.0-33.3); Mean Corpuscular Volume 101.2 fL (83.0-100.0); Mean Platelet Volume 11.6 fL (9.4-12.4); Platelet Count 121 K/mcL (140-400); Red Blood Count 3.28 M/mcL (4.19-5.50); Red Cell Distribution Width 17.2 % (11.5-14.5)
[2018-10-09 08:42] LABS: White Blood Count 6.3 K/mcL (4.3-11.1)
[2018-10-09 10:45] LABS: Alanine Aminotransferase 57 Units/L (7-52); Albumin 3.5 g/dL (3.5-5.7); Albumin/Globulin Ratio 1.2 (1.1-2.2); Alkaline Phosphatase 277 Units/L (34-104); Aspartate Amino Transferase 72 Units/L (13-39); BUN/Creatinine Ratio 21 (6-26); Bilirubin,Direct 0.6 mg/dL (0.0-0.2); Bilirubin,Indirect 1.1 mg/dL (0.0-1.2); Bilirubin,Total 1.7 mg/dL (0.3-1.0); Blood Urea Nitrogen 27 mg/dL (8-23); Calcium 9.1 mg/dL (8.6-10.3); Carbon Dioxide 24 mEq/L (23-29); Chloride 102 mEq/L (98-107); Globulin 2.9 g/dL (2.4-3.5); Glucose 112 mg/dL (70-105); Osmolality,Calculated 294 (280-300); Potassium 3.5 mEq/L (3.5-5.1); Sodium 139 mEq/L (136-145); Total Protein 6.4 g/dL (6.4-8.9); eGFR For African Americans > 60 (> 60); eGFR For Non-African Americans 55 (> 60)
[2018-10-09] MEDS: Melatonin 3 MG TABLET PO SCH (22:17)
[2018-10-09] MEDS: Insulin DETEMIR 100 UNIT/ML X5UNITS SQ SCH (22:18)
[2018-10-10 03:00] LABS: Mean Platelet Volume 11.6 fL (9.4-12.4); Red Cell Distribution Width 17.2 % (11.5-14.5)
[2018-10-10 03:02] LABS: Hematocrit 29.4 % (37.5-50.1); Hemoglobin 9.7 g/dL (12.9-16.9); Immature Platelets 6.1 % (1.1-6.1); Mean Corpuscular Hemoglobin 33.7 pg (28.0-33.3); Mean Corpuscular Volume 102.1 fL (83.0-100.0); Red Blood Count 2.88 M/mcL (4.19-5.50); White Blood Count 5.5 K/mcL (4.3-11.1)
[2018-10-10 03:17] LABS: BUN/Creatinine Ratio 23 (6-26); Blood Urea Nitrogen 30 mg/dL (8-23); Calcium 8.9 mg/dL (8.6-10.3); Carbon Dioxide 23 mEq/L (23-29); Chloride 103 mEq/L (98-107); Glucose 144 mg/dL (70-105); Osmolality,Calculated 291 (280-300); Potassium 3.4 mEq/L (3.5-5.1); Sodium 136 mEq/L (136-145); eGFR For African Americans > 60 (> 60); eGFR For Non-African Americans 53 (> 60)
[2018-10-10 03:32] LABS: Thyroid Stimulating Hormone 6.591 mcIU/mL (0.340-5.600)
[2018-10-10 03:42] LABS: Folate > 22.3 ng/mL (3.0-16.0)
[2018-10-10 03:43] LABS: Vitamin B12 852 pg/mL (250-1100)
[2018-10-10] MEDS: Cefepime HCl 1,000 MG in 0.9 % Sodium Chloride Mini Bag 100 ML IVPB SCH ×2 (06:14→19:37)
[2018-10-10] MEDS: *HR* Heparin 5,000 UNIT/ML VIAL SQ SCH ×2 (06:15→17:47)
[2018-10-10] MEDS: Insulin LISPRO 300 UNITS/3 ML VIAL SQ SCH ×3 (09:42→16:29)
[2018-10-10] MEDS: Cholecalciferol (D-3) 1,000 UNIT (25MCG) TABLET PO SCH (09:51)
[2018-10-10] MEDS: Aspirin Enteric Coated 81 MG Tablet PO SCH (09:51)
[2018-10-10] MEDS: Metoprolol XL (24 HR) Succ 25 MG TAB.ER.24H PO SCH (09:52)
[2018-10-10] MEDS: Ranolazine 500 MG TAB.ER.12H PO SCH ×2 (09:53→20:12)
[2018-10-10] MEDS: Finasteride 5 MG TABLET PO SCH (09:53)
[2018-10-10] MEDS: Famotidine 20 MG TABLET PO SCH ×2 (09:53→20:11)
[2018-10-10] MEDS: Albumin 25% 25gram/100mL 25 GM/100 ML IV.SOLN IVPB SCH ×2 (09:54→17:33)
[2018-10-10] MEDS: Lactulose Oral Soln 20 GM/30 ML UDC PO SCH ×2 (09:54→20:11)
[2018-10-10] MEDS: Furosemide 40 MG/4 ML VIAL IVP SCH ×2 (09:56→17:32)
[2018-10-10] MEDS: Melatonin 3 MG TABLET PO SCH (20:11)
[2018-10-10] MEDS: Insulin DETEMIR 100 UNIT/ML X5UNITS SQ SCH (22:28)
[2018-10-11 06:01] LABS: Hematocrit 30.3 % (37.5-50.1); Mean Corpuscular Hemoglobin 33.7 pg (28.0-33.3); Mean Platelet Volume 11.7 fL (9.4-12.4); Platelet Count 104 K/mcL (140-400); Red Blood Count 2.97 M/mcL (4.19-5.50); Red Cell Distribution Width 17.2 % (11.5-14.5); White Blood Count 4.4 K/mcL (4.3-11.1)
[2018-10-11] MEDS: *HR* Heparin 5,000 UNIT/ML VIAL SQ SCH ×2 (06:10→17:11)
[2018-10-11] MEDS: Cefepime HCl 1,000 MG in 0.9 % Sodium Chloride Mini Bag 100 ML IVPB SCH ×2 (06:10→19:58)
[2018-10-11 06:27] LABS: Albumin/Globulin Ratio 1.7 (1.1-2.2); Bilirubin,Total 1.6 mg/dL (0.3-1.0); Calcium 9.5 mg/dL (8.6-10.3); Globulin 2.4 g/dL (2.4-3.5); Magnesium 2.2 mg/dL (1.6-2.6); Phosphorous 2.2 mg/dL (2.7-4.5); Total Protein 6.4 g/dL (6.4-8.9)
[2018-10-11 06:36] LABS: Triiodothyronine (T3) Free 2.09 pg/mL (2.50-3.90)
[2018-10-11] MEDS: Albumin 25% 25gram/100mL 25 GM/100 ML IV.SOLN IVPB SCH ×2 (08:20→17:12)
[2018-10-11] MEDS: Famotidine 20 MG TABLET PO SCH ×2 (08:25→20:00)
[2018-10-11] MEDS: Lactulose Oral Soln 20 GM/30 ML UDC PO SCH ×2 (08:25→19:59)
[2018-10-11] MEDS: Insulin LISPRO 300 UNITS/3 ML VIAL SQ SCH ×3 (08:25→17:11)
[2018-10-11] MEDS: Cholecalciferol (D-3) 1,000 UNIT (25MCG) TABLET PO SCH (08:26)
[2018-10-11] MEDS: Finasteride 5 MG TABLET PO SCH (08:26)
[2018-10-11] MEDS: Ranolazine 500 MG TAB.ER.12H PO SCH ×2 (08:26→20:00)
[2018-10-11] MEDS: Metoprolol XL (24 HR) Succ 25 MG TAB.ER.24H PO SCH (08:26)
[2018-10-11 16:09] LABS: LDH,Peritoneal Fluid 88 Units/L (No Ref Range); Total Protein,Peritoneal Fluid < 3.0 g/dL
[2018-10-11] MEDS: Aspirin Enteric Coated 81 MG Tablet PO SCH (17:12)
[2018-10-11 17:39] LABS: RBC,Peritoneal Fluid 0.003 M/mcL
[2018-10-11 19:55] LABS: Appearance of Peritoneal Fl HAZY (Clear); Basophils,Peritoneal Fluid 0 %; Eosinophils,Peritoneal Fluid 0 %
[2018-10-11] MEDS: Melatonin 3 MG TABLET PO SCH (20:01)
[2018-10-11] MEDS: Insulin DETEMIR 100 UNIT/ML X5UNITS SQ SCH (20:02)
[2018-10-12] MEDS: Cefepime HCl 1,000 MG in 0.9 % Sodium Chloride Mini Bag 100 ML IVPB SCH (05:46)
[2018-10-12] MEDS: *HR* Heparin 5,000 UNIT/ML VIAL SQ SCH (05:47)
[2018-10-12] MEDS: Insulin LISPRO 300 UNITS/3 ML VIAL SQ SCH ×2 (07:54→12:13)
[2018-10-12] MEDS: Lactulose Oral Soln 20 GM/30 ML UDC PO SCH (08:04)
[2018-10-12] MEDS: Aspirin Enteric Coated 81 MG Tablet PO SCH (08:04)
[2018-10-12] MEDS: Famotidine 20 MG TABLET PO SCH (08:05)
[2018-10-12] MEDS: Cholecalciferol (D-3) 1,000 UNIT (25MCG) TABLET PO SCH (08:05)
[2018-10-12] MEDS: Finasteride 5 MG TABLET PO SCH (08:05)
[2018-10-12] MEDS: Metoprolol XL (24 HR) Succ 25 MG TAB.ER.24H PO SCH (08:05)
[2018-10-12] MEDS: Albumin 25% 25gram/100mL 25 GM/100 ML IV.SOLN IVPB SCH (08:08)
[2018-10-12] MEDS: Ranolazine 500 MG TAB.ER.12H PO SCH (08:09)
[2018-10-12 11:34] VITALS: BP 121/64
[2018-10-12 12:18] LABS: Red Cell Distribution Width 17.7 % (11.5-14.5); White Blood Count 4.4 K/mcL (4.3-11.1)
[2018-10-12 12:20] LABS: Basophils % 0.7 %; Eosinophils # 0.1 K/mcL (0.0-0.6); Eosinophils % 1.8 %; Hematocrit 31.9 % (37.5-50.1); Hemoglobin 10.5 g/dL (12.9-16.9); Immature Granulocytes % 0.7 % (0-4); Lymphocytes # 0.5 K/mcL (0.6-4.6); Lymphocytes % 10.7 %; Mean Corpuscular HGB Conc 32.9 g/dL (31.6-35.5); Mean Corpuscular Hemoglobin 34.2 pg (28.0-33.3); Mean Corpuscular Volume 103.9 fL (83.0-100.0); Mean Platelet Volume 12.1 fL (9.4-12.4); Monocytes # 0.6 K/mcL (0.0-1.3); Monocytes % 12.5 %; Neutrophils # 3.2 K/mcL (1.6-8.9); Red Blood Count 3.07 M/mcL (4.19-5.50); Segmented Neutrophils % 73.6 %
[2018-10-12 12:21] LABS: Platelet Count 86 K/mcL (140-400)
[2018-10-12 12:39] LABS: Calcium 9.4 mg/dL (8.6-10.3); Potassium 4.6 mEq/L (3.5-5.1)
[2018-10-13 20:10] LABS: Fluid Source for Albumin PERITONEAL/ASCI
== END 2018-10-12 16:38 | disposition home health service (06) | DRG 435 ==
LOC: EMEROOARM 12:18 → 2NENU 12:18 → SUATTDRO 15:27 → 2NENU 16:12 → SUATTDRO 10-09 11:43
PROVIDERS: ADMIT Internal Medicine; ATTEND Family Medicine